=== PATIENT | male | born 1945 | race Caucasian/White ===

== ENCOUNTER 2016-12-15 00:24 | Emergency (ER) | payer MEDICARE ==
[2016-12-15] MEDS ORDERED: SODIUM CHLORIDE 0.9% 1,000 ML IV STA (00:30)
[2016-12-15] MEDS ORDERED: SODIUM CHLORIDE 0.9% 500 ML IV STA (00:30)
[2016-12-15 00:36] VITALS: RESP 18; TEMP 97.6
--- NOTE | 2016-12-15 00:37 | ED ---
General Adult HPI - General Stated complaint: chest pain Time Seen by Provider: 12/15/16 00:26 Source: patient, RN notes reviewed, old records reviewed Mode of arrival: EMS Limitations: no limitations - History of Present Illness Initial comments: This is a 71-year-old male in the ER for evaluation. Patient has significant history of heart disease significant history of chest pain and coming her chest pain shortness of breath and cough and congestion, symptoms earlier today-year- old for him and if it persisted. Patient again still with continued chest pain. No fevers does have increased cough and congestion. Patient does admit to difficulty breathing, does have history of heart failure states that this feels similar. No fever [place] history no sick contacts. Patient takes Coumadin for A. fib does have a pacemaker. - Related Data Home Medications Medication Instructions Recorded Confirmed ALPRAZolam [Xanax] 0.5 mg PO TID PRN 02/26/14 08/24/14 Aspirin 81 mg PO DAILY 02/26/14 08/24/14 Bumetanide [BUMEX] 2 mg PO DAILY PRN 02/26/14 08/24/14 Carvedilol [Coreg] 25 mg PO BID 02/26/14 08/24/14 Citalopram Hydrobromide [CeleXA] 20 mg PO DAILY 02/26/14 08/24/14 Colchicine [Colcrys] 0.6 mg PO DAILY 02/26/14 08/24/14 Febuxostat [Uloric] 80 mg PO HS 02/26/14 08/24/14 Hydrocodone/Acetaminophen [[place] 7.5 mg PO QID PRN 02/26/14 08/24/14 7.5-325] Insulin Aspart [NovoLOG] 9 unit SQ AC-TID 02/26/14 08/24/14 Insulin Detemir [Levemir] 33 unit SQ HS 02/26/14 08/24/14 Zyrtec(Dose Unknown) 1 tab PO DAILY PRN 02/26/14 08/24/14 Lorsartan 50 mg PO BID 08/13/14 08/24/14 Pantoprazole Sodium [Protonix] 40 mg PO DAILY 08/13/14 08/24/14 Warfarin Sodium 6 mg PO DAILY 08/13/14 08/24/14 Allergies Allergy/AdvReac Type Severity Reaction Status Date / Time lorazepam [From Ativan] Allergy combative Verified 12/15/16 00:30 and elevated BP prochlorperazine edisylate Allergy combative Verified 12/15/16 00:30 [From Compazine] prochlorperazine maleate Allergy combative Verified 12/15/16 00:30 [From Compazine] Review of Systems ROS Statement: Those systems with pertinent positive or pertinent negative responses have been documented in the HPI. ROS Other: All systems not noted in ROS Statement are negative. Past Medical History Past Medical History: Atrial Fibrillation, Cancer, Heart Failure, Diabetes Mellitus, GI Bleed, Hypertension, Myocardial Infarction ([place]), Prostate Disorder , Sleep Apnea/CPAP/BIPAP, Vascular Disorder Additional Past Medical History / Comment(s): no cpap used, diverticulitis, tophaceous gout, hx skin and prostate cancer Last Myocardial Infarction Date:: 11/2002 History of Any Multi-Drug Resistant Organisms: None Reported Past Surgical History: AICD, Coronary Bypass/CABG, Heart Catheterization With Stent, Joint Replacement, Tonsillectomy Additional Past Surgical History / Comment(s): knee replacements (left x 2, rt x 1), surgery for sleep apnea, skin cancer removal, left foot hammertoe, vasectomy, angioplasty,cataract both eyes Past Anesthesia/Blood Transfusion Reactions: Previous Problems w/ Anesthesia Additional Past Anesthesia/Blood Transfusion Reaction / Comment(s): "longer to come out" Date of Last Stent Placement:: 11/2002 Type of Cardiac Device: AICD Device Placement Date:: last 01/21/14 Past Psychological History: Anxiety Smoking Status: Former smoker Past Alcohol Use History: Rare Past Drug Use History: None Reported - Past Family History Father Family Medical History: Cancer, Diabetes Mellitus Additional Family Medical History / Comment(s): OF HEART DX Mother Family Medical History: Cancer General Exam Limitations: no limitations General appearance: alert, in no apparent distress Head exam: Present: atraumatic, normocephalic, normal inspection Eye exam: Present: normal appearance, PERRL, EOMI. Absent: scleral icterus, conjunctival injection, periorbital swelling ENT exam: Present: normal exam, mucous membranes moist Neck exam: Present: normal inspection. Absent: tenderness, meningismus, lymphadenopathy Respiratory exam: Present: normal lung sounds bilaterally. Absent: respiratory distress, wheezes, rales, rhonchi, stridor Cardiovascular Exam: Present: regular rate, normal rhythm, normal heart sounds. Absent: systolic murmur, diastolic murmur, rubs, gallop, clicks GI/Abdominal exam: Present: soft, normal bowel sounds. Absent: distended, tenderness, guarding, rebound, rigid Extremities exam: Present: normal inspection, full ROM, normal capillary refill. Absent: tenderness, pedal edema, joint swelling, calf tenderness Back exam: Present: normal inspection Neurological exam: Present: alert, oriented X3, CN II-XII intact Psychiatric exam: Present: normal affect, normal mood Skin exam: Present: warm, dry, intact, normal color. Absent: rash Course Vital Signs 12/15/16 12/15/16 12/15/16 00:30 01:02 01:47 Temperature 97.6 F Pulse Rate 70 68 70 Respiratory 18 18 18 Rate Blood Pressure 155/76 144/66 159/84 O2 Sat by Pulse 94 L 97 98 Oximetry 12/15/16 02:33 Temperature Pulse Rate 70 Respiratory 18 Rate Blood Pressure 157/74 O2 Sat by Pulse 97 Oximetry - Reevaluation(s) Reevaluation #1: Patient has continued chest pain, patient is currently anticoagulated, no heparin Patient does have improvement of chest pain with morphine Reevaluation #2: 12/15/16 03:49 Patient is needed to be smoke with with both admitting nursing staff as well as for managers, patient telling staff that again she is being mistreated mismanaged and had multiple consults regarding only making observation status, patient refuses to stay for observation status secondary to Medicare not pain for observation EKG Findings - EKG Comments: EKG Findings:: EKG shows paced rhythm at 70, QRS to 16, QTC 565 Medical Decision Making - Medical Decision Making 71 male to the ER for reevaluation chest pain. Patient has significant chest pain with cardiac risk factors. Patient will be admitted for cardiac observation, patient has CHF, mild renal failure. Continue with chest pain at this time Patient refuses to Hospital secondary to observation status spoke the patient, it is reasonable, white is reasonable, understanding risks of not staying secondary to observation, given continues to refuse to stay - Lab Data Result diagrams: 12/15/16 00:25 12/15/16 00:25 Lab Results 12/15/16 12/15/16 12/15/16 Range/Units 00:25 00:25 00:25 WBC 6.8 (3.8-10.6) k/uL RBC 4.40 (4.30-5.90) m/uL Hgb 13.2 (13.0-17.5) gm/dL Hct 41.0 (39.0-53.0) % MCV 93.2 (80.0-100.0) fL MCH 30.1 (25.0-35.0) pg MCHC 32.3 (31.0-37.0) g/dL RDW 14.0 (11.5-15.5) % Plt Count 137 L (150-450) k/uL Neutrophils % 78 % Lymphocytes % 13 % Monocytes % 6 % Eosinophils % 1 % Basophils % 1 % Neutrophils # 5.3 (1.3-7.7) k/uL Lymphocytes # 0.9 L (1.0-4.8) k/uL Monocytes # 0.4 (0-1.0) k/uL Eosinophils # 0.1 (0-0.7) k/uL Basophils # 0.1 (0-0.2) k/uL PT (9.0-12.0) sec INR (<1.2) APTT (22.0-30.0) sec Sodium 137 (137-145) mmol/L Potassium 5.1 (3.5-5.1) mmol/L Chloride 103 (98-107) mmol/L Carbon Dioxide 20 L (22-30) mmol/L Anion Gap 14 mmol/L BUN 63 H (9-20) mg/dL Creatinine 1.40 H (0.66-1.25) mg/dL Est GFR (MDRD) Af Amer >60 (>60 ml/min/1.73 sqM) Est GFR (MDRD) Non-Af 50 (>60 ml/min/1.73 sqM) Glucose 295 H (74-99) mg/dL Calcium 9.1 (8.4-10.2) mg/dL Phosphorus 4.2 (2.5-4.5) mg/dL Magnesium 2.1 (1.6-2.3) mg/dL Total Bilirubin 1.1 (0.2-1.3) mg/dL AST 26 (17-59) U/L ALT 31 (21-72) U/L Alkaline Phosphatase 207 H (38-126) U/L Total Creatine Kinase 42 L (55-170) U/L CK-MB (CK-2) 1.3 (0.0-2.4) ng/mL CK-MB (CK-2) Rel Index 3.1 Troponin I <0.012 (0.000-0.034) ng/mL Total Protein 7.3 (6.3-8.2) g/dL Albumin 4.4 (3.5-5.0) g/dL 12/15/16 Range/Units 00:25 WBC (3.8-10.6) k/uL RBC (4.30-5.90) m/uL Hgb (13.0-17.5) gm/dL Hct (39.0-53.0) % MCV (80.0-100.0) fL MCH (25.0-35.0) pg MCHC (31.0-37.0) g/dL RDW (11.5-15.5) % Plt Count (150-450) k/uL Neutrophils % % Lymphocytes % % Monocytes % % Eosinophils % % Basophils % % Neutrophils # (1.3-7.7) k/uL Lymphocytes # (1.0-4.8) k/uL Monocytes # (0-1.0) k/uL Eosinophils # (0-0.7) k/uL Basophils # (0-0.2) k/uL PT 23.6 H (9.0-12.0) sec INR 2.5 H (<1.2) APTT 31.1 H (22.0-30.0) sec Sodium (137-145) mmol/L Potassium (3.5-5.1) mmol/L Chloride (98-107) mmol/L Carbon Dioxide (22-30) mmol/L Anion Gap mmol/L BUN (9-20) mg/dL Creatinine (0.66-1.25) mg/dL Est GFR (MDRD) Af Amer (>60 ml/min/1.73 sqM) Est GFR (MDRD) Non-Af (>60 ml/min/1.73 sqM) Glucose (74-99) mg/dL Calcium (8.4-10.2) mg/dL Phosphorus (2.5-4.5) mg/dL Magnesium (1.6-2.3) mg/dL Total Bilirubin (0.2-1.3) mg/dL AST (17-59) U/L ALT (21-72) U/L Alkaline Phosphatase (38-126) U/L Total Creatine Kinase (55-170) U/L CK-MB (CK-2) (0.0-2.4) ng/mL CK-MB (CK-2) Rel Index Troponin I (0.000-0.034) ng/mL Total Protein (6.3-8.2) g/dL Albumin (3.5-5.0) g/dL Critical Care Time Critical Care Time: Yes Total Critical Care Time: 31 Disposition Clinical Impression: Chest pain Disposition: ADMITTED IP TO THIS HOSP Condition: Undetermined Instructions: Heart Failure (ED), Chest Pain (ED) Referrals: Al Harper MD [Primary Care Provider] - 1-2 days
[2016-12-15] MEDS ORDERED: MORPHINE SULFATE 4 MG/ML SYRINGE IVP STA ×2 (00:42→00:49)
[2016-12-15 00:55] LABS: Basophils # (A) 0.1 k/uL (0-0.2); Basophils % (A) 1 %; CH 29.6; CHCM 31.9; Eosinophils # (A) 0.1 k/uL (0-0.7); Eosinophils % (A) 1 %; HDW 2.39; HGB 13.2 gm/dL (13.0-17.5); Luc # (Auto) 0.14; Luc % (Auto) 2; Lymphocytes # (A) 0.9 k/uL (1.0-4.8); Lymphocytes % (A) 13 %; MCH 30.1 pg (25.0-35.0); MCHC 32.3 g/dL (31.0-37.0); MCV 93.2 fL (80.0-100.0); Monocytes # (A) 0.4 k/uL (0-1.0); Monocytes % (A) 6 %; Neutrophils # (A) 5.3 k/uL (1.3-7.7); Neutrophils % (A) 78 %; WBC 6.8 k/uL (3.8-10.6); WBC (Perox) 6.92
[2016-12-15 00:59] LABS: ALT 31 U/L (21-72); AST 26 U/L (17-59); Alkaline Phosphatase 207 U/L (38-126); Anion Gap 14 mmol/L; Blood Urea Nitrogen 63 mg/dL (9-20); Calcium 9.1 mg/dL (8.4-10.2); Carbon Dioxide 20 mmol/L (22-30); Chloride 103 mmol/L (98-107); Glucose 295 mg/dL (74-99); Magnesium 2.1 mg/dL (1.6-2.3); Non-African American GFR(MDRD) 50 (>60 ml/min/1.73 sqM); Phosphorous 4.2 mg/dL (2.5-4.5); Potassium 5.1 mmol/L (3.5-5.1); Sodium 137 mmol/L (137-145); Total Bilirubin 1.1 mg/dL (0.2-1.3); Total Protein 7.3 g/dL (6.3-8.2)
[2016-12-15 01:09] LABS: Creatine Kinase 42 U/L (55-170)
[2016-12-15 01:12] LABS: INR 2.5 (<1.2); Partial Thromboplastin Time 31.1 sec (22.0-30.0); Prothrombin Time 23.6 sec (9.0-12.0)
[2016-12-15 01:22] LABS: Creatine Kinase MB 1.3 ng/mL (0.0-2.4); Troponin I <0.012 ng/mL (0.000-0.034)
[2016-12-15 01:48] VITALS: PULSE 70
[2016-12-15] MEDS ORDERED: HYDROmorphone 1 MG/ML 1 ML SYRINGE IVP STA (02:01)
--- NOTE | 2016-12-15 02:25 | XR ---
EXAM: XR Chest, 2 Views CLINICAL HISTORY: Reason: Weakness TECHNIQUE: Frontal and lateral views of the chest. COMPARISON: No relevant prior studies available. FINDINGS: Lungs: Bilateral perihilar infiltrates with peribronchial cuffing and hazy prominence of the pulmonary vasculature is seen. Constellation of findings are suggestive of CHF/ pulmonary vascular congestion and edema. Bibasilar atelectasis and infiltrates cannot be definitively excluded. Pleural space: No definitive pleural effusions. No pneumothorax. Heart: The heart is enlarged. Evidence of prior CABG with sternotomy wires noted. Mediastinum: Unremarkable. Bones/joints: Degenerative changes seen throughout the osseous structures. Tubes, lines and devices: Left-sided chest wall pacemaker with lead tips overlying the right atrium, right ventricle, and left ventricle. IMPRESSION: Cardiomegaly with evidence of CHF, as above. Bibasilar atelectasis and/or infiltrates cannot be definitively excluded, although likely represent pulmonary edema.
[2016-12-15] MEDS ORDERED: FUROSEMIDE 10 MG/ML 4 ML VIAL IV SCH (02:30)
[2016-12-15 02:33] VITALS: BP 157/74
== END 2016-12-15 03:41 | disposition other institution (70) ==
LOC: EC 00:24 → UNDOADMOB 02:29 → 3OBS 02:29 → EC 03:41
DX: R07.9 Chest pain, unspecified (principal); R06.02 Shortness of breath; R05 Cough; R09.81 Nasal congestion; I48.91 Unspecified atrial fibrillation; I11.0 Hypertensive heart disease with heart failure; I50.9 Heart failure, unspecified; E11.9 Type 2 diabetes mellitus without complications; I25.2 Old myocardial infarction; F41.9 Anxiety disorder, unspecified; Z85.46 Personal history of malignant neoplasm of prostate; Z85.828 Personal history of other malignant neoplasm of skin; Z87.891 Personal history of nicotine dependence; Z79.01 Long term (current) use of anticoagulants; Z79.82 Long term (current) use of aspirin; Z79.4 Long term (current) use of insulin; Z79.899 Other long term (current) drug therapy; Z88.8 Allergy status to other drugs, medicaments and biological substances; Z95.0 Presence of cardiac pacemaker; Z95.1 Presence of aortocoronary bypass graft; Z95.5 Presence of coronary angioplasty implant and graft
CPT/HCPCS: 99285; 96374; 96375; 36415; 93005; 80053; 82550; 82553; 83735; 84100; 84484; 85025; 85610; 85730; 71020; J2270; J1170

== ENCOUNTER → 2016-12-16 | Outpatient (CLI) | payer MEDICARE ==
--- NOTE | 2016-12-16 08:38 | US ---
EXAMINATION TYPE: US abdomen complete DATE OF EXAM: 12/16/2016 COMPARISON: NONE CLINICAL HISTORY: RUQ Pain R10.11. larger habitus, epigastric pain that radiates posteriorly EXAM MEASUREMENTS: Liver Length: 19.5 cm Gallbladder Wall: 0.3 cm CBD: 0.6 cm Spleen: 12.4 cm Right Kidney: 12.8 x 5.6 x 5.9 cm Left Kidney: 13.5 x 6.0 x 5.9 cm Some exam limitations due to larger habitus and overlying bowel gas. Pancreas: Obscured by bowel gas Liver: enlarged, attenuating, heterogeneous Gallbladder: wnl as seen Evidence for sonographic Whitney's sign: no CBD: wnl Spleen: wnl Right Kidney: cortical thinning and heterogeneous sinus Left Kidney: cortical thinning and heterogeneous sinus Upper IVC: wnl Abd Aorta: wnl as seen, prox gassed out The visualized liver is heterogeneous. Evaluation for focal masses is slightly suboptimal due to het erogeneity. The intrahepatic portion of the IVC and visualized mid to distal abdominal aorta are with in normal limits. There is no evidence of cholelithiasis. Common bile duct is unremarkable. The pa ncreas is suboptimally evaluated on images saved due to overlying bowel gas. The spleen is unremarka ble. Kidneys are symmetric and free of hydronephrosis. Some cortical thinning is felt present bilate rally. No renal lesions are seen on images saved. IMPRESSION: No significant acute finding is seen to account for patient's symptoms.
== END | disposition home or self-care (01) ==
LOC: RADUSWWP 07:45
PROVIDERS: ATTEND Family Medicine
DX: R10.11 Right upper quadrant pain (principal)
CPT/HCPCS: 76700

== ENCOUNTER 2016-12-17 12:10 | Inpatient (IN) | payer MEDICARE ==
[2016-12-17] MEDS ORDERED: ONDANSETRON 4 MG/2 ML VIAL IVP STA (13:25)
[2016-12-17] MEDS ORDERED: KETOROLAC 60 MG/2 ML VIAL IVP STA (13:25)
[2016-12-17] MEDS ORDERED: HYDROmorphone 1 MG/ML 1 ML SYRINGE IVP STA ×2 (13:25→16:45)
[2016-12-17 14:00] LABS: ALT 33 U/L (21-72); AST 29 U/L (17-59); Alkaline Phosphatase 203 U/L (38-126); Amylase <30 U/L (30-110); Anion Gap 18 mmol/L; Blood Urea Nitrogen 59 mg/dL (9-20); Calcium 9.2 mg/dL (8.4-10.2); Carbon Dioxide 21 mmol/L (22-30); Chloride 101 mmol/L (98-107); Glucose 249 mg/dL (74-99); Non-African American GFR(MDRD) >60 (>60 ml/min/1.73 sqM); Potassium 4.7 mmol/L (3.5-5.1); Sodium 140 mmol/L (137-145); Total Protein 7.5 g/dL (6.3-8.2)
[2016-12-17 14:11] LABS: Basophils % (A) 0 %; CH 29.5; CHCM 31.2; Eosinophils % (A) 1 %; HCT 44.1 % (39.0-53.0); HDW 2.32; Hypochromasia Slight; Luc # (Auto) 0.09; Luc % (Auto) 1; Lymphocytes # (A) 0.7 k/uL (1.0-4.8); Lymphocytes % (A) 9 %; MCH 30.3 pg (25.0-35.0); MCHC 31.8 g/dL (31.0-37.0); MCV 95.2 fL (80.0-100.0); Mean Platelet Volume 7.9; Monocytes # (A) 0.5 k/uL (0-1.0); Monocytes % (A) 6 %; Neutrophils % (A) 84 %; RBC 4.63 m/uL (4.30-5.90); RDW 13.9 % (11.5-15.5); WBC 8.4 k/uL (3.8-10.6); WBC (Perox) 8.98
--- NOTE | 2016-12-17 14:26 | ED ---
General Adult HPI - General Chief complaint: Abdominal Pain Stated complaint: Pain Time Seen by Provider: 12/17/16 12:10 Source: patient, RN notes reviewed Mode of arrival: wheelchair Limitations: no limitations - History of Present Illness Initial comments: This is a 71-year-old male presents emergency Department complaining of right sided upper abdominal pain. He states radiates to his back. He's been seen in the emergency department 2 days ago and by his primary medical care doctor yesterday. Patient refused to stay in the hospital 2 days ago because he did not want to be admitted as a 23 hour admission. Patient returned today because the pain continues and he has been nauseated and vomited times one. Patient had an ultrasound yesterday that he states was normal. Patient denies any fever or chills. Patient denies any anterior chest pain. Patient states taking a deep breath seems to make the pain worse and he is mildly short of breath.. Patient denies any diarrhea. Patient denies being lightheaded dizzy or having any near syncopal episode. - Related Data Home Medications Medication Instructions Recorded Confirmed ALPRAZolam [Xanax] 0.5 mg PO TID PRN 02/26/14 12/17/16 Aspirin 81 mg PO DAILY 02/26/14 12/17/16 Bumetanide [BUMEX] 2 mg PO DAILY 02/26/14 12/17/16 Carvedilol [Coreg] 25 mg PO DAILY 02/26/14 12/17/16 Colchicine [Colcrys] 0.6 mg PO DAILY 02/26/14 12/17/16 Febuxostat [Uloric] 80 mg PO HS 02/26/14 12/17/16 Hydrocodone/Acetaminophen [[place] 1 tab PO QID PRN 02/26/14 12/17/16 7.5-325] Insulin Aspart [NovoLOG] 9 unit SQ AC-TID 02/26/14 12/17/16 Insulin Detemir [Levemir] 33 unit SQ HS 02/26/14 12/17/16 Pantoprazole Sodium [Protonix] 40 mg PO DAILY 08/13/14 12/17/16 Losartan Potassium 50 mg PO BID 12/17/16 12/17/16 Sacubitril/Valsartan [Entresto 24 1 tab PO BID 12/17/16 12/17/16 mg-26 mg Tablet] Warfarin Sodium [Warfarin Sodium] 6 mg PO HS 12/17/16 12/17/16 Allergies Allergy/AdvReac Type Severity Reaction Status Date / Time lorazepam [From Ativan] Allergy combative Verified 12/17/16 12:30 and elevated BP prochlorperazine edisylate Allergy combative Verified 12/17/16 12:30 [From Compazine] prochlorperazine maleate Allergy combative Verified 12/17/16 12:30 [From Compazine] Review of Systems ROS Statement: Those systems with pertinent positive or pertinent negative responses have been documented in the HPI. ROS Other: All systems not noted in ROS Statement are negative. Past Medical History Past Medical History: Atrial Fibrillation, Cancer, Heart Failure, Diabetes Mellitus, GI Bleed, Myocardial Infarction ([place]), Vascular Disorder Additional Past Medical History / Comment(s): diverticulitis, tophaceous gout, hx skin cancer Last Myocardial Infarction Date:: 11/2002 History of Any Multi-Drug Resistant Organisms: None Reported Past Surgical History: AICD, Coronary Bypass/CABG, Heart Catheterization With Stent, Joint Replacement, Tonsillectomy Additional Past Surgical History / Comment(s): knee replacements (left x 2, rt x 1), surgery for sleep apnea, skin cancer removal, left foot hammertoe, vasectomy, angioplasty,cataract both eyes Past Anesthesia/Blood Transfusion Reactions: Previous Problems w/ Anesthesia Additional Past Anesthesia/Blood Transfusion Reaction / Comment(s): "longer to come out" Date of Last Stent Placement:: 11/2002 Type of Cardiac Device: AICD Device Placement Date:: last 01/21/14 Past Psychological History: Anxiety Smoking Status: Former smoker Past Alcohol Use History: Rare Past Drug Use History: None Reported - Past Family History Father Family Medical History: Cancer, Diabetes Mellitus Additional Family Medical History / Comment(s): OF HEART DX Mother Family Medical History: Cancer General Exam - General Exam Comments Initial Comments: GENERAL: Patient is well-developed and well-nourished. Patient is nontoxic and well- hydrated and is in mild distress. ENT: Neck is soft and supple. No significant lymphadenopathy is noted. Oropharynx is clear. Moist mucous membranes. Neck has full range of motion without eliciting any pain. EYES: The sclera were anicteric and conjunctiva were pink and moist. Extraocular movements were intact and pupils were equal round and reactive to light. Eyelids were unremarkable. PULMONARY: Unlabored respirations. Good breath sounds bilaterally. No audible rales rhonchi or wheezing was noted. CARDIOVASCULAR: There is a regular rate and rhythm without any murmurs gallops or rubs. ABDOMEN: Soft and nontender with normal bowel sounds. SKIN: Skin is clear with no lesions or rashes and otherwise unremarkable. NEUROLOGIC: Patient is alert and oriented x3. Cranial nerves II through XII are grossly intact. Motor and sensory are also intact. Normal speech, volume and content. Symmetrical smile. MUSCULOSKELETAL: Normal extremities with adequate strength and full range of motion. LYMPHATICS: No significant lymphadenopathy is noted PSYCHIATRIC: Normal psychiatric evaluation. Limitations: no limitations Course Vital Signs 12/17/16 12/17/16 12/17/16 12:19 13:43 15:15 Temperature 97.1 F L Pulse Rate 70 70 66 Respiratory 18 18 18 Rate Blood Pressure 175/75 168/77 142/65 O2 Sat by Pulse 100 97 95 Oximetry Medical Decision Making - Medical Decision Making CT of the abdomen and pelvis shows possible early cholecystitis. Chest x-ray shows mild pulmonary edema. I spoke with Dr. Harper he wanted the patient admitted once patient got a HIDA scan he wanted the patient to be consult to by Dr. Rodriguez. I admitted the patient remaining orders. - Lab Data Result diagrams: 12/17/16 12:49 12/17/16 12:49 Lab Results 12/17/16 12/17/16 12/17/16 Range/Units 12:49 12:49 12:49 WBC 8.4 (3.8-10.6) k/uL RBC 4.63 (4.30-5.90) m/uL Hgb 14.0 (13.0-17.5) gm/dL Hct 44.1 (39.0-53.0) % MCV 95.2 (80.0-100.0) fL MCH 30.3 (25.0-35.0) pg MCHC 31.8 (31.0-37.0) g/dL RDW 13.9 (11.5-15.5) % Plt Count 149 L (150-450) k/uL Neutrophils % 84 % Lymphocytes % 9 % Monocytes % 6 % Eosinophils % 1 % Basophils % 0 % Neutrophils # 7.0 (1.3-7.7) k/uL Lymphocytes # 0.7 L (1.0-4.8) k/uL Monocytes # 0.5 (0-1.0) k/uL Eosinophils # 0.0 (0-0.7) k/uL Basophils # 0.0 (0-0.2) k/uL Hypochromasia Slight D-Dimer 0.50 (<0.60) mg/L FEU Sodium 140 (137-145) mmol/L Potassium 4.7 (3.5-5.1) mmol/L Chloride 101 (98-107) mmol/L Carbon Dioxide 21 L (22-30) mmol/L Anion Gap 18 mmol/L BUN 59 H (9-20) mg/dL Creatinine 1.17 (0.66-1.25) mg/dL Est GFR (MDRD) Af Amer >60 (>60 ml/min/1.73 sqM) Est GFR (MDRD) Non-Af >60 (>60 ml/min/1.73 sqM) Glucose 249 H (74-99) mg/dL Calcium 9.2 (8.4-10.2) mg/dL Total Bilirubin 2.0 H (0.2-1.3) mg/dL AST 29 (17-59) U/L ALT 33 (21-72) U/L Alkaline Phosphatase 203 H (38-126) U/L NT-Pro-B Natriuret Pep pg/mL Total Protein 7.5 (6.3-8.2) g/dL Albumin 4.4 (3.5-5.0) g/dL Amylase <30 L (30-110) U/L Lipase 72 (23-300) U/L 12/17/16 Range/Units 12:49 WBC (3.8-10.6) k/uL RBC (4.30-5.90) m/uL Hgb (13.0-17.5) gm/dL Hct (39.0-53.0) % MCV (80.0-100.0) fL MCH (25.0-35.0) pg MCHC (31.0-37.0) g/dL RDW (11.5-15.5) % Plt Count (150-450) k/uL Neutrophils % % Lymphocytes % % Monocytes % % Eosinophils % % Basophils % % Neutrophils # (1.3-7.7) k/uL Lymphocytes # (1.0-4.8) k/uL Monocytes # (0-1.0) k/uL Eosinophils # (0-0.7) k/uL Basophils # (0-0.2) k/uL Hypochromasia D-Dimer (<0.60) mg/L FEU Sodium (137-145) mmol/L Potassium (3.5-5.1) mmol/L Chloride (98-107) mmol/L Carbon Dioxide (22-30) mmol/L Anion Gap mmol/L BUN (9-20) mg/dL Creatinine (0.66-1.25) mg/dL Est GFR (MDRD) Af Amer (>60 ml/min/1.73 sqM) Est GFR (MDRD) Non-Af (>60 ml/min/1.73 sqM) Glucose (74-99) mg/dL Calcium (8.4-10.2) mg/dL Total Bilirubin (0.2-1.3) mg/dL AST (17-59) U/L ALT (21-72) U/L Alkaline Phosphatase (38-126) U/L NT-Pro-B Natriuret Pep 4010 pg/mL Total Protein (6.3-8.2) g/dL Albumin (3.5-5.0) g/dL Amylase (30-110) U/L Lipase (23-300) U/L Disposition Clinical Impression: Right upper quadrant abdominal pain, Pulmonary edema Disposition: ADMITTED IP TO THIS HOSP Referrals: Al Harper MD [Primary Care Provider] - 1-2 days Time of Disposition: 17:14
[2016-12-17] MEDS ORDERED: RX INFO: IV CONTRAST WAS GIVEN 1 EACH MISC MISCELLANE PRN (15:09)
--- NOTE | 2016-12-17 16:12 | CT ---
EXAMINATION TYPE: CT abdomen pelvis w con DATE OF EXAM: 12/17/2016 COMPARISON: Ultrasound 12/16/2016 HISTORY: 71-year-old male with right lower quadrant and right flank pain x 5 days. With nausea, vomit ing and diarrhea. TECHNIQUE: Contiguous axial scanning of the abdomen and pelvis following administration of 100 ml Omn ipaque 300 IV contrast. Delayed images through the kidneys and coronal/sagittal reconstructions perf ormed. CT DLP: 3255.40 mGycm Automated exposure control for dose reduction was used. FINDINGS: Median sternotomy wires are present. Mild bilateral gynecomastia. There is cardiomegaly and some atel ectasis in the lower lungs. No pleural effusion. The liver appears enlarged and somewhat hypoechoic. It measures 20.6 cm craniocaudal. No focal lesion is identified. Gallbladder is mildly hydropic measuring 4.4 cm wide. No significant surrounding inflammatory change. No biliary ductal dilatation. Adrenal glands, mildly atrophic kidneys, spleen, and atrophic pancreas show no gross abnormality. There is mild fat stranding throughout the subcutaneous and intra-abdominal fat that could represent some edema from fluid overload. No dilated small bowel or free air Normal appendix. There is mild overall stool burden with mild descending colonic diverticulosis. No p ericolonic inflammatory change seen. Minimal tracking fluid in the upper pelvis and trace free fluid dependent in the lower pelvis. No mesenteric or retroperitoneal lymphadenopathy. Mild to moderate atherosclerotic changes in the ab dominal aorta without aneurysm. A mild circumferential bladder wall thickening. Multiple pelvic phleboliths. Prostate gland is mild ly enlarged at 4.7 cm wide. There is a moderate-sized fat-containing right inguinal hernia. There is some fluid density nodularit y here probably representing some trapped fluid measuring up to 2.5 cm. Bones: Degenerative changes at the hips and within the lumbar spine. No osseous destructive process. IMPRESSION: 1. HYDROPIC GALLBLADDER. THIS MAY RELATE TO FASTING STATE. IF CONCERN FOR EARLY ACUTE CHOLECYSTITIS, ULTRASOUND OR HIDA SCAN CAN BE CONSIDERED. 2. HEPATOMEGALY AND LOW DENSITY OF THE LIVER. THIS COULD REFLECT HEPATIC STEATOSIS OR HEPATITIS. LEE ELATE WITH LFTs, LIPID PROFILE, AND PATIENT RISK FACTORS. 3. MODERATE SIZED FAT-CONTAINING RIGHT INGUINAL HERNIA WITH SOME TRAPPED FLUID WITHIN. 4. SOME MILD EDEMA THROUGHOUT THE SUBCUTANEOUS AND INTRA-ABDOMINAL FAT AND MINIMAL PELVIC ASCITES. CO RRELATE FOR SOME DEGREE OF FLUID OVERLOAD STATUS. 5. MILD CIRCUMFERENTIAL BLADDER WALL THICKENING COULD REPRESENT CHRONIC BLADDER WALL HYPERTROPHY OR C YSTITIS.
--- NOTE | 2016-12-17 16:37 | XR ---
EXAMINATION TYPE: XR chest 2V DATE OF EXAM: 12/17/2016 COMPARISON: 12/15/2016 HISTORY: 71-year-old male right upper quadrant pain, shortness of breath, difficulty breathing TECHNIQUE: AP and lateral views FINDINGS: Left anterior chest wall AICD generator with right atrial, coronary sinus, and right ventricular lead s. Heart is mildly enlarged. Diffuse interstitial and vascular prominence. No marla consolidation or significant pleural effusion seen. IMPRESSION: Mild cardiomegaly and interstitial/vascular prominence. Correlate for possible mild CHF.
[2016-12-17] MEDS ORDERED: FUROSEMIDE 10 MG/ML 4 ML VIAL IV ONE (17:15)
[2016-12-17 19:03] LABS: Creatine Kinase MB 1.1 ng/mL (0.0-2.4); Troponin I 0.02 ng/mL (0.000-0.034)
[2016-12-17] MEDS: NITROGLYCERIN OINT 1 INCH/GM PACKET TOPICAL SCH ×2 (19:40→21:41)
[2016-12-17 20:59] LABS: Glucose,Whole Blood 265 mg/dL (75-99)
[2016-12-17] MEDS ORDERED: FUROSEMIDE 10 MG/ML 4 ML VIAL IV SCH (21:00)
[2016-12-17] MEDS ORDERED: WARFARIN 3 MG TAB PO SCH (21:00)
[2016-12-17] MEDS: HYDROmorphone 1 MG/ML 1 ML SYRINGE IVP PRN (21:03)
[2016-12-17] MEDS: ALLOPURINOL 100 MG TAB PO SCH (21:39)
[2016-12-17] MEDS: INSULIN DETEMIR 100 UNIT/ML 10 ML VIAL SQ SCH (21:40)
[2016-12-18 00:21] LABS: Creatine Kinase MB 0.8 ng/mL (0.0-2.4); Troponin I <0.012 ng/mL (0.000-0.034)
[2016-12-18 07:01] LABS: Glucose,Whole Blood 223 mg/dL (75-99)
[2016-12-18 07:20] LABS: Creatine Kinase MB 0.9 ng/mL (0.0-2.4); Troponin I 0.021 ng/mL (0.000-0.034)
--- NOTE | 2016-12-18 08:28 | P.HPIM ---
History of Present Illness H&P Date: 12/18/16 Chief Complaint: Right upper quadrant pain. This is a history and physical on a 71-year-old white male essentially admitted for continued right upper quadrant pain. The patient also has been having some mild shortness of breath. No significant nausea or vomiting but appetite is decreased. The patient came to the emergency room and was shown to have some pulmonary edema and possible early cholecystitis. Ultrasound did not show significant gallbladder issue. However, given his symptomatology, HIDA scan is been ordered and surgical consult is also pending Review of Systems Constitutional: Denies chills, Denies fever Eyes: denies blurred vision, denies pain Ears, nose, mouth and throat: Denies headache, Denies sore throat Cardiovascular: Denies chest pain, Denies shortness of breath Respiratory: Denies cough Gastrointestinal: Reports abdominal pain, Reports nausea, Reports vomiting, Denies diarrhea Past Medical History Past Medical History: Atrial Fibrillation, Cancer, Heart Failure, Diabetes Mellitus, GI Bleed, Hypertension, Myocardial Infarction ([place]), Sleep Apnea/CPAP/ BIPAP, Vascular Disorder Additional Past Medical History / Comment(s): diverticulitis, gout, hx skin cancer, " 1 TEST POSITIVE FOR PROSTATE CANCER BUT 2ND TEST NEG" Last Myocardial Infarction Date:: 11/2002 History of Any Multi-Drug Resistant Organisms: None Reported Past Surgical History: AICD, Coronary Bypass/CABG, Heart Catheterization With Stent, Joint Replacement, Tonsillectomy Additional Past Surgical History / Comment(s): knee replacements (left x 2, rt x 1), surgery for sleep apnea, skin cancer removal, left foot hammertoe, vasectomy, angioplasty,cataract both eyes Past Anesthesia/Blood Transfusion Reactions: Previous Problems w/ Anesthesia Additional Past Anesthesia/Blood Transfusion Reaction / Comment(s): "longer to come out" Date of Last Stent Placement:: 11/2002 Type of Cardiac Device: AICD Device Placement Date:: last 01/21/14 Smoking Status: Former smoker - Past Family History Father Family Medical History: Cancer, Diabetes Mellitus Additional Family Medical History / Comment(s): OF HEART DX Mother Family Medical History: Cancer Medications and Allergies Home Medications Medication Instructions Recorded Confirmed Type ALPRAZolam [Xanax] 0.5 mg PO TID PRN 02/26/14 12/17/16 History Aspirin 81 mg PO DAILY 02/26/14 12/17/16 History Bumetanide [BUMEX] 2 mg PO DAILY 02/26/14 12/17/16 History Carvedilol [Coreg] 25 mg PO DAILY 02/26/14 12/17/16 History Colchicine [Colcrys] 0.6 mg PO DAILY 02/26/14 12/17/16 History Febuxostat [Uloric] 80 mg PO HS 02/26/14 12/17/16 History Hydrocodone/Acetaminophen [[place] 1 tab PO QID PRN 02/26/14 12/17/16 History 7.5-325] Insulin Aspart [NovoLOG] 9 unit SQ AC-TID 02/26/14 12/17/16 History Insulin Detemir [Levemir] 33 unit SQ HS 02/26/14 12/17/16 History Pantoprazole Sodium [Protonix] 40 mg PO DAILY 08/13/14 12/17/16 History Losartan Potassium 50 mg PO BID 12/17/16 12/17/16 History Sacubitril/Valsartan [Entresto 24 1 tab PO BID 12/17/16 12/17/16 History mg-26 mg Tablet] Warfarin Sodium [Warfarin Sodium] 6 mg PO HS 12/17/16 12/17/16 History Allergies Allergy/AdvReac Type Severity Reaction Status Date / Time lorazepam [From Ativan] Allergy combative Verified 12/17/16 12:30 and elevated BP prochlorperazine edisylate Allergy combative Verified 12/17/16 12:30 [From Compazine] prochlorperazine maleate Allergy combative Verified 12/17/16 12:30 [From Compazine] Physical Exam Vitals: Vital Signs Temp Pulse Pulse Resp BP BP Pulse Ox 12/18/16 07:00 97.9 F 77 20 148/74 97 12/17/16 23:00 97.7 F 71 16 120/67 95 12/17/16 17:40 80 18 128/66 98 12/17/16 17:11 98.1 F 70 18 129/59 97 12/17/16 15:15 66 18 142/65 95 12/17/16 13:43 70 18 168/77 97 12/17/16 12:19 97.1 F L 70 18 175/75 100 Intake and Output 09/12/18/16 12/18/16 22:59 06:59 14:59 Intake Total 600 100 Balance 600 100 Intake: Oral 600 100 Other: Voiding Method Toilet # Voids 1 Weight 153 kg 156 kg - Constitutional General appearance: no acute distress - EENT Eyes: EOMI - Neck Neck: no lymphadenopathy - Respiratory Respiratory: bilateral: CTA - Cardiovascular Rhythm: irregularly irregular Heart sounds: normal: S1, S2 - Gastrointestinal General gastrointestinal: soft, tenderness Localized gastrointestinal: tender: RUQ - Neurologic Neurologic: CNII-XII intact - Psychiatric Psychiatric: A&O x's 3, appropriate affect Results CBC & Chem 7: 12/17/16 12:49 12/17/16 12:49 Labs: Abnormal Lab Results - Last 24 Hours (Table) 12/17/16 12/17/16 12/17/16 Range/Units 12:49 12:49 20:58 Plt Count 149 L (150-450) k/uL Lymphocytes # 0.7 L (1.0-4.8) k/uL Carbon Dioxide 21 L (22-30) mmol/L BUN 59 H (9-20) mg/dL Glucose 249 H (74-99) mg/dL POC Glucose (mg/dL) 265 H (75-99) mg/dL Total Bilirubin 2.0 H (0.2-1.3) mg/dL Alkaline Phosphatase 203 H (38-126) U/L Amylase <30 L (30-110) U/L 12/18/16 Range/Units 06:56 Plt Count (150-450) k/uL Lymphocytes # (1.0-4.8) k/uL Carbon Dioxide (22-30) mmol/L BUN (9-20) mg/dL Glucose (74-99) mg/dL POC Glucose (mg/dL) 223 H (75-99) mg/dL Total Bilirubin (0.2-1.3) mg/dL Alkaline Phosphatase (38-126) U/L Amylase (30-110) U/L Thrombosis Risk Factor Assmnt - Choose All That Apply Any of the Below Risk Factors Present?: Yes Each Factor Represents 1 point: Heart failure (<1month), Obesity (BMI >25), Swollen legs (current) Other Risk Factors: Yes Each Risk Factor Represents 2 Points: Age 61-74 years, Malignancy Other congenital or acquired thrombophilia - If yes, enter type in comment: No Thrombosis Risk Factor Assessment Total Risk Factor Score: 7 Thrombosis Risk Factor Assessment Level: High Risk Assessment and Plan (1) Pulmonary edema Status: Acute (2) Right upper quadrant abdominal pain Status: Acute (3) 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 Diuresis is to be noted. Consult surgery and cardiology given his overall cardiopulmonary status and right upper quadrant pain. We'll continue to follow. Dr. Vernon's group will be covering for the weekend. Time with Patient: Greater than 30
[2016-12-18] MEDS ORDERED: MORPHINE SULFATE 10 MG/ML SYRINGE IV ONE (08:42)
[2016-12-18] MEDS: HYDROmorphone 1 MG/ML 1 ML SYRINGE IVP PRN ×2 (10:07→20:01)
--- NOTE | 2016-12-18 10:26 | NM ---
Nuclear medicine hepatobiliary scan. HISTORY: Pain. DOSAGE: The patient received 5.5 mCi of Technetium 99m Choletec. Patient received 2.5 mcg of morph ine. FINDINGS: There is normal hepatic extraction. The gallbladder is not seen at 30 minutes post morphin e administration. There is homogeneous hepatic extraction. Biliary to bowel transit noted within 10 m inutes. IMPRESSION: 1. Gallbladder is not seen 30 minutes post morphine administration correlate for cholecystitis.
[2016-12-18] MEDS: HYDROcodone/APAP 7.5-325MG 1 EACH TAB PO PRN ×2 (10:35→19:01)
[2016-12-18] MEDS: FUROSEMIDE 10 MG/ML 2 ML VIAL IV SCH ×2 (10:35→21:12)
[2016-12-18] MEDS: NITROGLYCERIN OINT 1 INCH/GM PACKET TOPICAL SCH ×4 (10:35→21:12)
[2016-12-18] MEDS: BUMETANIDE 1 MG TAB PO SCH (10:36)
[2016-12-18] MEDS: CARVEDILOL 12.5 MG TAB PO SCH (10:36)
[2016-12-18] MEDS: SACUBITRIL/VALSARTAN 24 MG-26 MG TABLET PO SCH ×2 (10:36→21:12)
[2016-12-18] MEDS: COLCHICINE 0.6 MG TAB PO SCH (10:36)
[2016-12-18] MEDS: PANTOPRAZOLE 40 MG TABLET PO SCH (10:37)
[2016-12-18] MEDS: INSULIN LISPRO (humaLOG) 300 UNIT/3 ML VIAL SQ SCH ×3 (10:42→17:51)
[2016-12-18 11:27] LABS: Glucose,Whole Blood 240 mg/dL (75-99)
[2016-12-18] MEDS ORDERED: HYDROmorphone 1 MG/ML 1 ML SYRINGE IVP STA (12:37)
[2016-12-18 13:01] LABS: INR 2.7 (<1.2); Prothrombin Time 26.1 sec (9.0-12.0)
--- NOTE | 2016-12-18 14:27 | P.CRDCN ---
History of Present Illness Consult date: 12/18/16 History of present illness: This is a 71-year-old pleasant male. He was seen and examined by myself along with Dr. Rainey. He presented to the hospital with complaints of abdominal pain. He was also found to be in heart failure by chest xray. He has past medical history significant for systolic heart failure EF approximately 25 % per , CAD with triple vessel CABG, AICD, A-fib, DM and hypertension. He follows with Dr. Doty at [facility]. He is prescribed bumex and spironalactone PRN when he has weight gain. Apparently he started taking these daily over the past month. His baseline weight is 248-250 (112.7-113.6kg) at home. He weighs himself daily. Upon exam he is seen sitting in bed resting comfortably with family at the bedside. He denies chest pain, shortness of breath, dizziness, palpitations or diaphoresis. He is not requiring oxygen at this time and doesn't use at home. Troponins negative x3, d-dimer negative, BUN 59, Cr 1.17, potassium 4.7, INR 2.7 on coumadin, pro-BNP 4010. Review of Systems Extensive review of systems performed, negative except mentioned in HPI. Past Medical History Past Medical History: Atrial Fibrillation, Cancer, Heart Failure, Diabetes Mellitus, GI Bleed, Hypertension, Myocardial Infarction ([place]), Sleep Apnea/CPAP/ BIPAP, Vascular Disorder Additional Past Medical History / Comment(s): diverticulitis, gout, hx skin cancer, " 1 TEST POSITIVE FOR PROSTATE CANCER BUT 2ND TEST NEG" Last Myocardial Infarction Date:: 11/2002 History of Any Multi-Drug Resistant Organisms: None Reported Past Surgical History: AICD, Coronary Bypass/CABG, Heart Catheterization With Stent, Joint Replacement, Tonsillectomy Additional Past Surgical History / Comment(s): knee replacements (left x 2, rt x 1), surgery for sleep apnea, skin cancer removal, left foot hammertoe, vasectomy, angioplasty,cataract both eyes Past Anesthesia/Blood Transfusion Reactions: Previous Problems w/ Anesthesia Additional Past Anesthesia/Blood Transfusion Reaction / Comment(s): "longer to come out" Date of Last Stent Placement:: 11/2002 Type of Cardiac Device: AICD Device Placement Date:: last 01/21/14 Smoking Status: Former smoker - Past Family History Father Family Medical History: Cancer, Diabetes Mellitus Additional Family Medical History / Comment(s): OF HEART DX Mother Family Medical History: Cancer Medications and Allergies Home Medications Medication Instructions Recorded Confirmed Type ALPRAZolam [Xanax] 0.5 mg PO TID PRN 02/26/14 12/17/16 History Aspirin 81 mg PO DAILY 02/26/14 12/17/16 History Bumetanide [BUMEX] 2 mg PO DAILY 02/26/14 12/17/16 History Carvedilol [Coreg] 25 mg PO DAILY 02/26/14 12/17/16 History Colchicine [Colcrys] 0.6 mg PO DAILY 02/26/14 12/17/16 History Febuxostat [Uloric] 80 mg PO HS 02/26/14 12/17/16 History Hydrocodone/Acetaminophen [[place] 1 tab PO QID PRN 02/26/14 12/17/16 History 7.5-325] Insulin Aspart [NovoLOG] 9 unit SQ AC-TID 02/26/14 12/17/16 History Insulin Detemir [Levemir] 33 unit SQ HS 02/26/14 12/17/16 History Pantoprazole Sodium [Protonix] 40 mg PO DAILY 08/13/14 12/17/16 History Losartan Potassium 50 mg PO BID 12/17/16 12/17/16 History Sacubitril/Valsartan [Entresto 24 1 tab PO BID 12/17/16 12/17/16 History mg-26 mg Tablet] Warfarin Sodium [Warfarin Sodium] 6 mg PO HS 12/17/16 12/17/16 History Allergies Allergy/AdvReac Type Severity Reaction Status Date / Time lorazepam [From Ativan] Allergy combative Verified 12/17/16 12:30 and elevated BP prochlorperazine edisylate Allergy combative Verified 12/17/16 12:30 [From Compazine] prochlorperazine maleate Allergy combative Verified 12/17/16 12:30 [From Compazine] Physical Exam Vitals: Vital Signs Temp Pulse Pulse Resp BP BP Pulse Ox 12/18/16 10:30 99.1 F 12/18/16 10:20 100.2 F H 66 18 144/71 94 L 12/18/16 09:12 72 22 173/81 99 12/18/16 07:00 97.9 F 77 20 148/74 97 12/17/16 23:00 97.7 F 71 16 120/67 95 12/17/16 17:40 80 18 128/66 98 12/17/16 17:11 98.1 F 70 18 129/59 97 12/17/16 15:15 66 18 142/65 95 Intake and Output 12/17/16 12/18/16 12/18/16 22:59 06:59 14:59 Intake Total 600 100 Balance 600 100 Intake: Oral 600 100 Other: Voiding Method Toilet Toilet # Voids 1 Weight 153 kg 156 kg 156 kg Patient Weight 12/19/16 06:59 Weight 156 kg GENERAL: This is a 71-year-old occasion male in no apparent distress at the time of my examination. Morbid obesity. HEENT: Head is atraumatic, normocephalic. Pupils are equal, round. Sclerae anicteric. Conjunctivae are clear. Mucous membranes of the mouth are moist. Neck is supple. There is moderate jugular venous distention. No carotid bruit is heard. LUNGS: Clear to auscultation no wheezes, rales or rhonchi. No chest wall tenderness is noted on palpation or with deep breathing. HEART: Irregular rate and rhythm without murmurs, rubs or gallops. S1 and S2 heard. ABDOMEN: Soft, tender across upper quadrants R>L. Bowel sounds are heard. No organomegaly noted. Obese abdomen. EXTREMITIES: B/L lower extremity generalized edema with purple discoloration evident, no calf tenderness noted. NEUROLOGIC: Patient is awake, alert and oriented x3. Results 12/17/16 12:49 12/17/16 12:49 Cardiac Enzymes 12/17/16 12/17/16 12/17/16 Range/Units 12:49 18:18 23:36 AST 29 (17-59) U/L CK-MB (CK-2) 1.1 0.8 (0.0-2.4) ng/mL Troponin I 0.020 <0.012 (0.000-0.034) ng/mL 12/18/16 Range/Units 06:26 AST (17-59) U/L CK-MB (CK-2) 0.9 (0.0-2.4) ng/mL Troponin I 0.021 (0.000-0.034) ng/mL Coagulation 12/18/16 Range/Units 06:25 PT 26.1 H (9.0-12.0) sec CBC 12/17/16 Range/Units 12:49 WBC 8.4 (3.8-10.6) k/uL RBC 4.63 (4.30-5.90) m/uL Hgb 14.0 (13.0-17.5) gm/dL Hct 44.1 (39.0-53.0) % Plt Count 149 L (150-450) k/uL Comprehensive Metabolic Panel 12/17/16 Range/Units 12:49 Sodium 140 (137-145) mmol/L Potassium 4.7 (3.5-5.1) mmol/L Chloride 101 (98-107) mmol/L Carbon Dioxide 21 L (22-30) mmol/L BUN 59 H (9-20) mg/dL Creatinine 1.17 (0.66-1.25) mg/dL Glucose 249 H (74-99) mg/dL Calcium 9.2 (8.4-10.2) mg/dL AST 29 (17-59) U/L ALT 33 (21-72) U/L Alkaline Phosphatase 203 H (38-126) U/L Total Protein 7.5 (6.3-8.2) g/dL Albumin 4.4 (3.5-5.0) g/dL Current Medications Generic Name Dose Route Start Last Admin Trade Name Freq PRN Reason Stop Dose Admin Hydrocodone Bitart/Acetaminophen 1 each 12/17/16 20:59 12/18/16 10:35 [place] 7.5-325 PO 1 each QID PRN Administration MODERATE Pain Allopurinol 400 mg 12/17/16 21:00 12/17/16 21:39 Zyloprim PO 400 mg HS SHO Administration Alprazolam 0.5 mg 12/17/16 20:59 Xanax PO TID PRN Anxiety Bumetanide 2 mg 12/18/16 09:00 12/18/16 10:36 Bumex PO 2 mg DAILY SHO Administration Carvedilol 25 mg 12/18/16 09:00 12/18/16 10:36 Coreg PO 25 mg DAILY SHO Administration Colchicine 0.6 mg 12/18/16 09:00 12/18/16 10:36 Colcrys PO 0.6 mg DAILY SHO Administration Furosemide 20 mg 12/18/16 09:00 12/18/16 10:35 Lasix IV 20 mg Q12HR SHO Administration Hydromorphone HCl 0.5 mg 12/17/16 17:18 12/18/16 10:07 Dilaudid IVP 0.5 mg Q4HR PRN Administration SEVERE Pain Hydromorphone HCl 1 mg 12/18/16 14:40 Dilaudid IVP 12/18/16 14:41 ONCE ONE Insulin Detemir 33 unit 12/17/16 21:00 12/17/16 21:40 Levemir SQ 33 unit HS SOH Administration Insulin Human Lispro 9 unit 12/18/16 07:30 12/18/16 12:58 Humalog SQ 9 unit AC-TID SHO Administration Miscellaneous Information 1 each 12/17/16 15:09 12/17/16 17:08 Rx Info: Iv Contrast Was Given MISCELLANE 12/19/16 15:09 1 each DAILY PRN Administration Per Protocol Nitroglycerin 1 inch 12/17/16 18:00 12/18/16 12:59 Nitro-Bid Oint TOPICAL 1 inch QID SHO Administration Pantoprazole Sodium 40 mg 12/18/16 09:00 12/18/16 10:37 Protonix PO 40 mg DAILY SHO Administration Sacubitril/Valsartan 1 each 12/18/16 09:00 12/18/16 10:36 Entresto 24 Mg-26 Mg Tablet PO 1 each BID SHO Administration Warfarin Sodium 6 mg 12/17/16 21:00 12/17/16 21:39 Coumadin PO 6 mg HS SHO Administration Intake and Output 12/17/16 12/18/16 12/18/16 22:59 06:59 14:59 Intake Total 600 100 Balance 600 100 Intake: Oral 600 100 Other: Voiding Method Toilet Toilet # Voids 1 Weight 153 kg 156 kg 156 kg Patient Weight 12/19/16 06:59 Weight 156 kg 12/17/16 12:49 12/17/16 12:49 EKG Interpretations (text) EKG indicates ventricular paced rhythm. Assessment and Plan Plan: ASSESSMENT 1. Acute on chronic systolic heart failure with AICD in place 2. Chronic stable CAD with history of CABG 3. Chronic atrial fibrillation on dedicated intermodal truck driver anticoagulation with therapeutic INR 4. Essential hypertension 5. Abdominal pain, possible acute cholecystitis. PLAN Continue with lasix 20 mg IV BID at this time. Obtain of 2D echo and doppler study to assess LV structure and function. Further recommendations will be based upon clinical course. Thank you kindly for this consultation. Nurse Practitioner note has been reviewed, I agree with a documented findings and plan of care. Patient was seen and examined.
[2016-12-18] MEDS ORDERED: HYDROmorphone 1 MG/ML 1 ML SYRINGE IVP ONE (14:40)
[2016-12-18 15:35] LABS: Basophils % (A) 0 %; CH 29.8; CHCM 31.1; Eosinophils % (A) 1 %; HCT 37.9 % (39.0-53.0); HDW 2.28; HGB 11.9 gm/dL (13.0-17.5); Hypochromasia Slight; Luc # (Auto) 0.11; Luc % (Auto) 2; Lymphocytes # (A) 0.6 k/uL (1.0-4.8); Lymphocytes % (A) 9 %; MCH 30.2 pg (25.0-35.0); MCHC 31.3 g/dL (31.0-37.0); MCV 96.4 fL (80.0-100.0); Mean Platelet Volume 8.8; Monocytes # (A) 0.7 k/uL (0-1.0); Monocytes % (A) 10 %; Neutrophils # (A) 5.4 k/uL (1.3-7.7); Neutrophils % (A) 79 %; RBC 3.93 m/uL (4.30-5.90); WBC 6.8 k/uL (3.8-10.6); WBC (Perox) 6.94
[2016-12-18 15:51] LABS: ALT 80 U/L (21-72); AST 113 U/L (17-59); Alkaline Phosphatase 244 U/L (38-126); Anion Gap 12 mmol/L; Blood Urea Nitrogen 58 mg/dL (9-20); Calcium 8.8 mg/dL (8.4-10.2); Carbon Dioxide 24 mmol/L (22-30); Chloride 103 mmol/L (98-107); Glucose 220 mg/dL (74-99); Non-African American GFR(MDRD) 50 (>60 ml/min/1.73 sqM); Potassium 4.3 mmol/L (3.5-5.1); Sodium 139 mmol/L (137-145); Total Protein 6.1 g/dL (6.3-8.2)
--- NOTE | 2016-12-18 15:56 | P.GSCN ---
<Elizabeth Espinal - Last Filed: 12/18/16 16:05> History of Present Illness Consult date: 12/18/16 Reason for Consult: Abdominal pain right upper quadrant History of present illness: A 71-year-old gentleman being seen at the request of the attending for surgical eval and gentleman who presented with a chief complaint of right upper quadrant pain. Patient stated with the symptoms he been feeling as slightly short of breath. He denied nausea vomiting. He did report having a decrease appetite. Patient did come into the emergency room to be evaluated for the above symptoms. Patient had an ultrasound done as well as a HIDA scan which is suggestive of cholecystitis currently patient continues to report having right upper quadrant pain the pain medication effective for pain control Dr. Champion surgeon at the bedside discussed with the patient and the patient' s the treatment plan GI consultation will be requested eventually the patient will need to undergo a lap cholecystectomy but needs to be likely stable from a cardiac perspective patient did have an echocardiogram the results are pending The family and patient were requesting Dr. Burirs for surgical service Patient does have a significant past cardiac history. Patient states his primary front desk representative is Dr. silverio on [facility]. X-ray this admission suggestive of heart failure. Cardiology consultation has been obtained. Recommendations reviewed. Cardiac enzymes 3 sets were negative patient does have known history of systolic heart failure EF 25%. Patient had prior coronary artery bypass grafting, atrial fibrillation, and an AICD. Patient is on anticoagulation per his report for a to fibrillation. INR this admission 2.7. Review of Systems Essentially unremarkable except as mentioned in the present illness Past Medical History Past Medical History: Atrial Fibrillation, Cancer, Heart Failure, Diabetes Mellitus, GI Bleed, Hypertension, Myocardial Infarction (MD), Sleep Apnea/CPAP/ BIPAP, Vascular Disorder Additional Past Medical History / Comment(s): diverticulitis, gout, hx skin cancer, " 1 TEST POSITIVE FOR PROSTATE CANCER BUT 2ND TEST NEG" Last Myocardial Infarction Date:: 11/2002 History of Any Multi-Drug Resistant Organisms: None Reported Past Surgical History: AICD, Coronary Bypass/CABG, Heart Catheterization With Stent, Joint Replacement, Tonsillectomy Additional Past Surgical History / Comment(s): knee replacements (left x 2, rt x 1), surgery for sleep apnea, skin cancer removal, left foot hammertoe, vasectomy, angioplasty,cataract both eyes Past Anesthesia/Blood Transfusion Reactions: Previous Problems w/ Anesthesia Additional Past Anesthesia/Blood Transfusion Reaction / Comm: "longer to come out" Date of Last Stent Placement:: 11/2002 Type of Cardiac Device: AICD Device Placement Date:: last 01/21/14 Smoking Status: Former smoker - Past Family History Father Family Medical History: Cancer, Diabetes Mellitus Additional Family Medical History / Comment(s): OF HEART DX Mother Family Medical History: Cancer Medications and Allergies Home Medications Medication Instructions Recorded Confirmed Type ALPRAZolam [Xanax] 0.5 mg PO TID PRN 02/26/14 12/17/16 History Aspirin 81 mg PO DAILY 02/26/14 12/17/16 History Bumetanide [BUMEX] 2 mg PO DAILY 02/26/14 12/17/16 History Carvedilol [Coreg] 25 mg PO DAILY 02/26/14 12/17/16 History Colchicine [Colcrys] 0.6 mg PO DAILY 02/26/14 12/17/16 History Febuxostat [Uloric] 80 mg PO HS 02/26/14 12/17/16 History Hydrocodone/Acetaminophen [[place] 1 tab PO QID PRN 02/26/14 12/17/16 History 7.5-325] Insulin Aspart [NovoLOG] 9 unit SQ AC-TID 02/26/14 12/17/16 History Insulin Detemir [Levemir] 33 unit SQ HS 02/26/14 12/17/16 History Pantoprazole Sodium [Protonix] 40 mg PO DAILY 08/13/14 12/17/16 History Losartan Potassium 50 mg PO BID 12/17/16 12/17/16 History Sacubitril/Valsartan [Entresto 24 1 tab PO BID 12/17/16 12/17/16 History mg-26 mg Tablet] Warfarin Sodium [Warfarin Sodium] 6 mg PO HS 12/17/16 12/17/16 History Allergies Allergy/AdvReac Type Severity Reaction Status Date / Time lorazepam [From Ativan] Allergy combative Verified 12/17/16 12:30 and elevated BP prochlorperazine edisylate Allergy combative Verified 12/17/16 12:30 [From Compazine] prochlorperazine maleate Allergy combative Verified 12/17/16 12:30 [From Compazine] Surgical - Exam Vital Signs Temp Pulse Resp BP Pulse Ox 97.1 F L 70 18 175/75 100 12/17/16 12:19 12/17/16 12:19 12/17/16 12:19 12/17/16 12:19 12/17/16 12:19 GENERAL APPEARANCE: 71-year-old male jaundice patient is alert, oriented, in no acute distress. Sitting up in bed states he just receive something for pain which is controlling the right upper quadrant discomfort VITAL SIGNs reviewed HEENT: Head is normocephalic and atraumatic. Pupils are equal and reactive. The nares are patent. Oropharynx is clear without lesions. NECK: Supple without lymphadenopathy. Traches midline. HEART: S1, S2. Irregular rate and rhythm. LUNGS: No crackles or wheezes are heard. Posterior diminished at the bases otherwise adequate air movement ABDOMEN: Soft, slight tenderness right upper quadrant nondistended with good bowel sounds. No peritoneal signs. No palpable organomegaly or masses. EXTREMITIES: Upper extremities unremarkable bilateral lower extremity nonpitting generalized edema with purple discoloration chronic venous stasis dry scaly skin. Radial pedal pulses are 2/4 bilaterally. NEUROLOGICAL: No focal deficits. Strength and sensation are grossly intact. Results - Labs 12/18/16 15:12/18/16 15: Abnormal Lab Results - Last 24 Hours (Table) 12/17/16 12/18/16 12/18/16 Range/Units 20:58 06:25 06:56 RBC (4.30-5.90) m/uL Hgb (13.0-17.5) gm/dL Hct (39.0-53.0) % Plt Count (150-450) k/uL Lymphocytes # (1.0-4.8) k/uL PT 26.1 H (9.0-12.0) sec INR 2.7 H (<1.2) POC Glucose (mg/dL) 265 H 223 H (75-99) mg/dL 12/18/16 12/18/16 Range/Units 11: 15:17 RBC 3.93 L (4.30-5.90) m/uL Hgb 11.9 L (13.0-17.5) gm/dL Hct 37.9 L (39.0-53.0) % Plt Count 143 L (150-450) k/uL Lymphocytes # 0.6 L (1.0-4.8) k/uL PT (9.0-12.0) sec INR (<1.2) POC Glucose (mg/dL) 240 H (75-99) mg/dL Assessment and Plan Plan: Impression Present on admission right upper quadrant pain suspect due to acute cholecystitis Known coronary artery disease with prior coronary artery bypass grafting stable cardiology following Acute on chronic systolic heart failure Chronic atrial fibrillation on anticoagulation Coumadin rate controlled Essential hypertension Type 2 diabetes present on admission diabetic ulcer right lower leg On admission jaundice with an elevated bilirubin Therapeutic INR on admission 2.7 Plan GI consult eval possible gallstones Continue recommendations by cardiology will need cardiac clearance before proceeding with surgery IV fluid as ordered Pain control Repeat labs in the morning DVT and GI prophylaxis Follow-up on pending echocardiogram Coumadin on hold Repeat an INR in the morning Will follow surgical coarse with further surgical recommendations pending The above impression and plan of care have been discussed and directed by signing physician. Elizabeth Espinal nurse practitioner acting as scribe for signing physician. <Danyelle Champion - Last Filed: 12/18/16 21:34> Review of Systems REVIEW OF ORGAN SYSTEMS: CONSTITUTIONAL: Denies any fever or chills. HEENT: Denies any trouble with vision, hearing or nosebleeds. LYMPHATIC: The patient denies any lumps and bumps around the neck. ENDOCRINE: Denies any thyroid disorders. Has blood sugar glucose intolerance. RESPIRATORY: Past pneumonia. Has troubles with breathing or dyspnea on exertion. CARDIOVASCULAR: Past chest pain, palpitations. No recent heart attacks. Personal history of peripheral vascular occlusive disease including venous deficiency. GASTROINTESTINAL: Has heart burn, constipation. No bright red blood per rectum. GENITOURINARY: Denies any blood in urine or increased urinary frequency. MUSCULOSKELETAL: Has back pain, stiffness, joint arthritis. NEUROLOGIC: Denies any numbness or tingling along the distal extremities. No seizure disorders or headaches. PSYCHIATRIC: Denies depression or suidical ideation. HEMATOLOGIC: Has abnormal bleeding or bruising. He is on chronic Coumadin therapy. SKIN: Severe skin changes noted of the bilateral lower extremities from chronic dryness. Surgical - Exam Vital Signs Temp Pulse Resp BP Pulse Ox 97.1 F L 70 18 175/75 100 12/17/16 12:19 12/17/16 12:19 12/17/16 12:19 12/17/16 12:19 12/17/16 12:19 Results - Labs 12/18/16 15:17 12/18/16 15:17 Abnormal Lab Results - Last 24 Hours (Table) 12/18/16 12/18/16 12/18/16 Range/Units 06:25 06:56 11:22 RBC (4.30-5.90) m/uL Hgb (13.0-17.5) gm/dL Hct (39.0-53.0) % Plt Count (150-450) k/uL Lymphocytes # (1.0-4.8) k/uL PT 26.1 H (9.0-12.0) sec INR 2.7 H (<1.2) BUN (9-20) mg/dL Creatinine (0.66-1.25) mg/dL Glucose (74-99) mg/dL POC Glucose (mg/dL) 223 H 240 H (75-99) mg/dL Total Bilirubin (0.2-1.3) mg/dL AST (17-59) U/L ALT (21-72) U/L Alkaline Phosphatase (38-126) U/L Total Protein (6.3-8.2) g/dL Albumin (3.5-5.0) g/dL 12/18/16 12/18/16 12/18/16 Range/Units 15:17 15:17 17:45 RBC 3.93 L (4.30-5.90) m/uL Hgb 11.9 L (13.0-17.5) gm/dL Hct 37.9 L (39.0-53.0) % Plt Count 143 L (150-450) k/uL Lymphocytes # 0.6 L (1.0-4.8) k/uL PT (9.0-12.0) sec INR (<1.2) BUN 58 H (9-20) mg/dL Creatinine 1.40 H (0.66-1.25) mg/dL Glucose 220 H (74-99) mg/dL POC Glucose (mg/dL) 166 H (75-99) mg/dL Total Bilirubin 4.0 H (0.2-1.3) mg/dL AST 113 H (17-59) U/L ALT 80 H (21-72) U/L Alkaline Phosphatase 244 H (38-126) U/L Total Protein 6.1 L (6.3-8.2) g/dL Albumin 3.4 L (3.5-5.0) g/dL 12/18/16 Range/Units 20:14 RBC (4.30-5.90) m/uL Hgb (13.0-17.5) gm/dL Hct (39.0-53.0) % Plt Count (150-450) k/uL Lymphocytes # (1.0-4.8) k/uL PT (9.0-12.0) sec INR (<1.2) BUN (9-20) mg/dL Creatinine (0.66-1.25) mg/dL Glucose (74-99) mg/dL POC Glucose (mg/dL) 138 H (75-99) mg/dL Total Bilirubin (0.2-1.3) mg/dL AST (17-59) U/L ALT (21-72) U/L Alkaline Phosphatase (38-126) U/L Total Protein (6.3-8.2) g/dL Albumin (3.5-5.0) g/dL Diabetes panel 12/18/16 Range/Units 15:17 Sodium 139 (137-145) mmol/L Potassium 4.3 (3.5-5.1) mmol/L Chloride 103 (98-107) mmol/L Carbon Dioxide 24 (22-30) mmol/L BUN 58 H (9-20) mg/dL Creatinine 1.40 H (0.66-1.25) mg/dL Glucose 220 H (74-99) mg/dL Calcium 8.8 (8.4-10.2) mg/dL AST 113 H (17-59) U/L ALT 80 H (21-72) U/L Alkaline Phosphatase 244 H (38-126) U/L Total Protein 6.1 L (6.3-8.2) g/dL Albumin 3.4 L (3.5-5.0) g/dL Calcium panel 12/18/16 Range/Units 15:17 Calcium 8.8 (8.4-10.2) mg/dL Albumin 3.4 L (3.5-5.0) g/dL Pituitary panel 12/18/16 Range/Units 15:17 Sodium 139 (137-145) mmol/L Potassium 4.3 (3.5-5.1) mmol/L Chloride 103 (98-107) mmol/L Carbon Dioxide 24 (22-30) mmol/L BUN 58 H (9-20) mg/dL Creatinine 1.40 H (0.66-1.25) mg/dL Glucose 220 H (74-99) mg/dL Calcium 8.8 (8.4-10.2) mg/dL Adrenal panel 12/18/16 Range/Units 15:17 Sodium 139 (137-145) mmol/L Potassium 4.3 (3.5-5.1) mmol/L Chloride 103 (98-107) mmol/L Carbon Dioxide 24 (22-30) mmol/L BUN 58 H (9-20) mg/dL Creatinine 1.40 H (0.66-1.25) mg/dL Glucose 220 H (74-99) mg/dL Calcium 8.8 (8.4-10.2) mg/dL Total Bilirubin 4.0 H (0.2-1.3) mg/dL AST 113 H (17-59) U/L ALT 80 H (21-72) U/L Alkaline Phosphatase 244 H (38-126) U/L Total Protein 6.1 L (6.3-8.2) g/dL Albumin 3.4 L (3.5-5.0) g/dL - Imaging CT scan - abdomen: report reviewed, image reviewed CT scan - pelvis: report reviewed, image reviewed (Findings consistent with symptomatic right inguinal hernia and large. Gallbladder consistent with hydrops.) Additional studies: HIDA scan reviewed consistent with acute cholecystitis Assessment and Plan (1) Acute cholecystitis Status: Acute (2) Jaundice Status: Acute (3) Incarcerated right inguinal hernia Status: Acute (4) Right lower quadrant pain Status: Acute (5) Congestive cardiomyopathy Status: Acute (6) Right upper quadrant abdominal pain Status: Acute Plan: 1. On clinical exam, he has findings consistent with acute cholecystitis. 2. He has pinpoint tenderness also along the right groin consistent with an incarcerated right inguinal hernia, symptomatic. 3. Recommend reversal of his Coumadin with vitamin K once cardiac clearance obtained. 4. I have answered all questions with the family who also sought immediate surgical prevention. 5. On exam, he is jaundiced and recommend GI evaluation for ERCP with repeat chemistries in the morning.
[2016-12-18 17:48] LABS: Glucose,Whole Blood 166 mg/dL (75-99)
--- NOTE | 2016-12-18 18:31 | CONS ---
CONSULTATION REQUESTING PHYSICIAN: Dr. Harper. REASON FOR CONSULTATION: Abdominal pain and elevated LFTs. HISTORY OF PRESENT ILLNESS: The patient is a 71-year-old, white male, who was admitted to hospital with acute onset of right upper quadrant abdominal pain for the last 4 days duration. The pain radiated to the back associated with nausea, vomiting, but no coffee-ground emesis. He came to the emergency room and was admitted to hospital for further evaluation. He was noted to have elevated serum transaminases. Initial bilirubin was 3.4 that increased to 4 g/dL today. He had CT of the abdomen and pelvis done that showed evidence of hydrops of the gallbladder. There is no inflammatory change and no biliary duct dilation. However the liver appears slightly enlarged and hypoechoic consistent with fatty liver. Subsequently he did have a HIDA scan done that showed nonvisualization of the gallbladder at 30 minutes and there was biliary to bowel transit was normal with no evidence of biliary obstruction. The patient still has right upper quadrant abdominal pain. No fever, chills or night sweats. Never had similar symptoms in the past. PAST MEDICAL HISTORY: Significant for hypertension, hyperlipidemia, gout, anxiety, depression, gastroesophageal reflux disease, atrial fibrillation on Coumadin. PAST SURGICAL HISTORY: AICD placement, cardiac cath and coronary artery bypass surgery, placement, tonsillectomy, vasectomy, bilateral cataract surgery. MEDICATIONS: Medications at home include: 1. Xanax. 2. Bumex. 3. Coreg. 4. Colchicine. 5. . 6. NovoLog. 7. Protonix. 8. Coumadin. 9. [place]. ALLERGIES: COMPAZINE. SOCIAL HISTORY: No smoking. No alcohol use. FAMILY HISTORY: Unremarkable. FAMILY HISTORY: Father had diabetes mellitus. Mother had coronary artery disease. REVIEW OF SYSTEMS: CARDIOPULMONARY: No chest pain, shortness of breath. GENITOURINARY: No dysuria, hematuria. MUSCULOSKELETAL: Unremarkable. SKIN: Unremarkable. ENDOCRINE: Unremarkable. PSYCHIATRIC: Unremarkable. NEUROLOGICAL: Unremarkable. ENT/VISION: Unremarkable. CONSTITUTIONAL: No recent weight loss. No fevers, chills, night sweats. PHYSICAL EXAMINATION: Blood pressure is 103/57, pulse is 70, temperature 98.7. HEENT: Examination unremarkable. Conjunctivae pink. Sclerae anicteric. Oral cavity no lesions. NECK: No JVD or lymph node enlargement. CHEST: Clear to auscultation. HEART: Regular rate and rhythm. ABDOMEN: Soft, tenderness in the right lower quadrant area. No rebound or rigidity. Bowel sounds are positive. No organomegaly. EXTREMITIES: No pedal edema. SKIN: No rashes. NEUROLOGIC: Alert and oriented x3. No focal deficits. LAB: From the time of admission to the hospital: WBC 6.8, hemoglobin 11.9, platelets 143, INR is 2.7. AST and ALT yesterday was 229 and 33. Today it is 139 and 80. T bilirubin was 2 yesterday and today is 4. Alkaline phosphatase 244. Amylase and lipase are normal. IMPRESSION: This is a patient who presents to the hospital with severe right upper quadrant abdominal pain for the last 4 days duration associated with nausea, vomiting, noted to have elevated serum transaminases and bilirubin up to 4. CAT scan showed hydrops of the gallbladder but no biliary ductal dilation. HIDA scan showed nonvisualization of the gallbladder but normal biliary to bowel transit time. At this time, I am not sure if we are dealing with any biliary obstruction. His ultrasound did not show any evidence of gallstones. He did have an ultrasound of the right upper quadrant done yesterday in the emergency room that showed CBD 6 mm, gallbladder wall is normal and no gallstones. At this time MRCP would be indicated; however because of AICD placement this cannot be performed. RECOMMENDATIONS: 1. Repeat CBC and CMP in the morning. 2. Hold Coumadin for now. 3. Based on his symptoms as well as biochemical parameters, I will decide on proceeding with ERCP in the next 24-48 hours. The plan was discussed with the patient as well as his family and they are agreeable to it. Thank you for this consultation. MMODL / IJN: [id number] /
[2016-12-18 20:33] LABS: Glucose,Whole Blood 138 mg/dL (75-99)
[2016-12-18] MEDS: ALLOPURINOL 100 MG TAB PO SCH (21:11)
[2016-12-18] MEDS: INSULIN DETEMIR 100 UNIT/ML 10 ML VIAL SQ SCH (21:12)
--- NOTE | 2016-12-18 21:29 | ECHOF ---
Referral Reason:shortness of breath MEASUREMENTS -------- HEIGHT: 182.9 cm WEIGHT: 155.6 kg BP: 173/81 RVIDd: 3.8 cm (< 3.3) IVSd: 1.4 cm (0.6 - 1.1) LVIDd: 6.2 cm (3.9 - 5.3) LVPWd: 1.5 cm (0.6 - 1.1) IVSs: 1.9 cm LVIDs: 5.5 cm LVPWs: 2.2 cm LA Diam: 4.4 cm (2.7 - 3.8) LAESV Index (A-L): 35.37 ml/m Ao Diam: 3.7 cm (2.0 - 3.7) AV Cusp: 1.5 cm (1.5 - 2.6) MV EXCURSION: 12.842 mm (> 18.000) MV EF SLOPE: 49 mm/s (70 - 150) EPSS: 2.0 cm RAP: 5.00 mmHg RVSP: 47.14 mmHg FINDINGS -------- This was a technically difficult study with suboptimal apical views. The left ventricle is mildly dilated. There is moderate concentric left ventricular hypertrophy. Overall left ventricular systolic function is severely impaired with, an EF between 20 - 25 %. The right ventricle is mild to moderately enlarged. LA is moderately dilated 34-39 ml/m2 The right atrium was not well visualized. 1.5mg of Definity was utilized for enhancement of images There is mild aortic valve sclerosis. The mitral valve leaflets are mildly thickened. Mild mitral annular calcification present. Mild tricuspid regurgitation present. There is moderate pulmonary hypertension. The right ventricular systolic pressure, as measured by Doppler, is 47.14mmHg. Trace/mild (physiologic) pulmonic regurgitation. Can not r/o thromus on pacerwire The aortic root is dilated measuring 3.7cm. There is no pericardial effusion. CONCLUSIONS -------- 1. This was a technically difficult study with suboptimal apical views. 2. The mitral valve leaflets are mildly thickened. 3. Mild mitral annular calcification present. 4. Mild tricuspid regurgitation present. 5. There is moderate pulmonary hypertension. 6. The right ventricular systolic pressure, as measured by Doppler, is 47.14mmHg. 7. Trace/mild (physiologic) pulmonic regurgitation. 8. Can not r/o thromus on pacerwire 9. The aortic root is dilated measuring 3.7cm. 10. There is no pericardial effusion. 11. The left ventricle is mildly dilated. 12. There is moderate concentric left ventricular hypertrophy. 13. Overall left ventricular systolic function is severely impaired with, an EF between 20 - 25 %. 14. The right ventricle is mild to moderately enlarged. 15. LA is moderately dilated 34-39 ml/m2 16. The right atrium was not well visualized. 17. 1.5mg of Definity was utilized for enhancement of images 18. There is mild aortic valve sclerosis. VARITYPE OPERATOR: Aspen Morin RDCS
[2016-12-18] MEDS ORDERED: PHYTONADIONE ORAL 5 MG/5 ML ORAL.SYRG PO STA (21:34)
[2016-12-19] MEDS: HYDROmorphone 1 MG/ML 1 ML SYRINGE IVP PRN ×5 (00:10→17:55)
[2016-12-19] MEDS: HYDROcodone/APAP 7.5-325MG 1 EACH TAB PO PRN ×4 (01:20→21:42)
[2016-12-19 07:35] LABS: Glucose,Whole Blood 137 mg/dL (75-99)
[2016-12-19] MEDS: SACUBITRIL/VALSARTAN 24 MG-26 MG TABLET PO SCH ×2 (07:47→21:43)
[2016-12-19] MEDS: PANTOPRAZOLE 40 MG TABLET PO SCH (07:48)
[2016-12-19] MEDS: COLCHICINE 0.6 MG TAB PO SCH (07:48)
[2016-12-19] MEDS: NITROGLYCERIN OINT 1 INCH/GM PACKET TOPICAL SCH ×4 (07:48→22:07)
[2016-12-19] MEDS: CARVEDILOL 12.5 MG TAB PO SCH (07:48)
[2016-12-19] MEDS: FUROSEMIDE 10 MG/ML 2 ML VIAL IV SCH (07:48)
[2016-12-19] MEDS: BUMETANIDE 1 MG TAB PO SCH (07:49)
[2016-12-19] MEDS: INSULIN LISPRO (humaLOG) 300 UNIT/3 ML VIAL SQ SCH ×3 (08:00→17:56)
[2016-12-19 08:27] LABS: CH 30.4; CHCM 31.9; HCT 39.8 % (39.0-53.0); HDW 2.33; HGB 12.4 gm/dL (13.0-17.5); MCH 29.9 pg (25.0-35.0); MCHC 31.2 g/dL (31.0-37.0); MCV 96.1 fL (80.0-100.0); Mean Platelet Volume 8.9; RBC 4.15 m/uL (4.30-5.90); RDW 14.8 % (11.5-15.5); WBC 7.3 k/uL (3.8-10.6)
[2016-12-19 08:37] LABS: INR 2.8 (<1.2); Prothrombin Time 26.8 sec (9.0-12.0)
[2016-12-19 09:00] LABS: Calcium 8.8 mg/dL (8.4-10.2); Potassium 4.2 mmol/L (3.5-5.1); Total Bilirubin 6.8 mg/dL (0.2-1.3); Total Protein 6.4 g/dL (6.3-8.2)
[2016-12-19] MEDS ORDERED: PHYTONADIONE ORAL 5 MG/5 ML ORAL.SYRG PO STA ×2 (11:47→18:08)
[2016-12-19 12:30] LABS: Glucose,Whole Blood 125 mg/dL (75-99)
[2016-12-19] MEDS ORDERED: SODIUM CHLORIDE 0.9% 500 ML IV ONE (12:45)
--- NOTE | 2016-12-19 15:20 | PN ---
PROGRESS NOTE DATE OF DICTATION: 12/19/2016 The patient is a 71-year-old pleasant white male admitted to the hospital with abdominal pain, nausea, vomiting for 4 days' duration. Pain was progressively getting worse. He came into the emergency room and was found to have elevated serum transaminases and bilirubin up to 4. He had an ultrasound of the abdomen as well as a CT scan that showed hydrops of the gallbladder. HIDA scan showed nonvisualization of the common bile duct, suspicious for acute cholecystitis. However, in the meantime, his serum transaminases continue to be elevated and jaundice is progressively getting worse; hence we are consulted for possible ERCP. The patient this morning is feeling better. He still has abdominal pain but no nausea or vomiting. No fever, chills or night sweats. PHYSICAL EXAMINATION: He appears comfortable. No apparent distress. Vital signs are stable. Blood pressure 139/82, pulse rate 86 per minute. Afebrile. HEENT EXAMINATION: Conjunctivae are pink. Sclerae are icteric. Oral cavity with no lesions. NECK: No JVD or lymph node enlargement. CHEST: Clear to auscultation. HEART: Regular rate and rhythm. ABDOMEN: Soft. Bowel sounds are positive. Mild tenderness in the epigastric area. EXTREMITIES: No pedal edema. SKIN: No rashes. NEUROLOGIC: Alert and oriented x3. No focal deficits. LABS DONE TODAY: Total bilirubin is up to 6.5, AST is 144, ALT is 103. PT/INR is 2.8. CBC is within normal limits. Platelets are 125. IMPRESSION: 1. This is a patient who presented to the hospital with acute onset of epigastric pain associated with nausea, vomiting and right upper quadrant pain of 4 days' duration. At present he is noted to have elevated serum transaminases and bilirubin up to 6.1 g/dL. He is also noted to have mild thrombocytopenia and coagulopathy secondary to Coumadin. At this time I am not sure if we are dealing with biliary obstruction versus intrahepatic cholestasis related to underlying liver disease. The patient, however, does not have any history of chronic liver disease that has been diagnosed in the past. 2. Atrial fibrillation, on Coumadin, at present on hold. RECOMMENDATIONS: 1. Will give him vitamin K 5 mg orally today. 2. Repeat PFT and INR in the morning. 3. Repeat serum transaminases in the morning; based on the results, I will decide if he needs to have an ERCP. Ideally it would have been better to perform an MRCP, but because of the AICD placement this could not be done. At this time we will follow him closely during his hospital stay. Thank you for this consultation. ITA / SANDRINE: [id number] /
[2016-12-19] MEDS: AMPICILLIN-SULBACTAM 3 GM in SODIUM CHLORIDE 0.9% 100 ML IVPB SCH ×2 (16:26→23:51)
[2016-12-19 17:44] LABS: Glucose,Whole Blood 188 mg/dL (75-99)
[2016-12-19] MEDS ORDERED: PHYTONADIONE 10 MG in SODIUM CHLORIDE 0.9% 50 ML IVPB STA (18:07)
--- NOTE | 2016-12-19 18:42 | P.PN ---
Subjective Principal diagnosis: Acute cholecystitis The patient 71-year-old gentleman with ischemic cardiomyopathy including chronic anticoagulation for atrial fibrillation and acute cholecystitis. CT of the abdomen and pelvis including HIDA scan consistent with acute cholecystitis. He also has an acute incarcerated right inguinal hernia. He still reports right lower quadrant abdominal pain. Separately also reports right upper quadrant abdominal pain exacerbated after eating beef stroganoff for lunch. At bedside, he had lasagna with cheese. He had not touched his meal as of yet. He reported his abdominal pain have been worse after eating his lunch. Objective - Vital Signs Vital signs: Vital Signs Temp 98.7 F 12/19/16 15:00 Pulse 70 12/19/16 15:00 Resp 16 12/19/16 15:00 BP 106/56 12/19/16 15:00 Pulse Ox 92 L 12/19/16 15:00 Intake & Output 12/18/16 12/19/16 12/19/16 18:59 06:59 18:59 Intake Total 200 Balance 200 Weight 118.3 kg 118.63 kg Intake: Oral 200 Other: Voiding Method Toilet Toilet Toilet # Voids 1 1 2 - Exam GENERAL: Well developed and in no acute distress. Pleasant. HEENT: Increase jaundice. Extraocular movements grossly intact. Moist buccal mucosa. Head is atraumatic, normocephalic. Hears conversational speech. No nasal drainage. NECK: Supple without lymphadenopathy. No JV distention. CHEST: Non-labored respirations and equal bilateral excursions. CARDIOVASCULAR: Irregular rate and rhythm. Palpable 2+ radial pulses. ABDOMEN: Soft, nondistended. Tenderness along the right lower quadrant and right upper quadrant. MUSCULOSKELETAL: No clubbing, cyanosis. NEUROLOGIC: No focal or lateralizing signs. Cranial nerves II-12 intact. PSYCH: Appropriate affect. Alert and oriented to person, place and time. SKIN: Good skin turgor. Well perfused. Increase jaundice. - Labs CBC & Chem 7: 12/19/16 07:36 12/19/16 07:36 Labs: Abnormal Lab Results - Last 24 Hours (Table) 12/18/16 12/19/16 12/19/16 Range/Units 20:14 07:33 07:36 RBC 4.15 L (4.30-5.90) m/uL Hgb 12.4 L (13.0-17.5) gm/dL Plt Count 140 L (150-450) k/uL PT (9.0-12.0) sec INR (<1.2) BUN (9-20) mg/dL Creatinine (0.66-1.25) mg/dL Glucose (74-99) mg/dL POC Glucose (mg/dL) 138 H 137 H (75-99) mg/dL Total Bilirubin (0.2-1.3) mg/dL AST (17-59) U/L ALT (21-72) U/L Alkaline Phosphatase (38-126) U/L 12/19/16 12/19/16 12/19/16 Range/Units 07:36 07:36 12:22 RBC (4.30-5.90) m/uL Hgb (13.0-17.5) gm/dL Plt Count (150-450) k/uL PT 26.8 H (9.0-12.0) sec INR 2.8 H (<1.2) BUN 59 H (9-20) mg/dL Creatinine 1.69 H (0.66-1.25) mg/dL Glucose 127 H (74-99) mg/dL POC Glucose (mg/dL) 125 H (75-99) mg/dL Total Bilirubin 6.8 H (0.2-1.3) mg/dL AST 115 H (17-59) U/L ALT 105 H (21-72) U/L Alkaline Phosphatase 295 H (38-126) U/L 12/19/16 Range/Units 17:37 RBC (4.30-5.90) m/uL Hgb (13.0-17.5) gm/dL Plt Count (150-450) k/uL PT (9.0-12.0) sec INR (<1.2) BUN (9-20) mg/dL Creatinine (0.66-1.25) mg/dL Glucose (74-99) mg/dL POC Glucose (mg/dL) 188 H (75-99) mg/dL Total Bilirubin (0.2-1.3) mg/dL AST (17-59) U/L ALT (21-72) U/L Alkaline Phosphatase (38-126) U/L Assessment and Plan (1) Acute cholecystitis Status: Acute (2) Jaundice Status: Acute (3) Incarcerated right inguinal hernia Status: Acute (4) Right lower quadrant pain Status: Acute (5) Congestive cardiomyopathy Status: Acute (6) Right upper quadrant abdominal pain Status: Acute Plan: 1. Recommend clear liquid diet as solid foods is causing increased abdominal pain. A strict low-fat diet is advised. 2. Recommend obtaining pancreatic liver enzymes. He has risk for developing pancreatitis. 3. His INR is still over 2 and additional dose of vitamin K has been ordered. 4. His total bilirubin is markedly elevated and is trending upward. Recommend ERCP per GI consultation. 5. Would recommend cholecystectomy including right inguinal hernia repair as he has acute incarcerated symptomatic right groin pain. 6. Recommend antibiotics.
[2016-12-19 20:28] LABS: Glucose,Whole Blood 115 mg/dL (75-99)
[2016-12-19] MEDS: ALLOPURINOL 100 MG TAB PO SCH (21:42)
[2016-12-19] MEDS: INSULIN DETEMIR 100 UNIT/ML 10 ML VIAL SQ SCH (22:07)
--- NOTE | 2016-12-19 22:47 | PN ---
PROGRESS NOTE DATE OF SERVICE: 12/19/2016 I am covering for Dr. Harper. This 71-year-old gentleman who was admitted with pulmonary edema also had features of right upper quadrant abdominal pain. The patient also had elevated LFTs. Dr. Martinez and Surgery are following the patient closely. Dr. Martinez from gastroenterology saw the patient and recommended vitamin K 5 mg, repeat PT/INR as well as re-evaluation for the need of ERCP. MRCP could not be done because of the AICD placed. Surgery is following the patient, recommended ERCP and also cholecystectomy, possibly including right inguinal hernia repair. PAST MEDICAL HISTORY: Reviewed. REVIEW OF SYSTEMS: CARDIOVASCULAR: No angina or palpitations. RESPIRATORY: No cough. GI: As mentioned earlier. : As mentioned earlier. NERVOUS: No numbness or weakness. CURRENT MEDICATIONS: Reviewed and include: 1. [place] 7.5 q.i.d. p.r.n. 2. Zyloprim 400 mg q.h.s. 3. Otherwise Bumex 2 mg p.o. daily. 4. Coreg 25 mg daily. 6. Lasix 20 mg IV b.i.d. 7. Dilaudid 0.5 q.4h p.r.n. 8. Levemir 33 units subcu q.h.s. 9. Humalog 9 units a.c. t.i.d. 11.Protonix. PHYSICAL EXAM: Patient is alert, oriented x3. Pulse 66, blood pressure 117/69, respirations 16 , temperature 98.4, pulse ox 91% on room air. HEENT: Conjunctivae normal. NECK: No jugular venous distention. CARDIOVASCULAR: S1, S2 muffled. RESPIRATORY: Breath sounds diminished in the bases. A few scattered rhonchi and crackles. ABDOMEN: Soft. Diffuse tenderness in the right upper quadrant present. No guarding. No rigidity. No mass palpable. No ascites. LEGS: No edema. No swelling. NERVOUS SYSTEM: No focal deficits. LABS: WBC 7.2, hemoglobin 12.4. Creatinine is 1.69. AST is 115, ALT is 105. ASSESSMENT: 1. Abdominal pain with possible acute cholecystitis. 2. Elevated liver function tests, rule out common bile duct stones. 3. Coumadin monitoring. 4. Incarcerated inguinal hernia. 5. Right lower quadrant abdominal pain. 6. History of congestive cardiomyopathy. 7. Elevated AST, ALT. 8. Increased creatinine. RECOMMENDATIONS AND DISCUSSION: In this 71-year-old gentleman who presented with multiple complex medical issues , will monitor the patient closely, continue the current medications and symptomatic treatment. Will repeat CBC and CMP and follow the bilirubin sequentially. Otherwise, the patient is currently on a clear liquid diet. Continue the rest of the medications and INR is 2.8. Vitamin K has been given. Prognosis guarded because of multiple complex medical issues. Further recommendations to follow. MMODL / IJN: [id number] / SAMARA
[2016-12-20] MEDS: HYDROmorphone 1 MG/ML 1 ML SYRINGE IVP PRN ×4 (01:04→22:02)
[2016-12-20 07:21] LABS: Glucose,Whole Blood 151 mg/dL (75-99)
[2016-12-20] MEDS: BUMETANIDE 1 MG TAB PO SCH (07:50)
[2016-12-20] MEDS: AMPICILLIN-SULBACTAM 3 GM in SODIUM CHLORIDE 0.9% 100 ML IVPB SCH ×3 (07:50→23:53)
[2016-12-20] MEDS: SACUBITRIL/VALSARTAN 24 MG-26 MG TABLET PO SCH (07:50)
[2016-12-20] MEDS: CARVEDILOL 12.5 MG TAB PO SCH (07:50)
[2016-12-20] MEDS: INSULIN LISPRO (humaLOG) 300 UNIT/3 ML VIAL SQ SCH ×3 (07:50→17:46)
[2016-12-20] MEDS: COLCHICINE 0.6 MG TAB PO SCH (07:50)
[2016-12-20] MEDS: PANTOPRAZOLE 40 MG TABLET PO SCH (07:51)
[2016-12-20] MEDS: NITROGLYCERIN OINT 1 INCH/GM PACKET TOPICAL SCH ×5 (07:51→22:04)
[2016-12-20 08:15] LABS: INR 1.7 (<1.2); Prothrombin Time 16.1 sec (9.0-12.0)
[2016-12-20 08:18] LABS: Bilirubin, Delta 2.3 mg/dL (0.0-0.2); Calcium 8.5 mg/dL (8.4-10.2); Potassium 4.5 mmol/L (3.5-5.1); Total Bilirubin 10.9 mg/dL (0.2-1.3); Total Protein 6.2 g/dL (6.3-8.2)
[2016-12-20] MEDS ORDERED: SODIUM CHLORIDE 0.9% 1,000 ML IV ONE (08:44)
[2016-12-20] MEDS ORDERED: SODIUM CHLORIDE 0.9% 1,000 ML IV SCH (08:45)
--- NOTE | 2016-12-20 09:29 | XR ---
EXAMINATION TYPE: XR chest 2V DATE OF EXAM: 12/20/2016 HISTORY: desaturation. REFERENCE: Previous study dated 12/17/2016. FINDINGS: There is a multilead pacing device on the left. The heart is enlarged. There are bilateral effusions. There is mild vascular congestion and subtle in terstitial change. IMPRESSION: FINDINGS MOST CONSISTENT WITH CONGESTIVE HEART FAILURE.
[2016-12-20 09:38] LABS: Basophils % (A) 0 %; CH 29.7; CHCM 30.6; Eosinophils # (A) 0.1 k/uL (0-0.7); Eosinophils % (A) 1 %; HCT 37.4 % (39.0-53.0); HDW 2.21; HGB 11.9 gm/dL (13.0-17.5); Hypochromasia Slight; Luc # (Auto) 0.17; Luc % (Auto) 2; Lymphocytes # (A) 0.5 k/uL (1.0-4.8); Lymphocytes % (A) 5 %; MCH 30.9 pg (25.0-35.0); MCHC 31.7 g/dL (31.0-37.0); MCV 97.5 fL (80.0-100.0); Mean Platelet Volume 8.1; Monocytes # (A) 0.9 k/uL (0-1.0); Monocytes % (A) 10 %; Neutrophils # (A) 7.4 k/uL (1.3-7.7); Neutrophils % (A) 82 %; RBC 3.84 m/uL (4.30-5.90); WBC (Perox) 9.62
[2016-12-20] MEDS ORDERED: PHYTONADIONE ORAL 5 MG/5 ML ORAL.SYRG PO STA (10:04)
[2016-12-20] MEDS: HYDROcodone/APAP 7.5-325MG 1 EACH TAB PO PRN ×2 (10:05→20:19)
--- NOTE | 2016-12-20 10:54 | PN ---
PROGRESS NOTE Patient is a 71-year-old white male admitted to the hospital with right upper quadrant abdominal pain, nausea, vomiting of 4 days duration. He was noted to have an ultrasound and CT scan showed hydrops of the gallbladder but no gallstones or biliary ductal dilation seen. However, he had a HIDA scan that showed nonvisualization of the gallbladder consistent with acute cholecystitis. In the meantime, the patient's LFTs continue to progressively get worse. Today T-bili is up to 10.9, ALT and AST in the range of 55 and 78, and alkaline phosphatase is 301. Hence, we are consulted in regards for an ERCP. The patient still has right upper quadrant abdominal pain. No fever, chills, night sweats. Nausea, vomiting has improved. He was on Coumadin which is on hold. INR today is 1.7. PHYSICAL EXAMINATION: He appears comfortable. No apparent distress. Vital signs are stable. Blood pressure 106/56, pulse is 70, temperature 98.7. HEENT examination unremarkable. Conjunctivae pink. Sclerae anicteric. Oral cavity no lesions. NECK: No jugular venous distention or lymph node enlargement. Chest was clear to auscultation. HEART: Regular rate and rhythm. Abdomen is soft. Bowel sounds are positive. Mild tenderness in the right upper quadrant area. EXTREMITIES: No pedal edema. SKIN: No rashes. NEURO: He is alert and oriented x3. No focal deficits. LABS: Labs from today: T bilirubin is up to 10.9, AST 55, ALT 78, alkaline phosphatase 301. INR is 1.7, platelets 140. WBC 7.3, hemoglobin 12.4. IMPRESSION: 1. The patient presents to hospital with epigastric and right upper quadrant abdominal pain of 4 to 5 days duration associated with nausea, vomiting, and noted to have mild elevations in transaminases with progressive jaundice in the last [address] scan did not show any evidence of biliary ductal dilation except for hydrops of the gallbladder and no obvious stone seen. At this time it is unclear whether we are dealing with a biliary obstruction or the patient has developed intrahepatic cholestasis from underlying chronic liver disease with some decompensation. However, no known history of chronic liver disease. 2. Atrial fibrillation on Coumadin, on hold. INR today is 1.7. RECOMMENDATIONS: 1. We will proceed with ERCP tomorrow. Discussed with the patient the risks, benefits, and complications of the procedure and he is agreeable to it. 2. I will have repeat labs including PT, INR for tomorrow. Thank you for this consultation. ITA / SANDRINE: [id number] /
[2016-12-20 11:39] LABS: Glucose,Whole Blood 172 mg/dL (75-99)
[2016-12-20] MEDS: SODIUM CHLORIDE 0.9% 1,000 ML IV SCH (13:17)
[2016-12-20] MEDS ORDERED: LORATADINE 10 MG TAB PO PRN (13:21)
--- NOTE | 2016-12-20 16:12 | P.PN ---
Subjective Principal diagnosis: Acute cholecystitis The patient 71-year-old gentleman with ischemic cardiomyopathy including chronic anticoagulation for atrial fibrillation and acute cholecystitis. CT of the abdomen and pelvis including HIDA scan consistent with acute cholecystitis. He also has an acute incarcerated right inguinal hernia. His is at bedside. He reports persistent right upper quadrant including right lower quadrant abdominal pain. He is tolerating clears. He is more jaundiced today than yesterday. Objective - Vital Signs Vital signs: Vital Signs Temp 98.3 F 12/20/16 07:00 Pulse 70 12/20/16 07:00 Resp 20 12/20/16 07:00 BP 118/68 12/20/16 07:00 Pulse Ox 94 L 12/20/16 07:00 Intake & Output 12/19/16 12/20/16 12/20/16 18:59 06:59 18:59 Intake Total 800 Balance 800 Weight 120 kg Intake: Intake, IV Titration 100 Amount Ampicillin-Sulbactam 3 gm 100 In Sodium Chloride 0.9% 100 ml @ 100 mls/hr IVPB Q8HR [facility] Rx#:[id number] Oral 700 Other: Voiding Method Toilet Toilet # Voids 2 1 - Exam GENERAL: Well developed and in no acute distress. Pleasant. HEENT: Increase jaundice. Extraocular movements grossly intact. Moist buccal mucosa. Head is atraumatic, normocephalic. Hears conversational speech. No nasal drainage. NECK: Supple without lymphadenopathy. CHEST: Non-labored respirations and equal bilateral excursions. CARDIOVASCULAR: Irregular rate and rhythm. Palpable 2+ radial pulses. ABDOMEN: Soft, nondistended. Tenderness along the right lower quadrant and right upper quadrant. No diffuse peritonitis. MUSCULOSKELETAL: No clubbing, cyanosis. NEUROLOGIC: No focal or lateralizing signs. Cranial nerves II-12 intact. PSYCH: Appropriate affect. Alert and oriented to person, place and time. - Labs CBC & Chem 7: 12/20/16 07:15 12/20/16 07:15 Labs: Abnormal Lab Results - Last 24 Hours (Table) 12/19/16 12/19/16 12/19/16 Range/Units 07:36 12:22 17:37 PT (9.0-12.0) sec INR (<1.2) Sodium (137-145) mmol/L BUN 59 H (9-20) mg/dL Creatinine 1.69 H (0.66-1.25) mg/dL Glucose 127 H (74-99) mg/dL POC Glucose (mg/dL) 125 H 188 H (75-99) mg/dL Total Bilirubin 6.8 H (0.2-1.3) mg/dL Conjugated Bilirubin (0.0-0.3) mg/dL Unconjugated Bilirubin (0.0-1.1) mg/dL Delta Bilirubin (0.0-0.2) mg/dL AST 115 H (17-59) U/L ALT 105 H (21-72) U/L Alkaline Phosphatase 295 H (38-126) U/L Total Protein (6.3-8.2) g/dL Albumin (3.5-5.0) g/dL 12/19/16 12/20/16 12/20/16 Range/Units 20:27 07:13 07:15 PT 16.1 H (9.0-12.0) sec INR 1.7 H (<1.2) Sodium (137-145) mmol/L BUN (9-20) mg/dL Creatinine (0.66-1.25) mg/dL Glucose (74-99) mg/dL POC Glucose (mg/dL) 115 H 151 H (75-99) mg/dL Total Bilirubin (0.2-1.3) mg/dL Conjugated Bilirubin (0.0-0.3) mg/dL Unconjugated Bilirubin (0.0-1.1) mg/dL Delta Bilirubin (0.0-0.2) mg/dL AST (17-59) U/L ALT (21-72) U/L Alkaline Phosphatase (38-126) U/L Total Protein (6.3-8.2) g/dL Albumin (3.5-5.0) g/dL 12/20/16 Range/Units 07:15 PT (9.0-12.0) sec INR (<1.2) Sodium 136 L (137-145) mmol/L BUN 67 H (9-20) mg/dL Creatinine 2.44 H (0.66-1.25) mg/dL Glucose 150 H (74-99) mg/dL POC Glucose (mg/dL) (75-99) mg/dL Total Bilirubin 10.9 H (0.2-1.3) mg/dL Conjugated Bilirubin 7.1 H (0.0-0.3) mg/dL Unconjugated Bilirubin 1.5 H (0.0-1.1) mg/dL Delta Bilirubin 2.3 H (0.0-0.2) mg/dL AST (17-59) U/L ALT 78 H (21-72) U/L Alkaline Phosphatase 301 H (38-126) U/L Total Protein 6.2 L (6.3-8.2) g/dL Albumin 3.4 L (3.5-5.0) g/dL - Imaging and Cardiology Chest x-ray: report reviewed, image reviewed (Consistent with personal history of congestive heart failure. No bilateral pleural effusions identified.) Assessment and Plan (1) Acute cholecystitis Status: Acute (2) Jaundice Status: Acute (3) Incarcerated right inguinal hernia Status: Acute (4) Right lower quadrant pain Status: Acute (5) Congestive cardiomyopathy Status: Acute (6) Right upper quadrant abdominal pain Status: Acute (7) Dehydration, moderate Status: Acute (8) Acute renal failure due to tubular necrosis Status: Acute Plan: 1. His jaundice is worse daily and will need surgical intervention including ERCP. 2. His INR is still above 1.5 with additional vitamin K written. 3. He has new acute on chronic renal failure due to moderate diuretic use despite poor oral intake. IV fluid bolus including cutting back on his diuretics as been performed. 4. Will anticipate surgical intervention tomorrow with combined ERCP followed by cholecystectomy and repair of right inguinal hernia without mesh. 5. Continue a liquid diet in the interim with nothing by mouth after midnight. 6. I have answered the patient and his 's question at bedside. Given his cardiac history expedited surgical intervention is sought.
[2016-12-20 16:45] LABS: Glucose,Whole Blood 180 mg/dL (75-99)
[2016-12-20] MEDS: DOCUSATE 100 MG CAP PO SCH (20:19)
[2016-12-20] MEDS: ALLOPURINOL 100 MG TAB PO SCH (20:19)
[2016-12-20 20:44] LABS: Glucose,Whole Blood 160 mg/dL (75-99)
--- NOTE | 2016-12-20 21:12 | PN ---
PROGRESS NOTE DATE OF SERVICE: 12/20/2016 I am covering for Dr. Harper. This 71-year-old gentleman admitted with pulmonary edema also had right upper quadrant abdominal pain. Patient had possibility of choledocholithiasis and cholelithiasis was suspected. At this time the patient was seen by Dr. Champion and Dr. Martinez. Dr. Martinez is planning ERCP tomorrow once the PT and INR are stabilized. The patient received vitamin K. Dr. Champion, surgeon, is also following the patient and recommended ERCP prior to any possible surgery. PAST MEDICAL HISTORY: Reviewed. REVIEW OF SYSTEMS: CARDIOVASCULAR: No angina. RESPIRATORY: As mentioned. GI: As mentioned. : No dysuria. NEURO: No focal weakness. CURRENT MEDICATIONS: 1. [place] 7.5 p.r.n. 2. Zyloprim. 3. Xanax. 4. Unasyn 3 g q.8h. 5. Coreg. 6. Colace. 7. Dilaudid 0.5 q.4 hours. 8. Levemir 33 units subcu q.h.s. and Humalog 19 units a.c. t.i.d. 9. Claritin. 10.Macrobid ointment. PHYSICAL EXAM: Patient is alert and oriented x3. Pulse 69, blood pressure 102/50, respirations 16, temperature 98.8, pulse ox 94% on room air. HEENT: Conjunctivae normal. CARDIOVASCULAR: S1/S2 muffled. RESPIRATORY: Diminished breath sounds, especially at the bases. A few scattered rhonchi. No crackles. ABDOMEN: Soft. Mild diffuse tenderness in the right upper quadrant, slightly better than compared to yesterday. No guarding, no rigidity. No mass palpable. LEGS; No edema. NERVOUS SYSTEM: No focal deficits. LABS: WBC 9, hemoglobin 11.9, platelets 132. INR is 1.7. Otherwise bilirubin is elevated up to 7.1, AST and ALT noted. ASSESSMENT: 1. Abdominal pain with possible acute cholecystitis and cholelithiasis. 2. Elevated LFTs, rule out CBD stone. 3. Coumadin monitoring. 4. Incarcerated right inguinal hernia. 5. Right lower quadrant abdominal pain. 6. History of congestive cardiomyopathy. 7. Elevated AST and ALT. 8. Increased creatinine. RECOMMENDATIONS: In this 71-year-old gentleman who presented with multiple complex medical issues , we will monitor the patient closely, continue the current management, continue symptomatic treatment. The PT/INR is significantly improving at 1.7 at this time. Possibly ERCP by Dr. Martinez and as well as followed by cholecystectomy and as well as inguinal hernia repair per Dr. Champion. The prognosis is guarded because of multiple complex medical issues. Further recommendations to follow. MMODL / IJN: [id number] / MTDD
[2016-12-20] MEDS: INSULIN DETEMIR 100 UNIT/ML 10 ML VIAL SQ SCH (22:04)
[2016-12-21] MEDS: SODIUM CHLORIDE 0.9% 1,000 ML IV SCH ×2 (03:12→16:17)
[2016-12-21 07:16] LABS: Glucose,Whole Blood 133 mg/dL (75-99)
[2016-12-21] MEDS: INSULIN LISPRO (humaLOG) 300 UNIT/3 ML VIAL SQ SCH ×3 (07:26→18:18)
[2016-12-21] MEDS: HYDROmorphone 1 MG/ML 1 ML SYRINGE IVP PRN ×2 (08:04→23:49)
[2016-12-21] MEDS: AMPICILLIN-SULBACTAM 3 GM in SODIUM CHLORIDE 0.9% 100 ML IVPB SCH ×3 (08:09→23:49)
[2016-12-21] MEDS: PANTOPRAZOLE 40 MG TABLET PO SCH (08:16)
[2016-12-21] MEDS: DOCUSATE 100 MG CAP PO SCH ×2 (08:17→21:49)
[2016-12-21] MEDS: NITROGLYCERIN OINT 1 INCH/GM PACKET TOPICAL SCH ×5 (08:18→23:18)
[2016-12-21] MEDS: CARVEDILOL 12.5 MG TAB PO SCH (08:20)
[2016-12-21 09:02] LABS: Basophils % (A) 0 %; CH 29.8; CHCM 30.5; Eosinophils # (A) 0.1 k/uL (0-0.7); Eosinophils % (A) 1 %; HCT 36.3 % (39.0-53.0); HDW 2.26; HGB 11.2 gm/dL (13.0-17.5); Hypochromasia Slight; Luc # (Auto) 0.12; Luc % (Auto) 2; Lymphocytes # (A) 0.3 k/uL (1.0-4.8); Lymphocytes % (A) 5 %; MCH 30.3 pg (25.0-35.0); MCHC 30.8 g/dL (31.0-37.0); MCV 98.3 fL (80.0-100.0); Mean Platelet Volume 8.3; Monocytes # (A) 0.5 k/uL (0-1.0); Monocytes % (A) 10 %; Neutrophils # (A) 4.2 k/uL (1.3-7.7); Neutrophils % (A) 81 %; RDW 14.2 % (11.5-15.5); WBC 5.1 k/uL (3.8-10.6); WBC (Perox) 5.45
[2016-12-21 09:09] LABS: INR 1.3 (<1.2); Prothrombin Time 12.9 sec (9.0-12.0)
[2016-12-21 09:23] LABS: Calcium 8.2 mg/dL (8.4-10.2); Total Bilirubin 11.1 mg/dL (0.2-1.3); Total Protein 5.8 g/dL (6.3-8.2)
[2016-12-21] MEDS: HYDROcodone/APAP 7.5-325MG 1 EACH TAB PO PRN (09:53)
--- NOTE | 2016-12-21 10:29 | P.PN ---
Subjective This is a follow-up note 21 December. I walked in to evaluate . Jaswinder Castellanos, who is admitted with a right upper quadrant pain with abnormal LFTs, elevated bilirubin/shortness and is awaiting ERCP possibly today A nurse was taking a history and the patient's aggressively insisted that the nurse stop doing what she was doing. She was arguing with the nurse to the point that even her , the patient, asked the to stop doing that. I spoke to the patient personally He does not appear to be in any respiratory distress. He does have abdominal discomfort predominantly in the right upper quadrant. He denies any chest discomfort no orthopnea PND and did not have any respiratory issues over the weekend. He stated he was able to lie comfortably in bed through the weekend without having to sit up for breathing difficulty He was originally admitted with a right upper quadrant pain. 2 days prior to this admission he came to the ER but refused to be admitted. He then came back 2 days later once again. As is documented in Dr. Booker's note of the 12/17/2016 Chest x-ray shows cardiomegaly and interstitial prominence. On examination his temperature is 100.1, 98.6, 98.8F, pulse rate between 69-90 beats a minute, normal respirations 16/m, blood pressure 113/58 mmHg. 93% pulse ox on room air Looks comfortable now breathing problems lying in about 20-30 angle in bed, head up Heart sounds S1 and S2 are normal a very soft systolic murmur is audible Breath sounds are reduced bilaterally but no rhonchi no crackles Abdomen is tender all over but particularly on the right upper quadrant, no hepatojugular reflux Extremities is warm, trophic changes noted Icterus is obvious on inspection 2-D echo was reviewed and shows severe LV dysfunction ejection fraction 20-25%, right ventricular enlargement. White count normal, hemoglobin 11.2, sodium and potassium normal, BUN 72, creatinine 2.62, bilirubin 11.1, alkaline phosphatase 323 BNP 4000 on December 17 Chest x-ray shows a biventricular ICD in situ Impression Severe cardio myopathy with chronic systolic dysfunction, no acute exacerbation at this point of his heart failure BNP likely chronically elevated with elevated intracardiac pressures on account of the cardiomyopathy Chest x-ray consistent with this Patient has an AICD, Bi V Chronic kidney disease GFR 24, stage IV CAD, coronary artery bypass grafting Follows with cardio ramila in [facility] This gentleman is awaiting ERCP and possible abdominal surgery Cardiac medications including including carvedilol must continue perioperatively. His fluid status must be watched carefully since he has a severe cardiomyopathy. If electrocautery is used to then a magnet must be placed over the ICD. Hold off on statins in view of his liver abnormalities until further clarification regarding the cause He does need statins, it is clinically indicated. Home medications state that he is on losartan and ENTRESTO. wants all cardiac records from [facility] did this was requested last week. I stated that with this point those records will not add anything to his care, but the was insistent that we get. We will try again At this point from a heart failure standpoint the patient has chronic heart failure and while he is stable to proceed with the procedure under anesthesia, at this point, but he is clearly at very high risk for perioperative cardiovascular events. I did give the the option of transferring him to [facility] since his coal handler was there a new him well but she refused. In my medical opinion this patient is stable for transfer to [facility] from a cardiovascular standpoint at this point. If he is to be transferred we should do it at that time when he is stable from a cardiac vascular standpoint and not wait till he deteriorates. At this point he is stable from a cardiac vascular standpoint. I also spoke to the nurse branch office manager Arianna regarding these interactions and it appears that there are other masses who had difficulties taking care of this patient on account of his 's behavior and attitude. Objective - Vital Signs Vital signs: Vital Signs Temp 98.6 F 12/21/16 07:00 Pulse 66 12/21/16 07:00 Resp 16 12/21/16 07:00 BP 113/58 12/21/16 07:00 Pulse Ox 93 L 12/21/16 07:00 Intake & Output 12/20/16 12/21/16 12/21/16 18:59 06:59 18:59 Intake Total 2405 1080 Balance 2405 1080 Weight 120 kg Intake: Intake, IV Titration 1325 600 Amount Ampicillin-Sulbactam 3 gm 100 In Sodium Chloride 0.9% 100 ml @ 100 mls/hr IVPB Q8HR [facility] Rx#:[id number] Sodium Chloride 0.9% 1, 1000 000 ml @ 500 mls/hr IV . Q2H [facility] Rx#:[id number] Sodium Chloride 0.9% 1, 225 600 000 ml @ 75 mls/hr IV . [id number] [facility] Rx#:[id number] Oral 1080 480 Other: Voiding Method Toilet Toilet # Voids 3 1 - Labs CBC & Chem 7: 12/21/16 07:59 12/21/16 07:59 Labs: Abnormal Lab Results - Last 24 Hours (Table) 12/20/16 12/20/16 12/20/16 Range/Units 11:27 16:44 20:42 RBC (4.30-5.90) m/uL Hgb (13.0-17.5) gm/dL Hct (39.0-53.0) % MCHC (31.0-37.0) g/dL Plt Count (150-450) k/uL Lymphocytes # (1.0-4.8) k/uL PT (9.0-12.0) sec INR (<1.2) Carbon Dioxide (22-30) mmol/L BUN (9-20) mg/dL Creatinine (0.66-1.25) mg/dL Glucose (74-99) mg/dL POC Glucose (mg/dL) 172 H 180 H 160 H (75-99) mg/dL Calcium (8.4-10.2) mg/dL Total Bilirubin (0.2-1.3) mg/dL Alkaline Phosphatase (38-126) U/L Total Protein (6.3-8.2) g/dL Albumin (3.5-5.0) g/dL 12/21/16 12/21/16 12/21/16 Range/Units 07:07 07:59 07:59 RBC 3.70 L (4.30-5.90) m/uL Hgb 11.2 L (13.0-17.5) gm/dL Hct 36.3 L (39.0-53.0) % MCHC 30.8 L (31.0-37.0) g/dL Plt Count 134 L (150-450) k/uL Lymphocytes # 0.3 L (1.0-4.8) k/uL PT 12.9 H (9.0-12.0) sec INR 1.3 H (<1.2) Carbon Dioxide (22-30) mmol/L BUN (9-20) mg/dL Creatinine (0.66-1.25) mg/dL Glucose (74-99) mg/dL POC Glucose (mg/dL) 133 H (75-99) mg/dL Calcium (8.4-10.2) mg/dL Total Bilirubin (0.2-1.3) mg/dL Alkaline Phosphatase (38-126) U/L Total Protein (6.3-8.2) g/dL Albumin (3.5-5.0) g/dL 12/21/16 Range/Units 07:59 RBC (4.30-5.90) m/uL Hgb (13.0-17.5) gm/dL Hct (39.0-53.0) % MCHC (31.0-37.0) g/dL Plt Count (150-450) k/uL Lymphocytes # (1.0-4.8) k/uL PT (9.0-12.0) sec INR (<1.2) Carbon Dioxide 20 L (22-30) mmol/L BUN 72 H (9-20) mg/dL Creatinine 2.62 H (0.66-1.25) mg/dL Glucose 123 H (74-99) mg/dL POC Glucose (mg/dL) (75-99) mg/dL Calcium 8.2 L (8.4-10.2) mg/dL Total Bilirubin 11.1 H (0.2-1.3) mg/dL Alkaline Phosphatase 323 H (38-126) U/L Total Protein 5.8 L (6.3-8.2) g/dL Albumin 3.0 L (3.5-5.0) g/dL
[2016-12-21] MEDS ORDERED: IV FLUID CONTINUATION 1,000 ML IV ONE (12:07)
[2016-12-21] MEDS ORDERED: fentaNYL (PF) 50 MCG/ML 2 ML AMP ONE (12:10)
[2016-12-21] MEDS ORDERED: ONDANSETRON 4 MG/2 ML VIAL ONE (12:10)
[2016-12-21] MEDS ORDERED: LIDOCAINE 1% INJ 10MG/ML (20 ML MDV) ONE (12:10)
[2016-12-21] MEDS ORDERED: MIDAZOLAM 2 MG/2 ML VIAL ONE (12:10)
[2016-12-21] MEDS ORDERED: PROPOFOL 10 MG/ML 20 ML VIAL IV ONE (12:10)
[2016-12-21] MEDS ORDERED: INDOMETHACIN 50MG SUPPOSITORY RECTAL STA (12:18)
[2016-12-21] MEDS ORDERED: IOHEXOL 350 MG/ML 50ML BOTTLE PO ONE (12:37)
--- NOTE | 2016-12-21 13:28 | P.PCN ---
Date of Procedure: 12/21/16 Procedure(s) Performed: Brief history: Patient is a 71 year-old pleasant white male, scheduled for an ERCP as part of evaluation of abdominal pain and elevated serum transaminases as well as jaundice for the last 5 days' duration. He had CT of the abdomen as well as ultrasound of abdomen done that showed a hydrops of the gallbladder but no obvious stone noted. No biliary ductal dilation noted. However during the hospital course he continued to have worsening serum transaminases as well as a total bilirubin peaking at 10 g/dL and because of a clinical suspicion for CBD stone he scheduled for an ERCP today. He did a HIDA scan showed that showed acute cholecystitis. Procedure performed: ERCP Preoperative diagnoses: Elevated LFTs and jaundice rule out CBD stone IV sedation per anesthesia: Procedure: After informed consent was obtained from the patient and after the risks benefits and complications including bleeding perforation and pancreatitis explained in detail the patient was brought into the endoscopy unit. The patient was placed in prone position and IV conscious sedation was administered by anesthesia under continuous monitoring. The Olympus side-viewing duodenoscope was then inserted into the mouth and esophagus intubated without any difficulty. The scope was gradually advanced into the stomach and duodenum. The major papilla was identified without any difficulty. Initial cannulation resulted in opacification of the pancreatic duct that appeared normal. Immediately subsequent cannulation and opacification of the common bile duct that appeared to have thin caliber measuring about 3 mm in diameter with no strictures or stones identified. There was some pruning of the intrahepatics noted. No bleeding identified. Since no therapeutic intervention was needed the procedure was terminated and the patient tolerated the procedure well. Impression: Normal-appearing pancreatic duct Then caliber common bile duct measuring 3 mm in diameter with some pruning of the intrahepatics but no evidence of biliary ductal dilation, filling defects or stricture. Recommendations: The findings of this examination were discussed with the patient as well as a family. At this time will be started on a clear liquid diet. Labs will be repeated tomorrow. Because of the clinical suspicion for possible chronic liver disease will request of Dr. Champion to proceed with a liver biopsy tomorrow at the time of coronary surgery
--- NOTE | 2016-12-21 14:12 | FL ---
EXAMINATION TYPE: FL ERCP HISTORY: Fluoroscopy time Impression: 1. Fluoroscopy support provided to the referring physician. 1 minute and 29 seconds of fluoroscopy pr ovided.
[2016-12-21 15:53] LABS: Glucose,Whole Blood 164 mg/dL (75-99)
[2016-12-21 17:23] LABS: Glucose,Whole Blood 173 mg/dL (75-99)
--- NOTE | 2016-12-21 17:52 | P.PN ---
Subjective Principal diagnosis: Acute cholecystitis The patient is 71-year-old gentleman with ischemic cardiomyopathy including chronic anticoagulation for atrial fibrillation and acute cholecystitis. He had completed a ERCP which was unremarkable filling defect. He still continues to have elevated total bilirubin and alkaline phosphatase levels. Additionally , his creatinine is increasing. Nephrology consultation is pending. I have been present at bedside where the patient's has expressed her concerns of his overall care. The patient and are eager to still pursue surgery albeit he's extremely high risk for cardiac event, pulmonary including kidney failure. Objective - Vital Signs Vital signs: Vital Signs Temp 97.1 F L 12/21/16 15:00 Pulse 74 12/21/16 16:00 Resp 16 12/21/16 16:00 BP 93/47 12/21/16 15:00 Pulse Ox 96 12/21/16 16:15 Intake & Output 12/20/16 12/21/16 12/21/16 18:59 06:59 18:59 Intake Total 2405 1080 675 Balance 2405 1080 675 Weight 120 kg Intake: IV 150 Intake, IV Titration 1325 600 525 Amount Ampicillin-Sulbactam 3 gm 100 In Sodium Chloride 0.9% 100 ml @ 100 mls/hr IVPB Q8HR [facility] Rx#:[id number] Sodium Chloride 0.9% 1, 1000 000 ml @ 500 mls/hr IV . Q2H [facility] Rx#:[id number] Sodium Chloride 0.9% 1, 225 600 525 000 ml @ 75 mls/hr IV . [id number] [facility] Rx#:[id number] Oral 1080 480 Other: Voiding Method Toilet Toilet Toilet # Voids 3 1 - Exam GENERAL: Well developed and in no acute distress. Pleasant. HEENT: Persistent jaundice. Extraocular movements grossly intact. Moist buccal mucosa. Head is atraumatic, normocephalic. Hears conversational speech. No nasal drainage. NECK: Supple without lymphadenopathy. CHEST: Non-labored respirations and equal bilateral excursions. CARDIOVASCULAR: Irregular rate and rhythm. Palpable 2+ radial pulses. ABDOMEN: Soft, nondistended. Tender along right upper quadrant and right lower quadrant. MUSCULOSKELETAL: No clubbing, cyanosis. NEUROLOGIC: No focal or lateralizing signs. Cranial nerves II-12 intact. PSYCH: Appropriate affect. Alert and oriented to person, place and time. SKIN: Profused and jaundice. - Labs CBC & Chem 7: 12/21/16 07:59 12/21/16 07:59 Labs: Abnormal Lab Results - Last 24 Hours (Table) 12/20/16 12/21/16 12/21/16 Range/Units 20:42 07:07 07:59 RBC (4.30-5.90) m/uL Hgb (13.0-17.5) gm/dL Hct (39.0-53.0) % MCHC (31.0-37.0) g/dL Plt Count (150-450) k/uL Lymphocytes # (1.0-4.8) k/uL PT 12.9 H (9.0-12.0) sec INR 1.3 H (<1.2) Carbon Dioxide (22-30) mmol/L BUN (9-20) mg/dL Creatinine (0.66-1.25) mg/dL Glucose (74-99) mg/dL POC Glucose (mg/dL) 160 H 133 H (75-99) mg/dL Calcium (8.4-10.2) mg/dL Total Bilirubin (0.2-1.3) mg/dL Alkaline Phosphatase (38-126) U/L Total Protein (6.3-8.2) g/dL Albumin (3.5-5.0) g/dL 12/21/16 12/21/16 12/21/16 Range/Units 07:59 07:59 15:10 RBC 3.70 L (4.30-5.90) m/uL Hgb 11.2 L (13.0-17.5) gm/dL Hct 36.3 L (39.0-53.0) % MCHC 30.8 L (31.0-37.0) g/dL Plt Count 134 L (150-450) k/uL Lymphocytes # 0.3 L (1.0-4.8) k/uL PT (9.0-12.0) sec INR (<1.2) Carbon Dioxide 20 L (22-30) mmol/L BUN 72 H (9-20) mg/dL Creatinine 2.62 H (0.66-1.25) mg/dL Glucose 123 H (74-99) mg/dL POC Glucose (mg/dL) 164 H (75-99) mg/dL Calcium 8.2 L (8.4-10.2) mg/dL Total Bilirubin 11.1 H (0.2-1.3) mg/dL Alkaline Phosphatase 323 H (38-126) U/L Total Protein 5.8 L (6.3-8.2) g/dL Albumin 3.0 L (3.5-5.0) g/dL 12/21/16 Range/Units 17:18 RBC (4.30-5.90) m/uL Hgb (13.0-17.5) gm/dL Hct (39.0-53.0) % MCHC (31.0-37.0) g/dL Plt Count (150-450) k/uL Lymphocytes # (1.0-4.8) k/uL PT (9.0-12.0) sec INR (<1.2) Carbon Dioxide (22-30) mmol/L BUN (9-20) mg/dL Creatinine (0.66-1.25) mg/dL Glucose (74-99) mg/dL POC Glucose (mg/dL) 173 H (75-99) mg/dL Calcium (8.4-10.2) mg/dL Total Bilirubin (0.2-1.3) mg/dL Alkaline Phosphatase (38-126) U/L Total Protein (6.3-8.2) g/dL Albumin (3.5-5.0) g/dL Assessment and Plan (1) Acute cholecystitis Status: Acute (2) Jaundice Status: Acute (3) Incarcerated right inguinal hernia Status: Acute (4) Right lower quadrant pain Status: Acute (5) Congestive cardiomyopathy Status: Acute (6) Right upper quadrant abdominal pain Status: Acute (7) Dehydration, moderate Status: Acute (8) Acute renal failure due to tubular necrosis Status: Acute Plan: 1. His INR is less than 1.5 for surgical intervention with a laparoscopic cholecystectomy and right inguinal hernia repair 2. Separately, his kidney function is worsening consistent with acute on chronic renal failure. Nephrology consultation is pending. 3. Cardiology risk assessment is appreciated also confirming high surgical risk with his baseline cardiac status. 4. I had a long and thorough discussion the patient's family regarding increased surgical risk of kidney, pulmonary, cardiac compromise following surgery. Patient and still wished to proceed. Potential option of transfer were reviewed however patient and were eager to stay. 5. Will repeat chemistries. 6. Per request of GI, liver biopsy for potential cryptogenic cause of elevated liver enzymes is being sought.
[2016-12-21 20:30] LABS: Glucose,Whole Blood 223 mg/dL (75-99)
[2016-12-21] MEDS: INSULIN DETEMIR 100 UNIT/ML 10 ML VIAL SQ SCH (21:50)
[2016-12-21] MEDS: ALLOPURINOL 100 MG TAB PO SCH (21:50)
--- NOTE | 2016-12-21 23:22 | P.PN ---
Subjective Principal diagnosis: Cholecystitis. This is a continue proximal on a 71-year-old white male [facility] for cholecystitis but has history of heart disease. Cardiology and pulmonology have otherwise been consulted. He is scheduled for ERCP with Cholecystectomy scheduled by Dr. Champion Objective - Vital Signs Vital signs: Vital Signs Temp 97.6 F 12/21/16 21:21 Pulse 65 12/21/16 21:21 Resp 18 12/21/16 21:21 BP 110/55 12/21/16 21:21 Pulse Ox 94 L 12/21/16 21:21 Intake & Output 12/21/16 12/21/16 12/22/16 06:59 18:59 06:59 Intake Total 1080 675 Balance 1080 675 Weight 120 kg Intake: IV 150 Intake, IV Titration 600 525 Amount Sodium Chloride 0.9% 1, 600 525 000 ml @ 75 mls/hr IV . [id number] [facility] Rx#:[id number] Oral 480 Other: Voiding Method Toilet Toilet # Voids 1 - Constitutional General appearance: Present: average body habitus - EENT Eyes: Absent: abnormal pupil - Respiratory Respiratory: bilateral: CTA - Cardiovascular Rhythm: regular Heart sounds: normal: S1, S2 - Gastrointestinal General gastrointestinal: Present: soft, tenderness - Neurologic Neurologic: Present: CNII-XII intact - Labs CBC & Chem 7: 12/21/16 07:59 12/21/16 07:59 Labs: Abnormal Lab Results - Last 24 Hours (Table) 12/21/16 12/21/16 12/21/16 Range/Units 07:07 07:59 07:59 RBC 3.70 L (4.30-5.90) m/uL Hgb 11.2 L (13.0-17.5) gm/dL Hct 36.3 L (39.0-53.0) % MCHC 30.8 L (31.0-37.0) g/dL Plt Count 134 L (150-450) k/uL Lymphocytes # 0.3 L (1.0-4.8) k/uL PT 12.9 H (9.0-12.0) sec INR 1.3 H (<1.2) Carbon Dioxide (22-30) mmol/L BUN (9-20) mg/dL Creatinine (0.66-1.25) mg/dL Glucose (74-99) mg/dL POC Glucose (mg/dL) 133 H (75-99) mg/dL Calcium (8.4-10.2) mg/dL Total Bilirubin (0.2-1.3) mg/dL Alkaline Phosphatase (38-126) U/L Total Protein (6.3-8.2) g/dL Albumin (3.5-5.0) g/dL 12/21/16 12/21/16 12/21/16 Range/Units 07:59 15:10 17:18 RBC (4.30-5.90) m/uL Hgb (13.0-17.5) gm/dL Hct (39.0-53.0) % MCHC (31.0-37.0) g/dL Plt Count (150-450) k/uL Lymphocytes # (1.0-4.8) k/uL PT (9.0-12.0) sec INR (<1.2) Carbon Dioxide 20 L (22-30) mmol/L BUN 72 H (9-20) mg/dL Creatinine 2.62 H (0.66-1.25) mg/dL Glucose 123 H (74-99) mg/dL POC Glucose (mg/dL) 164 H 173 H (75-99) mg/dL Calcium 8.2 L (8.4-10.2) mg/dL Total Bilirubin 11.1 H (0.2-1.3) mg/dL Alkaline Phosphatase 323 H (38-126) U/L Total Protein 5.8 L (6.3-8.2) g/dL Albumin 3.0 L (3.5-5.0) g/dL 12/21/16 Range/Units 20:13 RBC (4.30-5.90) m/uL Hgb (13.0-17.5) gm/dL Hct (39.0-53.0) % MCHC (31.0-37.0) g/dL Plt Count (150-450) k/uL Lymphocytes # (1.0-4.8) k/uL PT (9.0-12.0) sec INR (<1.2) Carbon Dioxide (22-30) mmol/L BUN (9-20) mg/dL Creatinine (0.66-1.25) mg/dL Glucose (74-99) mg/dL POC Glucose (mg/dL) 223 H (75-99) mg/dL Calcium (8.4-10.2) mg/dL Total Bilirubin (0.2-1.3) mg/dL Alkaline Phosphatase (38-126) U/L Total Protein (6.3-8.2) g/dL Albumin (3.5-5.0) g/dL Assessment and Plan (1) Pulmonary edema Status: Acute (2) Right upper quadrant abdominal pain Status: Acute (3) 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 Check CBC and see me in a.m. Appreciated specialist input.
[2016-12-22] MEDS: PANTOPRAZOLE 40 MG TABLET PO SCH (07:11)
[2016-12-22] MEDS: DOCUSATE 100 MG CAP PO SCH ×2 (07:12→21:30)
[2016-12-22] MEDS: AMPICILLIN-SULBACTAM 3 GM in SODIUM CHLORIDE 0.9% 100 ML IVPB SCH ×3 (07:14→23:42)
[2016-12-22] MEDS: SODIUM CHLORIDE 0.9% 1,000 ML IV SCH ×3 (07:14→15:59)
[2016-12-22] MEDS: INSULIN LISPRO (humaLOG) 300 UNIT/3 ML VIAL SQ SCH ×3 (07:20→16:14)
[2016-12-22 07:21] LABS: Glucose,Whole Blood 144 mg/dL (75-99)
--- NOTE | 2016-12-22 08:28 | P.PN ---
Subjective Principal diagnosis: Cholecystitis This is a continue progress on a 71-year-old white male with known history of acute renal failure on chronic renal failure. The patient has elements of cholecystitis. Surgical evaluation has since to the fact that he might be better serviced by going to tertiary care center given his multiple comorbidities. I'm agreeable to transfer if necessary. Objective - Vital Signs Vital signs: Vital Signs Temp 97.6 F 12/22/16 07:00 Pulse 70 12/22/16 07:00 Resp 16 12/22/16 07:31 BP 105/60 12/22/16 07:00 Pulse Ox 96 12/22/16 07:00 Intake & Output 12/21/16 12/22/16 12/22/16 18:59 06:59 18:59 Intake Total 675 1600 Balance 675 1600 Weight 119.8 kg Intake: IV 150 Intake, IV Titration 525 1400 Amount Ampicillin-Sulbactam 3 gm 200 In Sodium Chloride 0.9% 100 ml @ 100 mls/hr IVPB Q8HR [facility] Rx#:[id number] Sodium Chloride 0.9% 1, 525 1200 000 ml @ 75 mls/hr IV . [id number] [facility] Rx#:[id number] Oral 200 Other: Voiding Method Toilet Toilet Toilet # Voids 1 - Constitutional General appearance: Present: obese - EENT Eyes: Absent: abnormal pupil - Respiratory Respiratory: bilateral: CTA - Cardiovascular Heart sounds: normal: S1, S2 - Gastrointestinal General gastrointestinal: Present: soft. Absent: tenderness - Labs CBC & Chem 7: 12/21/16 07:59 12/21/16 07:59 Labs: Abnormal Lab Results - Last 24 Hours (Table) 12/21/16 12/21/16 12/21/16 Range/Units 07:59 07:59 07:59 RBC 3.70 L (4.30-5.90) m/uL Hgb 11.2 L (13.0-17.5) gm/dL Hct 36.3 L (39.0-53.0) % MCHC 30.8 L (31.0-37.0) g/dL Plt Count 134 L (150-450) k/uL Lymphocytes # 0.3 L (1.0-4.8) k/uL PT 12.9 H (9.0-12.0) sec INR 1.3 H (<1.2) Carbon Dioxide 20 L (22-30) mmol/L BUN 72 H (9-20) mg/dL Creatinine 2.62 H (0.66-1.25) mg/dL Glucose 123 H (74-99) mg/dL POC Glucose (mg/dL) (75-99) mg/dL Calcium 8.2 L (8.4-10.2) mg/dL Total Bilirubin 11.1 H (0.2-1.3) mg/dL Alkaline Phosphatase 323 H (38-126) U/L Total Protein 5.8 L (6.3-8.2) g/dL Albumin 3.0 L (3.5-5.0) g/dL 12/21/16 12/21/16 12/21/16 Range/Units 15:10 17:18 20:13 RBC (4.30-5.90) m/uL Hgb (13.0-17.5) gm/dL Hct (39.0-53.0) % MCHC (31.0-37.0) g/dL Plt Count (150-450) k/uL Lymphocytes # (1.0-4.8) k/uL PT (9.0-12.0) sec INR (<1.2) Carbon Dioxide (22-30) mmol/L BUN (9-20) mg/dL Creatinine (0.66-1.25) mg/dL Glucose (74-99) mg/dL POC Glucose (mg/dL) 164 H 173 H 223 H (75-99) mg/dL Calcium (8.4-10.2) mg/dL Total Bilirubin (0.2-1.3) mg/dL Alkaline Phosphatase (38-126) U/L Total Protein (6.3-8.2) g/dL Albumin (3.5-5.0) g/dL 12/22/16 Range/Units 07:19 RBC (4.30-5.90) m/uL Hgb (13.0-17.5) gm/dL Hct (39.0-53.0) % MCHC (31.0-37.0) g/dL Plt Count (150-450) k/uL Lymphocytes # (1.0-4.8) k/uL PT (9.0-12.0) sec INR (<1.2) Carbon Dioxide (22-30) mmol/L BUN (9-20) mg/dL Creatinine (0.66-1.25) mg/dL Glucose (74-99) mg/dL POC Glucose (mg/dL) 144 H (75-99) mg/dL Calcium (8.4-10.2) mg/dL Total Bilirubin (0.2-1.3) mg/dL Alkaline Phosphatase (38-126) U/L Total Protein (6.3-8.2) g/dL Albumin (3.5-5.0) g/dL Assessment and Plan (1) Pulmonary edema Status: Acute (2) Right upper quadrant abdominal pain Status: Acute (3) 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 We will go ahead and consider transfer with surgical team. Pain control is nominal. Blood sugar is stable. See orders otherwise.
[2016-12-22 08:59] LABS: INR 1.4 (<1.2); Prothrombin Time 13.4 sec (9.0-12.0)
[2016-12-22 09:04] LABS: Calcium 8.1 mg/dL (8.4-10.2); Potassium 3.8 mmol/L (3.5-5.1); Total Bilirubin 10.2 mg/dL (0.2-1.3); Total Protein 5.7 g/dL (6.3-8.2)
[2016-12-22 09:21] LABS: Basophils % (A) 1 %; CH 29.5; CHCM 30.5; Eosinophils # (A) 0.2 k/uL (0-0.7); Eosinophils % (A) 6 %; HCT 35.6 % (39.0-53.0); HDW 2.33; HGB 11.2 gm/dL (13.0-17.5); Hypochromasia Slight; Luc # (Auto) 0.12; Luc % (Auto) 4; Lymphocytes # (A) 0.2 k/uL (1.0-4.8); Lymphocytes % (A) 8 %; MCH 30.6 pg (25.0-35.0); MCHC 31.4 g/dL (31.0-37.0); MCV 97.5 fL (80.0-100.0); Mean Platelet Volume 8.4; Monocytes # (A) 0.4 k/uL (0-1.0); Monocytes % (A) 14 %; Neutrophils # (A) 2.1 k/uL (1.3-7.7); Neutrophils % (A) 67 %; RBC 3.65 m/uL (4.30-5.90); RDW 14.3 % (11.5-15.5); WBC 3.1 k/uL (3.8-10.6)
--- NOTE | 2016-12-22 09:41 | P.PN ---
Subjective Principal diagnosis: Hepatitis Reevaluated today in regards to jaundice elevated liver enzymes. Possible cholecystectomy hernia repair today per general surgery. Status post ERCP evaluation no evidence of retained CBD stone. Possible underlying chronic liver disease. Reports mild right upper quadrant discomfort this morning. Total bilirubin minimally improved 10.2. AST/ALT normal. Alk phos 337. INR 1.4. Hepatitis panel nonreactive. Afebrile. Objective - Vital Signs Vital signs: Vital Signs Temp 97.6 F 12/22/16 07:00 Pulse 70 12/22/16 07:00 Resp 16 12/22/16 07:31 BP 105/60 12/22/16 07:00 Pulse Ox 96 12/22/16 07:00 Intake & Output 12/21/16 12/22/16 12/22/16 18:59 06:59 18:59 Intake Total 675 1600 Balance 675 1600 Weight 119.8 kg Intake: IV 150 Intake, IV Titration 525 1400 Amount Ampicillin-Sulbactam 3 gm 200 In Sodium Chloride 0.9% 100 ml @ 100 mls/hr IVPB Q8HR [facility] Rx#:[id number] Sodium Chloride 0.9% 1, 525 1200 000 ml @ 75 mls/hr IV . [id number] [facility] Rx#:[id number] Oral 200 Other: Voiding Method Toilet Toilet Toilet # Voids 1 - Exam General appearance: The patient is alert, oriented, in no acute distress. Jaundice. HET: Head is normocephalic and atraumatic. Pupils are equal and reactive. Scleral icterus. Oropharynx is clear without lesions. Neck: Supple without lymphadenopathy. Trachea midline. Heart: S1 S2. Lungs: Diminished in bases bilaterally. Abdomen: Soft, mild tenderness right upper quadrant, nondistended with bowel sounds. No peritoneal signs. No palpable organomegaly or masses. Extremities: Bilateral lower extremity discoloration consistent with chronic venous stasis. Neurological: No focal deficits. Strength and sensation are grossly intact. - Labs CBC & Chem 7: 12/22/16 08:17 12/22/16 08:17 Labs: Abnormal Lab Results - Last 24 Hours (Table) 12/21/16 12/21/16 12/21/16 Range/Units 07:59 15:10 17:18 WBC (3.8-10.6) k/uL RBC (4.30-5.90) m/uL Hgb (13.0-17.5) gm/dL Hct (39.0-53.0) % Plt Count (150-450) k/uL Lymphocytes # (1.0-4.8) k/uL PT (9.0-12.0) sec INR (<1.2) Carbon Dioxide 20 L (22-30) mmol/L BUN 72 H (9-20) mg/dL Creatinine 2.62 H (0.66-1.25) mg/dL Glucose 123 H (74-99) mg/dL POC Glucose (mg/dL) 164 H 173 H (75-99) mg/dL Calcium 8.2 L (8.4-10.2) mg/dL Total Bilirubin 11.1 H (0.2-1.3) mg/dL Alkaline Phosphatase 323 H (38-126) U/L Total Protein 5.8 L (6.3-8.2) g/dL Albumin 3.0 L (3.5-5.0) g/dL 12/21/16 12/22/16 12/22/16 Range/Units 20:13 07:19 08:17 WBC (3.8-10.6) k/uL RBC (4.30-5.90) m/uL Hgb (13.0-17.5) gm/dL Hct (39.0-53.0) % Plt Count (150-450) k/uL Lymphocytes # (1.0-4.8) k/uL PT 13.4 H (9.0-12.0) sec INR 1.4 H (<1.2) Carbon Dioxide (22-30) mmol/L BUN (9-20) mg/dL Creatinine (0.66-1.25) mg/dL Glucose (74-99) mg/dL POC Glucose (mg/dL) 223 H 144 H (75-99) mg/dL Calcium (8.4-10.2) mg/dL Total Bilirubin (0.2-1.3) mg/dL Alkaline Phosphatase (38-126) U/L Total Protein (6.3-8.2) g/dL Albumin (3.5-5.0) g/dL 12/22/16 12/22/16 Range/Units 08:17 08:17 WBC 3.1 L (3.8-10.6) k/uL RBC 3.65 L (4.30-5.90) m/uL Hgb 11.2 L (13.0-17.5) gm/dL Hct 35.6 L (39.0-53.0) % Plt Count 125 L (150-450) k/uL Lymphocytes # 0.2 L (1.0-4.8) k/uL PT (9.0-12.0) sec INR (<1.2) Carbon Dioxide 19 L (22-30) mmol/L BUN 78 H (9-20) mg/dL Creatinine 2.85 H (0.66-1.25) mg/dL Glucose 118 H (74-99) mg/dL POC Glucose (mg/dL) (75-99) mg/dL Calcium 8.1 L (8.4-10.2) mg/dL Total Bilirubin 10.2 H (0.2-1.3) mg/dL Alkaline Phosphatase 337 H (38-126) U/L Total Protein 5.7 L (6.3-8.2) g/dL Albumin 2.8 L (3.5-5.0) g/dL Assessment and Plan Plan: Impression : 1. Hepatitis hyperbilirubinemia of unclear etiology. Tranaminases improved. Retained CBD stone excluded per ERCP exam. Etiology of jaundice unclear at this time possible underlying chronic liver disease intrahepatic cholestasis with decompensation. Plan: 1. Possible OR today for cholecystectomy and hernia repair.Possible transfer to tertiary care center. Gen. surgeon was requested to obtain liver biopsy for further workup of hepatitis if proceeded today. Will obtain AFP marker. Full serologic workup for chronic liver disease requested. We'll follow with you. Assessment and plan of care discussed with Dr. Martinez
[2016-12-22] MEDS: NITROGLYCERIN OINT 1 INCH/GM PACKET TOPICAL SCH ×4 (09:57→22:16)
[2016-12-22] MEDS: CARVEDILOL 12.5 MG TAB PO SCH (10:06)
[2016-12-22] MEDS: HYDROmorphone 1 MG/ML 1 ML SYRINGE IVP PRN ×2 (10:12→18:37)
[2016-12-22] MEDS ORDERED: FUROSEMIDE 10 MG/ML 4 ML VIAL IV STA (10:42)
--- NOTE | 2016-12-22 10:43 | P.NPCON ---
History of Present Illness - Reason for Consult acute renal failure - History of Present Illness Reason for consultation: Acute kidney injury History of present illness: Patient is a 71-year-old male seen in renal consultation for acute kidney injury. Unclear as to what his baseline function is. Creatinine was 1.17 on admission and is up at 2.85 today. Patient presented with abdominal pain mostly in his right upper quadrant. He also had an episode of emesis prior to admission. He underwent a CT of the abdomen and pelvis with IV contrast on December 17 which revealed no hydronephrosis. He also underwent a HIDA scan which was suggestive of acute cholecystitis. There was concern for common bile duct stone due to worsening LFTs and jaundice but the ERCP was negative performed December 21. He is now scheduled to undergo a cholecystectomy and a potential liver biopsy however he appears to be high risk for surgery. He continues to have abdominal discomfort. No nausea or vomiting. He has been voiding. No hematuria or dysuria. I do see that he received a dose of indomethacin this admission. He is currently maintained on normal saline at 75 mL an hour. Chest x-ray was suggestive of CHF. He does of systolic CHF with ejection fraction of 20-25% with moderate pulmonary hypertension. Denies any prior history of kidney disease. Vital signs are stable. General: The patient appeared well nourished and normally developed. HEENT: Head exam is unremarkable. Neck is without jugular venous distension. LUNGS: Lungs are clear to auscultation and percussion. Breath sounds decreased. HEART: Rate and Rhythm are regular. First and second heart sounds normal. No murmurs, rubs or gallops. ABDOMEN: Abdominal exam reveals normal bowel sounds. Tender to palpation mostly on the right upper quadrant. EXTREMITITES: No clubbing, cyanosis, or edema. Jaundice noted. Past Medical History Past Medical History: Atrial Fibrillation, Cancer, Heart Failure, Diabetes Mellitus, GI Bleed, Hypertension, Myocardial Infarction ([place]), Sleep Apnea/CPAP/ BIPAP, Vascular Disorder Additional Past Medical History / Comment(s): diverticulitis, gout, hx skin cancer, " 1 TEST POSITIVE FOR PROSTATE CANCER BUT 2ND TEST NEG" Last Myocardial Infarction Date:: 11/2002 History of Any Multi-Drug Resistant Organisms: None Reported Past Surgical History: AICD, Coronary Bypass/CABG, Heart Catheterization With Stent, Joint Replacement, Tonsillectomy Additional Past Surgical History / Comment(s): knee replacements (left x 2, rt x 1), surgery for sleep apnea, skin cancer removal, left foot hammertoe, vasectomy, angioplasty,cataract both eyes Past Anesthesia/Blood Transfusion Reactions: Previous Problems w/ Anesthesia Additional Past Anesthesia/Blood Transfusion Reaction / Comment(s): "longer to come out" Date of Last Stent Placement:: 11/2002 Type of Cardiac Device: AICD Device Placement Date:: last 01/21/14 Smoking Status: Former smoker - Past Family History Father Family Medical History: Cancer, Diabetes Mellitus Additional Family Medical History / Comment(s): OF HEART DX Mother Family Medical History: Cancer Medications and Allergies Home Medications Medication Instructions Recorded Confirmed Type ALPRAZolam [Xanax] 0.5 mg PO TID PRN 02/26/14 12/17/16 History Aspirin 81 mg PO DAILY 02/26/14 12/17/16 History Bumetanide [BUMEX] 2 mg PO DAILY 02/26/14 12/17/16 History Carvedilol [Coreg] 25 mg PO DAILY 02/26/14 12/17/16 History Colchicine [Colcrys] 0.6 mg PO DAILY 02/26/14 12/17/16 History Febuxostat [Uloric] 80 mg PO HS 02/26/14 12/17/16 History Hydrocodone/Acetaminophen [[place] 1 tab PO QID PRN 02/26/14 12/17/16 History 7.5-325] Insulin Aspart [NovoLOG] 9 unit SQ AC-TID 02/26/14 12/17/16 History Insulin Detemir [Levemir] 33 unit SQ HS 02/26/14 12/17/16 History Pantoprazole Sodium [Protonix] 40 mg PO DAILY 08/13/14 12/17/16 History Losartan Potassium 50 mg PO BID 12/17/16 12/17/16 History Sacubitril/Valsartan [Entresto 24 1 tab PO BID 12/17/16 12/17/16 History mg-26 mg Tablet] Warfarin Sodium [Warfarin Sodium] 6 mg PO HS 12/17/16 12/17/16 History Allergies Allergy/AdvReac Type Severity Reaction Status Date / Time lorazepam [From Ativan] Allergy combative Verified 12/17/16 12:30 and elevated BP prochlorperazine edisylate Allergy combative Verified 12/17/16 12:30 [From Compazine] prochlorperazine maleate Allergy combative Verified 12/17/16 12:30 [From Compazine] Physical Exam Vitals: Vital Signs Temp Pulse Resp BP Pulse Ox 12/22/16 10:03 70 101/59 12/22/16 07:31 16 12/22/16 07:00 97.6 F 70 18 105/60 96 12/21/16 21:21 97.6 F 65 18 110/55 94 L 12/21/16 16:15 96 12/21/16 16:00 74 16 12/21/16 15:00 97.1 F L 74 16 93/47 96 12/21/16 13:47 70 14 92/49 98 12/21/16 13:00 70 16 97/52 97 12/21/16 12:43 98.0 F 70 16 93/54 96 Intake and Output 12/21/16 12/22/16 12/22/16 22:59 06:59 14:59 Intake Total 900 700 Balance 900 700 Intake: Intake, IV Titration 700 700 Amount Ampicillin-Sulbactam 3 gm 100 100 In Sodium Chloride 0.9% 100 ml @ 100 mls/hr IVPB Q8HR [facility] Rx#:[id number] Sodium Chloride 0.9% 1, 600 600 000 ml @ 75 mls/hr IV . [id number] [facility] Rx#:[id number] Oral 200 Other: Voiding Method Toilet Toilet Toilet # Voids 1 Weight 119.8 kg Results - Lab Results Most recent lab results Calcium 8.1 mg/dL (8.4-10.2) L 12/22/16 08:17 12/22/16 08:17 12/22/16 08:17 Assessment and Plan Plan: Assessment: #1. Nonoliguric acute kidney injury secondary to ATN secondary to contrast- induced nephropathy and hemodynamic instability. He also received NSAIDs this admission. Unclear as to what his baseline renal function is. Creatinine was as low as 1.17 this admission and is up to 2.85 today. His last dose of Bumex was on December 20. No evidence of hydronephrosis. Rule out urinary retention. #2. Acute cholecystitis. #3. Systolic CHF with ejection fraction of 20-25% with moderate pulmonary hypertension. #4. Transaminitis and hyperbilirubinemia. Unclear etiology. Gastroenterology following. #5. Metabolic acidosis secondary to acute kidney injury. Plan: Check urinalysis. Check postvoid residual to rule out urinary retention. Decreased rate of IV fluids to 50 mL an hour. Lasix 40 mg IV once today. Potential cholecystectomy with liver biopsy today. Patient may also be transferred to a tertiary care center. Repeat electrolytes in the morning. Avoid nephrotoxic agents and hypotensive episodes. Thank you for the consultation. I will continue to follow the patient with you during his hospital stay.
[2016-12-22] MEDS: ALPRAZolam 0.5 MG TAB PO PRN ×2 (11:00→22:18)
[2016-12-22 11:10] LABS: Glucose,Whole Blood 101 mg/dL (75-99)
[2016-12-22 13:14] LABS: Appearance,Urine Cloudy (Clear); Bilirubin,Urine 2+ (Negative); Glucose,Urine (UA) Negative (Negative); Ketones,Urine Trace (Negative); Leukocyte Esterase,Urine Negative (Negative); Mucus,Urine Rare /hpf; Nitrite,Urine Negative (Negative); Particle Count 6671; Protein,Urine Trace (Negative); RBC,Urine <1 /hpf (0-5); Specific Gravity,Urine 1.016 (1.001-1.035); Squamous Epithelial Cell,Urine <1 /hpf (0-4); UA Billing (MACRO vs. MICRO) MICRO; WBC,Urine 3 /hpf (0-5)
[2016-12-22 17:31] LABS: Glucose,Whole Blood 73 mg/dL (75-99)
[2016-12-22 17:59] LABS: Glucose,Whole Blood 70 mg/dL (75-99)
[2016-12-22 18:17] LABS: Glucose,Whole Blood 85 mg/dL (75-99)
[2016-12-22 20:23] LABS: Glucose,Whole Blood 141 mg/dL (75-99)
[2016-12-22] MEDS: ALLOPURINOL 100 MG TAB PO SCH (21:29)
[2016-12-22] MEDS: INSULIN DETEMIR 100 UNIT/ML 10 ML VIAL SQ SCH (21:30)
[2016-12-22] MEDS: HYDROcodone/APAP 7.5-325MG 1 EACH TAB PO PRN (22:18)
--- NOTE | 2016-12-23 00:03 | P.PN ---
Progress Note - Text Patient seen and evaluated. The family including patient's and daughters are at bedside. I had addressed the patient's questions including family's concern regarding his overall care. Given the patient's medical conditions including rising acute on chronic renal failure, complex cardiac status, and comorbidities, including need for higher level of care, he is of high surgical risk and transfer to a tertiary care center is advised to maximize best intraoperative, perioperative and postsurgical outcomes. The family and patient were agreeable with plan.
[2016-12-23 02:38] LABS: Glucose,Whole Blood 115 mg/dL (75-99)
[2016-12-23 02:53] LABS: Iron Saturation 6.64 (15.00-50.00)
[2016-12-23 04:25] LABS: ANA w/Reflex to Titer NEGATIVE (NEGATIVE)
[2016-12-23] MEDS: SODIUM CHLORIDE 0.9% 1,000 ML IV SCH (05:57)
[2016-12-23] MEDS: HYDROmorphone 1 MG/ML 1 ML SYRINGE IVP PRN ×2 (06:23→17:31)
[2016-12-23 07:41] LABS: Glucose,Whole Blood 78 mg/dL (75-99)
--- NOTE | 2016-12-23 08:08 | P.DS ---
Providers Date of admission: 12/17/16 17:15 Attending physician: Al Harper Consults: 12/18/16 14:38 Consult Physician Urgent Consulting Provider: Danyelle Champion Consult Reason/Comments: Abdominal pain Do you want consulting provider notified?: Yes 12/18/16 15:56 Consult Physician Urgent Consulting Provider: Jacquelin Martinez Consult Reason/Comments: Possible gallstone Do you want consulting provider notified?: Yes 12/21/16 09:53 Consult Physician Urgent Consulting Provider: Sonya Nguyen Consult Reason/Comments: Worsening renal status Do you want consulting provider notified?: Yes Primary care physician: Al Harper - Discharge Diagnosis(es) (1) Pulmonary edema Current Visit: Yes Status: Acute (2) Right upper quadrant abdominal pain Current Visit: Yes Status: Acute (3) 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 He was found have acute cholecystitis after having HIDA scan and ERCP which showed filling defect. Surgery was consulted, but given his overall comorbidities, it was felt that he should be transferred to tertiary care center to have appropriate treatment given his cardiomyopathy and elevated renal dysfunction. We'll transferred to tertiary care center once bed is available. Patient Condition at Discharge: Fair Plan - Discharge Summary New Discharge Prescriptions: Continue Insulin Detemir [Levemir] 33 unit SQ HS Hydrocodone/Acetaminophen [[place] 7.5-325] 1 tab PO QID PRN PRN Reason: Pain Colchicine [Colcrys] 0.6 mg PO DAILY Aspirin 81 mg PO DAILY ALPRAZolam [Xanax] 0.5 mg PO TID PRN PRN Reason: Anxiety Carvedilol [Coreg] 25 mg PO DAILY Bumetanide [BUMEX] 2 mg PO DAILY Insulin Aspart [NovoLOG] 9 unit SQ AC-TID Febuxostat [Uloric] 80 mg PO HS Pantoprazole Sodium [Protonix] 40 mg PO DAILY Warfarin Sodium 6 mg PO HS Sacubitril/Valsartan [Entresto 24 mg-26 mg Tablet] 1 tab PO BID Losartan Potassium 50 mg PO BID Discharge Medication List ALPRAZolam [Xanax] 0.5 mg PO TID PRN 02/26/14 [History] Aspirin 81 mg PO DAILY 02/26/14 [History] Bumetanide [BUMEX] 2 mg PO DAILY 02/26/14 [History] Carvedilol [Coreg] 25 mg PO DAILY 02/26/14 [History] Colchicine [Colcrys] 0.6 mg PO DAILY 02/26/14 [History] Febuxostat [Uloric] 80 mg PO HS 02/26/14 [History] Hydrocodone/Acetaminophen [[place] 7.5-325] 1 tab PO QID PRN 02/26/14 [History] Insulin Aspart [NovoLOG] 9 unit SQ AC-TID 02/26/14 [History] Insulin Detemir [Levemir] 33 unit SQ HS 02/26/14 [History] Pantoprazole Sodium [Protonix] 40 mg PO DAILY 08/13/14 [History] Losartan Potassium 50 mg PO BID 12/17/16 [History] Sacubitril/Valsartan [Entresto 24 mg-26 mg Tablet] 1 tab PO BID 12/17/16 [ History] Warfarin Sodium 6 mg PO HS 12/17/16 [History] Follow up Appointment(s)/Referral(s): Al Harper MD [Primary Care Provider] - 1 Week Discharge Disposition: OTHER INSTITUTION NOT DEFINED
[2016-12-23 08:13] LABS: Calcium 8.3 mg/dL (8.4-10.2); Potassium 3.6 mmol/L (3.5-5.1)
[2016-12-23 08:14] LABS: INR 1.4 (<1.2); Prothrombin Time 13.6 sec (9.0-12.0)
[2016-12-23 08:16] VITALS: BP 126/57; PULSE 66; RESP 18; TEMP 98
[2016-12-23] MEDS: INSULIN LISPRO (humaLOG) 300 UNIT/3 ML VIAL SQ SCH ×3 (08:23→17:15)
[2016-12-23] MEDS: NITROGLYCERIN OINT 1 INCH/GM PACKET TOPICAL SCH ×3 (09:28→16:22)
[2016-12-23] MEDS: DOCUSATE 100 MG CAP PO SCH (09:29)
[2016-12-23] MEDS: PANTOPRAZOLE 40 MG TABLET PO SCH (09:29)
[2016-12-23] MEDS: CARVEDILOL 12.5 MG TAB PO SCH (09:29)
[2016-12-23] MEDS: AMPICILLIN-SULBACTAM 3 GM in SODIUM CHLORIDE 0.9% 100 ML IVPB SCH ×2 (09:30→16:31)
--- NOTE | 2016-12-23 10:12 | P.PN ---
Subjective Principal diagnosis: Hepatitis Reevaluated today in regards to jaundice elevated liver enzymes. Possible underlying chronic liver disease currently being investigated. Reports mild right upper quadrant discomfort this morning. Hepatic function panel requested results pending. Afebrile. MAXWELL screen negative. Iron 18. TIBC 271. Iron saturation 6%. Objective - Vital Signs Vital signs: Vital Signs Temp 98 F 12/23/16 07:00 Pulse 66 12/23/16 07:00 Resp 18 12/23/16 07:00 BP 126/57 12/23/16 07:00 Pulse Ox 94 L 12/23/16 07:00 Intake & Output 12/22/16 12/23/16 12/23/16 18:59 06:59 18:59 Intake Total 100 550 Balance 100 550 Weight 124.5 kg Intake: Intake, IV Titration 100 550 Amount Ampicillin-Sulbactam 3 gm 100 In Sodium Chloride 0.9% 100 ml @ 100 mls/hr IVPB Q8HR [facility] Rx#:[id number] Sodium Chloride 0.9% 1, 550 000 ml @ 50 mls/hr IV . Q20H [facility] Rx#:[id number] Other: Voiding Method Toilet Toilet # Voids 1 - Exam General appearance: The patient is alert, oriented, in no acute distress. Jaundice. HET: Head is normocephalic and atraumatic. Pupils are equal and reactive. Scleral icterus. Oropharynx is clear without lesions. Neck: Supple without lymphadenopathy. Trachea midline. Heart: S1 S2. Lungs: Diminished in bases bilaterally. Abdomen: Soft, mild tenderness right upper quadrant, nondistended with bowel sounds. No peritoneal signs. No palpable organomegaly or masses. Extremities: Bilateral lower extremity discoloration consistent with chronic venous stasis. Neurological: No focal deficits. Strength and sensation are grossly intact. - Labs CBC & Chem 7: 12/22/16 08:17 12/23/16 07:21 Labs: Abnormal Lab Results - Last 24 Hours (Table) 12/22/16 12/22/16 12/22/16 Range/Units 08:17 10:49 11:08 PT (9.0-12.0) sec INR (<1.2) Carbon Dioxide (22-30) mmol/L BUN (9-20) mg/dL Creatinine (0.66-1.25) mg/dL Glucose (74-99) mg/dL POC Glucose (mg/dL) 101 H (75-99) mg/dL Calcium (8.4-10.2) mg/dL Iron (65-175) ug/dL Iron Saturation (15.00-50.00) Total Protein (PEP) 5.5 L (6.2-8.2) g/dL Urine Protein Trace H (Negative) Urine Ketones Trace H (Negative) Urine Bilirubin 2+ H (Negative) Hyaline Casts 17 H (0-2) /lpf Urine Mucus Rare H (None) /hpf 12/22/16 12/22/16 12/22/16 Range/Units 17:29 17:57 19:44 PT (9.0-12.0) sec INR (<1.2) Carbon Dioxide (22-30) mmol/L BUN (9-20) mg/dL Creatinine (0.66-1.25) mg/dL Glucose (74-99) mg/dL POC Glucose (mg/dL) 73 L 70 L (75-99) mg/dL Calcium (8.4-10.2) mg/dL Iron 18 L (65-175) ug/dL Iron Saturation 6.64 L (15.00-50.00) Total Protein (PEP) (6.2-8.2) g/dL Urine Protein (Negative) Urine Ketones (Negative) Urine Bilirubin (Negative) Hyaline Casts (0-2) /lpf Urine Mucus (None) /hpf 12/22/16 12/23/16 12/23/16 Range/Units 20:20 02:35 07:21 PT 13.6 H (9.0-12.0) sec INR 1.4 H (<1.2) Carbon Dioxide (22-30) mmol/L BUN (9-20) mg/dL Creatinine (0.66-1.25) mg/dL Glucose (74-99) mg/dL POC Glucose (mg/dL) 141 H 115 H (75-99) mg/dL Calcium (8.4-10.2) mg/dL Iron (65-175) ug/dL Iron Saturation (15.00-50.00) Total Protein (PEP) (6.2-8.2) g/dL Urine Protein (Negative) Urine Ketones (Negative) Urine Bilirubin (Negative) Hyaline Casts (0-2) /lpf Urine Mucus (None) /hpf 12/23/16 Range/Units 07:21 PT (9.0-12.0) sec INR (<1.2) Carbon Dioxide 21 L (22-30) mmol/L BUN 71 H (9-20) mg/dL Creatinine 2.25 H (0.66-1.25) mg/dL Glucose 71 L (74-99) mg/dL POC Glucose (mg/dL) (75-99) mg/dL Calcium 8.3 L (8.4-10.2) mg/dL Iron (65-175) ug/dL Iron Saturation (15.00-50.00) Total Protein (PEP) (6.2-8.2) g/dL Urine Protein (Negative) Urine Ketones (Negative) Urine Bilirubin (Negative) Hyaline Casts (0-2) /lpf Urine Mucus (None) /hpf Assessment and Plan Plan: Impression : 1. Hepatitis hyperbilirubinemia of unclear etiology. Transaminases improved. Retained CBD stone excluded per ERCP exam. Etiology of jaundice unclear at this time possible underlying chronic liver disease intrahepatic cholestasis with decompensation. Plan: 1. Transfer to tertiary care center in progress await bed availability. Full serologic workup for chronic liver disease in progress. We'll follow with you. Assessment and plan of care discussed with Dr. Martinez
[2016-12-23] MEDS ORDERED: FUROSEMIDE 10 MG/ML 4 ML VIAL IV STA (10:18)
--- NOTE | 2016-12-23 10:19 | P.PN ---
Subjective Patient is seen in follow-up for acute kidney injury. Unclear as to what his baseline renal function is. Creatinine was 1.17 on admission and peaked at 2.85 yesterday. It is down to 2.25 today. Patient's currently resting in bed. He denies any chest pain or shortness of breath. His oral intake is good. Admits to good urine output. No vomiting or diarrhea. Vital signs are stable. General: The patient appeared well nourished and normally developed. HEENT: Head exam is unremarkable. Neck is without jugular venous distension. LUNGS: Lungs are clear to auscultation and percussion. Breath sounds decreased. HEART: Rate and Rhythm are regular. First and second heart sounds normal. No murmurs, rubs or gallops. ABDOMEN: Bowel sounds present. Mild right-sided tenderness. EXTREMITITES: No clubbing, cyanosis, or edema. Chronic discoloration of lower extremities noted. Jaundice noted. Objective - Vital Signs Vital signs: Vital Signs Temp 98 F 12/23/16 07:00 Pulse 66 12/23/16 07:00 Resp 18 12/23/16 07:00 BP 126/57 12/23/16 07:00 Pulse Ox 94 L 12/23/16 07:00 Intake & Output 12/22/16 12/23/16 12/23/16 18:59 06:59 18:59 Intake Total 100 550 Balance 100 550 Weight 124.5 kg Intake: Intake, IV Titration 100 550 Amount Ampicillin-Sulbactam 3 gm 100 In Sodium Chloride 0.9% 100 ml @ 100 mls/hr IVPB Q8HR [facility] Rx#:[id number] Sodium Chloride 0.9% 1, 550 000 ml @ 50 mls/hr IV . Q20H [facility] Rx#:[id number] Other: Voiding Method Toilet Toilet # Voids 1 - Labs CBC & Chem 7: 12/22/16 08:17 12/23/16 07:21 Labs: Abnormal Lab Results - Last 24 Hours (Table) 12/22/16 12/22/16 12/22/16 Range/Units 08:17 10:49 11:08 PT (9.0-12.0) sec INR (<1.2) Carbon Dioxide (22-30) mmol/L BUN (9-20) mg/dL Creatinine (0.66-1.25) mg/dL Glucose (74-99) mg/dL POC Glucose (mg/dL) 101 H (75-99) mg/dL Calcium (8.4-10.2) mg/dL Iron (65-175) ug/dL Iron Saturation (15.00-50.00) Total Protein (PEP) 5.5 L (6.2-8.2) g/dL Urine Protein Trace H (Negative) Urine Ketones Trace H (Negative) Urine Bilirubin 2+ H (Negative) Hyaline Casts 17 H (0-2) /lpf Urine Mucus Rare H (None) /hpf 12/22/16 12/22/16 12/22/16 Range/Units 17:29 17:57 19:44 PT (9.0-12.0) sec INR (<1.2) Carbon Dioxide (22-30) mmol/L BUN (9-20) mg/dL Creatinine (0.66-1.25) mg/dL Glucose (74-99) mg/dL POC Glucose (mg/dL) 73 L 70 L (75-99) mg/dL Calcium (8.4-10.2) mg/dL Iron 18 L (65-175) ug/dL Iron Saturation 6.64 L (15.00-50.00) Total Protein (PEP) (6.2-8.2) g/dL Urine Protein (Negative) Urine Ketones (Negative) Urine Bilirubin (Negative) Hyaline Casts (0-2) /lpf Urine Mucus (None) /hpf 12/22/16 12/23/16 12/23/16 Range/Units 20:20 02:35 07:21 PT 13.6 H (9.0-12.0) sec INR 1.4 H (<1.2) Carbon Dioxide (22-30) mmol/L BUN (9-20) mg/dL Creatinine (0.66-1.25) mg/dL Glucose (74-99) mg/dL POC Glucose (mg/dL) 141 H 115 H (75-99) mg/dL Calcium (8.4-10.2) mg/dL Iron (65-175) ug/dL Iron Saturation (15.00-50.00) Total Protein (PEP) (6.2-8.2) g/dL Urine Protein (Negative) Urine Ketones (Negative) Urine Bilirubin (Negative) Hyaline Casts (0-2) /lpf Urine Mucus (None) /hpf 12/23/16 Range/Units 07:21 PT (9.0-12.0) sec INR (<1.2) Carbon Dioxide 21 L (22-30) mmol/L BUN 71 H (9-20) mg/dL Creatinine 2.25 H (0.66-1.25) mg/dL Glucose 71 L (74-99) mg/dL POC Glucose (mg/dL) (75-99) mg/dL Calcium 8.3 L (8.4-10.2) mg/dL Iron (65-175) ug/dL Iron Saturation (15.00-50.00) Total Protein (PEP) (6.2-8.2) g/dL Urine Protein (Negative) Urine Ketones (Negative) Urine Bilirubin (Negative) Hyaline Casts (0-2) /lpf Urine Mucus (None) /hpf Assessment and Plan Plan: Assessment: #1. Nonoliguric acute kidney injury secondary to ATN secondary to contrast- induced nephropathy and hemodynamic instability. He also received NSAIDs this admission. Unclear as to what his baseline renal function is. Creatinine was as low as 1.17 this admission and peaked at 2.85 this admission. Down to 2.25 today. No evidence of hydronephrosis. Urinalysis quite benign. No evidence of urinary retention. #2. Acute cholecystitis. #3. Systolic CHF with ejection fraction of 20-25% with moderate pulmonary hypertension. #4. Transaminitis and hyperbilirubinemia. Unclear etiology. Gastroenterology following. #5. Metabolic acidosis secondary to acute kidney injury. Improved. Plan: Hep-Lock IV fluids. Oral intake is good. Lasix 40 mg IV once today. Potential cholecystectomy with liver [facility]. Repeat electrolytes in the morning. Avoid nephrotoxic agents and hypotensive episodes.
[2016-12-23 11:04] LABS: Glucose,Whole Blood 115 mg/dL (75-99)
[2016-12-23 11:33] LABS: Bilirubin, Delta 2.8 mg/dL (0.0-0.2); Total Bilirubin 6.8 mg/dL (0.2-1.3); Total Protein 5.5 g/dL (6.3-8.2)
[2016-12-23] MEDS: HYDROcodone/APAP 7.5-325MG 1 EACH TAB PO PRN (12:58)
--- NOTE | 2016-12-23 14:16 | P.PN ---
<Maritza Espinalne M - Last Filed: 12/23/16 14:01> Subjective Pleasant 71-year-old gentleman being seen on rounds. Daughter and at bedside. Patient is pleasant cooperative states less pain in the right upper quadrant this morning improving did note the hepatic function liver panel and kidney function studies are also improving this morning trending down patient is also noted to be less jaundiced this morning did note the INR is 1.4 this morning creatinine has improved 2.2 patient additionally is being followed by GI service as well Discuss with patient with and daughter at bedside plan of care updated with all questions answered with family and patient verbalizing understanding reviewed with the patient and family labs and clinical findings in which they verbalized an understanding of the clinical course and treatment plan with a noted improvement in the hepatic function studies as well as the kidney function studies marketing and promotions manager continues to pursue transfer for patient patient's family preference to a tertiary center noted Objective - Vital Signs Vital signs: Vital Signs Temp 98 F 12/23/16 07:00 Pulse 66 12/23/16 07:00 Resp 18 12/23/16 07:00 BP 126/57 12/23/16 07:00 Pulse Ox 94 L 12/23/16 07:00 Intake & Output 12/22/16 12/23/16 12/23/16 18:59 06:59 18:59 Intake Total 100 550 Balance 100 550 Weight 124.5 kg Intake: Intake, IV Titration 100 550 Amount Ampicillin-Sulbactam 3 gm 100 In Sodium Chloride 0.9% 100 ml @ 100 mls/hr IVPB Q8HR [facility] Rx#:[id number] Sodium Chloride 0.9% 1, 550 000 ml @ 50 mls/hr IV . Q20H [facility] Rx#:[id number] Other: Voiding Method Toilet Toilet Toilet # Voids 1 - Exam GENERAL APPEARANCE: Pleasant 71-year-old male jaundice cooperative is alert, oriented, to person place event, in no acute distress. States having less upper quadrant discomfort VITAL SIGNS: Reviewed HEENT: Head is normocephalic and atraumatic. Pupils are equal and reactive. The nares are patent. Oropharynx is clear without lesions. NECK: Supple without lymphadenopathy. Traches midline. HEART: S1, S2. Regular rate and rhythm. No murmur noted denying chest pain LUNGS: No crackles or wheezes are heard. No shortness of breath noted on room air sats are 94% ABDOMEN: Soft, , slight mild tenderness in the right upper quadrant with palpitation with good bowel sounds. No peritoneal signs. No palpable organomegaly or masses. Reports the nausea vomiting states urinating no difficulty no frequent document stools EXTREMITIES: Chronic venous stasis to the bilateral lower extremities. With chronic discoloration with a trace pedal edema Radial pedal pulses are 2/4 bilaterally. NEUROLOGICAL: No focal deficits. Strength and sensation are grossly intact. - Labs CBC & Chem 7: 12/22/16 08:17 12/23/16 07:21 Labs: Abnormal Lab Results - Last 24 Hours (Table) 12/22/16 12/22/16 12/22/16 Range/Units 08: 17:29 17:57 PT (9.0-12.0) sec INR (<1.2) Carbon Dioxide (22-30) mmol/L BUN (9-20) mg/dL Creatinine (0.66-1.25) mg/dL Glucose (74-99) mg/dL POC Glucose (mg/dL) 73 L 70 L (75-99) mg/dL Calcium (8.4-10.2) mg/dL Iron (65-175) ug/dL Iron Saturation (15.00-50.00) Total Bilirubin (0.2-1.3) mg/dL Conjugated Bilirubin (0.0-0.3) mg/dL Delta Bilirubin (0.0-0.2) mg/dL Alkaline Phosphatase (38-126) U/L Total Protein (6.3-8.2) g/dL Total Protein (PEP) 5.5 L (6.2-8.2) g/dL Albumin (3.5-5.0) g/dL 12/22/16 12/22/16 12/23/16 Range/Units 19:44 20:20 02:35 PT (9.0-12.0) sec INR (<1.2) Carbon Dioxide (22-30) mmol/L BUN (9-20) mg/dL Creatinine (0.66-1.25) mg/dL Glucose (74-99) mg/dL POC Glucose (mg/dL) 141 H 115 H (75-99) mg/dL Calcium (8.4-10.2) mg/dL Iron 18 L (65-175) ug/dL Iron Saturation 6.64 L (15.00-50.00) Total Bilirubin (0.2-1.3) mg/dL Conjugated Bilirubin (0.0-0.3) mg/dL Delta Bilirubin (0.0-0.2) mg/dL Alkaline Phosphatase (38-126) U/L Total Protein (6.3-8.2) g/dL Total Protein (PEP) (6.2-8.2) g/dL Albumin (3.5-5.0) g/dL 12/23/16 12/23/16 12/23/16 Range/Units 07:21 07:21 07:21 PT 13.6 H (9.0-12.0) sec INR 1.4 H (<1.2) Carbon Dioxide 21 L (22-30) mmol/L BUN 71 H (9-20) mg/dL Creatinine 2.25 H (0.66-1.25) mg/dL Glucose 71 L (74-99) mg/dL POC Glucose (mg/dL) (75-99) mg/dL Calcium 8.3 L (8.4-10.2) mg/dL Iron (65-175) ug/dL Iron Saturation (15.00-50.00) Total Bilirubin 6.8 H (0.2-1.3) mg/dL Conjugated Bilirubin 2.9 H (0.0-0.3) mg/dL Delta Bilirubin 2.8 H (0.0-0.2) mg/dL Alkaline Phosphatase 323 H (38-126) U/L Total Protein 5.5 L (6.3-8.2) g/dL Total Protein (PEP) (6.2-8.2) g/dL Albumin 2.7 L (3.5-5.0) g/dL 12/23/16 Range/Units 10:53 PT (9.0-12.0) sec INR (<1.2) Carbon Dioxide (22-30) mmol/L BUN (9-20) mg/dL Creatinine (0.66-1.25) mg/dL Glucose (74-99) mg/dL POC Glucose (mg/dL) 115 H (75-99) mg/dL Calcium (8.4-10.2) mg/dL Iron (65-175) ug/dL Iron Saturation (15.00-50.00) Total Bilirubin (0.2-1.3) mg/dL Conjugated Bilirubin (0.0-0.3) mg/dL Delta Bilirubin (0.0-0.2) mg/dL Alkaline Phosphatase (38-126) U/L Total Protein (6.3-8.2) g/dL Total Protein (PEP) (6.2-8.2) g/dL Albumin (3.5-5.0) g/dL Assessment and Plan Plan: Impression Present on admission right upper quadrant pain suspect due to acute cholecystitis Known coronary artery disease with prior coronary artery bypass grafting stable cardiology following Acute on chronic systolic heart failure with echocardiogram this admission left ventricular systolic function severely impaired EF between 20 and 25% Chronic atrial fibrillation on anticoagulation Coumadin rate controlled Essential hypertension Type 2 diabetes present on admission diabetic ulcer right lower leg On admission jaundice with an elevated bilirubin Therapeutic INR on admission 2.7 Hepatitis hyperbilirubinemia of unclear etiology. Transaminases improved. Present on admission jaundice unclear etiology possible underlying chronic liver disease intrahepatic cholestasis with decompensation Plan Dr. Champion will discuss with the patient and the patient's family possible option while awaiting transfer to a tertiary center to have interventional radiology do a percutaneous cholecysystotomy tube to bridge for eventual surgery Daughter and patient and updated on the plan with questions answered Discharge plan is in progress possible transfer to a tertiary center when bed available IV fluid as ordered Pain control Repeat labs in the morning DVT and GI prophylaxis Monitor blood sugars Coumadin on hold Will follow surgical course with further surgical recommendations pending The above impression and plan of care have been discussed and directed by signing physician. Elizabeth Espinal nurse practitioner acting as scribe for signing physician. <Danyelle Champion N - Last Filed: 12/23/16 22:28> Objective - Vital Signs Vital signs: Vital Signs Temp 98 F 12/23/16 07:00 Pulse 66 12/23/16 07:00 Resp 18 12/23/16 07:00 BP 126/57 12/23/16 07:00 Pulse Ox 94 L 12/23/16 07:00 Intake & Output 12/23/16 12/23/16 12/24/16 06:59 18:59 06:59 Intake Total 550 100 Balance 550 100 Weight 124.5 kg 124.5 kg Intake: Intake, IV Titration 550 100 Amount Ampicillin-Sulbactam 3 gm 100 In Sodium Chloride 0.9% 100 ml @ 100 mls/hr IVPB Q8HR [facility] Rx#:[id number] Sodium Chloride 0.9% 1, 550 000 ml @ 50 mls/hr IV . Q20H [facility] Rx#:[id number] Other: Voiding Method Toilet Toilet # Voids 1 - Labs CBC & Chem 7: 12/22/16 08:17 12/23/16 07:21 Labs: Abnormal Lab Results - Last 24 Hours (Table) 12/22/16 12/22/16 12/23/16 Range/Units 08:17 19:44 02:35 PT (9.0-12.0) sec INR (<1.2) Carbon Dioxide (22-30) mmol/L BUN (9-20) mg/dL Creatinine (0.66-1.25) mg/dL Glucose (74-99) mg/dL POC Glucose (mg/dL) 115 H (75-99) mg/dL Calcium (8.4-10.2) mg/dL Iron 18 L (65-175) ug/dL Iron Saturation 6.64 L (15.00-50.00) Total Bilirubin (0.2-1.3) mg/dL Conjugated Bilirubin (0.0-0.3) mg/dL Delta Bilirubin (0.0-0.2) mg/dL Alkaline Phosphatase (38-126) U/L Total Protein (6.3-8.2) g/dL Total Protein (PEP) 5.5 L (6.2-8.2) g/dL Albumin (3.5-5.0) g/dL 12/23/16 12/23/16 12/23/16 Range/Units 07:21 07:21 07:21 PT 13.6 H (9.0-12.0) sec INR 1.4 H (<1.2) Carbon Dioxide 21 L (22-30) mmol/L BUN 71 H (9-20) mg/dL Creatinine 2.25 H (0.66-1.25) mg/dL Glucose 71 L (74-99) mg/dL POC Glucose (mg/dL) (75-99) mg/dL Calcium 8.3 L (8.4-10.2) mg/dL Iron (65-175) ug/dL Iron Saturation (15.00-50.00) Total Bilirubin 6.8 H (0.2-1.3) mg/dL Conjugated Bilirubin 2.9 H (0.0-0.3) mg/dL Delta Bilirubin 2.8 H (0.0-0.2) mg/dL Alkaline Phosphatase 323 H (38-126) U/L Total Protein 5.5 L (6.3-8.2) g/dL Total Protein (PEP) (6.2-8.2) g/dL Albumin 2.7 L (3.5-5.0) g/dL 12/23/16 Range/Units 10:53 PT (9.0-12.0) sec INR (<1.2) Carbon Dioxide (22-30) mmol/L BUN (9-20) mg/dL Creatinine (0.66-1.25) mg/dL Glucose (74-99) mg/dL POC Glucose (mg/dL) 115 H (75-99) mg/dL Calcium (8.4-10.2) mg/dL Iron (65-175) ug/dL Iron Saturation (15.00-50.00) Total Bilirubin (0.2-1.3) mg/dL Conjugated Bilirubin (0.0-0.3) mg/dL Delta Bilirubin (0.0-0.2) mg/dL Alkaline Phosphatase (38-126) U/L Total Protein (6.3-8.2) g/dL Total Protein (PEP) (6.2-8.2) g/dL Albumin (3.5-5.0) g/dL Assessment and Plan (1) Acute cholecystitis Status: Acute (2) Jaundice Status: Acute (3) Incarcerated right inguinal hernia Status: Acute (4) Right lower quadrant pain Status: Acute (5) Congestive cardiomyopathy Status: Acute (6) Right upper quadrant abdominal pain Status: Acute (7) Dehydration, moderate Status: Acute (8) Acute renal failure due to tubular necrosis Status: Acute
[2016-12-23 14:58] VITALS: BMI 37.2
--- NOTE | 2016-12-23 22:28 | P.PN ---
Progress Note - Text Patient seen and evaluated this evening. His is at bedside. His pending transfer to a tertiary care center. In the interim, I discussed with the patient's daughter earlier of performing an attempted cholecystostomy tube. I personally spoken to intervention radiologist on-call Dr. Choi who had reviewed the patient's films and stated difficulty in performing a cholecystostomy tube placement. Information was been relayed to the patient's family. In light of limited resources, tertiary care transfer was pending. All questions and answers were addressed with the patient and family. His jaundice was improving. His creatinine function was improving prior to transfer.
== END 2016-12-23 19:05 | disposition short-term general hospital (02) | DRG 444 ==
LOC: EC 12:10 → 5MS5E 17:15
PROVIDERS: ADMIT Family Medicine; ATTEND Family Medicine
PROC: 0FJB8ZZ Inspection of Hepatobiliary Duct, Via Natural or Artificial Opening Endoscopic (ICD-10-PCS; principal; 2016-12-17)
DX: K80.42 Calculus of bile duct with acute cholecystitis without obstruction (principal); N17.0 Acute kidney failure with tubular necrosis; I50.23 Acute on chronic systolic (congestive) heart failure; E87.2 Acidosis; I42.0 Dilated cardiomyopathy; N18.4 Chronic kidney disease, stage 4 (severe); K82.1 Hydrops of gallbladder; I13.0 Hypertensive heart and chronic kidney disease with heart failure and stage 1 through stage 4 chronic kidney disease, or unspecified chronic kidney disease; K40.30 Unilateral inguinal hernia, with obstruction, without gangrene, not specified as recurrent; N17.9 Acute kidney failure, unspecified; L97.919 Non-pressure chronic ulcer of unspecified part of right lower leg with unspecified severity; D69.6 Thrombocytopenia, unspecified; E11.22 Type 2 diabetes mellitus with diabetic chronic kidney disease; E78.5 Hyperlipidemia, unspecified; E86.0 Dehydration; E11.622 Type 2 diabetes mellitus with other skin ulcer; I48.2 Chronic atrial fibrillation; G47.30 Sleep apnea, unspecified; I25.10 Atherosclerotic heart disease of native coronary artery without angina pectoris; I25.2 Old myocardial infarction; I27.2 Other secondary pulmonary hypertension; K21.9 Gastro-esophageal reflux disease without esophagitis; K76.0 Fatty (change of) liver, not elsewhere classified; M1A.9XX1 Chronic gout, unspecified, with tophus (tophi); R79.1 Abnormal coagulation profile; T45.515A Adverse effect of anticoagulants, initial encounter; N14.1 Nephropathy induced by other drugs, medicaments and biological substances; T50.8X5A Adverse effect of diagnostic agents, initial encounter; F32.9 Major depressive disorder, single episode, unspecified; F41.9 Anxiety disorder, unspecified; K57.90 Diverticulosis of intestine, part unspecified, without perforation or abscess without bleeding; E66.01 Morbid (severe) obesity due to excess calories; Z68.25 Body mass index [BMI] 25.0-25.9, adult; Z79.01 Long term (current) use of anticoagulants; Z79.4 Long term (current) use of insulin; Z79.82 Long term (current) use of aspirin; Z79.899 Other long term (current) drug therapy; Z85.828 Personal history of other malignant neoplasm of skin; Z87.891 Personal history of nicotine dependence; Z95.1 Presence of aortocoronary bypass graft; Z95.810 Presence of automatic (implantable) cardiac defibrillator; Z95.5 Presence of coronary angioplasty implant and graft; Z96.653 Presence of artificial knee joint, bilateral; Z82.49 Family history of ischemic heart disease and other diseases of the circulatory system; Y92.239 Unspecified place in hospital as the place of occurrence of the external cause
CPT/HCPCS: 36415; 43260; 71020; 74177; 74330; 76700; 78226; 80048; 80053; 80074; 80076; 81001; 82103; 82105; 82150; 82248; 82390; 82553; 82728; 83516; 83540; 83550; 83690; 83880; 84165; 84484; 85025; 85027; 85379; 85610; 86038; 93005; 93306; 96374; 96375; 96376; 99285

== ENCOUNTER → 2017-06-14 | Outpatient (CLI) | payer MEDICARE | END | disposition home or self-care (01) | LOC: LABWHC1 13:47 | PROVIDERS: ATTEND Internal Medicine Rheumatology | DX: M10.9 Gout, unspecified (principal) | CPT/HCPCS: 36415; 84550 ==

== ENCOUNTER → 2017-07-05 | Outpatient (CLI) | payer MEDICARE ==
[2017-07-05 16:10] LABS: Magnesium 2.2 mg/dL (1.6-2.3)
== END | disposition home or self-care (01) ==
LOC: LABWHC1 15:17
PROVIDERS: ATTEND Internal Medicine Cardiovascular Disease
DX: I47.2 Ventricular tachycardia (principal)
CPT/HCPCS: 36415; 80051; 83735

== ENCOUNTER → 2017-08-03 | Outpatient (CLI) | payer MEDICARE | END | disposition home or self-care (01) | LOC: LABWHC1 16:21 | PROVIDERS: ATTEND Internal Medicine Endocrinology, Diabetes & Metabolism | DX: E55.9 Vitamin D deficiency, unspecified (principal) | CPT/HCPCS: 36415; 82306 ==

== ENCOUNTER → 2017-09-28 | Outpatient (CLI) | payer MEDICARE | END | disposition home or self-care (01) | LOC: LABWHC1 17:52 | PROVIDERS: ATTEND Registered Nurse Critical Care Medicine | DX: T82.7XXA Infection and inflammatory reaction due to other cardiac and vascular devices, implants and grafts, initial encounter (principal) | CPT/HCPCS: 36415; 87040 ==

== ENCOUNTER → 2017-10-15 | Outpatient (CLI) | payer MEDICARE ==
[2017-10-15 15:17] LABS: Basophils % (A) 1 %; Eosinophils # (A) 0.2 k/uL (0-0.7); Eosinophils % (A) 4 %; HCT 37.9 % (39.0-53.0); Lymphocytes # (A) 0.8 k/uL (1.0-4.8); Lymphocytes % (A) 18 %; MCH 29.7 pg (25.0-35.0); MCHC 31.7 g/dL (31.0-37.0); MCV 93.6 fL (80.0-100.0); Mean Platelet Volume 7.8; Monocytes # (A) 0.5 k/uL (0-1.0); Monocytes % (A) 12 %; Neutrophils # (A) 2.8 k/uL (1.3-7.7); Neutrophils % (A) 63 %; Platelet Count 161 k/uL (150-450); RBC 4.06 m/uL (4.30-5.90); RDW 14.9 % (11.5-15.5); WBC 4.4 k/uL (3.8-10.6)
[2017-10-15 15:33] LABS: Calcium 8.9 mg/dL (8.4-10.2); Potassium 5.1 mmol/L (3.5-5.1); Total Bilirubin 0.9 mg/dL (0.2-1.3); Total Protein 6.4 g/dL (6.3-8.2); Uric Acid 8.3 mg/dL (3.5-8.5)
[2017-10-15 21:40] LABS: Hemoglobin A1C 6.9 % (4.0-6.0)
== END | disposition home or self-care (01) ==
LOC: LABWHC1 14:26
PROVIDERS: ATTEND Internal Medicine Rheumatology
DX: L98.499 Non-pressure chronic ulcer of skin of other sites with unspecified severity (principal); M10.9 Gout, unspecified
CPT/HCPCS: 36415; 80053; 83036; 84134; 84550; 85025

== ENCOUNTER 2018-01-24 22:16 | Inpatient (IN) | payer MEDICARE ==
--- NOTE | 2018-01-24 22:53 | ED ---
Fall HPI - General Chief Complaint: Fall Stated Complaint: Fall Time Seen by Provider: 01/24/18 22:28 Source: patient, EMS Mode of arrival: EMS - History of Present Illness Initial Comments: Chance is a 72-year-old male who presents to the ED today via EMS for evaluation of injury after a fall at home. Patient reports that his been in his usual state of health, he states that he stood from his recliner lost his balance and forward landing on his knees and his forehead. He did have an abrasion to his forehead. Patient denies any loss of consciousness. He reports that he did not attempt to stand or walk after the fall, his called EMS. They assisted him to his feet and into the ambulance. Patient denies any pain after the accident but complains that the cervical collar he is wearing is uncomfortable. Patient reports that over the past 3-4 days he has noticed his legs become progressively more swollen. He reports he's been compliant with his medications including his Lasix. Patient reports that he was sitting in his chair prior to this fall. He reports that upon standing he began to feel somewhat lightheaded, fell he had tunnel vision and felt like his 's voice was very far away. He doesn't know if he lost consciousness, he did not put his arms out in front of him to brace him. He landed on his knees and then his forehead. Patient denies any chest pains or palpitations prior to this event, however his states that the last time that he had an arrhythmia requiring his AICD shocked him was an event that was identical to this in which he stood up and lost consciousness. The patient had no recollection of the AICD discharged after the previous episode. - Related Data Home Medications Medication Instructions Recorded Confirmed ALPRAZolam [Xanax] 0.5 mg PO TID PRN 02/26/14 01/24/18 Aspirin 81 mg PO DAILY 02/26/14 01/24/18 Bumetanide [BUMEX] 2 mg PO DIRECTED 02/26/14 01/24/18 Carvedilol [Coreg] 25 mg PO BID 02/26/14 01/24/18 Colchicine [Colcrys] 0.6 mg PO DAILY 02/26/14 01/24/18 Hydrocodone/Acetaminophen [Agate 1 tab PO QID PRN 02/26/14 01/24/18 7.5-325] Insulin Aspart [NovoLOG 9 unit SQ AC-TID 02/26/14 01/24/18 (formulary)] Insulin Detemir [Levemir] 33 unit SQ HS 02/26/14 01/24/18 Pantoprazole Sodium [Protonix] 40 mg PO DAILY 08/13/14 01/24/18 Sacubitril/Valsartan [Entresto 24 1 tab PO BID 12/17/16 01/24/18 mg-26 mg Tablet] Benadryl(Unknown) 1 dose IV DIRECTED 01/24/18 01/24/18 Bumetanide [BUMEX] 1 mg PO DAILY 01/24/18 01/24/18 Clopidogrel Bisulfate [Plavix] 75 mg PO DAILY 01/24/18 01/24/18 Escitalopram [Lexapro] 20 mg PO DAILY 01/24/18 01/24/18 Eye Injection (Unknown) 1 injection BOTH EYES DIRECTED 01/24/18 01/24/18 Krystxxa (Unknown) 1 injection IV Q14D 01/24/18 01/24/18 Levofloxacin [Levaquin] 500 mg PO DAILY 01/24/18 01/24/18 Polymyxin B-Trimeth Sulf Ophth 1 drop BOTH EYES BID 01/24/18 01/24/18 [Polytrim Opthalmic] Prednisone(Unknown) 1 dose IV DIRECTED 01/24/18 01/24/18 Spironolactone [Aldactone] 25 mg PO DIRECTED 01/24/18 01/24/18 guaiFENesin [Mucinex] 1,200 mg PO BID 01/24/18 01/24/18 methylPREDNISolone Dose Pack See Taper PO DIRECTED 01/24/18 01/24/18 [Medrol Dose Pack] Allergies Allergy/AdvReac Type Severity Reaction Status Date / Time lorazepam [From Ativan] Allergy combative Verified 01/24/18 23:27 and elevated BP prochlorperazine edisylate Allergy combative Verified 01/24/18 23:27 [From Compazine] prochlorperazine maleate Allergy combative Verified 01/24/18 23:27 [From Compazine] Review of Systems ROS Statement: Those systems with pertinent positive or pertinent negative responses have been documented in the HPI. ROS Other: All systems not noted in ROS Statement are negative. Past Medical History Past Medical History: Atrial Fibrillation, Cancer, Heart Failure, Diabetes Mellitus, GI Bleed, Hypertension, Myocardial Infarction ([place]), Sleep Apnea/CPAP/ BIPAP, Vascular Disorder Additional Past Medical History / Comment(s): diverticulitis, gout, hx skin cancer, " 1 TEST POSITIVE FOR PROSTATE CANCER BUT 2ND TEST NEG" Last Myocardial Infarction Date:: 11/2002 History of Any Multi-Drug Resistant Organisms: None Reported Past Surgical History: AICD, Coronary Bypass/CABG, Heart Catheterization With Stent, Joint Replacement, Tonsillectomy Additional Past Surgical History / Comment(s): knee replacements (left x 2, rt x 1), surgery for sleep apnea, skin cancer removal, left foot hammertoe, vasectomy, angioplasty,cataract both eyes Past Anesthesia/Blood Transfusion Reactions: Previous Problems w/ Anesthesia Additional Past Anesthesia/Blood Transfusion Reaction / Comment(s): "longer to come out" Date of Last Stent Placement:: 11/2002 Type of Cardiac Device: AICD Device Placement Date:: last 01/21/14 Past Psychological History: Anxiety Smoking Status: Former smoker Past Alcohol Use History: None Reported Past Drug Use History: None Reported - Past Family History Father Family Medical History: Cancer, Diabetes Mellitus Additional Family Medical History / Comment(s): OF HEART DX Mother Family Medical History: Cancer General Exam - General Exam Comments Initial Comments: Physical Exam GENERAL: Patient is well-developed and well-nourished. Patient is nontoxic and well- hydrated and is in no distress. HENT: Normocephalic, Abrasion to forehead TMs normal bilaterally, no hemotympanum EYES: PERRL, EOMI PULMONARY: Unlabored respirations. No audible rales rhonchi or wheezing was noted. CARDIOVASCULAR: There is a regular rate and rhythm without any murmurs gallops or rubs. ABDOMEN: Soft and nontender with normal bowel sounds. SKIN: Abrasion to forehead Skin color changes bilateral lower extremities consistent with chronic venous stasis : Deferred NEUROLOGIC: Patient is alert and oriented x3. Moving all extremities spontaneously MUSCULOSKELETAL: Normal extremities with adequate strength and full range of motion. PSYCHIATRIC: Normal psychiatric evaluation. Limitations: no limitations Limitations: no limitations Course Vital Signs 01/24/18 22:21 Temperature 97.9 F Pulse Rate 70 Respiratory 18 Rate Blood Pressure 110/53 O2 Sat by Pulse 98 Oximetry - Reevaluation(s) Reevaluation #1: Patient resting comfortably, patient has been able to stand to urinate. No pain in the bilateral knees. 01/25/18 02:14 Medical Decision Making - Medical Decision Making The patient was seen and evaluated immediately upon arrival to the ER Patient currently taking Plavix had a fall forward resulting in an abrasion to his forehead Uncertain if the fall was mechanical in nature or due to a syncopal or near syncopal event. Given the patient's very advanced cardiac history we'll obtain cardiac labs and interrogate his AICD. Patient's AICD information was not immediately available, his had returned home to obtain that which resulted in somewhat of a delay in his evaluation. Labs resulted with a mildly elevated troponin level arise no significant abnormalities Computed tomography scan revealed no acute pathology AICD interrogation indicates that there is been no acute event since October 14 of this year. There are no arrhythmias detected no discharge of his AICD. Information was shared with the patient and his . His is expressing concern that the patient fell on his knees and needs x-rays due to him having an artificial knee. states that his left knee appeared deformed upon falling. Patient denies any pain in his knees. Given the patient's advanced age, significant cardiac history and mildly elevated troponin I do feel he warrants further evaluation. I discussed options with the patient including admission here versus transfer to an outside facility where he follows with his tomato grader. At this time the patient would be agreeable to admission here for IV Lasix and further monitoring. - Lab Data Result diagrams: 01/24/18 22:45 01/24/18 22:45 Lab Results 01/24/18 01/24/18 01/24/18 Range/Units 22:45 22:45 22:45 WBC 5.0 (3.8-10.6) k/uL RBC 3.61 L (4.30-5.90) m/uL Hgb 10.9 L (13.0-17.5) gm/dL Hct 34.0 L (39.0-53.0) % MCV 94.1 (80.0-100.0) fL MCH 30.1 (25.0-35.0) pg MCHC 32.0 (31.0-37.0) g/dL RDW 14.1 (11.5-15.5) % Plt Count 155 (150-450) k/uL Neutrophils % 70 % Lymphocytes % 13 % Monocytes % 11 % Eosinophils % 3 % Basophils % 1 % Neutrophils # 3.5 (1.3-7.7) k/uL Lymphocytes # 0.6 L (1.0-4.8) k/uL Monocytes # 0.5 (0-1.0) k/uL Eosinophils # 0.2 (0-0.7) k/uL Basophils # 0.0 (0-0.2) k/uL PT (9.0-12.0) sec INR (<1.2) APTT (22.0-30.0) sec Sodium 140 (137-145) mmol/L Potassium 4.1 (3.5-5.1) mmol/L Chloride 105 (98-107) mmol/L Carbon Dioxide 26 (22-30) mmol/L Anion Gap 9 mmol/L BUN 75 H (9-20) mg/dL Creatinine 2.17 H (0.66-1.25) mg/dL Est GFR (CKD-EPI)AfAm 34 (>60 ml/min/1.73 sqM) Est GFR (CKD-EPI)NonAf 30 (>60 ml/min/1.73 sqM) Glucose 183 H (74-99) mg/dL Calcium 9.0 (8.4-10.2) mg/dL Total Bilirubin 1.1 (0.2-1.3) mg/dL AST 18 (17-59) U/L ALT 39 (21-72) U/L Alkaline Phosphatase 171 H (38-126) U/L Total Creatine Kinase 24 L (55-170) U/L CK-MB (CK-2) 0.7 (0.0-2.4) ng/mL CK-MB (CK-2) Rel Index 2.9 Troponin I 0.037 H* (0.000-0.034) ng/mL Total Protein 5.7 L (6.3-8.2) g/dL Albumin 3.2 L (3.5-5.0) g/dL Urine Color Urine Appearance (Clear) Urine pH (5.0-8.0) Ur Specific [place] (1.001-1.035) Urine Protein (Negative) Urine Glucose (UA) (Negative) Urine Ketones (Negative) Urine Blood (Negative) Urine Nitrite (Negative) Urine Bilirubin (Negative) Urine Urobilinogen (<2.0) mg/dL Ur Leukocyte Esterase (Negative) Urine RBC (0-5) /hpf Urine WBC (0-5) /hpf Hyaline Casts (0-2) /lpf Urine Mucus (None) /hpf Blood Type Blood Type Recheck Antibody Screen Spec Expiration Date 01/24/18 01/24/18 01/25/18 Range/Units 22:45 22:45 00:42 WBC (3.8-10.6) k/uL RBC (4.30-5.90) m/uL Hgb (13.0-17.5) gm/dL Hct (39.0-53.0) % MCV (80.0-100.0) fL MCH (25.0-35.0) pg MCHC (31.0-37.0) g/dL RDW (11.5-15.5) % Plt Count (150-450) k/uL Neutrophils % % Lymphocytes % % Monocytes % % Eosinophils % % Basophils % % Neutrophils # (1.3-7.7) k/uL Lymphocytes # (1.0-4.8) k/uL Monocytes # (0-1.0) k/uL Eosinophils # (0-0.7) k/uL Basophils # (0-0.2) k/uL PT 10.7 (9.0-12.0) sec INR 1.1 (<1.2) APTT 24.2 (22.0-30.0) sec Sodium (137-145) mmol/L Potassium (3.5-5.1) mmol/L Chloride (98-107) mmol/L Carbon Dioxide (22-30) mmol/L Anion Gap mmol/L BUN (9-20) mg/dL Creatinine (0.66-1.25) mg/dL Est GFR (CKD-EPI)AfAm (>60 ml/min/1.73 sqM) Est GFR (CKD-EPI)NonAf (>60 ml/min/1.73 sqM) Glucose (74-99) mg/dL Calcium (8.4-10.2) mg/dL Total Bilirubin (0.2-1.3) mg/dL AST (17-59) U/L ALT (21-72) U/L Alkaline Phosphatase (38-126) U/L Total Creatine Kinase (55-170) U/L CK-MB (CK-2) (0.0-2.4) ng/mL CK-MB (CK-2) Rel Index Troponin I (0.000-0.034) ng/mL Total Protein (6.3-8.2) g/dL Albumin (3.5-5.0) g/dL Urine Color Yellow Urine Appearance Clear (Clear) Urine pH 5.5 (5.0-8.0) Ur Specific [place] 1.009 (1.001-1.035) Urine Protein Negative (Negative) Urine Glucose (UA) Negative (Negative) Urine Ketones Negative (Negative) Urine Blood Negative (Negative) Urine Nitrite Negative (Negative) Urine Bilirubin Negative (Negative) Urine Urobilinogen <2.0 (<2.0) mg/dL Ur Leukocyte Esterase Trace H (Negative) Urine RBC 1 (0-5) /hpf Urine WBC 1 (0-5) /hpf Hyaline Casts 42 H (0-2) /lpf Urine Mucus Rare H (None) /hpf Blood Type B Positive Blood Type Recheck No Antibody Screen NEGATIVE Spec Expiration Date 01/27/2018 - 6959 - EKG Data EKG Comments: EKG obtained at 2247, rate is 70, rhythm is ventricularly paced, when compared to previous EKG there is no significant change in morphology. Disposition Clinical Impression: Syncope, Fall, Elevated troponin, Bilateral lower extremity edema Disposition: ADMITTED IP TO THIS HOSP Referrals: Al Harper MD [Primary Care Provider] - 1-2 days
[2018-01-24 23:24] LABS: Albumin 3.2 g/dL (3.5-5.0); INR 1.1 (<1.2); Partial Thromboplastin Time 24.2 sec (22.0-30.0); Potassium 4.1 mmol/L (3.5-5.1); Prothrombin Time 10.7 sec (9.0-12.0); Total Bilirubin 1.1 mg/dL (0.2-1.3); Total Protein 5.7 g/dL (6.3-8.2)
--- NOTE | 2018-01-24 23:30 | CT ---
EXAMINATION TYPE: CT brain marissa wo con DATE OF EXAM: 01/24/2018 COMPARISON: June 28, 2012 HISTORY: syncopal fall headache. Neck pain CT DLP: 1122.9 mGycm Automated exposure control for dose reduction was used. TECHNIQUE: CT scan of the head and cervical spine are performed without contrast. FINDINGS: There is cerebral cortical atrophy. There is no mass effect nor midline shift. There is n o sign of intracranial hemorrhage. There is mucosal thickening and calcification involving the right maxillary sinus and right ethmoid sinus. The calvarium is intact. Cervical vertebra have fairly normal spacing and alignment. There is mild spurring of the endplates. Facet joints are intact. The skull base is intact. There is no evidence of a fracture. IMPRESSION: There is some chronic right maxillary sinusitis with wall thickening that is new compared to old CT s can. No acute intracranial abnormality. Minor degenerative disc changes in the cervical spine. No fracture. No change.
--- NOTE | 2018-01-24 23:32 | XR ---
EXAMINATION TYPE: XR thoracic spine 2V DATE OF EXAM: 01/24/2018 COMPARISON: Chest x-ray 12/20/2016 HISTORY: Back pain TECHNIQUE: 4 views FINDINGS: Thoracic vertebra have normal alignment. There is mild spurring of the endplates. Posterior elements are intact. There is no paraspinal mass. I see no compression fracture. IMPRESSION: Mild spondylotic changes. No fracture. No change compared to old chest x-ray.
[2018-01-24 23:34] LABS: Basophils % (A) 1 %; Eosinophils # (A) 0.2 k/uL (0-0.7); Eosinophils % (A) 3 %; HGB 10.9 gm/dL (13.0-17.5); Lymphocytes # (A) 0.6 k/uL (1.0-4.8); Lymphocytes % (A) 13 %; MCH 30.1 pg (25.0-35.0); MCV 94.1 fL (80.0-100.0); Mean Platelet Volume 7.7; Monocytes # (A) 0.5 k/uL (0-1.0); Monocytes % (A) 11 %; Neutrophils # (A) 3.5 k/uL (1.3-7.7); Neutrophils % (A) 70 %; Platelet Count 155 k/uL (150-450); RBC 3.61 m/uL (4.30-5.90); RDW 14.1 % (11.5-15.5)
[2018-01-24 23:44] LABS: Creatine Kinase MB 0.7 ng/mL (0.0-2.4)
[2018-01-24 23:48] LABS: Troponin I 0.037 ng/mL (0.000-0.034)
[2018-01-25 00:58] LABS: Appearance,Urine Clear (Clear); Bilirubin,Urine Negative (Negative); Blood,Urine Negative (Negative); Color,Urine Yellow; Glucose,Urine (UA) Negative (Negative); Hyaline Casts,Urine 42 /lpf (0-2); Ketones,Urine Negative (Negative); Leukocyte Esterase,Urine Trace (Negative); Mucus,Urine Rare /hpf; Nitrite,Urine Negative (Negative); PH, Urine 5.5 (5.0-8.0); Protein,Urine Negative (Negative); RBC,Urine 1 /hpf (0-5); Specific Gravity,Urine 1.009 (1.001-1.035); Urobilinogen,Urine <2.0 mg/dL (<2.0); WBC,Urine 1 /hpf (0-5)
--- NOTE | 2018-01-25 02:59 | XR ---
EXAM: XR Chest, 1 View CLINICAL HISTORY: ITS.REASON XR Reason: CHF TECHNIQUE: Frontal view of the chest. COMPARISON: No relevant prior studies available. FINDINGS: Lungs: Mild interstitial pulmonary edema. Prominent sylvain may represent pulmonary hypertension. Pleural space: Portable lung. Lungs are somewhat low. Subsegmental atelectatic bases. Cannot exclude the presence of a left pleural effusion. No pneumothorax. Heart: Cardiomegaly and/or pericardial effusion. Status post CABG. Intact wires associated multilead pacer. Mediastinum: Unremarkable. Bones/joints: Unremarkable. Vasculature: Vascular congestion. IMPRESSION: Findings can be seen congestive heart exacerbation.
[2018-01-25] MEDS ORDERED: FUROSEMIDE 10 MG/ML 4 ML VIAL IV SCH (03:00)
--- NOTE | 2018-01-25 03:01 | XR ---
EXAM: XR Left Knee, 3 views CLINICAL HISTORY: ITS.REASON XR Reason: Fall TECHNIQUE: Three views of the left knee. COMPARISON: No relevant prior studies available. FINDINGS: Bones/joints: Left total knee arthroplasty with satisfactory alignment and no hardware complications. No acute or healing fracture or malalignment. No other unusual lytic or sclerotic lesions of bone. No significant suprapatellar joint effusion. Soft tissues: Unremarkable. Vasculature: Dense atherosclerotic calcifications posteriorly involving the visualized extremity. IMPRESSION: Remote knee arthroplasty with satisfactory alignment and no hardware complications or failure. No acute osseous abnormality or malalignment.
[2018-01-25] MEDS: HYDROcodone/APAP 7.5-325MG 1 EACH TAB PO PRN ×3 (04:49→18:32)
[2018-01-25 05:18] VITALS: BMI 33.9
[2018-01-25] MEDS ORDERED: ALPRAZolam 0.5 MG TAB PO PRN (07:11)
--- NOTE | 2018-01-25 07:11 | P.HPIM ---
History of Present Illness H&P Date: 01/25/18 Chief Complaint: Status post fall. Lower extremity edema This is a history of physical 72-year-old white male with known history of AICD and cardia myopathy. The patient states that for the last 3 days she's been having worsening bilateral lower extremity edema. He states he's been fairly compliant with his diet and medication. The patient states that he's been home fairly stable, without transportation as his has been out of town for the last several days. He states he got up out of the bed and had significant fall. No loss of consciousness. No previous history of syncope stated. No chest pain. Question some mild dyspnea on exertion however. Due to his evaluation, the in the ER, it was evaluated that he had acute congestive heart failure and given his overall cardiac history and recent fall, he is appropriately admitted for exacerbation of CHF. He does not remember when his last echocardiogram was ascertained. He is now resting comfortably and appropriately lucid Review of Systems Constitutional: Reports fatigue Eyes: denies blurred vision, denies pain Ears, nose, mouth and throat: Denies headache, Denies sore throat Cardiovascular: Reports leg edema Respiratory: Denies cough Gastrointestinal: Denies abdominal pain, Denies diarrhea, Denies nausea, Denies vomiting Musculoskeletal: Denies myalgias Integumentary: Denies pruritus, Denies rash Neurological: Denies numbness, Denies weakness Past Medical History Past Medical History: Atrial Fibrillation, Cancer, Heart Failure, Diabetes Mellitus, GI Bleed, Hypertension, Myocardial Infarction ([place]), Vascular Disorder Additional Past Medical History / Comment(s): diverticulitis, gout, hx skin cancer, " 1 TEST POSITIVE FOR PROSTATE CANCER BUT 2ND TEST NEG" diabetic retinopathy, diabetic neuropathy Last Myocardial Infarction Date:: 11/2002 History of Any Multi-Drug Resistant Organisms: None Reported Past Surgical History: AICD, Coronary Bypass/CABG, Heart Catheterization With Stent, Joint Replacement, Tonsillectomy Additional Past Surgical History / Comment(s): knee replacements (left x 2, rt x 1), surgery for sleep apnea, skin cancer removal, left foot hammertoe, vasectomy, angioplasty,cataract both eyes Past Anesthesia/Blood Transfusion Reactions: Previous Problems w/ Anesthesia Additional Past Anesthesia/Blood Transfusion Reaction / Comment(s): "longer to come out" Date of Last Stent Placement:: 11/2002 Type of Cardiac Device: AICD Device Placement Date:: last 01/21/14 Past Psychological History: Anxiety Additional Psychological History / Comment(s): PT LIVES WITH IN SINGLE LEVEL HOME THAT HAS 3 PORCH STEPS. PT USES A CANE ,ALSO HAS A GLUCOMETER. ONLY OUT SIDE SERVICE IS A CLEANING SERVICE EVERY 2 WEEKS. 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 Smoking Status: Former smoker Past Alcohol Use History: None Reported Additional Past Alcohol Use History / Comment(s): STARTED SMOKING AT AGE 20 SMOKED 3PPD AND QUIT IN HIS EARLY 20'S Past Drug Use History: None Reported - Past Family History Father Family Medical History: Cancer, Diabetes Mellitus Additional Family Medical History / Comment(s): OF HEART DX Mother Family Medical History: Cancer Medications and Allergies Home Medications Medication Instructions Recorded Confirmed Type ALPRAZolam [Xanax] 0.5 mg PO TID PRN 02/26/14 01/24/18 History Aspirin 81 mg PO DAILY 02/26/14 01/24/18 History Bumetanide [BUMEX] 2 mg PO DIRECTED 02/26/14 01/24/18 History Carvedilol [Coreg] 25 mg PO BID 02/26/14 01/24/18 History Colchicine [Colcrys] 0.6 mg PO DAILY 02/26/14 01/24/18 History Hydrocodone/Acetaminophen [[place] 1 tab PO QID PRN 02/26/14 01/24/18 History 7.5-325] Insulin Aspart [NovoLOG 9 unit SQ AC-TID 02/26/14 01/24/18 History (formulary)] Insulin Detemir [Levemir] 33 unit SQ HS 02/26/14 01/24/18 History Pantoprazole Sodium [Protonix] 40 mg PO DAILY 08/13/14 01/24/18 History Sacubitril/Valsartan [Entresto 24 1 tab PO BID 12/17/16 01/24/18 History mg-26 mg Tablet] Benadryl(Unknown) 1 dose IV DIRECTED 01/24/18 01/24/18 History Bumetanide [BUMEX] 1 mg PO DAILY 01/24/18 01/24/18 History Clopidogrel Bisulfate [Plavix] 75 mg PO DAILY 01/24/18 01/24/18 History Escitalopram [Lexapro] 20 mg PO DAILY 01/24/18 01/24/18 History Eye Injection (Unknown) 1 injection BOTH EYES DIRECTED 01/24/18 01/24/18 History Krystxxa (Unknown) 1 injection IV Q14D 01/24/18 01/24/18 History Levofloxacin [Levaquin] 500 mg PO DAILY 01/24/18 01/24/18 History Polymyxin B-Trimeth Sulf Ophth 1 drop BOTH EYES BID 01/24/18 01/24/18 History [Polytrim Opthalmic] Prednisone(Unknown) 1 dose IV DIRECTED 01/24/18 01/24/18 History Spironolactone [Aldactone] 25 mg PO DIRECTED 01/24/18 01/24/18 History guaiFENesin [Mucinex] 1,200 mg PO BID 01/24/18 01/24/18 History methylPREDNISolone Dose Pack See Taper PO DIRECTED 01/24/18 01/24/18 History [Medrol Dose Pack] Allergies Allergy/AdvReac Type Severity Reaction Status Date / Time lorazepam [From Ativan] Allergy combative Verified 01/24/18 23:27 and elevated BP prochlorperazine edisylate Allergy combative Verified 01/24/18 23:27 [From Compazine] prochlorperazine maleate Allergy combative Verified 01/24/18 23:27 [From Compazine] Physical Exam Vitals: Vital Signs Temp Pulse Pulse Pulse Resp BP BP 01/25/18 05:29 98.1 F 70 97 18 122/53 01/25/18 04:00 70 20 114/52 01/25/18 03:00 70 15 113/55 01/24/18 22:21 97.9 F 70 18 110/53 Pulse Ox 01/25/18 05:29 01/25/18 04:00 95 01/25/18 03:00 94 L 01/24/18 22:21 98 Intake and Output 01/24/18 01/25/18 01/25/18 22:59 06:59 14:59 Intake Total 300 Balance 300 Intake: Amount of Fluid Infused ( 250 ml) Oral 50 Other: Weight 113.398 kg 113.398 kg - Constitutional General appearance: no acute distress - EENT Eyes: no abnormal pupil, no photophobia, no scleral icterus - Neck Neck: no lymphadenopathy - Respiratory Respiratory: bilateral: diminished - Cardiovascular Rhythm: regular Heart sounds: normal: S1, S2 Abnormal Heart Sounds: no S3 Gallop leg Peripheral Edema: bilateral: 2+ - Gastrointestinal General gastrointestinal: no organomegaly, soft, no tenderness - Neurologic Neurologic: CNII-XII intact - Musculoskeletal Musculoskeletal: strength equal bilaterally - Psychiatric Psychiatric: A&O x's 3, appropriate affect, intact judgment & insight Results CBC & Chem 7: 01/24/18 22:45 01/24/18 22:45 Labs: Abnormal Lab Results - Last 24 Hours (Table) 01/24/18 01/24/18 01/24/18 Range/Units 22:45 22:45 22:45 RBC 3.61 L (4.30-5.90) m/uL Hgb 10.9 L (13.0-17.5) gm/dL Hct 34.0 L (39.0-53.0) % Lymphocytes # 0.6 L (1.0-4.8) k/uL BUN 75 H (9-20) mg/dL Creatinine 2.17 H (0.66-1.25) mg/dL Glucose 183 H (74-99) mg/dL Alkaline Phosphatase 171 H (38-126) U/L Total Creatine Kinase 24 L (55-170) U/L Troponin I 0.037 H* (0.000-0.034) ng/mL Total Protein 5.7 L (6.3-8.2) g/dL Albumin 3.2 L (3.5-5.0) g/dL Ur Leukocyte Esterase (Negative) Hyaline Casts (0-2) /lpf Urine Mucus (None) /hpf 01/25/18 01/25/18 Range/Units 00:42 04:10 RBC (4.30-5.90) m/uL Hgb (13.0-17.5) gm/dL Hct (39.0-53.0) % Lymphocytes # (1.0-4.8) k/uL BUN (9-20) mg/dL Creatinine (0.66-1.25) mg/dL Glucose (74-99) mg/dL Alkaline Phosphatase (38-126) U/L Total Creatine Kinase (55-170) U/L Troponin I 0.045 H* (0.000-0.034) ng/mL Total Protein (6.3-8.2) g/dL Albumin (3.5-5.0) g/dL Ur Leukocyte Esterase Trace H (Negative) Hyaline Casts 42 H (0-2) /lpf Urine Mucus Rare H (None) /hpf Thrombosis Risk Factor Assmnt - Choose All That Apply Any of the Below Risk Factors Present?: No Other Risk Factors: Yes Each Risk Factor Represents 2 Points: Age 61-74 years Other congenital or acquired thrombophilia - If yes, enter type in comment: No Thrombosis Risk Factor Assessment Total Risk Factor Score: 2 Thrombosis Risk Factor Assessment Level: Low Risk Assessment and Plan (1) Bilateral lower extremity edema Current Visit: Yes Status: Acute Code(s): R60.0 - LOCALIZED EDEMA SNOMED Code(s): 232633135 (2) Congestive cardiomyopathy Current Visit: No Status: Acute Code(s): I42.0 - DILATED CARDIOMYOPATHY SNOMED Code(s): 018024234 Plan: We'll go ahead and reconcile medications. Consult cardiology. Echocardiogram to be ascertained if not done within the last 6 months. Check CBC and CMP in a.m. Prognosis is guarded secondary to his multiple cardiac state. Review of x-rays show congestive heart failure with no fracture of the knees. Otherwise, he is a full code at this time. Time with Patient: Greater than 30
[2018-01-25 08:33] LABS: Glucose,Whole Blood 238 mg/dL (75-99)
[2018-01-25] MEDS: ESCITALOPRAM 20 MG TAB PO SCH (08:34)
[2018-01-25] MEDS: PANTOPRAZOLE 40 MG TABLET PO SCH (08:34)
[2018-01-25] MEDS: COLCHICINE 0.6 MG EACH PO SCH (08:34)
[2018-01-25] MEDS: CARVEDILOL 12.5 MG TAB PO SCH ×2 (08:34→18:31)
[2018-01-25] MEDS: INSULIN ASPART 100 UNIT/ML 1 ML 10 ML VIAL SQ SCH ×3 (08:34→18:34)
[2018-01-25] MEDS: CLOPIDOGREL 75 MG TAB PO SCH (08:35)
[2018-01-25] MEDS: SPIRONOLACTONE 25 MG TAB PO SCH (08:35)
[2018-01-25] MEDS: LEVOFLOXACIN 500 MG TAB PO SCH (08:35)
[2018-01-25] MEDS: POLYMYXIN B-TRIMETHOPRIM SULF (10,000-1) OPHTH DROPS 10 ML BTL BOTH EYES SCH ×2 (09:35→22:10)
[2018-01-25] MEDS: SACUBITRIL/VALSARTAN 24 MG-26 MG TABLET PO SCH ×2 (09:35→22:10)
--- NOTE | 2018-01-25 10:12 | ECHOF ---
Referral Reason:Congestive heart failure/presyncope MEASUREMENTS -------- HEIGHT: 177.8 cm WEIGHT: 113.4 kg BP: RVIDd: 3.5 cm (< 3.3) IVSd: 1.5 cm (0.6 - 1.1) LVIDd: 6.4 cm (3.9 - 5.3) LVPWd: 1.2 cm (0.6 - 1.1) IVSs: 2.1 cm LVIDs: 5.1 cm LVPWs: 2.0 cm IVSd: 1.2 cm (0.6 - 1.1) LVIDd: 6.8 cm (3.9 - 5.3) LVPWd: 1.4 cm (0.6 - 1.1) IVSs: 1.9 cm LVIDs: 5.3 cm LVPWs: 1.6 cm EDV(Teich): 237 ml ESV(Teich): 136 ml EF(Teich): 43 % %FS: 22 % SV(Teich): 101 ml Ao Diam: 3.5 cm (2.0 - 3.7) AV Cusp: 1.8 cm (1.5 - 2.6) LA Diam: 4.4 cm (2.7 - 3.8) MV EXCURSION: 8.677 mm (> 18.000) MV EF SLOPE: 89 mm/s (70 - 150) EPSS: 1.8 cm MV E Toni: 0.90 m/s MV DecT: 210 ms MV A Toni: 0.31 m/s MV E/A Ratio: 2.90 RAP: 5.00 mmHg RVSP: 20.86 mmHg FINDINGS -------- Sinus rhythm. AICD This was a technically difficult study with suboptimal views. The left ventricle is moderately dilated. There is mild concentric left ventricular hypertrophy. Overall left ventricular systolic function is moderate-severely impaired with, an EF between 30 - 35 %. Inferior Hypokinesis The right ventricle is mildly enlarged. The left atrium is mildly dilated. The right atrium was not well visualized. 5.0mg of Lumason was utilized for enhancement of images Aortic valve is trileaflet and is mildly thickened. The mitral valve leaflets are mildly thickened. Mild mitral annular calcification present. There is trace mitral regurgitation. Trace tricuspid regurgitation present. The right ventricular systolic pressure, as measured by Dopp ler, is 20.86mmHg. The pulmonic valve was not well visualized. The aortic root size is normal. The pericardium is normal. CONCLUSIONS -------- 1. Sinus rhythm. 2. AICD 3. This was a technically difficult study with suboptimal views. 4. The left ventricle is moderately dilated. 5. There is mild concentric left ventricular hypertrophy. 6. Overall left ventricular systolic function is moderate-severely impaired with, an EF between 30 - 35 %. 7. Inferior Hypokinesis 8. The right ventricle is mildly enlarged. 9. The left atrium is mildly dilated. 10. The right atrium was not well visualized. 11. 5.0mg of Lumason was utilized for enhancement of images 12. Aortic valve is trileaflet and is mildly thickened. 13. The mitral valve leaflets are mildly thickened. 14. Mild mitral annular calcification present. 15. There is trace mitral regurgitation. 16. Trace tricuspid regurgitation present. 17. The right ventricular systolic pressure, as measured by Doppler, is 20.86mmHg. 18. The pulmonic valve was not well visualized. 19. The aortic root size is normal. 20. The pericardium is normal. [employer]: Brenda Nguyen RDCS
[2018-01-25 11:25] LABS: Glucose,Whole Blood 203 mg/dL (75-99)
--- NOTE | 2018-01-25 14:15 | P.CRDCN ---
History of Present Illness History of present illness: Mr. Castellanos is a pleasant 72-year-old male past medical history significant for coronary artery disease status post bypass grafting, chronic systolic heart failure ejection fraction 20-25%, ischemic cardiomyopathy, hypertension and diabetes mellitus. He follows with Dr. Doty at [facility]. We have been asked to see him in consultation for heart failure. He states yesterday he was sitting down in his recliner chair when he stood up he lost his footing and fell forward striking his forehead and left knee. He denies feeling dizzy, lightheaded, chest pain, shortness of breath, palpitations , nausea or diaphoresis prior to falling. He is very insistent that this was simply a mechanical fall. There was no loss of consciousness. He does state that over the last couple of days he feels as if his legs have been getting increasingly swollen and his breathing has been mildly more labored with exertion. He was started on Lasix 40 mg 3 times a day her primary this morning. Echocardiogram is been obtained and reveals moderate to severely impaired left ventricular systolic function with ejection fraction 30-35%, inferior hypokinesia and moderately dilated left ventricle. EKG reveals a paced rhythm. Chest x-ray findings consistent with congestive heart failure with mild interstitial pulmonary edema. CT of the brain reveals sinusitis. He states he has been following with Dr. Harper as an outpatient is currently on his second round of Levaquin for sinus infection. X-ray of the left knee shows no acute abnormality. Laboratory data reviewed, troponin 0.037, 0.045 0.055. NT proBNP 3450, hemoglobin 10.9, platelets 155, sodium 140, potassium 4.1, creatinine 2.17. Current cardiac medications include Entresto 24/26 mg BID, Aldactone 25 mg daily , Plavix 75 mg daily, chloride 25 mg twice a day, aspirin 81 mg daily and Bumex 1 mg daily with 2 mg to be taken when necessary. At the time of my exam: CONSTITUTIONAL: Denies fever. Denies chills. EYES: Denies blurred vision. Denies vision changes. Denies eye pain. EARS, NOSE, MOUTH & THROAT: Denies headache. Denies sore throat. Denies ear pain. CARDIOVASCULAR: Denies chest pain. Denies shortness of breath. Denies orthopnea. Denies PND. Denies palpitations. RESPIRATORY: Denies cough. GASTROINTESTINAL: Denies abdominal pain. Denies diarrhea. Denies constipation. Denies nausea. Denies vomiting. MUSCULOSKELETAL: Denies myalgias. INTEGUMENTARY: Denies pruitis. Denies rash. NEUROLOGIC: Denies numbness. Denies tingling. Denies weakness. PSYCHIATRIC: Denies anxiety. Denies depression. ENDOCRINE: Denies fatigue. Admits to weight change. Denies polydipsia. Denies polyurina. GENITOURINARY: Denies burning, hematuria or urgency with micturation. HEMATOLOGIC: Denies history of anemia. Denies bleeding. Blood pressure 136/69 heart rate 70 afebrile maintaining oxygen saturation on room air GENERAL: This is a 72-year-old occasion male in no apparent distress at the time of my examination. HEENT: Head is atraumatic, normocephalic. Pupils are equal, round. Sclerae anicteric. Conjunctivae are clear. Mucous membranes of the mouth are moist. Neck is supple. There is no jugular venous distention. No carotid bruit is heard. LUNGS: Clear to auscultation no wheezes, rales or rhonchi. No chest wall tenderness is noted on palpation or with deep breathing. HEART: Regular rate and rhythm with systolic ejection murmur at the base, no rubs or gallops. S1 and S2 heard. ABDOMEN: Soft, nontender. Bowel sounds are heard. No organomegaly noted. EXTREMITIES: 2+ pitting bilateral lower extremity edema with purple discoloration noted and no calf tenderness noted. VASCULAR: Radial and dorsalis pedis pulses palpated, no evidence of clubbing. NEUROLOGIC: Patient is awake, alert and oriented x3. ASSESSMENT Acute on chronic systolic heart failure History of coronary artery disease s/p bypass grafting, exact details unavailable Hypertension Ischecmic cardiomyopathy Diabetes mellitus Mild troponin leak, not indicative of an acute coronary event. Most likely related to chronic kidney disease. Chronic kidney disease, GFR 30. Stage 3b. PLAN Will decrease the lasix to 40 mg BID due to kidney function. Follow electrolytes and kidney function daily. Obtain daily weights as well as documentation of intake and output. Please use a urinal for accurate documentation urine output. We will continue to follow and make recommendations accordingly. Thank you kindly for this consultation. Nurse Practitioner note has been reviewed, I agree with a documented findings and plan of care. Patient was seen and examined. Past Medical History Past Medical History: Atrial Fibrillation, Cancer, Heart Failure, Diabetes Mellitus, GI Bleed, Hypertension, Myocardial Infarction ([place]), Vascular Disorder Additional Past Medical History / Comment(s): diverticulitis, gout, hx skin cancer, " 1 TEST POSITIVE FOR PROSTATE CANCER BUT 2ND TEST NEG" diabetic retinopathy, diabetic neuropathy Last Myocardial Infarction Date:: 11/2002 History of Any Multi-Drug Resistant Organisms: None Reported Past Surgical History: AICD, Coronary Bypass/CABG, Heart Catheterization With Stent, Joint Replacement, Tonsillectomy Additional Past Surgical History / Comment(s): knee replacements (left x 2, rt x 1), surgery for sleep apnea, skin cancer removal, left foot hammertoe, vasectomy, angioplasty,cataract both eyes Past Anesthesia/Blood Transfusion Reactions: Previous Problems w/ Anesthesia Additional Past Anesthesia/Blood Transfusion Reaction / Comment(s): "longer to come out" Date of Last Stent Placement:: 11/2002 Type of Cardiac Device: AICD Device Placement Date:: last 01/21/14 Past Psychological History: Anxiety Additional Psychological History / Comment(s): PT LIVES WITH IN SINGLE LEVEL HOME THAT HAS 3 PORCH STEPS. PT USES A CANE ,ALSO HAS A GLUCOMETER. ONLY OUT SIDE SERVICE IS A CLEANING SERVICE EVERY 2 WEEKS. 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 Smoking Status: Former smoker Past Alcohol Use History: None Reported Additional Past Alcohol Use History / Comment(s): STARTED SMOKING AT AGE 20 SMOKED 3PPD AND QUIT IN HIS EARLY 20'S Past Drug Use History: None Reported - Past Family History Father Family Medical History: Cancer, Diabetes Mellitus Additional Family Medical History / Comment(s): OF HEART DX Mother Family Medical History: Cancer Medications and Allergies Home Medications Medication Instructions Recorded Confirmed Type ALPRAZolam [Xanax] 0.5 mg PO TID PRN 02/26/14 01/25/18 History Aspirin 81 mg PO DAILY 02/26/14 01/25/18 History Bumetanide [BUMEX] 2 mg PO DIRECTED 02/26/14 01/25/18 History Carvedilol [Coreg] 25 mg PO BID 02/26/14 01/25/18 History Colchicine [Colcrys] 0.6 mg PO DAILY 02/26/14 01/25/18 History Hydrocodone/Acetaminophen [[place] 1 tab PO QID PRN 02/26/14 01/25/18 History 7.5-325] Insulin Aspart [NovoLOG 9 unit SQ AC-TID 02/26/14 01/25/18 History (formulary)] Insulin Detemir [Levemir] 33 unit SQ HS 02/26/14 01/25/18 History Pantoprazole Sodium [Protonix] 40 mg PO DAILY 08/13/14 01/25/18 History Sacubitril/Valsartan [Entresto 24 1 tab PO BID 12/17/16 01/25/18 History mg-26 mg Tablet] Benadryl(Unknown) 1 dose IV DIRECTED 01/24/18 01/25/18 History Bumetanide [BUMEX] 1 mg PO DAILY 01/24/18 01/25/18 History Clopidogrel Bisulfate [Plavix] 75 mg PO DAILY 01/24/18 01/25/18 History Escitalopram [Lexapro] 20 mg PO DAILY 01/24/18 01/25/18 History Levofloxacin [Levaquin] 500 mg PO DAILY 01/24/18 01/25/18 History Polymyxin B-Trimeth Sulf Ophth 1 drop BOTH EYES BID 01/24/18 01/25/18 History [Polytrim Opthalmic] Prednisone(Unknown) 1 dose IV DIRECTED 01/24/18 01/25/18 History Spironolactone [Aldactone] 25 mg PO DIRECTED 01/24/18 01/25/18 History guaiFENesin [Mucinex] 1,200 mg PO BID 01/24/18 01/25/18 History methylPREDNISolone Dose Pack See Taper PO DIRECTED 01/24/18 01/25/18 History [Medrol Dose Pack] Allergies Allergy/AdvReac Type Severity Reaction Status Date / Time lorazepam [From Ativan] Allergy combative Verified 01/24/18 23:27 and elevated BP prochlorperazine edisylate Allergy combative Verified 01/24/18 23:27 [From Compazine] prochlorperazine maleate Allergy combative Verified 01/24/18 23:27 [From Compazine] Physical Exam Vitals: Vital Signs Temp Pulse Pulse Pulse Resp BP BP 01/25/18 07:00 98.1 F 70 16 136/69 01/25/18 05:29 98.1 F 70 97 18 122/53 01/25/18 04:00 70 20 114/52 01/25/18 03:00 70 15 113/55 01/24/18 22:21 97.9 F 70 18 110/53 Pulse Ox 01/25/18 07:00 98 01/25/18 05:29 01/25/18 04:00 95 01/25/18 03:00 94 L 01/24/18 22:21 98 Intake and Output 01/24/18 01/25/18 01/25/18 22:59 06:59 14:59 Intake Total 300 50 Balance 300 50 Intake: Amount of Fluid Infused ( 250 ml) Oral 50 50 Other: Weight 113.398 kg 113.398 kg 113.398 kg Results 01/24/18 22:45 01/24/18 22:45 Cardiac Enzymes 01/24/18 01/24/18 01/25/18 Range/Units 22:45 22:45 04:10 AST 18 (17-59) U/L CK-MB (CK-2) 0.7 (0.0-2.4) ng/mL Troponin I 0.037 H* 0.045 H* (0.000-0.034) ng/mL 01/25/18 Range/Units 12:09 AST (17-59) U/L CK-MB (CK-2) (0.0-2.4) ng/mL Troponin I 0.055 H* (0.000-0.034) ng/mL Coagulation 01/24/18 Range/Units 22:45 PT 10.7 (9.0-12.0) sec APTT 24.2 (22.0-30.0) sec CBC 01/24/18 Range/Units 22:45 WBC 5.0 (3.8-10.6) k/uL RBC 3.61 L (4.30-5.90) m/uL Hgb 10.9 L (13.0-17.5) gm/dL Hct 34.0 L (39.0-53.0) % Plt Count 155 (150-450) k/uL Comprehensive Metabolic Panel 01/24/18 Range/Units 22:45 Sodium 140 (137-145) mmol/L Potassium 4.1 (3.5-5.1) mmol/L Chloride 105 (98-107) mmol/L Carbon Dioxide 26 (22-30) mmol/L BUN 75 H (9-20) mg/dL Creatinine 2.17 H (0.66-1.25) mg/dL Glucose 183 H (74-99) mg/dL Calcium 9.0 (8.4-10.2) mg/dL AST 18 (17-59) U/L ALT 39 (21-72) U/L Alkaline Phosphatase 171 H (38-126) U/L Total Protein 5.7 L (6.3-8.2) g/dL Albumin 3.2 L (3.5-5.0) g/dL Current Medications Generic Name Dose Route Start Last Admin Trade Name Freq PRN Reason Stop Dose Admin Hydrocodone Bitart/Acetaminophen 1 each 01/25/18 02:19 01/25/18 12:25 [place] 7.5-325 PO 1 each QID PRN Administration Pain Alprazolam 0.5 mg 01/25/18 07:11 Xanax PO TID PRN Anxiety Aspirin 81 mg 01/26/18 09:00 Aspirin PO DAILY [facility] Carvedilol 25 mg 01/25/18 07:30 01/25/18 08:34 Coreg PO 25 mg BID-W/MEALS SHO Administration Clopidogrel Bisulfate 75 mg 01/25/18 09:00 01/25/18 08:35 Plavix PO 75 mg DAILY [facility] Administration Colchicine 0.6 mg 01/25/18 09:00 01/25/18 08:34 Colcrys PO 0.6 mg DAILY SHO Administration Escitalopram Oxalate 20 mg 01/25/18 09:00 01/25/18 08:34 Lexapro PO 20 mg DAILY [facility] Administration Furosemide 40 mg 01/25/18 21:00 Lasix IV Q12HR [facility] Insulin Aspart 9 unit 01/25/18 07:30 01/25/18 08:34 Novolog SQ 9 unit AC-TID SHO Administration Insulin Detemir 33 unit 01/25/18 21:00 Levemir SQ HS SHO Levofloxacin 500 mg 01/25/18 09:00 01/25/18 08:35 Levaquin PO 01/26/18 09:01 500 mg DAILY SHO Administration Pantoprazole Sodium 40 mg 01/25/18 09:00 01/25/18 08:34 Protonix PO 40 mg [id number] SHO Administration Polymyxin/Trimethoprim Sulfate 1 drops 01/25/18 09:00 01/25/18 09:35 Polytrim BOTH EYES 1 drops BID SHO Administration Sacubitril/Valsartan 1 each 01/25/18 09:00 01/25/18 09:35 Entresto 24 Mg-26 Mg Tablet PO 1 each BID SHO Administration Spironolactone 25 mg 01/25/18 09:00 01/25/18 08:35 Aldactone PO 25 mg DAILY SHO Administration Intake and Output 01/24/18 01/25/18 01/25/18 22:59 06:59 14:59 Intake Total 300 50 Balance 300 50 Intake: Amount of Fluid Infused ( 250 ml) Oral 50 50 Other: Weight 113.398 kg 113.398 kg 113.398 kg Patient Weight 01/26/18 06:59 Weight 113.398 kg 01/24/18 22:45 01/24/18 22:45
[2018-01-25 17:00] LABS: Glucose,Whole Blood 229 mg/dL (75-99)
[2018-01-25 20:27] LABS: Glucose,Whole Blood 167 mg/dL (75-99)
[2018-01-25] MEDS: INSULIN DETEMIR 100 UNIT/ML 10 ML VIAL SQ SCH (22:10)
[2018-01-25] MEDS: FUROSEMIDE 10 MG/ML 4 ML VIAL IV SCH (22:10)
[2018-01-26] MEDS: HYDROcodone/APAP 7.5-325MG 1 EACH TAB PO PRN ×3 (00:28→17:19)
[2018-01-26] MEDS ORDERED: ASPIRIN 325 MG TAB PO SCH (02:19)
[2018-01-26 06:48] LABS: Glucose,Whole Blood 114 mg/dL (75-99)
[2018-01-26] MEDS: LEVOFLOXACIN 500 MG TAB PO SCH (07:16)
[2018-01-26] MEDS: CARVEDILOL 12.5 MG TAB PO SCH ×2 (07:16→17:20)
[2018-01-26] MEDS: PANTOPRAZOLE 40 MG TABLET PO SCH (07:16)
[2018-01-26] MEDS: ESCITALOPRAM 20 MG TAB PO SCH (07:16)
[2018-01-26] MEDS: ASPIRIN 81 MG PO SCH (07:16)
[2018-01-26] MEDS: CLOPIDOGREL 75 MG TAB PO SCH (07:17)
[2018-01-26] MEDS: SACUBITRIL/VALSARTAN 24 MG-26 MG TABLET PO SCH ×2 (07:17→21:07)
[2018-01-26] MEDS: SPIRONOLACTONE 25 MG TAB PO SCH (07:17)
[2018-01-26] MEDS: FUROSEMIDE 10 MG/ML 4 ML VIAL IV SCH ×2 (07:18→21:11)
[2018-01-26] MEDS: COLCHICINE 0.6 MG EACH PO SCH (07:18)
[2018-01-26] MEDS: INSULIN ASPART 100 UNIT/ML 1 ML 10 ML VIAL SQ SCH ×3 (07:42→17:20)
--- NOTE | 2018-01-26 08:37 | P.PN ---
Subjective Progress Note Date: 01/26/18 Principal diagnosis: This is a continue progress on a 72-year-old white male with history of cardiomyopathy and AICD placement who is essentially admitted for exacerbation of congestive heart failure. The patient is now stabilizing after aggressive Lasix/diuretic treatment. He wishes to become more ambulatory today. No cough. No syncopal. No overt chest pressure. Feet are now less painful. Objective - Vital Signs Vital signs: Vital Signs Temp 97.8 F 01/26/18 07:00 Pulse 70 01/26/18 07:00 Resp 17 01/26/18 07:00 BP 109/55 01/26/18 07:00 Pulse Ox 96 01/26/18 07:00 Intake & Output 01/25/18 01/26/18 01/26/18 18:59 06:59 18:59 Intake Total 50 Balance 50 Weight 113.398 kg Intake: Oral 50 - Constitutional General appearance: Present: average body habitus - EENT Eyes: Absent: abnormal pupil - Neck Neck: Present: lymphadenopathy - Respiratory Respiratory: bilateral: CTA - Cardiovascular Rhythm: regular Heart sounds: normal: S1, S2 Abnormal Heart Sounds: Absent: S3 Gallop - Peripheral edema foot Peripheral Edema: bilateral: 1+ - Gastrointestinal General gastrointestinal: Present: soft. Absent: tenderness - Neurologic Neurologic: Present: CNII-XII intact. Absent: focal deficits - Labs CBC & Chem 7: 01/24/18 22:45 01/24/18 22:45 Labs: Abnormal Lab Results - Last 24 Hours (Table) 01/25/18 01/25/18 01/25/18 Range/Units 11:22 12:09 16:58 POC Glucose (mg/dL) 203 H 229 H (75-99) mg/dL Troponin I 0.055 H* (0.000-0.034) ng/mL 01/25/18 01/26/18 Range/Units 20:16 06:46 POC Glucose (mg/dL) 167 H 114 H (75-99) mg/dL Troponin I (0.000-0.034) ng/mL Assessment and Plan (1) Bilateral lower extremity edema Current Visit: Yes Status: Acute Code(s): R60.0 - LOCALIZED EDEMA SNOMED Code(s): 510770383 (2) Congestive cardiomyopathy Current Visit: No Status: Acute Code(s): I42.0 - DILATED CARDIOMYOPATHY SNOMED Code(s): 069124663 Plan: Continue current regimen of treatment. Check CMP in a.m. The patient has improved significantly. Appreciate cardiology input. Anticipate discharge in the a.m.
[2018-01-26 10:17] LABS: Calcium 8.9 mg/dL (8.4-10.2)
[2018-01-26 12:05] LABS: Glucose,Whole Blood 128 mg/dL (75-99)
[2018-01-26] MEDS: POLYMYXIN B-TRIMETHOPRIM SULF (10,000-1) OPHTH DROPS 10 ML BTL BOTH EYES SCH ×2 (12:23→21:10)
--- NOTE | 2018-01-26 15:17 | PN ---
PROGRESS NOTE A 72-year-old gentleman with history of coronary artery disease, cardiomyopathy, congestive heart failure, who was admitted to hospital with acute exacerbation of chronic systolic heart failure and fall at home. Since being admitted, he is doing well. His device apparently has been evaluated on this admission. I do not have those details with me but I was told no significant issues have been identified. There is mild troponin elevation, probably related to the renal insufficiency. Patient is feeling much better. Leg edema had improved. PHYSICAL EXAM: Afebrile, heart rate is 70 beats per minute. Blood pressure is 109/55, respiratory rate is 17. Chest exam reveals diminished air entry at the bases. Heart exam reveals first and second heart sounds. No gallop. Exam of extremities reveals bilateral chronic pigmentation with mild edema. Peripheral pulses are palpable. LABS: Show a potassium of 4, BUN is 66, creatinine is 1.8. Troponins are in the dalton zone at 0.03, 0.04, and 0.05. ASSESSMENT: 1. Acute exacerbation of chronic systolic heart failure. 2. Mild troponin elevation secondary to renal insufficiency. 3. History of fall, seems mechanical. There is no history of loss of consciousness. No documented cardiac arrhythmia on this admission. I will continue the patient on IV Lasix for another day. Hopefully can be discharged home in the morning. MMODL / IJN: [id number] /
[2018-01-26 16:40] LABS: Glucose,Whole Blood 133 mg/dL (75-99)
[2018-01-26 20:16] LABS: Glucose,Whole Blood 180 mg/dL (75-99)
[2018-01-26] MEDS: INSULIN DETEMIR 100 UNIT/ML 10 ML VIAL SQ SCH (21:11)
[2018-01-27] MEDS: HYDROcodone/APAP 7.5-325MG 1 EACH TAB PO PRN ×4 (04:23→23:48)
[2018-01-27] MEDS: CLOPIDOGREL 75 MG TAB PO SCH (07:05)
[2018-01-27] MEDS: SPIRONOLACTONE 25 MG TAB PO SCH (07:05)
[2018-01-27] MEDS: ASPIRIN 81 MG PO SCH (07:05)
[2018-01-27] MEDS: CARVEDILOL 12.5 MG TAB PO SCH ×2 (07:05→17:32)
[2018-01-27] MEDS: PANTOPRAZOLE 40 MG TABLET PO SCH (07:06)
[2018-01-27] MEDS: SACUBITRIL/VALSARTAN 24 MG-26 MG TABLET PO SCH ×2 (07:06→20:56)
[2018-01-27] MEDS: ESCITALOPRAM 20 MG TAB PO SCH (07:06)
[2018-01-27] MEDS: COLCHICINE 0.6 MG EACH PO SCH (07:06)
[2018-01-27] MEDS: FUROSEMIDE 10 MG/ML 4 ML VIAL IV SCH ×2 (07:07→20:57)
[2018-01-27] MEDS: POLYMYXIN B-TRIMETHOPRIM SULF (10,000-1) OPHTH DROPS 10 ML BTL BOTH EYES SCH ×2 (07:30→20:56)
[2018-01-27] MEDS: INSULIN ASPART 100 UNIT/ML 1 ML 10 ML VIAL SQ SCH ×3 (07:30→17:33)
[2018-01-27 07:42] LABS: Glucose,Whole Blood 125 mg/dL (75-99)
[2018-01-27 07:56] LABS: HCT 34.1 % (39.0-53.0); HGB 10.8 gm/dL (13.0-17.5); MCH 30.4 pg (25.0-35.0); MCHC 31.6 g/dL (31.0-37.0); MCV 96.1 fL (80.0-100.0); Mean Platelet Volume 7.3; Platelet Count 151 k/uL (150-450); RBC 3.55 m/uL (4.30-5.90); RDW 14.1 % (11.5-15.5); WBC 6.2 k/uL (3.8-10.6)
[2018-01-27 07:57] LABS: Albumin 3.2 g/dL (3.5-5.0); Potassium 4.6 mmol/L (3.5-5.1); Total Bilirubin 1.1 mg/dL (0.2-1.3); Total Protein 5.9 g/dL (6.3-8.2)
--- NOTE | 2018-01-27 08:24 | P.PN ---
Subjective Progress Note Date: 01/27/18 Principal diagnosis: This is a continue progress on a 72-year-old white male with history of cardiomyopathy and AICD placement who is essentially admitted for exacerbation of congestive heart failure. The patient is now stabilizing after aggressive Lasix/diuretic treatment. He wishes to become more ambulatory today. No cough. No syncopal. No overt chest pressure. Feet are now less painful. This is a continue progress on a 72-year-old white male essentially admitted for exacerbation of CHF. The patient is now stabilized but still has 1+2+ edema of the lower extremities. Objective - Vital Signs Vital signs: Vital Signs Temp 96.6 F L 01/27/18 07:00 Pulse 70 01/27/18 07:00 Resp 17 01/27/18 07:00 BP 113/55 01/27/18 07:00 Pulse Ox 96 01/27/18 07:00 Intake & Output 01/26/18 01/27/18 01/27/18 18:59 06:59 18:59 Weight 115.5 kg - Constitutional General appearance: Present: obese - Respiratory Respiratory: bilateral: diminished - Cardiovascular Rhythm: regular Abnormal Heart Sounds: Absent: S3 Gallop - Gastrointestinal General gastrointestinal: Present: soft. Absent: tenderness - Psychiatric Psychiatric: Present: A&O x's 3. Absent: appropriate affect - Labs CBC & Chem 7: 01/27/18 07:13 01/27/18 07:13 Labs: Abnormal Lab Results - Last 24 Hours (Table) 01/26/18 01/26/18 01/26/18 Range/Units 08:55 11:53 16:28 RBC (4.30-5.90) m/uL Hgb (13.0-17.5) gm/dL Hct (39.0-53.0) % BUN 66 H (9-20) mg/dL Creatinine 1.81 H (0.66-1.25) mg/dL Glucose 179 H (74-99) mg/dL POC Glucose (mg/dL) 128 H 133 H (75-99) mg/dL Alkaline Phosphatase (38-126) U/L Total Protein (6.3-8.2) g/dL Albumin (3.5-5.0) g/dL 01/26/18 01/27/18 01/27/18 Range/Units 20:05 07:13 07:13 RBC 3.55 L (4.30-5.90) m/uL Hgb 10.8 L (13.0-17.5) gm/dL Hct 34.1 L (39.0-53.0) % BUN 68 H (9-20) mg/dL Creatinine 1.85 H (0.66-1.25) mg/dL Glucose 118 H (74-99) mg/dL POC Glucose (mg/dL) 180 H (75-99) mg/dL Alkaline Phosphatase 175 H (38-126) U/L Total Protein 5.9 L (6.3-8.2) g/dL Albumin 3.2 L (3.5-5.0) g/dL 01/27/18 Range/Units 07:30 RBC (4.30-5.90) m/uL Hgb (13.0-17.5) gm/dL Hct (39.0-53.0) % BUN (9-20) mg/dL Creatinine (0.66-1.25) mg/dL Glucose (74-99) mg/dL POC Glucose (mg/dL) 125 H (75-99) mg/dL Alkaline Phosphatase (38-126) U/L Total Protein (6.3-8.2) g/dL Albumin (3.5-5.0) g/dL Assessment and Plan (1) Bilateral lower extremity edema Current Visit: Yes Status: Acute Code(s): R60.0 - LOCALIZED EDEMA SNOMED Code(s): 790848835 (2) Congestive cardiomyopathy Current Visit: No Status: Acute Code(s): I42.0 - DILATED CARDIOMYOPATHY SNOMED Code(s): 120535114 Plan: Continue current regimen of treatment. Check CMP in a.m. See orders otherwise Anticipate DC in AM Time with Patient: Less than 30
[2018-01-27] MEDS ORDERED: FUROSEMIDE 10 MG/ML 4 ML VIAL IV ONE (12:00)
[2018-01-27 12:31] LABS: Glucose,Whole Blood 167 mg/dL (75-99)
--- NOTE | 2018-01-27 16:51 | PN ---
PROGRESS NOTE Jaswinder is a 72-year-old gentleman admitted with known cardiomyopathy with acute exacerbation of chronic systolic heart failure. He is doing better but still has leg edema and is concerned about that. Currently on 40 mg of Lasix IV b.i.d. I will give him an extra dose today. On exam, comfortable at rest. Vital signs are stable. Chest exam reveals good air entry bilaterally. Heart exam reveals first and second heart sounds. No gallop. Examination of extremities reveals bilateral pigmentation, mild edema. Peripheral pulses are palpable. Labs show a hemoglobin of 10.8, potassium 4.6. Creatinine is 1.8. BUN is 68. ASSESSMENT: Acute exacerbation of chronic systolic heart failure. PLAN: Continue IV Lasix today. Hopefully home tomorrow. MMODL / IJN: [id number] /
[2018-01-27 17:09] LABS: Glucose,Whole Blood 131 mg/dL (75-99)
[2018-01-27 20:39] LABS: Glucose,Whole Blood 94 mg/dL (75-99)
[2018-01-27] MEDS: INSULIN DETEMIR 100 UNIT/ML 10 ML VIAL SQ SCH (20:56)
[2018-01-28 07:11] LABS: Glucose,Whole Blood 132 mg/dL (75-99)
[2018-01-28] MEDS: HYDROcodone/APAP 7.5-325MG 1 EACH TAB PO PRN ×2 (07:54→17:02)
[2018-01-28] MEDS: PANTOPRAZOLE 40 MG TABLET PO SCH (07:54)
[2018-01-28] MEDS: INSULIN ASPART 100 UNIT/ML 1 ML 10 ML VIAL SQ SCH ×3 (07:54→17:34)
[2018-01-28] MEDS: CARVEDILOL 12.5 MG TAB PO SCH ×2 (07:54→17:02)
--- NOTE | 2018-01-28 08:20 | P.PN ---
Subjective Principal diagnosis: This is a continue progress on a 72-year-old white male with history of cardiomyopathy and AICD placement who is essentially admitted for exacerbation of congestive heart failure. The patient is now stabilizing after aggressive Lasix/diuretic treatment. He wishes to become more ambulatory today. No cough. No syncopal. No overt chest pressure. Feet are now less painful. This continue progress on a 72-year-old white male essentially admitted for dehydration because as her heart failure. The patient has a history of AICD placement and still has significant edema. Dyspnea on exertion is still somewhat present. No nausea or vomiting. No overt chest pain stated. No diarrhea. Objective - Vital Signs Vital signs: Vital Signs Temp 98.9 F 01/28/18 07:56 Pulse 71 01/28/18 07:56 Resp 18 01/28/18 07:56 BP 101/58 01/28/18 07:56 Pulse Ox 97 01/28/18 07:56 Intake & Output 01/27/18 01/28/18 01/28/18 18:59 06:59 18:59 Intake Total 882 600 Output Total 1300 Balance 882 -700 Weight 119.5 kg Intake: Oral 882 600 Output: Urine 1300 Other: # Voids 1 - Constitutional General appearance: Present: obese - EENT Eyes: Absent: abnormal pupil - Neck Neck: Present: lymphadenopathy - Respiratory Respiratory: bilateral: diminished - Cardiovascular Rhythm: regular Heart sounds: normal: S1, S2 Abnormal Heart Sounds: Absent: S3 Gallop - Gastrointestinal General gastrointestinal: Present: soft. Absent: tenderness - Integumentary Integumentary Comment(s): Still 1+ edema brawny in nature. - Labs CBC & Chem 7: 01/27/18 07:13 01/27/18 07:13 Labs: Abnormal Lab Results - Last 24 Hours (Table) 01/27/18 01/27/18 01/28/18 Range/Units 12:20 16:57 07:00 POC Glucose (mg/dL) 167 H 131 H 132 H (75-99) mg/dL Assessment and Plan (1) Bilateral lower extremity edema Current Visit: Yes Status: Acute Code(s): R60.0 - LOCALIZED EDEMA SNOMED Code(s): 724878382 (2) Congestive cardiomyopathy Current Visit: No Status: Acute Code(s): I42.0 - DILATED CARDIOMYOPATHY SNOMED Code(s): 656020284 Plan: We'll go ahead and slightly increase Lasix to 40 mg 3 times a day for today. Check CMP in a.m. Anticipate discharge in a.m. Dr. Vernon's group will covering for the weekend. Time with Patient: Greater than 30
[2018-01-28] MEDS: SPIRONOLACTONE 25 MG TAB PO SCH (09:23)
[2018-01-28] MEDS: ESCITALOPRAM 20 MG TAB PO SCH (09:23)
[2018-01-28] MEDS: FUROSEMIDE 10 MG/ML 4 ML VIAL IV SCH ×2 (09:23→17:01)
[2018-01-28] MEDS: CLOPIDOGREL 75 MG TAB PO SCH (09:23)
[2018-01-28] MEDS: ASPIRIN 81 MG PO SCH (09:23)
[2018-01-28] MEDS: SACUBITRIL/VALSARTAN 24 MG-26 MG TABLET PO SCH ×2 (09:24→22:09)
[2018-01-28] MEDS: COLCHICINE 0.6 MG EACH PO SCH (09:24)
--- NOTE | 2018-01-28 11:04 | PN ---
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 We increased the dose of his IV Lasix yesterday. This morning he is feeling better. Thinks that he needs to be in the hospital at least for another day. He is on Lasix 40 mg IV q.8 hours. Labs yesterday showed a BUN of 68, creatinine 1.8. PHYSICAL EXAM: Patient is comfortable at rest. Afebrile. VITAL SIGNS: Stable. Chest exam reveals good air entry bilaterally. Heart exam reveals first and second heart sounds. No gallop. Exam of extremities reveals bilateral chronic leg edema and chronic pigmentation. ASSESSMENT: Acute exacerbation of chronic systolic heart failure. Patient is getting better. Hopefully we can switch him to p.o. Lasix tomorrow and consider discharge tomorrow afternoon and follow up with his own front load trash truck driver. Recheck his electrolytes in the morning. MMODL / IJN: [id number] /
[2018-01-28 12:24] LABS: Glucose,Whole Blood 93 mg/dL (75-99)
[2018-01-28] MEDS: POLYMYXIN B-TRIMETHOPRIM SULF (10,000-1) OPHTH DROPS 10 ML BTL BOTH EYES SCH ×2 (12:47→22:09)
[2018-01-28 17:23] LABS: Glucose,Whole Blood 164 mg/dL (75-99)
[2018-01-28 20:07] LABS: Glucose,Whole Blood 222 mg/dL (75-99)
[2018-01-28] MEDS: INSULIN DETEMIR 100 UNIT/ML 10 ML VIAL SQ SCH (22:09)
[2018-01-29] MEDS: FUROSEMIDE 10 MG/ML 4 ML VIAL IV SCH ×3 (00:03→16:24)
[2018-01-29] MEDS: HYDROcodone/APAP 7.5-325MG 1 EACH TAB PO PRN ×3 (00:10→20:35)
[2018-01-29] MEDS: PANTOPRAZOLE 40 MG TABLET PO SCH (07:31)
[2018-01-29] MEDS: CARVEDILOL 12.5 MG TAB PO SCH ×2 (07:32→17:17)
[2018-01-29] MEDS: INSULIN ASPART 100 UNIT/ML 1 ML 10 ML VIAL SQ SCH ×3 (07:37→17:19)
[2018-01-29 07:38] LABS: Glucose,Whole Blood 105 mg/dL (75-99)
[2018-01-29 08:21] LABS: Potassium 4.5 mmol/L (3.5-5.1)
[2018-01-29] MEDS: ASPIRIN 81 MG PO SCH (09:06)
[2018-01-29] MEDS: COLCHICINE 0.6 MG EACH PO SCH (09:06)
[2018-01-29] MEDS: SPIRONOLACTONE 25 MG TAB PO SCH (09:07)
[2018-01-29] MEDS: SACUBITRIL/VALSARTAN 24 MG-26 MG TABLET PO SCH ×2 (09:07→20:36)
[2018-01-29] MEDS: CLOPIDOGREL 75 MG TAB PO SCH (09:07)
[2018-01-29] MEDS: ESCITALOPRAM 20 MG TAB PO SCH (09:07)
[2018-01-29] MEDS: POLYMYXIN B-TRIMETHOPRIM SULF (10,000-1) OPHTH DROPS 10 ML BTL BOTH EYES SCH ×2 (09:29→20:36)
[2018-01-29 10:31] LABS: Calcium 8.9 mg/dL (8.4-10.2)
--- NOTE | 2018-01-29 10:34 | P.PN ---
Subjective Progress Note Date: 01/29/18 Principal diagnosis: CHF This is a pleasant 72-year-old gentleman with known history of coronary artery disease and prior bypass surgery, chronic systolic congestive heart failure with a documented ejection fraction of 20-25%, ischemic cardio myopathy, hypertension, diabetes, hyperlipidemia, follows with Dr. Doty at [facility]. Presented to the hospital primarily with symptoms of shortness of breath and peripheral edema. Patient was seen in consultation by Dr. Martinez and initiated on IV Lasix. Patient has been overall diuresing well, his weight this morning is down 3 kg. Blood pressure 100/60 with a heart rate in the 70s, 97% on room air. Labs from this morning are pending. Overall patient does state that he's feeling better, he states that his edema is significantly improved from admission here. Objective - Vital Signs Vital signs: Vital Signs Temp 97.7 F 01/29/18 07:00 Pulse 71 01/29/18 07:00 Resp 14 01/29/18 07:00 BP 101/62 01/29/18 07:00 Pulse Ox 97 01/29/18 07:00 Intake & Output 01/28/18 01/29/18 01/29/18 18:59 06:59 18:59 Intake Total 444 480 480 Output Total 1025 350 Balance -581 130 480 Weight 116.1 kg 116.1 kg Intake: Oral 444 480 480 Output: Urine 1025 350 - Exam PHYSICAL EXAMINATION: GENERAL: 72-year-old gentleman in no acute distress at the time of my examination HEENT: Head is atraumatic, normocephalic. Pupils equal, round. Sclera anicteric. Conjunctiva are clear. Mucous membranes of the mouth are moist. Neck is supple. There is no elevated jugular venous pressure. No carotid bruit is heard. HEART EXAMINATION: Heart S1-S2 a systolic ejection murmur is heard. CHEST EXAMINATION: Lungs are clear to auscultation and precussion. No chest wall tenderness is noted on palpation or with deep breathing. ABDOMEN: Soft, nontender. Bowel sounds are heard. No organomegaly noted. EXTREMITIES: 2+ peripheral pulses with trace to 1+ evidence of peripheral edema , bluish chronic discoloration of the skin noted . NEUROLOGIC patient is awake, alert and oriented 3 . - Labs CBC & Chem 7: 01/27/18 07:13 01/29/18 07:10 Labs: Abnormal Lab Results - Last 24 Hours (Table) 01/28/18 01/28/18 01/29/18 Range/Units 17:12 19:56 07:27 POC Glucose (mg/dL) 164 H 222 H 105 H (75-99) mg/dL Assessment and Plan Plan: Assessment and plan #1 systolic congestive heart failure acute on chronic #2 known history of coronary artery disease with prior bypass surgery #3 hypertension #4 diabetes #5 hyperlipidemia #6 ischemic cardiomyopathy #7 chronic kidney disease labs from this morning pending Plan We will continue current dose of IV Lasix, review labs from this morning. Chest x-ray. Continue to monitor intake and along with daily weights and daily lytes BUN and creatinine. DNP note has been reviewed, I agree with a documented findings and plan of care. Patient was seen and examined.
--- NOTE | 2018-01-29 11:59 | P.PN ---
Subjective Progress Note Date: 01/29/18 Principal diagnosis: Acute exacerbation of congestive heart failure Mr. Castellanos is a 72-year-old male with a past medical history of atrial fibrillation, heart failure, diabetes mellitus, GI bleed, hypertension, [place] admitted to the hospital with a chief complaint of increased swelling of his bilateral lower extremities. Patient had been alone at home and tried to get out of the bed and had a fall. But there was no loss of consciousness. In the ER patient was evaluated for acute congestive heart failure exacerbation and admitted for that. Today the patient is sitting up in a chair by the bedside appears to be in no acute distress. Patient states that his lower extremity edema has improved. Patient denies having any chest pain or palpitations. No difficulty in breathing or cough. Patient denies having abdominal pain nausea vomiting or diarrhea. No dysuria or hematuria. Active Medications Hydrocodone Bitart/Acetaminophen ([place] 7.5-325) 1 each PO QID PRN PRN Reason: Pain Last Admin: 01/29/18 09:11 Dose: 1 each Alprazolam (Xanax) 0.5 mg PO TID PRN PRN Reason: Anxiety Aspirin (Aspirin) 81 mg PO DAILY [facility] Last Admin: 01/29/18 09:06 Dose: 81 mg Carvedilol (Coreg) 25 mg PO BID-W/MEALS [facility] Last Admin: 01/29/18 07:32 Dose: 25 mg Clopidogrel Bisulfate (Plavix) 75 mg PO DAILY [facility] Last Admin: 01/29/18 09:07 Dose: 75 mg Colchicine (Colcrys) 0.6 mg PO DAILY [facility] Last Admin: 01/29/18 09:06 Dose: 0.6 mg Escitalopram Oxalate (Lexapro) 20 mg PO DAILY [facility] Last Admin: 01/29/18 09:07 Dose: 20 mg Furosemide (Lasix) 40 mg IV Q8HR [facility] Last Admin: 01/29/18 07:32 Dose: 40 mg Insulin Aspart (Novolog) 9 unit SQ AC-TID [facility] Last Admin: 01/29/18 07:37 Dose: 9 unit Insulin Detemir (Levemir) 33 unit SQ HS [facility] Last Admin: 01/28/18 22:09 Dose: 33 unit Pantoprazole Sodium (Protonix) 40 mg PO AC-BRKFST [facility] Last Admin: 01/29/18 07:31 Dose: 40 mg Polymyxin/Trimethoprim Sulfate (Polytrim) 1 drops BOTH EYES BID [facility] Last Admin: 01/29/18 09:29 Dose: Not Given Sacubitril/Valsartan (Entresto 24 Mg-26 Mg Tablet) 1 each PO BID [facility] Last Admin: 01/29/18 09:07 Dose: 1 each Spironolactone (Aldactone) 25 mg PO DAILY [facility] Last Admin: 01/29/18 09:07 Dose: 25 mg Objective - Vital Signs Vital signs: Vital Signs Temp 97.7 F 01/29/18 07:00 Pulse 71 01/29/18 07:00 Resp 14 01/29/18 07:00 BP 101/62 01/29/18 07:00 Pulse Ox 97 01/29/18 07:00 Intake & Output 01/28/18 01/29/18 01/29/18 18:59 06:59 18:59 Intake Total 444 480 480 Output Total 1025 350 Balance -581 130 480 Weight 116.1 kg 116.1 kg Intake: Oral 444 480 480 Output: Urine 1025 350 - Exam - Constitutional General appearance: Present: obese - EENT Eyes: Absent: abnormal pupil - Neck Neck: Present: lymphadenopathy - Respiratory Respiratory: bilateral: diminished - Cardiovascular Rhythm: regular Heart sounds: normal: S1, S2 Abnormal Heart Sounds: Absent: S3 Gallop - Gastrointestinal General gastrointestinal: Present: soft. Absent: tenderness - Integumentary Integumentary Comment(s): Still 1+ edema brawny in nature. - Labs CBC & Chem 7: 01/27/18 07:13 01/29/18 07:10 Labs: Abnormal Lab Results - Last 24 Hours (Table) 01/28/18 01/28/18 01/29/18 Range/Units 17:12 19:56 07:10 BUN 82 H (9-20) mg/dL Creatinine 1.80 H (0.66-1.25) mg/dL Glucose 111 H (74-99) mg/dL POC Glucose (mg/dL) 164 H 222 H (75-99) mg/dL 01/29/18 Range/Units 07:27 BUN (9-20) mg/dL Creatinine (0.66-1.25) mg/dL Glucose (74-99) mg/dL POC Glucose (mg/dL) 105 H (75-99) mg/dL Assessment and Plan Assessment: ASSESSMENT Acute exacerbation of congestive heart failure Systolic congestive heart failure Coronary artery disease status post CABG Hypertension Hyperlipidemia Type 2 diabetes mellitus Ischemic cardiomyopathy CK D stage III Plan: The patient is still being continued on IV Lasix as per cardiology recommendations. Continue with the rest of his medication management. Further recommendations depending on the progress of the patient.
[2018-01-29 12:26] LABS: Glucose,Whole Blood 83 mg/dL (75-99)
--- NOTE | 2018-01-29 13:25 | XR ---
EXAMINATION TYPE: XR chest 2V DATE OF EXAM: 01/29/2018 HISTORY: f/u chf. REFERENCE: Previous study dated 01/25/2018. FINDINGS: There has been a midline sternotomy. There is a multilead pacing device in place on the lef t. The heart is mildly enlarged. The lungs are clear. Pleural spaces are clear. IMPRESSION: MILD CARDIOMEGALY.
[2018-01-29 16:55] LABS: Glucose,Whole Blood 139 mg/dL (75-99)
[2018-01-29] MEDS: INSULIN DETEMIR 100 UNIT/ML 10 ML VIAL SQ SCH (20:36)
[2018-01-29 20:43] LABS: Glucose,Whole Blood 169 mg/dL (75-99)
[2018-01-30] MEDS: FUROSEMIDE 10 MG/ML 4 ML VIAL IV SCH ×3 (00:12→16:06)
[2018-01-30] MEDS: PANTOPRAZOLE 40 MG TABLET PO SCH (07:10)
[2018-01-30] MEDS: CARVEDILOL 12.5 MG TAB PO SCH ×2 (07:10→17:25)
[2018-01-30] MEDS: HYDROcodone/APAP 7.5-325MG 1 EACH TAB PO PRN ×2 (07:11→15:41)
[2018-01-30 07:34] LABS: Glucose,Whole Blood 100 mg/dL (75-99)
[2018-01-30] MEDS: INSULIN ASPART 100 UNIT/ML 1 ML 10 ML VIAL SQ SCH ×3 (07:40→17:25)
[2018-01-30 08:05] LABS: Potassium 4.1 mmol/L (3.5-5.1)
[2018-01-30] MEDS: ESCITALOPRAM 20 MG TAB PO SCH (09:08)
[2018-01-30] MEDS: COLCHICINE 0.6 MG EACH PO SCH (09:08)
[2018-01-30] MEDS: CLOPIDOGREL 75 MG TAB PO SCH (09:08)
[2018-01-30] MEDS: ASPIRIN 81 MG PO SCH (09:08)
[2018-01-30] MEDS: SPIRONOLACTONE 25 MG TAB PO SCH (09:08)
[2018-01-30] MEDS: POLYMYXIN B-TRIMETHOPRIM SULF (10,000-1) OPHTH DROPS 10 ML BTL BOTH EYES SCH ×2 (09:09→20:37)
[2018-01-30] MEDS: SACUBITRIL/VALSARTAN 24 MG-26 MG TABLET PO SCH ×2 (09:09→20:37)
[2018-01-30 12:37] LABS: Glucose,Whole Blood 106 mg/dL (75-99)
--- NOTE | 2018-01-30 13:56 | PN ---
PROGRESS NOTE Mr. Castellanos is a 72-year-old male with a known history of severe cardiomyopathy, history of coronary artery disease status post coronary artery bypass grafting. He presented with symptoms of congestive heart failure. He is feeling better this morning. His breathing is stable. He is denying any chest pain. He has lost weight. He continues to have peripheral edema. At baseline he has no peripheral edema. He denies any dizziness or palpitation. He continues to be on Coreg 25 mg twice a day, aspirin once a day, Plavix 75 mg daily, furosemide 40 mg IV q.8 hours, and valsartan 24-26 mg twice a day and spironolactone 25 mg daily. PHYSICAL EXAMINATION: Blood pressure 115/60 with a heart in the 70s. LUNGS: Clear. Heart S1-S2 with a systolic murmur at the base. No diastolic murmur. No rub. ABDOMEN: Soft, nontender. Extremities with chronic skin changes and 1+ edema. LAB DATA: Lab data revealed a BUN and creatinine of 1.77 and 82, which is stable since yesterday. IMPRESSION: 1. Symptoms of congestive heart failure with severely impaired left ventricular systolic function, systolic dysfunction. 2. Status post coronary artery bypass grafting. 3. Renal failure. 4. Hypertension. 5. Hyperlipidemia. RECOMMENDATIONS: We will continue IV diuretics for another 24 hours. If he is stable we will switch him to oral diuretics tomorrow and I would expect he should be able to be discharged home tomorrow to follow with his primary national opelint analyst. MMJEFFERYL / DAVIDN: [id number] /
--- NOTE | 2018-01-30 15:34 | P.PN ---
Subjective Progress Note Date: 01/30/18 Principal diagnosis: Acute exacerbation of congestive heart failure Mr. Castellanos is a 72-year-old male with a past medical history of atrial fibrillation, heart failure, diabetes mellitus, GI bleed, hypertension, [place] admitted to the hospital with a chief complaint of increased swelling of his bilateral lower extremities. Patient had been alone at home and tried to get out of the bed and had a fall. But there was no loss of consciousness. In the ER patient was evaluated for acute congestive heart failure exacerbation and admitted for that. On 01/30/18 - Today the patient lying in the bed , appears to be in no acute distress. Patient states that his lower extremity edema has improved. Patient denies having any chest pain or palpitations. No difficulty in breathing or cough. Patient denies having abdominal pain nausea vomiting or diarrhea. No dysuria or hematuria. He reports improvement in his bilateral lower extremity edema. As per the nursing staff patient lost almost 4 pounds since admission. Objective - Vital Signs Vital signs: Vital Signs Temp 98.3 F 01/30/18 15:00 Pulse 70 01/30/18 15:00 Resp 12 01/30/18 15:00 BP 108/64 01/30/18 15:00 Pulse Ox 98 01/30/18 15:00 Intake & Output 01/29/18 01/30/18 01/30/18 19:59 06:59 18:59 Intake Total 1280 Output Total Balance 1280 Weight 115.1 kg Intake: Oral 1280 Output: Urine Other: # Voids - Exam - Constitutional General appearance: Present: obese - EENT Eyes: Absent: abnormal pupil - Neck Neck: Present: lymphadenopathy - Respiratory Respiratory: bilateral: diminished - Cardiovascular Rhythm: regular Heart sounds: normal: S1, S2 Abnormal Heart Sounds: Absent: S3 Gallop - Gastrointestinal General gastrointestinal: Present: soft. Absent: tenderness - Integumentary Integumentary Comment(s): Still 1+ edema brawny in nature. Wrinkling of the skin. - Labs CBC & Chem 7: 01/27/18 07:13 01/30/18 07:24 Labs: Abnormal Lab Results - Last 24 Hours (Table) 01/29/18 01/29/18 01/30/18 Range/Units 16:44 20:32 07:11 BUN (9-20) mg/dL Creatinine (0.66-1.25) mg/dL Glucose (74-99) mg/dL POC Glucose (mg/dL) 139 H 169 H 100 H (75-99) mg/dL 01/30/18 01/30/18 Range/Units 07:24 12:15 BUN 82 H (9-20) mg/dL Creatinine 1.77 H (0.66-1.25) mg/dL Glucose 101 H (74-99) mg/dL POC Glucose (mg/dL) 106 H (75-99) mg/dL Assessment and Plan Assessment: ASSESSMENT Acute exacerbation of congestive heart failure Systolic congestive heart failure Coronary artery disease status post CABG Hypertension Hyperlipidemia Type 2 diabetes mellitus Ischemic cardiomyopathy CK D stage III Plan: The patient is still being continued on IV Lasix as per cardiology recommendations. Continue with the rest of his medication management. Further recommendations depending on the progress of the patient. Dr. Harper to follow the patient from tomorrow.
[2018-01-30 17:47] LABS: Glucose,Whole Blood 125 mg/dL (75-99)
[2018-01-30 20:16] LABS: Glucose,Whole Blood 121 mg/dL (75-99)
[2018-01-30] MEDS: INSULIN DETEMIR 100 UNIT/ML 10 ML VIAL SQ SCH (21:36)
[2018-01-31] MEDS: HYDROcodone/APAP 7.5-325MG 1 EACH TAB PO PRN ×2 (02:29→14:21)
[2018-01-31] MEDS: FUROSEMIDE 10 MG/ML 4 ML VIAL IV SCH ×2 (02:29→08:06)
[2018-01-31 07:25] LABS: Glucose,Whole Blood 168 mg/dL (75-99)
[2018-01-31 07:27] VITALS: BP 119/76; PULSE 71; RESP 16; TEMP 98.3
--- NOTE | 2018-01-31 07:40 | P.DS ---
Providers Date of admission: 01/25/18 02:17 Attending physician: Al Harper Consults: 01/25/18 07:13 Consult Physician Routine Consulting Provider: Carlos Manuel Cruz Consult Reason/Comments: CHF Do you want consulting provider notified?: Yes Primary care physician: Al Harper - Discharge Diagnosis(es) (1) Bilateral lower extremity edema Current Visit: Yes Status: Acute (2) Congestive cardiomyopathy Current Visit: No Status: Acute Hospital Course: This is a discharge summary 72-year-old white male essentially been for acute exacerbation of congestive heart failure. The patient is stable and back to baseline as far as his edema. No shortness of breath. Weight is stable. The patient will follow-up with me in about one week. Patient Condition at Discharge: Stable Plan - Discharge Summary Discharge Rx Participant: Yes New Discharge Prescriptions: Continue Insulin Detemir [Levemir] 33 unit SQ HS Hydrocodone/Acetaminophen [[place] 7.5-325] 1 tab PO QID PRN PRN Reason: Pain Colchicine [Colcrys] 0.6 mg PO DAILY Aspirin 81 mg PO DAILY ALPRAZolam [Xanax] 0.5 mg PO TID PRN PRN Reason: Anxiety Carvedilol [Coreg] 25 mg PO BID Bumetanide [BUMEX] 2 mg PO DIRECTED Insulin Aspart [NovoLOG (formulary)] 9 unit SQ AC-TID Pantoprazole Sodium [Protonix] 40 mg PO DAILY Sacubitril/Valsartan [Entresto 24 mg-26 mg Tablet] 1 tab PO BID methylPREDNISolone Dose Pack [Medrol Dose Pack] See Taper PO DIRECTED guaiFENesin [Mucinex] 1,200 mg PO BID Escitalopram [Lexapro] 20 mg PO DAILY Spironolactone [Aldactone] 25 mg PO DIRECTED Bumetanide [BUMEX] 1 mg PO DAILY Polymyxin B-Trimeth Sulf Ophth [Polytrim Opthalmic] 1 drop BOTH EYES BID Clopidogrel Bisulfate [Plavix] 75 mg PO DAILY Prednisone(Unknown) 1 dose IV DIRECTED Benadryl(Unknown) 1 dose IV DIRECTED Discontinued Levofloxacin [Levaquin] 500 mg PO DAILY Discharge Medication List ALPRAZolam [Xanax] 0.5 mg PO TID PRN 02/26/14 [History] Aspirin 81 mg PO DAILY 02/26/14 [History] Bumetanide [BUMEX] 2 mg PO DIRECTED 02/26/14 [History] Carvedilol [Coreg] 25 mg PO BID 02/26/14 [History] Colchicine [Colcrys] 0.6 mg PO DAILY 02/26/14 [History] Hydrocodone/Acetaminophen [[place] 7.5-325] 1 tab PO QID PRN 02/26/14 [History] Insulin Aspart [NovoLOG (formulary)] 9 unit SQ AC-TID 02/26/14 [History] Insulin Detemir [Levemir] 33 unit SQ HS 02/26/14 [History] Pantoprazole Sodium [Protonix] 40 mg PO DAILY 08/13/14 [History] Sacubitril/Valsartan [Entresto 24 mg-26 mg Tablet] 1 tab PO BID 12/17/16 [ History] Benadryl(Unknown) 1 dose IV DIRECTED 01/24/18 [History] Bumetanide [BUMEX] 1 mg PO DAILY 01/24/18 [History] Clopidogrel Bisulfate [Plavix] 75 mg PO DAILY 01/24/18 [History] Escitalopram [Lexapro] 20 mg PO DAILY 01/24/18 [History] Polymyxin B-Trimeth Sulf Ophth [Polytrim Opthalmic] 1 drop BOTH EYES BID [History] Prednisone(Unknown) 1 dose IV DIRECTED 01/24/18 [History] Spironolactone [Aldactone] 25 mg PO DIRECTED 01/24/18 [History] guaiFENesin [Mucinex] 1,200 mg PO BID 01/24/18 [History] methylPREDNISolone Dose Pack [Medrol Dose Pack] See Taper PO DIRECTED [History] Follow up Appointment(s)/Referral(s): Al Harper MD [Primary Care Provider] - 1 Week Discharge Disposition: HOME SELF-CARE
[2018-01-31] MEDS: CARVEDILOL 12.5 MG TAB PO SCH (07:55)
[2018-01-31] MEDS: INSULIN ASPART 100 UNIT/ML 1 ML 10 ML VIAL SQ SCH ×2 (07:55→12:35)
[2018-01-31] MEDS: COLCHICINE 0.6 MG EACH PO SCH (08:06)
[2018-01-31] MEDS: CLOPIDOGREL 75 MG TAB PO SCH (08:06)
[2018-01-31] MEDS: PANTOPRAZOLE 40 MG TABLET PO SCH (08:06)
[2018-01-31] MEDS: SACUBITRIL/VALSARTAN 24 MG-26 MG TABLET PO SCH (08:06)
[2018-01-31] MEDS: ASPIRIN 81 MG PO SCH (08:06)
[2018-01-31] MEDS: POLYMYXIN B-TRIMETHOPRIM SULF (10,000-1) OPHTH DROPS 10 ML BTL BOTH EYES SCH (08:07)
[2018-01-31] MEDS: ESCITALOPRAM 20 MG TAB PO SCH (08:07)
[2018-01-31] MEDS: SPIRONOLACTONE 25 MG TAB PO SCH (08:07)
[2018-01-31 08:35] LABS: Calcium 9.1 mg/dL (8.4-10.2); Potassium 4.3 mmol/L (3.5-5.1)
[2018-01-31 12:04] LABS: Glucose,Whole Blood 131 mg/dL (75-99)
== END 2018-01-31 15:21 | disposition home or self-care (01) | DRG 291 ==
LOC: EC 22:16 → 4SSUR 01-25 02:17
PROVIDERS: ADMIT Family Medicine; ATTEND Family Medicine
DX: I13.0 Hypertensive heart and chronic kidney disease with heart failure and stage 1 through stage 4 chronic kidney disease, or unspecified chronic kidney disease (principal); I50.23 Acute on chronic systolic (congestive) heart failure; E11.22 Type 2 diabetes mellitus with diabetic chronic kidney disease; E11.319 Type 2 diabetes mellitus with unspecified diabetic retinopathy without macular edema; E11.40 Type 2 diabetes mellitus with diabetic neuropathy, unspecified; E78.5 Hyperlipidemia, unspecified; E86.0 Dehydration; F41.9 Anxiety disorder, unspecified; G47.30 Sleep apnea, unspecified; Z99.89 Dependence on other enabling machines and devices; I25.10 Atherosclerotic heart disease of native coronary artery without angina pectoris; I25.2 Old myocardial infarction; I25.5 Ischemic cardiomyopathy; I42.0 Dilated cardiomyopathy; I48.91 Unspecified atrial fibrillation; N18.3 Chronic kidney disease, stage 3 (moderate); S00.81XA Abrasion of other part of head, initial encounter; W07.XXXA Fall from chair, initial encounter; Z79.02 Long term (current) use of antithrombotics/antiplatelets; Z79.4 Long term (current) use of insulin; Z79.82 Long term (current) use of aspirin; Z79.899 Other long term (current) drug therapy; Z83.3 Family history of diabetes mellitus; Z85.828 Personal history of other malignant neoplasm of skin; Z87.891 Personal history of nicotine dependence; Z95.1 Presence of aortocoronary bypass graft; Z95.810 Presence of automatic (implantable) cardiac defibrillator; Z88.8 Allergy status to other drugs, medicaments and biological substances; Z96.653 Presence of artificial knee joint, bilateral; Z98.42 Cataract extraction status, left eye; Z98.41 Cataract extraction status, right eye; Z95.5 Presence of coronary angioplasty implant and graft; Z79.891 Long term (current) use of opiate analgesic; J32.9 Chronic sinusitis, unspecified; E66.9 Obesity, unspecified; Z68.33 Body mass index [BMI] 33.0-33.9, adult
CPT/HCPCS: 36415; 70450; 71045; 71046; 72070; 72125; 80048; 80053; 81001; 82550; 82553; 83735; 83880; 84484; 85025; 85027; 85610; 85730; 86850; 86900; 86901; 93005; 93306; 99285

== ENCOUNTER → 2018-06-23 | Outpatient (CLI) | payer MEDICARE | LOC: LABWHC1 14:14 | PROVIDERS: ATTEND Internal Medicine Rheumatology | DX: M10.9 Gout, unspecified (principal) | CPT/HCPCS: 36415; 84550 ==

== ENCOUNTER → 2018-09-30 | Outpatient (CLI) | payer MEDICARE | END | disposition home or self-care (01) | LOC: LABWHC1 16:28 | PROVIDERS: ATTEND Internal Medicine Rheumatology | DX: M10.9 Gout, unspecified (principal) | CPT/HCPCS: 36415; 84550 ==

== ENCOUNTER 2020-09-06 15:45 | Inpatient (IN) | payer MEDICARE ==
[2020-09-10 19:50] VITALS: RESP 20
[2020-09-11 05:16] VITALS: BP 111/64; PULSE 65; TEMP 97.9
== END 2020-09-11 15:00 | DRG 682 ==
LOC: EC 15:45 → 5NMEDONC 19:47 → OBSVTOIN 09-09 12:38
PROVIDERS: ADMIT Family Medicine; ATTEND Family Medicine
DX: N17.0 Acute kidney failure with tubular necrosis (principal); I50.23 Acute on chronic systolic (congestive) heart failure; I13.0 Hypertensive heart and chronic kidney disease with heart failure and stage 1 through stage 4 chronic kidney disease, or unspecified chronic kidney disease; I42.0 Dilated cardiomyopathy; N18.32 Chronic kidney disease, stage 3b; T50.0X5A Adverse effect of mineralocorticoids and their antagonists, initial encounter; R53.81 Other malaise; I48.0 Paroxysmal atrial fibrillation; D64.9 Anemia, unspecified; E11.22 Type 2 diabetes mellitus with diabetic chronic kidney disease; E11.42 Type 2 diabetes mellitus with diabetic polyneuropathy; E86.0 Dehydration; T50.2X5A Adverse effect of carbonic-anhydrase inhibitors, benzothiadiazides and other diuretics, initial encounter; E11.21 Type 2 diabetes mellitus with diabetic nephropathy; T46.5X5A Adverse effect of other antihypertensive drugs, initial encounter; E87.5 Hyperkalemia; M10.9 Gout, unspecified; F41.9 Anxiety disorder, unspecified; R29.6 Repeated falls; Z20.822 Contact with and (suspected) exposure to COVID-19; I25.2 Old myocardial infarction; W19.XXXA Unspecified fall, initial encounter; Z79.4 Long term (current) use of insulin; Z87.440 Personal history of urinary (tract) infections; Z91.81 History of falling; Z79.02 Long term (current) use of antithrombotics/antiplatelets; Z79.82 Long term (current) use of aspirin; Z79.899 Other long term (current) drug therapy; Z85.46 Personal history of malignant neoplasm of prostate; Z85.828 Personal history of other malignant neoplasm of skin; Z87.891 Personal history of nicotine dependence; Z95.1 Presence of aortocoronary bypass graft; Z95.5 Presence of coronary angioplasty implant and graft; Z95.810 Presence of automatic (implantable) cardiac defibrillator; Z87.19 Personal history of other diseases of the digestive system; X58.XXXA Exposure to other specified factors, initial encounter
CPT/HCPCS: 36415; 71045; 71046; 76770; 80048; 80053; 81003; 83605; 83735; 83880; 85025; 85610; 85730; 87635; 93005; 94760; 99285

== ENCOUNTER → 2021-01-09 | Outpatient (CLI) | payer MEDICARE, OTHER ==
[2021-01-09 17:30] LABS: Appearance,Urine Clear (Clear); Bilirubin,Urine Negative (Negative); Blood,Urine Negative (Negative); Color,Urine Light Yellow; Glucose,Urine (UA) 2+ (Negative); Ketones,Urine Negative (Negative); Leukocyte Esterase,Urine Negative (Negative); Nitrite,Urine Negative (Negative); Protein,Urine Negative (Negative); Specific Gravity,Urine 1.008 (1.001-1.035); Urobilinogen,Urine <2.0 mg/dL (<2.0)
[2021-01-09 23:55] LABS: HCT 40.1 % (39.6-50.0); HGB 12.4 g/dL (13.0-17.0); MCH 29.2 pg (27.0-32.0); MCHC 30.9 g/dL (32.0-37.0); MCV 94.6 fL (80.0-97.0); Mean Platelet Volume 11.3 fL (9.5-12.2); Platelet Count 122 X 10*3/uL (140-440); RBC 4.24 X 10*6/uL (4.40-5.60); RDW 14.2 % (11.5-14.5); WBC 5.27 X 10*3/uL (4.50-10.00)
[2021-01-10 05:43] LABS: % Iron Saturation 11.92 (15.00-50.00); African American GFR (CKD) 53.2 (60.0-200.0); Albumin 4.2 g/dL (3.8-4.9); Albumin/Globulin Ratio 1.67 (1.60-3.17); Anion Gap 14.8 mmol/L (4.00-12.00); BUN/Creat Ratio 41.07 Ratio (12.00-20.00); Blood Urea Nitrogen 61.2 mg/dL (9.0-27.0); Calcium 9.7 mg/dL (8.7-10.3); Carbon Dioxide 25.6 mmol/L (21.6-31.8); Globulin 2.5 g/dL (1.6-3.3); Magnesium 2.3 mg/dL (1.5-2.4); Non-African American GFR(CKD) 45.9 (60.0-200.0); Phosphorus 5.2 mg/dL (2.4-5.1); Potassium 5.2 mmol/L (3.5-5.5); Total Bilirubin 1.1 mg/dL (0.30-1.20); Total Protein 6.7 g/dL (6.2-8.2); Uric Acid 7.2 mg/dL (3.7-8.7)
[2021-01-10 07:44] LABS: Urine Creatinine 29.5 mg/dL (39.0-259.0)
== END | disposition home or self-care (01) ==
LOC: LABWHC1 16:24
PROVIDERS: ATTEND Podiatrist
DX: E11.22 Type 2 diabetes mellitus with diabetic chronic kidney disease (principal); M10.9 Gout, unspecified; E55.9 Vitamin D deficiency, unspecified; N25.81 Secondary hyperparathyroidism of renal origin; N39.0 Urinary tract infection, site not specified; D64.9 Anemia, unspecified; N18.32 Chronic kidney disease, stage 3b; I83.029 Varicose veins of left lower extremity with ulcer of unspecified site
CPT/HCPCS: 36415; 80053; 81003; 82043; 82306; 82570; 83540; 83550; 83735; 83970; 84100; 84550; 85027

== ENCOUNTER 2021-03-10 20:00 | Inpatient (IN) | payer OTHER, MEDICARE ==
[2021-03-10 20:54] LABS: Basophils % (A) 1 %; Eosinophils # (A) 0.2 k/uL (0-0.7); Eosinophils % (A) 3 %; HCT 38.7 % (39.0-53.0); HGB 12.3 gm/dL (13.0-17.5); Hypochromasia Slight; Lymphocytes # (A) 0.7 k/uL (1.0-4.8); Lymphocytes % (A) 17 %; MCH 31.1 pg (25.0-35.0); MCHC 31.8 g/dL (31.0-37.0); Mean Platelet Volume 8.9; Monocytes # (A) 0.4 k/uL (0-1.0); Monocytes % (A) 10 %; Neutrophils % (A) 67 %; RBC 3.95 m/uL (4.30-5.90); RDW 14.5 % (11.5-15.5); WBC 4.4 k/uL (3.8-10.6)
[2021-03-10 21:03] LABS: INR 1.1 (<1.2); Partial Thromboplastin Time 23.7 sec (22.0-30.0); Prothrombin Time 11.6 sec (9.0-12.0)
[2021-03-10] MEDS ORDERED: DEXTROSE 5% IN WATER 100 ML with AMIODARONE 150 MG IV ONE (21:05)
[2021-03-10] MEDS ORDERED: AMIODARONE 360 MG in DEXTROSE 5% IN WATER 200 ML IV ONE ×2 (21:05)
--- NOTE | 2021-03-10 21:06 | XR ---
EXAMINATION TYPE: XR chest 1V DATE OF EXAM: 03/10/2021 COMPARISON: 09/06/2020 HISTORY: Dysrhythmia. Chest pain TECHNIQUE: Single frontal view of the chest is obtained. FINDINGS: There is no focal air space opacity, pleural effusion, or pneumothorax seen. Stable cardio megaly and left AICD. The osseous structures are intact. IMPRESSION: No acute process.
[2021-03-10 21:09] LABS: Albumin 3.3 g/dL (3.5-5.0); Calcium 8.6 mg/dL (8.4-10.2); Magnesium 2.3 mg/dL (1.6-2.3); Potassium 4.4 mmol/L (3.5-5.1); Total Bilirubin 1.4 mg/dL (0.2-1.3); Total Protein 5.9 g/dL (6.3-8.2)
--- NOTE | 2021-03-10 21:15 | XR ---
RESULT: HISTORY: Fall/injury TECHNIQUE: 2 views of the left femur. 2 views of the left knee. COMPARISON: None. FINDINGS: There is comminuted and mildly displaced periprosthetic distal femoral diaphysis fracture. Prior knee arthroplasty with fracture lines extending to the femoral hardware component. No evidence of disloca tion. There is a moderate to large medial butterfly fracture fragment seen. IMPRESSION: Left distal femoral periprosthetic fracture.
[2021-03-10] MEDS ORDERED: ONDANSETRON 4 MG/2 ML VIAL IVP STA (21:26)
[2021-03-10] MEDS ORDERED: HYDROmorphone 0.5 MG/0.5 ML SYRINGE IVP STA (21:26)
--- NOTE | 2021-03-10 21:32 | CT ---
EXAMINATION TYPE: CT facial bones wo con DATE OF EXAM: 03/10/2021 COMPARISON: None available. HISTORY: Facial injury CT DLP: 2105 mGycm Automated exposure control for dose reduction was used. TECHNIQUE: CT scan of the sinuses is performed without contrast, axial images are obtained, coronal r eformatted images are also reviewed. FINDINGS: There is no acute fracture or dislocation. The pterygoid plates, zygomatic arches, maxilla and mandib le are intact. The bilateral orbits are unremarkable. The paranasal sinuses moderate mucosal thickeni ng of the right maxillary sinus. Mastoid air cells are adequately aerated. There is no significant soft tissue abnormality. Impression: Right maxillary sinus disease. Otherwise no significant abnormality.
[2021-03-10] MEDS ORDERED: AMIODARONE IN DEXTROSE,ISO-OSM 150 MG/100 ML PLAST..BAG IV ONE (21:38)
[2021-03-10] MEDS ORDERED: AMIODARONE IN DEXTROSE,ISO-OSM 360 MG/200 ML PLAST..BAG IV ONE (21:38)
[2021-03-10 21:40] LABS: Platelet Count 97 k/uL (150-450)
--- NOTE | 2021-03-10 21:40 | ED ---
General Adult HPI - General Source: patient, EMS Mode of arrival: EMS Limitations: no limitations <Enma Panda - Last Filed: 03/11/21 04:19> <Fran Galvez - Last Filed: 03/11/21 08:54> - General Chief complaint: Arrhythmia/Palpitations Stated complaint: Cardiac symptoms, fall Time Seen by Provider: 03/10/21 20:22 - History of Present Illness Initial comments: 75 year-old male patient presents to the emergency department for evaluation after his defibrillator fired. Patient states that he has been getting multiple fires recently for episodes of vtach. States last weekend it fired on Wednesday, Wednesday, and Wednesday morning. States it fired again this last Wednesday evening. Then tonight again. States he became "fuzzy headed", short of breath and then went down. states she caught him after he struck his face on the counter and lowered him to the floor. States that his legs were twisted beneath him. Patient denies any facial pain or headache. Reports left knee pain. Does have previous left total knee arthroplasty done by Dr. Sabillon many years ago. Patient denies any current chest pain, shortness of breath, or dizziness. States they did speak to his sausage stringer who wanted him to come in for IV load of amiodarone. He does have prescription at home they picked up today but did not start. (Enma Panda) - Related Data Home Medications Medication Instructions Recorded Confirmed Carvedilol [Coreg] 25 mg PO BID 02/26/14 03/10/21 Colchicine [Colcrys] 0.6 mg PO MOWEFR 02/26/14 03/10/21 INSULIN ASPART (NovoLOG) [NovoLOG 5 unit SQ -BRKFST 02/26/14 03/10/21 (formulary)] Insulin Detemir (Levemir) [Levemir] 20 unit SQ HS 02/26/14 03/10/21 Sacubitril/Valsartan [Entresto 24 1 tab PO BID 12/17/16 03/10/21 mg-26 mg Tablet] Bumetanide [BUMEX] 1 - 2 mg PO DAILY 01/24/18 03/10/21 Escitalopram [Lexapro] 20 mg PO HS 01/24/18 03/10/21 ALPRAZolam [Xanax] 0.5 mg PO HS 09/06/20 03/10/21 INSULIN ASPART (NovoLOG) [NovoLOG 3 - 5 unit SQ AC-SUPPER 09/06/20 03/10/21 (formulary)] INSULIN ASPART (NovoLOG) [NovoLOG 3 - 5 units SQ AC-LUNCH 09/06/20 03/10/21 (formulary)] Amiodarone [Cordarone] See Taper PO DIRECTED 03/10/21 03/10/21 Cetirizine HCl 10 mg PO DAILY 03/10/21 03/10/21 Empagliflozin [Jardiance] 10 mg PO DAILY 03/10/21 03/10/21 Febuxostat [Uloric] 80 mg PO HS 03/10/21 03/10/21 Ferrous Sulfate [Iron (65 MG 325 mg PO DAILY 03/10/21 03/10/21 Elemental)] Midodrine HCl [ProAmatine] 10 mg PO BID 03/10/21 03/10/21 Simvastatin 10 mg PO DAILY 03/10/21 03/10/21 guaiFENesin [Mucinex] 600 mg PO BID 03/10/21 03/10/21 Previous Rx's Medication Instructions Recorded ALPRAZolam [Xanax] 0.5 mg PO BID PRN #60 tab 09/10/20 Hydrocodone/Acetaminophen [[place] 1 tab PO Q6H PRN #120 tab 09/10/20 7.5-325] Allergies Allergy/AdvReac Type Severity Reaction Status Date / Time lorazepam [From Ativan] Allergy combative Verified 03/10/21 22:06 and elevated BP prochlorperazine edisylate Allergy combative Verified 03/10/21 22:06 [From Compazine] prochlorperazine maleate Allergy combative Verified 03/10/21 22:06 [From Compazine] Review of Systems ROS Other: All systems not noted in ROS Statement are negative. <Enma Panda - Last Filed: 03/11/21 04:19> ROS Other: All systems not noted in ROS Statement are negative. <Fran Galvez - Last Filed: 03/11/21 08:54> ROS Statement: Those systems with pertinent positive or pertinent negative responses have been documented in the HPI. Past Medical History Past Medical History: Atrial Fibrillation, Cancer, Heart Failure, Diabetes Mellitus, GI Bleed, Hypertension, Myocardial Infarction (DC), Vascular Disorder Additional Past Medical History / Comment(s): diverticulitis, gout, hx skin cancer, " 1 TEST POSITIVE FOR PROSTATE CANCER BUT 2ND TEST NEG" diabetic retinopathy, diabetic neuropathy Last Myocardial Infarction Date:: 11/2002 History of Any Multi-Drug Resistant Organisms: None Reported Past Surgical History: AICD, Coronary Bypass/CABG, Heart Catheterization With Stent, Joint Replacement, Tonsillectomy Additional Past Surgical History / Comment(s): Watchman procedure for afib; knee replacements (left x 2, rt x 1), surgery for sleep apnea, skin cancer removal, left foot hammertoe, vasectomy, angioplasty,cataract both eyes Past Anesthesia/Blood Transfusion Reactions: Previous Problems w/ Anesthesia Additional Past Anesthesia/Blood Transfusion Reaction / Comment(s): "longer to come out" Date of Last Stent Placement:: 11/2002 Type of Cardiac Device: AICD Device Placement Date:: last 01/21/14 Past Psychological History: Anxiety Smoking Status: Never smoker Past Alcohol Use History: None Reported Past Drug Use History: None Reported - Past Family History Father Family Medical History: Cancer, Diabetes Mellitus Additional Family Medical History / Comment(s): OF HEART DX Mother Family Medical History: Cancer <Enma Panda - Last Filed: 03/11/21 04:19> General Exam Limitations: no limitations General appearance: alert, in no apparent distress, other (This is a well developed, well nourished adult male in no acute distress. ) Respiratory exam: Present: normal lung sounds bilaterally. Absent: respiratory distress, wheezes, rales, rhonchi, stridor Cardiovascular Exam: Present: regular rate, normal rhythm, normal heart sounds. Absent: systolic murmur, diastolic murmur, rubs, gallop, clicks GI/Abdominal exam: Present: soft, normal bowel sounds. Absent: distended, tenderness, guarding, rebound, rigid Extremities exam: Present: full ROM, tenderness (left distal femur, left knee), normal capillary refill. Absent: normal inspection, pedal edema, joint swelling, calf tenderness Neurological exam: Present: alert, oriented X3, CN II-XII intact Psychiatric exam: Present: normal affect, normal mood Skin exam: Present: warm, dry, intact, normal color. Absent: rash <Enma Panda M - Last Filed: 03/11/21 04:19> Course <Enma Panda M - Last Filed: 03/11/21 04:19> Vital Signs 03/10/21 03/10/21 03/10/21 20:09 20:11 20:30 Temperature 97.8 F Pulse Rate 69 69 69 Respiratory 18 18 18 Rate Blood Pressure 98/57 98/57 108/51 O2 Sat by Pulse 98 97 96 Oximetry 03/10/21 03/10/21 03/10/21 21:00 21:30 22:00 Temperature Pulse Rate 70 68 70 Respiratory 18 18 18 Rate Blood Pressure 110/52 113/62 106/50 O2 Sat by Pulse 96 95 90 L Oximetry 03/10/21 03/10/21 03/10/21 23:00 23:30 23:38 Temperature Pulse Rate 71 70 70 Respiratory 16 17 12 Rate Blood Pressure 105/52 101/49 99/50 O2 Sat by Pulse 99 98 97 Oximetry 03/11/21 03/11/21 03/11/21 00:00 00:30 01:00 Temperature Pulse Rate 70 69 69 Respiratory 19 18 19 Rate Blood Pressure 96/50 100/48 108/54 O2 Sat by Pulse 97 98 98 Oximetry 03/11/21 03/11/21 03/11/21 01:30 02:00 02:30 Temperature Pulse Rate 70 70 70 Respiratory 18 31 H 19 Rate Blood Pressure 104/45 94/47 93/44 O2 Sat by Pulse 97 96 97 Oximetry 03/11/21 03/11/21 03/11/21 03:00 03:30 04:00 Temperature Pulse Rate 69 70 69 Respiratory 19 15 18 Rate Blood Pressure 92/44 93/47 99/48 O2 Sat by Pulse 97 97 97 Oximetry 03/11/21 03/11/21 03/11/21 04:30 05:00 05:30 Temperature Pulse Rate 69 70 70 Respiratory 19 23 21 Rate Blood Pressure 99/52 101/52 105/52 O2 Sat by Pulse 98 98 97 Oximetry 03/11/21 03/11/21 03/11/21 06:00 06:30 06:45 Temperature Pulse Rate 70 70 70 Respiratory 18 30 H 20 Rate Blood Pressure 106/52 98/50 O2 Sat by Pulse 97 97 95 Oximetry 03/11/21 03/11/21 03/11/21 07:00 07:15 07:30 Temperature Pulse Rate 70 70 70 Respiratory 18 17 20 Rate Blood Pressure 98/41 101/48 99/49 O2 Sat by Pulse 97 98 98 Oximetry 03/11/21 03/11/21 03/11/21 07:45 08:00 08:15 Temperature Pulse Rate 70 70 70 Respiratory 25 H 18 13 Rate Blood Pressure 109/50 100/49 95/49 O2 Sat by Pulse 96 97 98 Oximetry 03/11/21 08:30 Temperature Pulse Rate 66 Respiratory 23 Rate Blood Pressure 111/56 O2 Sat by Pulse 98 Oximetry - Reevaluation(s) Reevaluation #1: 03/10/[address] Gonzalez at 21:24 informed him of ranulfo-prosthetic femur fracture, he did need to call back after review of the images. He called back at 9, he accepted the patient. Patient's daughter called at 5 and stated that they did not want any surgical procedures done at [facility] due to patient's extensive cardiac history and urged transfer to a hospital where his cardiologists were available. Called Dr. Rocael Arias the patient's sausage stringer back to discuss new findings of the femur fracture and necessity for surgery. He would also prefer patient be transferred to [facility] where they will be able to consult on the case. 22:12 we called [facility] to arrange transfer, they initially refused but we called back informing them that the Chemical Analyst preferred their facility due to patient's recent episodes of vtach, they are reviewing the case and will call back. (Enma Panda) Reevaluation #2: 03/11/21 01:21 [facility] called back. They do not have approval for transfer at this time. They are adding him to their list to revisit in the morning. They will attempt ED to ED and ED to inpatient admission. and daughter Randi are up dated. They would like us to attempt transfer to [facility], but only if his Chemical Analyst Dr. Rocael Arias is onstaff at their facility. (Enma Panda) Reevaluation #3: 03/11/21 02:21 Family does not want transfer to [facility] after learning that the patient's sausage stringer does not have privileges at that facility. Spoke again to Dr. Arias who states he has privileges at [facility], but does not recommend transfer there due to the complexity of the case. I again spoke to and patient Jaswinder who want to wait to see if a bed opens at [facility]. Again spoke to them regarding our ability to handle the case Dr. Gonzalez was accepting, they again refused to have the procedure done here. Patient is maintained on Amiodarone drip at this time. Pain is managed. We will contact [facility] in the morning to see if availability has changed. (Enma Panda) EKG Findings - EKG Comments: EKG Findings:: KG obtained at 2008 shows demand pacemaker with ventricular rate of 72, QR alevism 182, QT 550, QTC 602. <Enma Panda - Last Filed: 03/11/21 04:19> Procedures - Orthopedic Splinting/Casting Injury #1 Side: left Lower Extremity Injury Location: long leg Lower Extremity Immobilizer: knee immobilizer <Enma Panda - Last Filed: 03/11/21 04:19> Medical Decision Making - Lab Data Result diagrams: 03/10/21 20:46 03/10/21 20:46 - Radiology Data Radiology results: report reviewed, image reviewed <Enma Panda - Last Filed: 03/11/21 04:19> - Lab Data Result diagrams: 03/10/21 20:46 03/10/21 20:46 <Fran Galvez - Last Filed: 03/11/21 08:54> - Medical Decision Making 75 year-old male patient with past history significant for ischemic cardiomyopathy presents to ED tonight after AICD fired. Patient has been having frequent fires recently due to episodes of vtach. His sausage stringer wanted him to come in for IV load of amiodarone as this is his 5th episode in the last 1.5 weeks. Patient did have a fall tonight and was complaining of left knee pain . Physical examination did reveal tenderness and swelling to the distal left femoral area. Lungs clear, heart sounds normal. EKG showed ventricular paced rhythm with rates in the 70s. Xray of the left femur showed comminuted ranulfo- prosthetic fracture of the distal femur. Chest xray negative. CT facial bones negative. Call was made to Dr. Gonzalez who did accept patient. Once family was informed of the fracture and plan to admit for surgery and consult for cardiology clearance they refused to have surgery here and to see cardiology at this facility. I did speak to his sausage stringer Dr. Rocael Arias out of [facility] ([phone]) who recommended IV load of amiodarone. Also recommended patient be transferred to [facility] due to complexity of the case and family's refusal to be managed at this facility. See notes regarding calls for attempts at transfer. Care is handed over to my attending Dr. Vásquez @ [phone]. (Enma Panda) We spoke with [facility] and they told us that they were unable to accept the patient at this time. We spoke with [facility] and they were unable to accept the patient at this time. I spoke with Dr. Harper he was willing to accept the patient I consult to cardiology as well as orthopedic s. Patient is being admitted to Dr. Harper and not trauma because the patient had a defibrillator problem and the femur injury was secondary to the defibrillator problem. (Fran Galvez) - Lab Data Lab Results 03/10/21 03/10/21 03/10/21 Range/Units 20:46 20:46 20:46 WBC 4.4 (3.8-10.6) k/uL RBC 3.95 L (4.30-5.90) m/uL Hgb 12.3 L (13.0-17.5) gm/dL Hct 38.7 L (39.0-53.0) % MCV 98.0 (80.0-100.0) fL MCH 31.1 (25.0-35.0) pg MCHC 31.8 (31.0-37.0) g/dL RDW 14.5 (11.5-15.5) % Plt Count 97 L (150-450) k/uL MPV 8.9 Neutrophils % 67 % Lymphocytes % 17 % Monocytes % 10 % Eosinophils % 3 % Basophils % 1 % Neutrophils # 3.0 (1.3-7.7) k/uL Lymphocytes # 0.7 L (1.0-4.8) k/uL Monocytes # 0.4 (0-1.0) k/uL Eosinophils # 0.2 (0-0.7) k/uL Basophils # 0.0 (0-0.2) k/uL Hypochromasia Slight PT 11.6 (9.0-12.0) sec INR 1.1 (<1.2) APTT 23.7 (22.0-30.0) sec Sodium 137 (137-145) mmol/L Potassium 4.4 (3.5-5.1) mmol/L Chloride 104 (98-107) mmol/L Carbon Dioxide 25 (22-30) mmol/L Anion Gap 8 mmol/L BUN 70 H (9-20) mg/dL Creatinine 1.19 (0.66-1.25) mg/dL Est GFR (CKD-EPI)AfAm 70 (>60 ml/min/1.73 sqM) Est GFR (CKD-EPI)NonAf 60 (>60 ml/min/1.73 sqM) Glucose 166 H (74-99) mg/dL POC Glucose (mg/dL) (75-99) mg/dL POC Glu Circuit Board Drafter ID Calcium 8.6 (8.4-10.2) mg/dL Magnesium 2.3 (1.6-2.3) mg/dL Total Bilirubin 1.4 H (0.2-1.3) mg/dL AST 22 (17-59) U/L ALT 15 (4-49) U/L Alkaline Phosphatase 204 H (38-126) U/L Troponin I (0.000-0.034) ng/mL Total Protein 5.9 L (6.3-8.2) g/dL Albumin 3.3 L (3.5-5.0) g/dL Coronavirus (PCR) (Not Detectd) 03/10/21 03/11/21 03/11/21 Range/Units 20:46 00:02 01:02 WBC (3.8-10.6) k/uL RBC (4.30-5.90) m/uL Hgb (13.0-17.5) gm/dL Hct (39.0-53.0) % MCV (80.0-100.0) fL MCH (25.0-35.0) pg MCHC (31.0-37.0) g/dL RDW (11.5-15.5) % Plt Count (150-450) k/uL MPV Neutrophils % % Lymphocytes % % Monocytes % % Eosinophils % % Basophils % % Neutrophils # (1.3-7.7) k/uL Lymphocytes # (1.0-4.8) k/uL Monocytes # (0-1.0) k/uL Eosinophils # (0-0.7) k/uL Basophils # (0-0.2) k/uL Hypochromasia PT (9.0-12.0) sec INR (<1.2) APTT (22.0-30.0) sec Sodium (137-145) mmol/L Potassium (3.5-5.1) mmol/L Chloride (98-107) mmol/L Carbon Dioxide (22-30) mmol/L Anion Gap mmol/L BUN (9-20) mg/dL Creatinine (0.66-1.25) mg/dL Est GFR (CKD-EPI)AfAm (>60 ml/min/1.73 sqM) Est GFR (CKD-EPI)NonAf (>60 ml/min/1.73 sqM) Glucose (74-99) mg/dL POC Glucose (mg/dL) 179 H (75-99) mg/dL POC Glu Circuit Board Drafter ID Tamera Becker Calcium (8.4-10.2) mg/dL Magnesium (1.6-2.3) mg/dL Total Bilirubin (0.2-1.3) mg/dL AST (17-59) U/L ALT (4-49) U/L Alkaline Phosphatase (38-126) U/L Troponin I 0.030 (0.000-0.034) ng/mL Total Protein (6.3-8.2) g/dL Albumin (3.5-5.0) g/dL Coronavirus (PCR) Not Detected (Not Detectd) 03/11/21 Range/Units 08:37 WBC (3.8-10.6) k/uL RBC (4.30-5.90) m/uL Hgb (13.0-17.5) gm/dL Hct (39.0-53.0) % MCV (80.0-100.0) fL MCH (25.0-35.0) pg MCHC (31.0-37.0) g/dL RDW (11.5-15.5) % Plt Count (150-450) k/uL MPV Neutrophils % % Lymphocytes % % Monocytes % % Eosinophils % % Basophils % % Neutrophils # (1.3-7.7) k/uL Lymphocytes # (1.0-4.8) k/uL Monocytes # (0-1.0) k/uL Eosinophils # (0-0.7) k/uL Basophils # (0-0.2) k/uL Hypochromasia PT (9.0-12.0) sec INR (<1.2) APTT (22.0-30.0) sec Sodium (137-145) mmol/L Potassium (3.5-5.1) mmol/L Chloride (98-107) mmol/L Carbon Dioxide (22-30) mmol/L Anion Gap mmol/L BUN (9-20) mg/dL Creatinine (0.66-1.25) mg/dL Est GFR (CKD-EPI)AfAm (>60 ml/min/1.73 sqM) Est GFR (CKD-EPI)NonAf (>60 ml/min/1.73 sqM) Glucose (74-99) mg/dL POC Glucose (mg/dL) 196 H (75-99) mg/dL POC Glu Circuit Board Drafter ID Arianna Haile Calcium (8.4-10.2) mg/dL Magnesium (1.6-2.3) mg/dL Total Bilirubin (0.2-1.3) mg/dL AST (17-59) U/L ALT (4-49) U/L Alkaline Phosphatase (38-126) U/L Troponin I (0.000-0.034) ng/mL Total Protein (6.3-8.2) g/dL Albumin (3.5-5.0) g/dL Coronavirus (PCR) (Not Detectd) Disposition <Enma Panda - Last Filed: 03/11/21 04:19> Time of Disposition: 08:54 <Fran Galvez - Last Filed: 03/11/21 08:54> Clinical Impression: Femur fracture, Defibrillator discharge Disposition: ADMITTED IP TO THIS HOSP Referrals: Al Harper MD [Primary Care Provider] - 1-2 days
[2021-03-10] MEDS ORDERED: HYDROmorphone 1 MG/ML 1 ML SYRINGE IVP STA (22:34)
[2021-03-11 00:03] LABS: Glucose,Whole Blood 179 mg/dL (75-99)
[2021-03-11] MEDS ORDERED: ONDANSETRON 4 MG/2 ML VIAL IVP PRN (01:03)
[2021-03-11] MEDS: HYDROmorphone 1 MG/ML 1 ML SYRINGE IVP PRN ×7 (01:12→21:59)
[2021-03-11] MEDS ORDERED: MIDODRINE 5 MG TAB PO STA (02:19)
[2021-03-11] MEDS: AMIODARONE 450 MG in DEXTROSE 5% IN WATER 250 ML IV SCH ×4 (03:33→13:51)
[2021-03-11 08:38] LABS: Glucose,Whole Blood 196 mg/dL (75-99)
[2021-03-11] MEDS ORDERED: NITROGLYCERIN SL TABS 0.4 MG TAB SUBLINGUAL PRN (08:55)
--- NOTE | 2021-03-11 09:25 | P.PN ---
Progress Note - Text Progress Note Date: 03/11/21 I was called regarding this patient last evening regarding a displaced periprosthetic femur fracture. On initial review of the patient's images I recommended admitting to IM and seeing the patient as a consult to discuss operative intervention. Overnight, the patient's family was adamant on transfer to a facility that their furniture sprayer and court specialist had priveleges and did not want any surgical intervention at [facility]. The ER was unable to facilitate transfer due to other facilities being at capacity. On further review of the patient's images this morning and given the patient's multiple medical problems I would recommend transfer to another facility to care for this complicated patient. This was relayed to the ED this morning at 0600 and 0920. I spoke with Dr. Galvez this morning recommending transfer. The patient is to be non-weight bearing on his injured extremity in a knee immobilizer until transfer to another facility.
--- NOTE | 2021-03-11 11:19 | P.CRDCN ---
History of Present Illness History of present illness: HISTORY OF PRESENTING ILLNESS Mr. Castellanos is a pleasant 75-year-old male past medical history significant for coronary artery disease status post 3 vessel bypass grafting at age 50 and PCI to LAD at age 55 , chronic systolic heart failure ejection fraction 20-25%, ischemic cardiomyopathy s/p Bi-V AICD placement, hypertension and type 2 diabetes, gout, chronic persistent atrial fibrillation s/p Watchman device. He follows with Dr. Jeffries at [place] [facility] and Dr. Rocael Arias electrophysiology out of [facility]. We have been asked to see in consultation for defibrillator discharge. Patient is seen in the emergency department, family at bedside. Supposedly patient had his initial defibrillator shock on Wednesday02/28/21. Patient proceeded to have shocks on Wednesday and Wednesday. On Wednesday03/03/2021, patient's called Dr. Arias his EP physician, Patient went to see Dr. Mccray on Sunday 03/04, his device was interrogated and they were told he had episodes of ventricular tachycardia and had a total of [address] Arias suggested to start amiodarone and followup with his district medical examiner, Dr. Jeffries, for a potential intervention. Unfortunately, they had difficulty obtaining the amiodarone prescription until yesterday. Patient on additional shocks on Wednesday night and then Yesterday night 03/10, patient proceeded to have another shock, he states he felt "fuzzy" during and then it just happened and he remembers waking up. Per patient's , she helped lower him to the ground and his legs unfortunately "twisted". EMS was called. Patient denies chest pain, palpitations, dizziness, any episodes of previous syncope. He does endorse some mild dyspnea on exertion. Denies lower extremity edema. Denies symptoms of orthopnea or PND. DIAGNOSTICS EKG reveals underlying atrial fibrillation with V paced, left axis deviation, no significant ST-T wave abnormalities, Prior EKG with similar findings Chest xray no acute cardiopulmonary process Xray- Left distal femoral periprosthetic fracture Laboratory reviewed, troponin negative 2, covid-19 PCR negative, sodium 137, potassium 4.4, BUN 70, serum creatinine 1.1, magnesium 2.3, WBC 4.4, hemoglobin 0.3, platelets 77 Current home medications include amiodarone, chart events, simvastatin, Entresto, Insulin, carvedilol, Bumex, REVIEW OF SYSTEMS At the time of my exam: CONSTITUTIONAL: Denies fever or chills. CARDIOVASCULAR: Denies chest pain, +shortness of breath, Denies orthopnea, PND or palpitations. RESPIRATORY: Denies cough. GASTROINTESTINAL: Denies abdominal pain, diarrhea, constipation, nausea or vomiting. MUSCULOSKELETAL: Denies myalgias. NEUROLOGIC: Denies numbness, tingling, headache or weakness. ENDOCRINE: Denies fatigue, weight change, polydipsia or polyurina. GENITOURINARY: Denies burning, hematuria or urgency with micturation. HEMATOLOGIC: + history of anemia Denies bleeding. PHYSICAL EXAMINATION Blood pressure 100/49, heart rate 70, afebrile, 98% on 2 L nasal cannula CONSTITUTIONAL: No apparent distress. HEENT: Head is normocephalic. Pupils are equal, round. Sclerae anicteric. Mucous membranes of the mouth are moist. No JVD. +right sided carotid bruit CHEST EXAMINATION: Lungs are clear to auscultation. No chest wall tenderness is noted on palpation or with deep breathing. HEART EXAMINATION: Regular rate and rhythm. S1, S2 heard. Systolic ejection murmur, No gallops or rub. ABDOMEN: Soft, nontender. Positive bowel sounds. EXTREMITIES: 2+ peripheral pulses, trace bilateral lower extremity edema and no calf tenderness. SKIN: warm, dry NEUROLOGIC EXAMINATION: Patient is awake, alert and oriented x3. ASSESSMENT Ventricular tachycardia s/p multiple defibrillator discharges Coronary artery disease status post 3 vessel bypass grafting at age 50 and PCI to LAD at age 55 Chronic systolic heart failure ejection fraction 20-25% Ischemic cardiomyopathy s/p Bi-V AICD placement Hypotension Type 2 diabetes History of Gout Chronic persistent atrial fibrillation s/p Watchman device. PLAN -An acute ischemic event is unlikely with no no EKG evidence of ischemia and negative cardiac enzymes. -We will Interrogate device -Obtain records from patient's district medical examiner and auto body technician -Obtain 2D echocardiogram and doppler study to assess cardiac structure and function. -Continue IV amiodarone 0.5mg/min -Continue aspirin, statin, carvedilol and midodrine -Will decrease Entresto to half tablet -Monitor on cardiac telemetry -If no significant arrhythmia noted, patient will most likely benefit from VT ablation -Further recommendations based on clinical course Thank you kindly for this consultation. Nurse Practitioner note has been reviewed, I agree with a documented findings and plan of care. Patient was seen and examined. Past Medical History Past Medical History: Atrial Fibrillation, Cancer, Heart Failure, Diabetes Mellitus, GI Bleed, Hypertension, Myocardial Infarction (DE), Vascular Disorder Additional Past Medical History / Comment(s): diverticulitis, gout, hx skin cancer, " 1 TEST POSITIVE FOR PROSTATE CANCER BUT 2ND TEST NEG" diabetic retinopathy, diabetic neuropathy Last Myocardial Infarction Date:: 11/2002 History of Any Multi-Drug Resistant Organisms: None Reported Past Surgical History: AICD, Coronary Bypass/CABG, Heart Catheterization With Stent, Joint Replacement, Tonsillectomy Additional Past Surgical History / Comment(s): Watchman procedure for afib; knee replacements (left x 2, rt x 1), surgery for sleep apnea, skin cancer removal, left foot hammertoe, vasectomy, angioplasty,cataract both eyes Past Anesthesia/Blood Transfusion Reactions: Previous Problems w/ Anesthesia Additional Past Anesthesia/Blood Transfusion Reaction / Comment(s): "longer to come out" Date of Last Stent Placement:: 11/2002 Type of Cardiac Device: AICD Device Placement Date:: last 01/21/14 Past Psychological History: Anxiety Smoking Status: Never smoker Past Alcohol Use History: None Reported Past Drug Use History: None Reported - Past Family History Father Family Medical History: Cancer, Diabetes Mellitus Additional Family Medical History / Comment(s): OF HEART DX Mother Family Medical History: Cancer Medications and Allergies Home Medications Medication Instructions Recorded Confirmed Type Carvedilol [Coreg] 25 mg PO BID 02/26/14 03/10/21 History Colchicine [Colcrys] 0.6 mg PO MOWEFR 02/26/14 03/10/21 History INSULIN ASPART (NovoLOG) [NovoLOG 5 unit SQ AC-BRKFST 02/26/14 03/10/21 History (formulary)] Insulin Detemir (Levemir) [Levemir] 20 unit SQ HS 02/26/14 03/10/21 History Sacubitril/Valsartan [Entresto 24 1 tab PO BID 12/17/16 03/10/21 History mg-26 mg Tablet] Bumetanide [BUMEX] 1 - 2 mg PO DAILY 01/24/18 03/10/21 History Escitalopram [Lexapro] 20 mg PO HS 01/24/18 03/10/21 History ALPRAZolam [Xanax] 0.5 mg PO HS 09/06/20 03/10/21 History INSULIN ASPART (NovoLOG) [NovoLOG 3 - 5 unit SQ AC-SUPPER 09/06/20 03/10/21 History (formulary)] INSULIN ASPART (NovoLOG) [NovoLOG 3 - 5 units SQ AC-LUNCH 09/06/20 03/10/21 His tory (formulary)] ALPRAZolam [Xanax] 0.5 mg PO BID PRN #60 tab 09/10/20 03/10/21 Rx Hydrocodone/Acetaminophen [[place] 1 tab PO Q6H PRN #120 tab 09/10/20 03/10/21 Rx 7.5-325] Amiodarone [Cordarone] See Taper PO DIRECTED 03/10/21 03/10/21 History Cetirizine HCl 10 mg PO DAILY 03/10/21 03/10/21 History Empagliflozin [Jardiance] 10 mg PO DAILY 03/10/21 03/10/21 History Febuxostat [Uloric] 80 mg PO HS 03/10/21 03/10/21 History Ferrous Sulfate [Iron (65 MG 325 mg PO DAILY 03/10/21 03/10/21 History Elemental)] Midodrine HCl [ProAmatine] 10 mg PO BID 03/10/21 03/10/21 History Simvastatin 10 mg PO DAILY 03/10/21 03/10/21 History guaiFENesin [Mucinex] 600 mg PO BID 03/10/21 03/10/21 History Allergies Allergy/AdvReac Type Severity Reaction Status Date / Time lorazepam [From Ativan] Allergy combative Verified 03/10/21 22:06 and elevated BP prochlorperazine edisylate Allergy combative Verified 03/10/21 22:06 [From Compazine] prochlorperazine maleate Allergy combative Verified 03/10/21 22:06 [From Compazine] Physical Exam Vitals: Vital Signs Temp Pulse Resp BP Pulse Ox 03/11/21 08:30 66 23 111/56 98 03/11/21 08:15 70 13 95/49 98 03/11/21 08:00 70 18 100/49 97 03/11/21 07:45 70 25 H 109/50 96 03/11/21 07:30 70 20 99/49 98 03/11/21 07:15 70 17 101/48 98 03/11/21 07:00 70 18 98/41 97 03/11/21 06:45 70 20 95 03/11/21 06:30 70 30 H 98/50 97 03/11/21 06:00 70 18 106/52 97 03/11/21 05:30 70 21 105/52 97 03/11/21 05:00 70 23 101/52 98 03/11/21 04:30 69 19 99/52 98 03/11/21 04:00 69 18 99/48 97 03/11/21 03:30 70 15 93/47 97 03/11/21 03:00 69 19 92/44 97 03/11/21 02:30 70 19 93/44 97 03/11/21 02:00 70 31 H 94/47 96 03/11/21 01:30 70 18 104/45 97 03/11/21 01:00 69 19 108/54 98 03/11/21 00:30 69 18 100/48 98 03/11/21 00:00 70 19 96/50 97 03/10/21 23:38 70 12 99/50 97 03/10/21 23:30 70 17 101/49 98 03/10/21 23:00 71 16 105/52 99 03/10/21 22:00 70 18 106/50 90 L 03/10/21 21:30 68 18 113/62 95 03/10/21 21:00 70 18 110/52 96 03/10/21 20:30 69 18 108/51 96 03/10/21 20:11 69 18 98/57 97 03/10/21 20:09 97.8 F 69 18 98/57 98 Intake and Output 03/10/21 03/11/21 03/11/21 22:59 06:59 14:59 Other: Weight 100.244 kg Results 03/10/21 20:46 03/10/21 20:46 Cardiac Enzymes 03/10/21 03/10/21 Range/Units 20:46 20:46 AST 22 (17-59) U/L Troponin I 0.030 (0.000-0.034) ng/mL Coagulation 03/10/21 Range/Units 20:46 PT 11.6 (9.0-12.0) sec APTT 23.7 (22.0-30.0) sec CBC 03/10/21 Range/Units 20:46 WBC 4.4 (3.8-10.6) k/uL RBC 3.95 L (4.30-5.90) m/uL Hgb 12.3 L (13.0-17.5) gm/dL Hct 38.7 L (39.0-53.0) % Plt Count 97 L (150-450) k/uL Comprehensive Metabolic Panel 03/10/21 Range/Units 20:46 Sodium 137 (137-145) mmol/L Potassium 4.4 (3.5-5.1) mmol/L Chloride 104 (98-107) mmol/L Carbon Dioxide 25 (22-30) mmol/L BUN 70 H (9-20) mg/dL Creatinine 1.19 (0.66-1.25) mg/dL Glucose 166 H (74-99) mg/dL Calcium 8.6 (8.4-10.2) mg/dL AST 22 (17-59) U/L ALT 15 (4-49) U/L Alkaline Phosphatase 204 H (38-126) U/L Total Protein 5.9 L (6.3-8.2) g/dL Albumin 3.3 L (3.5-5.0) g/dL Current Medications Generic Name Dose Route Start Last Admin Trade Name Freq PRN Reason Stop Dose Admin Aspirin 325 mg 03/12/21 09:00 Aspirin 325 Mg Tab PO DAILY SHO Hydromorphone HCl 1 mg 03/11/21 01:03 03/11/21 08:28 Hydromorphone 1 Mg/Ml 1 Ml Syringe IVP 1 mg Q3H PRN Administration Pain Amiodarone HCl 450 mg/ 250 mls @ 16.667 mls/hr 03/11/21 03:15 03/11/21 03:33 Dextrose/Water IV 03/11/21 21:14 0.5 mg/min .Q15H SHO 16.667 mls/hr Administration Protocol 0.5 MG/MIN Nitroglycerin 0.4 mg 03/11/21 08:55 Nitroglycerin Sl Tabs 0.4 Mg Tab SUBLINGUAL Q5M PRN Chest Pain Ondansetron HCl 4 mg 03/11/21 01:03 Ondansetron 4 Mg/2 Ml Vial IVP Q6H PRN Nausea Intake and Output 03/10/21 03/11/21 03/11/21 22:59 06:59 14:59 Other: Weight 100.244 kg 03/10/21 20:46 03/10/21 20:46
[2021-03-11] MEDS ORDERED: AMIODARONE 450 MG in DEXTROSE 5% IN WATER 250 ML IV SCH ×4 (14:00→21:00)
[2021-03-11] MEDS: SODIUM CHLORIDE 0.9% 1,000 ML IV SCH (16:10)
[2021-03-11] MEDS: MIDODRINE 5 MG TAB PO SCH (18:41)
[2021-03-11] MEDS: carvediloL 12.5 MG TAB PO SCH (18:41)
[2021-03-11] MEDS: ATORVASTATIN 40 MG TAB PO SCH (18:57)
[2021-03-11] MEDS ORDERED: SACUBITRIL/VALSARTAN 24 MG-26 MG TABLET PO SCH (21:00)
--- NOTE | 2021-03-11 21:09 | P.HPIM ---
History of Present Illness H&P Date: 03/11/21 Chief Complaint: Status post fall. This is a history of physical and a 75-year-old white male with history of cardiopathy. Multiple AICD firing related to ventricular arrhythmia was noted. The patient now has had a significant fall regarding and femoral fracture. After much discussion with his floorperson and motor and controls tester, and they are preferring that he be transferred for appropriate traumatic orthopedic treatment given his cardiac myopathy. He is now been given amiodarone to stabilize his dysrhythmia. Pain control is paramount. I had a long discussion with the family about what I see is a priority first being cardiac cleared and stabilized and then having the appropriate surgeon [address] Gonzalez has been consulted given the overall he discussed the city of the family, we hope to transfer the patient Review of Systems Constitutional: Denies chills, Denies fever Eyes: denies blurred vision, denies pain Ears, nose, mouth and throat: Denies headache, Denies sore throat Cardiovascular: Reports as per HPI Respiratory: Denies cough Gastrointestinal: Denies abdominal pain, Denies diarrhea, Denies nausea, Denies vomiting Musculoskeletal: Reports fractures, Reports frequent falls Integumentary: Denies pruritus, Denies rash Neurological: Denies numbness, Denies weakness Past Medical History Past Medical History: Atrial Fibrillation, Coronary Artery Disease (CAD), Cancer, Heart Failure, Diabetes Mellitus, Eye Disorder, GI Bleed, Hyperlipidemia, Hypertension, Myocardial Infarction (DC), Osteoarthritis (OA), Renal Disease, Vascular Disorder Additional Past Medical History / Comment(s): Vtach/AICD, IDDM type II, neuropathy bilateral feet, bilateral eye retinopathy/bleeds-worse in R eye, childhood pt had no antibodies/lengthy hospitalizations/gamma globulin infusions, past htn but now hypotension, superficial venous reflux/pt has sores bilateral feet, tophaceous gout/chronic pain, chronic back pain, elevated PSA- 1st prostate bx showed cancer/2nd prostate bx showed no cancer, skin cancer with removals, CKD, anemia, protein calorie malnutrition, kiverticulitis. Last Myocardial Infarction Date:: 11/2002 History of Any Multi-Drug Resistant Organisms: None Reported Past Surgical History: Adenoidectomy, AICD, Coronary Bypass/CABG, Heart Catheterization, Heart Catheterization With Stent, Hernia Repair, Joint Replacement, Orthopedic Surgery, Tonsillectomy Additional Past Surgical History / Comment(s): AICDs x 4with last change , watchman's device, 2000 CABG 3 vessel, L foot hammer toe surgery, bilateral total knee replacements with L side done twice, UVPPP, skin cancer removals, vasectomy, bilateral cataract removals, multiple bilateral eye laser surgery and eye injections. Past Anesthesia/Blood Transfusion Reactions: Previous Problems w/ Anesthesia Additional Past Anesthesia/Blood Transfusion Reaction / Comment(s): "longer to come out" Date of Last Stent Placement:: 11/2002 Type of Cardiac Device: AICD Device Placement Date:: last 01/21/14 Smoking Status: Former smoker - Past Family History Father Family Medical History: Cancer, Diabetes Mellitus Additional Family Medical History / Comment(s): OF HEART DX Mother Family Medical History: Cancer Additional Family Medical History / Comment(s): Colon cancer, lung cancer, esophageal cancer. Medications and Allergies Home Medications Medication Instructions Recorded Confirmed Type Carvedilol [Coreg] 25 mg PO BID 02/26/14 03/10/21 History Colchicine [Colcrys] 0.6 mg PO MOWEFR 02/26/14 03/10/21 History INSULIN ASPART (NovoLOG) [NovoLOG 5 unit SQ AC-BRKFST 02/26/14 03/10/21 History (formulary)] Insulin Detemir (Levemir) [Levemir] 20 unit SQ HS 02/26/14 03/10/21 History Sacubitril/Valsartan [Entresto 24 1 tab PO BID 12/17/16 03/10/21 History mg-26 mg Tablet] Bumetanide [BUMEX] 1 - 2 mg PO DAILY 01/24/18 03/10/21 History Escitalopram [Lexapro] 20 mg PO HS 01/24/18 03/10/21 History ALPRAZolam [Xanax] 0.5 mg PO HS 09/06/20 03/10/21 History INSULIN ASPART (NovoLOG) [NovoLOG 3 - 5 unit SQ AC-SUPPER 09/06/20 03/10/21 History (formulary)] INSULIN ASPART (NovoLOG) [NovoLOG 3 - 5 units SQ AC-LUNCH 09/06/20 03/10/21 History (formulary)] ALPRAZolam [Xanax] 0.5 mg PO BID PRN #60 tab 09/10/20 03/10/21 Rx Hydrocodone/Acetaminophen [[place] 1 tab PO Q6H PRN #120 tab 09/10/20 03/10/21 Rx 7.5-325] Amiodarone [Cordarone] See Taper PO DIRECTED 03/10/21 03/10/21 History Cetirizine HCl 10 mg PO DAILY 03/10/21 03/10/21 History Empagliflozin [Jardiance] 10 mg PO DAILY 03/10/21 03/10/21 History Febuxostat [Uloric] 80 mg PO HS 03/10/21 03/10/21 History Ferrous Sulfate [Iron (65 MG 325 mg PO DAILY 03/10/21 03/10/21 History Elemental)] Midodrine HCl [ProAmatine] 10 mg PO BID 03/10/21 03/10/21 History Simvastatin 10 mg PO DAILY 03/10/21 03/10/21 History guaiFENesin [Mucinex] 600 mg PO BID 03/10/21 03/10/21 History Allergies Allergy/AdvReac Type Severity Reaction Status Date / Time lorazepam [From Ativan] Allergy combative Verified 03/10/21 22:06 and elevated BP prochlorperazine edisylate Allergy combative Verified 03/10/21 22:06 [From Compazine] prochlorperazine maleate Allergy combative Verified 03/10/21 22:06 [From Compazine] Physical Exam Vitals: Vital Signs Temp Pulse Pulse Resp BP BP Pulse Ox 03/11/21 18:29 70 18 03/11/21 18:15 98.1 F 70 18 120/58 97 03/11/21 17:43 70 18 104/55 99 03/11/21 14:08 70 16 95/51 90 L 03/11/21 12:01 70 18 101/46 98 03/11/21 11:06 70 16 100/49 98 03/11/21 10:45 70 21 95/43 98 03/11/21 10:30 70 14 92/42 98 03/11/21 10:15 17 93/44 86 L 03/11/21 10:00 70 20 101/48 92 L 03/11/21 09:45 70 13 100/49 96 03/11/21 09:30 70 20 100/46 97 03/11/21 09:15 70 16 85/74 97 03/11/21 09:00 69 12 94/44 97 03/11/21 08:45 70 18 111/56 97 03/11/21 08:30 66 23 111/56 98 03/11/21 08:15 70 13 95/49 98 03/11/21 08:00 70 18 100/49 97 03/11/21 07:45 70 25 H 109/50 96 03/11/21 07:30 70 20 99/49 98 03/11/21 07:15 70 17 101/48 98 03/11/21 07:00 70 18 98/41 97 03/11/21 06:45 70 20 95 03/11/21 06:30 70 30 H 98/50 97 03/11/21 06:00 70 18 106/52 97 03/11/21 05:30 70 21 105/52 97 03/11/21 05:00 70 23 101/52 98 03/11/21 04:30 69 19 99/52 98 03/11/21 04:00 69 18 99/48 97 03/11/21 03:30 70 15 93/47 97 03/11/21 03:00 69 19 92/44 97 03/11/21 02:30 70 19 93/44 97 03/11/21 02:00 70 31 H 94/47 96 03/11/21 01:30 70 18 104/45 97 03/11/21 01:00 69 19 108/54 98 03/11/21 00:30 69 18 100/48 98 03/11/21 00:00 70 19 96/50 97 03/10/21 23:38 70 12 99/50 97 03/10/21 23:30 70 17 101/49 98 03/10/21 23:00 71 16 105/52 99 03/10/21 22:00 70 18 106/50 90 L 03/10/21 21:30 68 18 113/62 95 03/10/21 21:00 70 18 110/52 96 Intake and Output 03/11/21 03/11/21 03/11/21 06:59 14:59 22:59 Intake Total 171.67 Balance 171.67 Intake: Intake, IV Titration 171.67 Amount Amiodarone 450 mg In 171.67 Dextrose 5% in Water 250 ml @ 0.5 MG/MIN 16.667 mls/hr IV .Q15H ON LICENSE OF [facility] Rx#: [id number] Other: Weight 100.244 kg - Constitutional General appearance: no acute distress - EENT Eyes: EOMI - Respiratory Respiratory: bilateral: CTA - Cardiovascular Rhythm: regular Heart sounds: normal: S1, S2 Abnormal Heart Sounds: no S3 Gallop - Gastrointestinal General gastrointestinal: soft, no tenderness - Musculoskeletal Musculoskeletal: no gait normal - Psychiatric Psychiatric: A&O x's 3 Results CBC & Chem 7: 03/10/21 20:46 03/10/21 20:46 Labs: Abnormal Lab Results - Last 24 Hours (Table) 03/10/21 03/10/21 03/11/21 Range/Units 20:46 20:46 00:02 RBC 3.95 L (4.30-5.90) m/uL Hgb 12.3 L (13.0-17.5) gm/dL Hct 38.7 L (39.0-53.0) % Plt Count 97 L (150-450) k/uL Lymphocytes # 0.7 L (1.0-4.8) k/uL BUN 70 H (9-20) mg/dL Glucose 166 H (74-99) mg/dL POC Glucose (mg/dL) 179 H (75-99) mg/dL Total Bilirubin 1.4 H (0.2-1.3) mg/dL Alkaline Phosphatase 204 H (38-126) U/L Total Protein 5.9 L (6.3-8.2) g/dL Albumin 3.3 L (3.5-5.0) g/dL 03/11/21 Range/Units 08:37 RBC (4.30-5.90) m/uL Hgb (13.0-17.5) gm/dL Hct (39.0-53.0) % Plt Count (150-450) k/uL Lymphocytes # (1.0-4.8) k/uL BUN (9-20) mg/dL Glucose (74-99) mg/dL POC Glucose (mg/dL) 196 H (75-99) mg/dL Total Bilirubin (0.2-1.3) mg/dL Alkaline Phosphatase (38-126) U/L Total Protein (6.3-8.2) g/dL Albumin (3.5-5.0) g/dL Thrombosis Risk Factor Assmnt - Choose All That Apply Any of the Below Risk Factors Present?: Yes Each Factor Represents 1 point: Obesity (BMI >25) Other Risk Factors: Yes Each Risk Factor Represents 2 Points: Age 61-74 years, Major surgery, Patient co nfined to bed, Malignancy Other congenital or acquired thrombophilia - If yes, enter type in comment: No Each Risk Factor Represents 5 Points: Hip, pelvis, or leg fracture (< 1 month) Thrombosis Risk Factor Assessment Total Risk Factor Score: 14 Thrombosis Risk Factor Assessment Level: High Risk Assessment and Plan (1) Defibrillator discharge Current Visit: Yes Status: Acute Code(s): Z45.02 - ENCNTR FOR ADJUST AND MGMT OF AUTOMATIC IMPLNTBL CARD DEFIB SNOMED Code(s): 934959828 (2) Femur fracture Current Visit: Yes Status: Acute Code(s): S72.90XA - UNSP FRACTURE OF UNSP FEMUR, INIT ENCNTR FOR CLOSED FRACTURE SNOMED Code(s): 37114630 (3) At risk for readmission to hospital Current Visit: No Status: Acute Code(s): Z91.89 - OTH PERSONAL RISK FACTORS, NOT ELSEWHERE CLASSIFIED SNOMED Code(s): 5760410752508 (4) CKD (chronic kidney disease) Current Visit: No Status: Acute Code(s): N18.9 - CHRONIC KIDNEY DISEASE, UNS PECIFIED SNOMED Code(s): 182525286 (5) Congestive cardiomyopathy Current Visit: No Status: Acute Code(s): I42.0 - DILATED CARDIOMYOPATHY SNOMED Code(s): 282048780 (6) Dehydration, moderate Current Visit: No Status: Acute Code(s): E86.0 - DEHYDRATION SNOMED Code(s): 8727187982604 Plan: Stabilized from a cardiac dysrhythmia perspective. DC order and has been started. Once cleared from a cardiology perspective, femoral fracture repair. Sliding scale. Pain control. We will continue to follow. Anticipate transfer Time with Patient: Greater than 30
[2021-03-11] MEDS: SACUBITRIL/VALSARTAN 24 MG-26 MG TABLET PO SCH (21:59)
[2021-03-12] MEDS: HYDROmorphone 1 MG/ML 1 ML SYRINGE IVP PRN ×5 (04:45→22:14)
[2021-03-12 06:38] LABS: HCT 36.2 % (39.0-53.0); HGB 11.3 gm/dL (13.0-17.5); Hypochromasia Marked; MCH 31.6 pg (25.0-35.0); MCHC 31.1 g/dL (31.0-37.0); MCV 101.6 fL (80.0-100.0); Macrocytosis Slight; Mean Platelet Volume 8.1; Platelet Count 107 k/uL (150-450); RBC 3.56 m/uL (4.30-5.90); RDW 14.3 % (11.5-15.5); WBC 7.4 k/uL (3.8-10.6)
[2021-03-12 06:51] LABS: ALT 13 U/L (4-49); AST 17 U/L (17-59); African American GFR (CKD) 42 (>60 ml/min/1.73 sqM); Albumin 3.2 g/dL (3.5-5.0); Alkaline Phosphatase 163 U/L (38-126); Anion Gap 10 mmol/L; Blood Urea Nitrogen 74 mg/dL (9-20); Calcium 8.5 mg/dL (8.4-10.2); Carbon Dioxide 27 mmol/L (22-30); Chloride 100 mmol/L (98-107); Glucose 194 mg/dL (74-99); Non-African American GFR(CKD) 36 (>60 ml/min/1.73 sqM); Potassium 5.4 mmol/L (3.5-5.1); Sodium 137 mmol/L (137-145); Total Bilirubin 0.8 mg/dL (0.2-1.3); Total Protein 5.6 g/dL (6.3-8.2)
[2021-03-12 08:03] LABS: Glucose,Whole Blood 181 mg/dL (75-99)
[2021-03-12] MEDS: ASPIRIN 81 MG PO SCH (08:06)
[2021-03-12] MEDS: SACUBITRIL/VALSARTAN 24 MG-26 MG TABLET PO SCH ×2 (08:07→21:02)
[2021-03-12] MEDS: MIDODRINE 5 MG TAB PO SCH ×2 (08:07→17:06)
[2021-03-12] MEDS: ATORVASTATIN 40 MG TAB PO SCH (08:07)
[2021-03-12] MEDS: AMIODARONE 200 MG TAB PO SCH ×2 (08:08→21:02)
[2021-03-12] MEDS: SODIUM CHLORIDE 0.9% 1,000 ML IV SCH ×2 (08:09→17:07)
[2021-03-12] MEDS: carvediloL 12.5 MG TAB PO SCH ×2 (08:15→17:06)
[2021-03-12] MEDS: guaiFENesin 600 MG TABLET.ER PO SCH ×2 (08:36→21:02)
[2021-03-12] MEDS: HEPARIN SODIUM,PORCINE/PF 5,000 UNIT/0.5 ML SYRINGE SQ SCH ×4 (08:36→21:10)
[2021-03-12] MEDS: LORATADINE 10 MG TAB PO SCH (08:36)
[2021-03-12] MEDS: FERROUS SULFATE 325 MG TAB PO SCH (08:36)
[2021-03-12] MEDS ORDERED: ASPIRIN 325 MG TAB PO SCH (09:00)
[2021-03-12] MEDS ORDERED: SIMVASTATIN 10 MG PO SCH (09:00)
--- NOTE | 2021-03-12 10:14 | PN ---
PROGRESS NOTE Mr. Castellanos is a 75-year-old male with a known history of coronary artery disease, status post coronary artery bypass grafting, history of percutaneous revascularization in the past as well as history of ICD implantation, chronic atrial fibrillation, history of diabetes. He presented with recurrent discharge from his device. He is followed by his EP doctor at [facility], Dr. Arias, as well as his tobacco stemmer, but the day before yesterday he had a shock, and on getting down he fractured his left leg. He is maintained on IV amiodarone at this time. He had no further episode of tachyarrhythmia. He is feeling well this morning. His breathing is stable. He denies any dizziness or palpitations. He denies any nausea. His medication includes amiodarone IV, aspirin 81 mg daily, Lipitor 40 mg daily, Coreg 25 mg twice a day, midodrine 10 mg twice a day, and Entresto 24-26 half a tablet twice a day. PHYSICAL EXAMINATION: Blood pressure is running in the 100s with a heart rate in the 70s. Lungs clear. HEART: Regular rate and rhythm. S1, S2. No S3, with systolic ejection murmur 2/6 heard at the base. No diastolic murmur. No rub. Abdomen soft, non-tender. EXTREMITIES: Left lower extremity in a cast. LAB DATA: Lab data revealed BUN and creatinine of and 1.81, which is worse than his baseline. Hemoglobin of 11.3. His troponin is 0.034 and 0.034. IMPRESSION: 1. Recurrent ventricular tachycardia with discharge from his device. Patient maintained sinus mechanism after initiation of the amiodarone. 2. History of coronary artery disease, status post coronary artery bypass grafting and percutaneous revascularization. No evidence to suggest recurrent angina pectoris or acute coronary syndrome suggestive that the recurrent ventricular tachycardia is related to his prior scar and not an acute ischemic event. 3. Worsening renal function; could be related to the shock and the low blood pressure. 4. Fracture of the left leg femur. 5. History of diabetes. 6. Hyperlipidemia. RECOMMENDATIONS: We will obtain echocardiogram with Doppler. I will switch his IV amiodarone to oral. Patient is awaiting availability of a bed in [facility], to be transferred under the care of his primary tobacco stemmer and to undergo evaluation and surgery regarding his leg fracture. In the meantime, we will continue present therapy and follow his renal function closely. The prognosis remains guarded. MMODL / IJN: [id number] / MTDD
[2021-03-12] MEDS: COLCHICINE 0.6 MG EACH PO SCH (10:48)
[2021-03-12 11:17] VITALS: BMI 33.3
[2021-03-12 11:43] LABS: Glucose,Whole Blood 167 mg/dL (75-99)
--- NOTE | 2021-03-12 14:17 | P.PN ---
Subjective Progress Note Date: 03/12/21 Principal diagnosis: This is a continue progress note on a 75-year-old white male who had AICD discharge multiple times over the last several days. Is admitted after having an AICD discharge and having a fall resulting in right femoral fracture. Unfortunately, the fourth mate at [facility] prefers him to have his repaired done at that hospital. Orthopedics has essentially stated that they would only do this in an emergent situation, also at the patient's family's request. Cardiology has cleared the patient for transfer reluctantly because of his cardiac treatment. No voiding symptoms. Pain is very well controlled. No significant voiding difficulty stated. Objective - Vital Signs Vital signs: Vital Signs Temp 97.9 F 03/12/21 11:54 Pulse 70 03/12/21 11:54 Resp 18 03/12/21 11:54 BP 109/56 03/12/21 11:54 Pulse Ox 98 03/12/21 11:54 Intake & Output 03/11/21 03/12/21 03/12/21 18:59 06:59 18:59 Intake Total 171.67 Output Total 0 Balance 171.67 0 Weight 100.244 kg 111.5 kg 111.5 kg Intake: Intake, IV Titration 171.67 Amount Amiodarone 450 mg In 171.67 Dextrose 5% in Water 250 ml @ 0.5 MG/MIN 16.667 mls/hr IV .Q15H [facility] Rx#: [id number] Output: Urine 0 Stool 0 Other: Voiding Method Urinal # Voids 0 # Bowel Movements 0 - Constitutional General appearance: Present: average body habitus - EENT Eyes: Present: abnormal pupil ENT: Absent: hard of hearing - Neck Neck: Absent: lymphadenopathy - Respiratory Respiratory: bilateral: CTA - Cardiovascular Rhythm: regular Heart sounds: normal: S1, S2 Abnormal Heart Sounds: Absent: S3 Gallop - Gastrointestinal General gastrointestinal: Present: soft. Absent: tenderness - Integumentary Integumentary: Absent: cellulitis - Psychiatric Psychiatric: Present: A&O x's 3 - Labs CBC & Chem 7: 03/12/21 05:13 03/12/21 05:13 Labs: Abnormal Lab Results - Last 24 Hours (Table) 03/12/21 03/12/21 03/12/21 Range/Units 05:13 05:13 08:01 RBC 3.56 L (4.30-5.90) m/uL Hgb 11.3 L (13.0-17.5) gm/dL Hct 36.2 L (39.0-53.0) % MCV 101.6 H (80.0-100.0) fL Plt Count 107 L (150-450) k/uL Potassium 5.4 H (3.5-5.1) mmol/L BUN 74 H (9-20) mg/dL Creatinine 1.81 H (0.66-1.25) mg/dL Glucose 194 H (74-99) mg/dL POC Glucose (mg/dL) 181 H (75-99) mg/dL Alkaline Phosphatase 163 H (38-126) U/L Total Protein 5.6 L (6.3-8.2) g/dL Albumin 3.2 L (3.5-5.0) g/dL 03/12/21 Range/Units 11:41 RBC (4.30-5.90) m/uL Hgb (13.0-17.5) gm/dL Hct (39.0-53.0) % MCV (80.0-100.0) fL Plt Count (150-450) k/uL Potassium (3.5-5.1) mmol/L BUN (9-20) mg/dL Creatinine (0.66-1.25) mg/dL Glucose (74-99) mg/dL POC Glucose (mg/dL) 167 H (75-99) mg/dL Alkaline Phosphatase (38-126) U/L Total Protein (6.3-8.2) g/dL Albumin (3.5-5.0) g/dL Assessment and Plan (1) Defibrillator discharge Current Visit: Yes Status: Acute Code(s): Z45.02 - ENCNTR FOR ADJUST AND MGMT OF AUTOMATIC IMPLNTBL CARD DEFIB SNOMED Code(s): 584641278 (2) Femur fracture Current Visit: Yes Status: Acute Code(s): S72.90XA - UNSP FRACTURE OF UNSP FEMUR, INIT ENCNTR FOR CLOSED FRACTURE SNOMED Code(s): 46678025 (3) At risk for readmission to hospital Current Visit: No Status: Acute Code(s): Z91.89 - OTH PERSONAL RISK FACTORS, NOT ELSEWHERE CLASSIFIED SNOMED Code(s): 3087863883055 (4) CKD (chronic kidney disease) Current Visit: No Status: Acute Code(s): N18.9 - CHRONIC KIDNEY DISEASE, UNSPECIFIED SNOMED Code(s): 070944247 (5) Congestive cardiomyopathy Current Visit: No Status: Acute Code(s): I42.0 - DILATED CARDIOMYOPATHY SNOMED Code(s): 744948005 (6) Dehydration, moderate Current Visit: No Status: Acute Code(s): E86.0 - DEHYDRATION SNOMED Code(s): 0737795644627 Plan: Stabilized from a cardiac dysrhythmia perspective. ID order and has been started. Once cleared from a cardiology perspective, femoral fracture repair. Sliding scale. Pain control. We will continue to follow. Anticipate transfer Once authorized by insurance
[2021-03-12 15:45] LABS: Chol/HDL Ratio 2.84 Ratio; LDL Cholesterol,Calculated 51.4 mg/dL (0.0-131.0)
[2021-03-12 16:37] LABS: Glucose,Whole Blood 214 mg/dL (75-99)
--- NOTE | 2021-03-12 19:20 | P.PN ---
Progress Note - Text Progress Note Date: 03/12/21 Mr. Castellanos is currently admitted to and awaiting transfer to either [facility] or another higher level facility. The family has refused to have surgery here and it's documented MULTIPLE places in the chart that they do not want me to perform surgery and that they do not want any procedure done at our facility. It is also documented that the strategic debriefing specialist from [place], Dr. Arias, has stated that the patient should not have his surgery at our facility. The patient's and the patient are still adamant that they do not want their procedure here and are willing to wait until a transfer can be arranged. They have told nursing that they have had several "botched" procedures here and do not want any surgery at our facility. The patient's daughter, Randi Castellanos, is a health care senior linux systems administrator in [place]. She spoke to the patient's nurse this evening and stated that she had told her parents not to have surgery here. She told the patient's nurse that she reviewed my credentials and doesn't want me to perform his surgery as she feels I'm not qualified and that they need an orthopaedic trauma surgeon to perform his surgery. As documented in my note from Wednesday, I think it is in the patient's best interest to transfer. In addition to this, the family has made it abundantly clear as documented in the chart MULTIPLE places, that they don't want the surgery performed here or by me. Given all this, particularly that the daughter has questioned my qualifications I feel that I cannot provide care for this patient. I would recommend transfer to a facility with an orthopaedic trauma surgeon per the families wishes. According to the patient's nurse, the family is aware of the potential risks in waiting.
[2021-03-12 20:56] LABS: Glucose,Whole Blood 279 mg/dL (75-99)
[2021-03-12] MEDS: INSULIN ASPART (NovoLOG) 100 UNIT/ML VIAL SQ SCH (21:01)
[2021-03-12] MEDS: allopurinoL 100 MG TAB PO SCH (21:02)
[2021-03-12] MEDS: ESCITALOPRAM 20 MG TAB PO SCH (21:02)
[2021-03-12] MEDS: INSULIN DETEMIR (LEVEMIR) 100 UNIT/ML SYR SQ SCH (21:04)
[2021-03-13 06:20] LABS: Glucose,Whole Blood 176 mg/dL (75-99)
[2021-03-13] MEDS: MIDODRINE 5 MG TAB PO SCH ×2 (06:43→17:10)
[2021-03-13] MEDS: carvediloL 12.5 MG TAB PO SCH ×2 (06:43→17:10)
[2021-03-13] MEDS: HYDROmorphone 1 MG/ML 1 ML SYRINGE IVP PRN ×2 (06:44→18:43)
[2021-03-13] MEDS: INSULIN ASPART (NovoLOG) 100 UNIT/ML VIAL SQ SCH ×4 (06:45→21:46)
[2021-03-13 08:27] LABS: HCT 36.8 % (39.0-53.0); HGB 11.3 gm/dL (13.0-17.5); Hypochromasia Marked; MCH 31.2 pg (25.0-35.0); MCHC 30.8 g/dL (31.0-37.0); MCV 101.3 fL (80.0-100.0); Macrocytosis Slight; Mean Platelet Volume 9.6; Platelet Count 111 k/uL (150-450); RBC 3.64 m/uL (4.30-5.90); RDW 14.3 % (11.5-15.5); WBC 10.7 k/uL (3.8-10.6)
[2021-03-13 08:43] LABS: Calcium 8.3 mg/dL (8.4-10.2); Potassium 5.3 mmol/L (3.5-5.1); Total Bilirubin 1.1 mg/dL (0.2-1.3); Total Protein 5.7 g/dL (6.3-8.2)
[2021-03-13 08:50] VITALS: RESP 20
[2021-03-13] MEDS: ASPIRIN 81 MG PO SCH (08:57)
[2021-03-13] MEDS: FERROUS SULFATE 325 MG TAB PO SCH (08:57)
[2021-03-13] MEDS: ATORVASTATIN 40 MG TAB PO SCH (08:57)
[2021-03-13] MEDS: LORATADINE 10 MG TAB PO SCH (08:57)
[2021-03-13] MEDS: guaiFENesin 600 MG TABLET.ER PO SCH ×2 (08:57→21:47)
[2021-03-13] MEDS: AMIODARONE 200 MG TAB PO SCH ×2 (08:57→21:47)
[2021-03-13] MEDS: HEPARIN SODIUM,PORCINE/PF 5,000 UNIT/0.5 ML SYRINGE SQ SCH ×2 (08:58→21:48)
[2021-03-13] MEDS: SACUBITRIL/VALSARTAN 24 MG-26 MG TABLET PO SCH (08:58)
[2021-03-13 11:00] LABS: Glucose,Whole Blood 187 mg/dL (75-99)
--- NOTE | 2021-03-13 11:54 | PN ---
PROGRESS NOTE Mr. Castellanos is a 75-year-old male with a history of coronary artery disease, ischemic cardiomyopathy, status post ICD implantation, history of chronic persistent atrial fibrillation, who presented with recurrent discharge from his device. At the same time he had a fractured left femur. He was started on IV amiodarone and switched yesterday to oral amiodarone. He had no further episodes of tachycardia or discharge from the device. He has been evaluated to be transferred to another hospital to be with his primary formstone fitter and hotel reservation agent. He is feeling well this morning. He is denying any chest pain. He denies any dizziness or palpitations. He had worsening renal function yesterday. He continues to be on amiodarone 400 mg twice a day, Coreg 12.5 mg twice a day, Jardiance, insulin, midodrine 10 mg twice a day and Entresto half tablet twice a day. PHYSICAL EXAMINATION: Blood pressure running in the 100s with a heart rate in the 70s. Lungs clear. Heart: Irregularly irregular. S1, S2. No S3. Systolic murmur, ejection fraction type, 2/6. No diastolic murmur. No rub. Abdomen soft, non-tender. Extremities with immobilizer on the left lower extremity. LAB DATA: BUN and creatinine of 82 and 1.96, which is slightly elevated compared to yesterday. Potassium 5.3, hemoglobin of 11.3. IMPRESSION: 1. Recurrent discharge from the ICD with recurrent ventricular tachycardia. 2. History of ischemic cardiomyopathy. 3. Chronic persistent atrial fibrillation. 4. Fracture of the left femur. 5. Worsening renal function with acute kidney injury, probably related to the hypotension that occurred at the time of the discharges of the device and the cardiomyopathy. 6. History of hyperlipidemia. RECOMMENDATIONS: I will hold the Entresto at this time. Will await the transfer. I will review the results of his echocardiogram. MMODL / IJN: [id number] / MTDD
[2021-03-13] MEDS: SODIUM CHLORIDE 0.9% 1,000 ML IV SCH (12:44)
--- NOTE | 2021-03-13 13:34 | P.CNOR ---
History of Present Illness - [facility] Consult date: 03/13/21 History of present illness: The patient is a very pleasant 75 year old male who has multiple medical problems. He has been having issues with his defibrillator spontaneously discharging. He is under the care of Dr. Arias at [facility]. This past Wednesday his defibrillator discharged causing him to call. He came into our ED and was found to have a periprosthetic femur fracture. We initially planned to admit the patient, but then the family requested transfer. It was documented in the chart that they did not want surgery. Their cyber systems engineer also recommended not having surgery here. Due to the covid-19 pandemic, we were unable to transfer the patient due to lack of beds at other facilities. The patient was admitted to the floor for medical management while arrangements were made to transfer. The patient was seen today to inform him that we are in the process of transferring to [facility]. He has no complaints at the time of my evaluation. 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 Last Myocardial Infarction Date:: 11/2002 History of Any Multi-Drug Resistant Organisms: None Reported Past Surgical History: Adenoidectomy, AICD, Coronary Bypass/CABG, Heart Catheterization, Heart Catheterization With Stent, Hernia Repair, Joint Replacement, Orthopedic Surgery, Tonsillectomy Additional Past Surgical History / Comment(s): AICDs x 4with last change 06/10/20, watchman's device, 2000 CABG 3 vessel, L foot hammer toe surgery, bilateral total knee replacements with L side done twice, UVPPP, skin cancer removals, vasectomy, bilateral cataract removals, multiple bilateral eye laser surgery and eye injections. Past Anesthesia/Blood Transfusion Reactions: Previous Problems w/ Anesthesia Additional Past Anesthesia/Blood Transfusion Reaction / Comm: "longer to come out" Date of Last Stent Placement:: 11/2002 Type of Cardiac Device: AICD Device Placement Date:: last 01/21/14 Smoking Status: Former smoker - Past Family History Father Family Medical History: Cancer, Diabetes Mellitus Additional Family Medical History / Comment(s): OF HEART DX Mother Family Medical History: Cancer Additional Family Medical History / Comment(s): Colon cancer, lung cancer, esophageal cancer. Medications and Allergies Home Medications Medication Instructions Recorded Confirmed Type Carvedilol [Coreg] 25 mg PO BID 02/26/14 03/10/21 History Colchicine [Colcrys] 0.6 mg PO MOWEFR 02/26/14 03/10/21 History INSULIN ASPART (NovoLOG) [NovoLOG 5 unit SQ AC-BRKFST 02/26/14 03/10/21 History (formulary)] Insulin Detemir (Levemir) [Levemir] 20 unit SQ HS 02/26/14 03/10/21 History Sacubitril/Valsartan [Entresto 24 1 tab PO BID 12/17/16 03/10/21 History mg-26 mg Tablet] Bumetanide [BUMEX] 1 - 2 mg PO DAILY 01/24/18 03/10/21 History Escitalopram [Lexapro] 20 mg PO HS 01/24/18 03/10/21 History ALPRAZolam [Xanax] 0.5 mg PO HS 09/06/20 03/10/21 History INSULIN ASPART (NovoLOG) [NovoLOG 3 - 5 unit SQ AC-SUPPER 09/06/20 03/10/21 History (formulary)] INSULIN ASPART (NovoLOG) [NovoLOG 3 - 5 units SQ AC-LUNCH 09/06/20 03/10/21 History (formulary)] ALPRAZolam [Xanax] 0.5 mg PO BID PRN #60 tab 09/10/20 03/10/21 Rx Hydrocodone/Acetaminophen [Satin 1 tab PO Q6H PRN #120 tab 09/10/20 03/10/21 Rx 7.5-325] Amiodarone [Cordarone] See Taper PO DIRECTED 03/10/21 03/10/21 History Cetirizine HCl 10 mg PO DAILY 03/10/21 03/10/21 History Empagliflozin [Jardiance] 10 mg PO DAILY 03/10/21 03/10/21 History Febuxostat [Uloric] 80 mg PO HS 03/10/21 03/10/21 History Ferrous Sulfate [Iron (65 MG 325 mg PO DAILY 03/10/21 03/10/21 History Elemental)] Midodrine HCl [ProAmatine] 10 mg PO BID 03/10/21 03/10/21 History Simvastatin 10 mg PO DAILY 03/10/21 03/10/21 History guaiFENesin [Mucinex] 600 mg PO BID 03/10/21 03/10/21 History Allergies Allergy/AdvReac Type Severity Reaction Status Date / Time lorazepam [From Ativan] Allergy combative Verified 03/10/21 22:06 and elevated BP prochlorperazine edisylate Allergy combative Verified 03/10/21 22:06 [From Compazine] prochlorperazine maleate Allergy combative Verified 03/10/21 22:06 [From Compazine] Physical Examination The patient is resting comfortably in bed. He is in no apparent distress. He is alert and able to answer questions. There is a knee immobilizer on his right knee. This was taken down. There are no open wounds or areas of impending skin break down. His thigh is soft. There is a soft dressing over his ankle and toes. There is no pain with PROM of the toes. Results X-rays of the right knee show a displaced periprosthetic femur fracture. - Labs Labs: Abnormal Lab Results - Last 24 Hours (Table) 03/12/21 03/12/21 03/12/21 Range/Units 05:13 16:36 20:50 WBC (3.8-10.6) k/uL RBC (4.30-5.90) m/uL Hgb (13.0-17.5) gm/dL Hct (39.0-53.0) % MCV (80.0-100.0) fL MCHC (31.0-37.0) g/dL Plt Count (150-450) k/uL Sodium (137-145) mmol/L Potassium (3.5-5.1) mmol/L BUN (9-20) mg/dL Creatinine (0.66-1.25) mg/dL Glucose (74-99) mg/dL POC Glucose (mg/dL) 214 H 279 H (75-99) mg/dL Calcium (8.4-10.2) mg/dL Alkaline Phosphatase (38-126) U/L Total Protein (6.3-8.2) g/dL Albumin (3.5-5.0) g/dL HDL Cholesterol 37.30 L (40.00-60.00) mg/dL 03/13/21 03/13/21 03/13/21 Range/Units 06:18 08:07 08:07 WBC 10.7 H (3.8-10.6) k/uL RBC 3.64 L (4.30-5.90) m/uL Hgb 11.3 L (13.0-17.5) gm/dL Hct 36.8 L (39.0-53.0) % MCV 101.3 H (80.0-100.0) fL MCHC 30.8 L (31.0-37.0) g/dL Plt Count 111 L (150-450) k/uL Sodium 136 L (137-145) mmol/L Potassium 5.3 H (3.5-5.1) mmol/L BUN 82 H (9-20) mg/dL Creatinine 1.96 H (0.66-1.25) mg/dL Glucose 191 H (74-99) mg/dL POC Glucose (mg/dL) 176 H (75-99) mg/dL Calcium 8.3 L (8.4-10.2) mg/dL Alkaline Phosphatase 150 H (38-126) U/L Total Protein 5.7 L (6.3-8.2) g/dL Albumin 3.0 L (3.5-5.0) g/dL HDL Cholesterol (40.00-60.00) mg/dL 03/13/21 Range/Units 10:59 WBC (3.8-10.6) k/uL RBC (4.30-5.90) m/uL Hgb (13.0-17.5) gm/dL Hct (39.0-53.0) % MCV (80.0-100.0) fL MCHC (31.0-37.0) g/dL Plt Count (150-450) k/uL Sodium (137-145) mmol/L Potassium (3.5-5.1) mmol/L BUN (9-20) mg/dL Creatinine (0.66-1.25) mg/dL Glucose (74-99) mg/dL POC Glucose (mg/dL) 187 H (75-99) mg/dL Calcium (8.4-10.2) mg/dL Alkaline Phosphatase (38-126) U/L Total Protein (6.3-8.2) g/dL Albumin (3.5-5.0) g/dL HDL Cholesterol (40.00-60.00) mg/dL H & H 03/10/21 03/12/21 03/13/21 Range/Units 20:46 05:13 08:07 Hgb 12.3 L 11.3 L 11.3 L (13.0-17.5) gm/dL Hct 38.7 L 36.2 L 36.8 L (39.0-53.0) % Coagulation 03/10/21 Range/Units 20:46 INR 1.1 (<1.2) Result Diagrams: 03/13/21 08:07 03/13/21 08:07 Assessment and Plan Assessment: 75 year old male with multiple medical problems including heard disease and a defibrillator that has been spontaneously firing causing a fall resulting in a displaced right periprosthetic distal femur fracture. Plan: I was asked to formally see the patient by Dr. Beck to help facilitate discharge. It has been documented in the chart up to this point that the family has refused surgery from me. They have requested transfer since he came into the hospital on Wednesday. Their daughter, Randi Castellanos, a health care it application administrator in [place] has refused surgery here requesting surgery from an orthopaedic trauma surgeon. Their cyber systems engineer, Dr. Arias, from [facility] also recommended to the family not to have surgery at our facility. We have been working since early Wednesday to facilitate transfer, but due to the Covid-19 pandemic, we have had difficulty finding an appropriate level hospital with an open bed. I would continue to recommend transfer to a facility with an orthopaedic trauma surgeon. We are in the process of transferring to [facility] to have care by Dr. Gonzalez, which the family is agreeable. In the interim, he should remain strictly non-weight bearing in a knee immobilizer. He has chronic lower extremity ulcers which are under the management of Dr. Hernandez. I'd recommended continued care from Dr. Hernandez and offloading his heels while in bed with protective boots. The family has refused anti-coagulation. We will hopefully transfer the patient today. I called an spoke with the , Theodora, who is agreeable with this plan. Orthopaedics will sign off. Time with Patient: Greater than 30
[2021-03-13 16:42] LABS: Glucose,Whole Blood 190 mg/dL (75-99)
[2021-03-13 20:18] LABS: Glucose,Whole Blood 174 mg/dL (75-99)
[2021-03-13] MEDS: INSULIN DETEMIR (LEVEMIR) 100 UNIT/ML SYR SQ SCH (21:46)
[2021-03-13] MEDS: ESCITALOPRAM 20 MG TAB PO SCH (21:47)
[2021-03-13] MEDS: allopurinoL 100 MG TAB PO SCH (21:47)
--- NOTE | 2021-03-13 23:08 | P.PN ---
Subjective Principal diagnosis: AICD Discharge with fall resulting in fracture This is a continue progress note on a 75-year-old white male with underlying history of cardiopathy. Multiple AICD discharge with history of coronary bypass graft and PCI remotely. Poor ejection fraction is noted. Due to his complexity, we are awaiting transfer To tertiary care center Objective - Vital Signs Vital signs: Vital Signs Temp 98.4 F 03/13/21 16:29 Pulse 74 03/13/21 16:29 Resp 20 03/13/21 16:29 BP 108/49 03/13/21 16:29 Pulse Ox 97 03/13/21 16:29 Intake & Output 03/13/21 03/13/21 03/14/21 06:59 18:59 06:59 Intake Total 670 Output Total 175 350 Balance -175 320 Weight 114 kg Intake: Intake, IV Titration 600 Amount Sodium Chloride 0.9% 1, 600 000 ml @ 75 mls/hr IV . [id number] [facility] Rx#:[id number] Oral 70 Output: Urine 175 350 Stool 0 Other: Voiding Method Indwelling Catheter Indwelling Catheter - Constitutional General appearance: Present: no acute distress - EENT Eyes: Absent: abnormal pupil - Neck Neck: Absent: lymphadenopathy - Respiratory Respiratory: bilateral: diminished - Cardiovascular Rhythm: regular Heart sounds: normal: S1, S2 - Gastrointestinal General gastrointestinal: Present: soft. Absent: tenderness - Integumentary Integumentary: Absent: cellulitis - Labs CBC & Chem 7: 03/13/21 08:07 03/13/21 08:07 Labs: Abnormal Lab Results - Last 24 Hours (Table) 03/13/21 03/13/21 03/13/21 Range/Units 06:18 08:07 08:07 WBC (3.8-10.6) k/uL RBC (4.30-5.90) m/uL Hgb (13.0-17.5) gm/dL Hct (39.0-53.0) % MCV (80.0-100.0) fL MCHC (31.0-37.0) g/dL Plt Count (150-450) k/uL Sodium 136 L (137-145) mmol/L Potassium 5.3 H (3.5-5.1) mmol/L BUN 82 H (9-20) mg/dL Creatinine 1.96 H (0.66-1.25) mg/dL Glucose 191 H (74-99) mg/dL POC Glucose (mg/dL) 176 H (75-99) mg/dL Hemoglobin A1c 6.8 H (4.0-6.0) % Calcium 8.3 L (8.4-10.2) mg/dL Alkaline Phosphatase 150 H (38-126) U/L Total Protein 5.7 L (6.3-8.2) g/dL Albumin 3.0 L (3.5-5.0) g/dL 03/13/21 03/13/21 03/13/21 Range/Units 08:07 10:59 16:40 WBC 10.7 H (3.8-10.6) k/uL RBC 3.64 L (4.30-5.90) m/uL Hgb 11.3 L (13.0-17.5) gm/dL Hct 36.8 L (39.0-53.0) % MCV 101.3 H (80.0-100.0) fL MCHC 30.8 L (31.0-37.0) g/dL Plt Count 111 L (150-450) k/uL Sodium (137-145) mmol/L Potassium (3.5-5.1) mmol/L BUN (9-20) mg/dL Creatinine (0.66-1.25) mg/dL Glucose (74-99) mg/dL POC Glucose (mg/dL) 187 H 190 H (75-99) mg/dL Hemoglobin A1c (4.0-6.0) % Calcium (8.4-10.2) mg/dL Alkaline Phosphatase (38-126) U/L Total Protein (6.3-8.2) g/dL Albumin (3.5-5.0) g/dL 03/13/21 Range/Units 20:16 WBC (3.8-10.6) k/uL RBC (4.30-5.90) m/uL Hgb (13.0-17.5) gm/dL Hct (39.0-53.0) % MCV (80.0-100.0) fL MCHC (31.0-37.0) g/dL Plt Count (150-450) k/uL Sodium (137-145) mmol/L Potassium (3.5-5.1) mmol/L BUN (9-20) mg/dL Creatinine (0.66-1.25) mg/dL Glucose (74-99) mg/dL POC Glucose (mg/dL) 174 H (75-99) mg/dL Hemoglobin A1c (4.0-6.0) % Calcium (8.4-10.2) mg/dL Alkaline Phosphatase (38-126) U/L Total Protein (6.3-8.2) g/dL Albumin (3.5-5.0) g/dL Assessment and Plan (1) Defibrillator discharge Current Visit: Yes Status: Acute Code(s): Z45.02 - ENCNTR FOR ADJUST AND MGMT OF AUTOMATIC IMPLNTBL CARD DEFIB SNOMED Code(s): 987597378 (2) Femur fracture Current Visit: Yes Status: Acute Code(s): S72.90XA - UNSP FRACTURE OF UNSP FEMUR, INIT ENCNTR FOR CLOSED FRACTURE SNOMED Code(s): 55211899 (3) At risk for readmission to hospital Current Visit: No Status: Acute Code(s): Z91.89 - OTH PERSONAL RISK FACTORS, NOT ELSEWHERE CLASSIFIED SNOMED Code(s): 9828523538311 (4) CKD (chronic kidney disease) Current Visit: No Status: Acute Code(s): N18.9 - CHRONIC KIDNEY DISEASE, UNSPECIFIED SNOMED Code(s): 510325133 (5) Congestive cardiomyopathy Current Visit: No Status: Acute Code(s): I42.0 - DILATED CARDIOMYOPATHY SNOMED Code(s): 455040569 (6) Dehydration, moderate Current Visit: No Status: Acute Code(s): E86.0 - DEHYDRATION SNOMED Code(s): 1067250065323 Plan: Stabilized from a cardiac dysrhythmia perspective. OR order and has been started. Again, due to his complexity, we are waiting transfer for potential repair. Sliding scale. Pain control. We will continue to follow.
[2021-03-14] MEDS: SODIUM CHLORIDE 0.9% 1,000 ML IV SCH ×2 (00:53→08:15)
[2021-03-14 05:51] LABS: Glucose,Whole Blood 143 mg/dL (75-99)
[2021-03-14] MEDS: HYDROmorphone 1 MG/ML 1 ML SYRINGE IVP PRN (06:08)
[2021-03-14] MEDS: carvediloL 12.5 MG TAB PO SCH (06:19)
[2021-03-14] MEDS: INSULIN ASPART (NovoLOG) 100 UNIT/ML VIAL SQ SCH ×2 (06:19→12:49)
[2021-03-14] MEDS: MIDODRINE 5 MG TAB PO SCH (06:19)
[2021-03-14 08:01] LABS: HCT 35.6 % (39.0-53.0); HGB 11.2 gm/dL (13.0-17.5); Hypochromasia Slight; MCHC 31.4 g/dL (31.0-37.0); MCV 98.9 fL (80.0-100.0); Platelet Count 124 k/uL (150-450); RDW 14.2 % (11.5-15.5); WBC 18.3 k/uL (3.8-10.6)
[2021-03-14 08:11] LABS: Albumin 2.8 g/dL (3.5-5.0); Calcium 8.3 mg/dL (8.4-10.2); Potassium 4.7 mmol/L (3.5-5.1); Total Bilirubin 1.7 mg/dL (0.2-1.3); Total Protein 5.4 g/dL (6.3-8.2)
[2021-03-14] MEDS: COLCHICINE 0.6 MG EACH PO SCH (08:16)
[2021-03-14] MEDS: ASPIRIN 81 MG PO SCH (08:16)
[2021-03-14] MEDS: ATORVASTATIN 40 MG TAB PO SCH (08:16)
[2021-03-14] MEDS: guaiFENesin 600 MG TABLET.ER PO SCH (08:16)
[2021-03-14] MEDS: AMIODARONE 200 MG TAB PO SCH (08:16)
[2021-03-14] MEDS: FERROUS SULFATE 325 MG TAB PO SCH (08:16)
[2021-03-14] MEDS: LORATADINE 10 MG TAB PO SCH (08:16)
[2021-03-14] MEDS: HEPARIN SODIUM,PORCINE/PF 5,000 UNIT/0.5 ML SYRINGE SQ SCH (08:17)
--- NOTE | 2021-03-14 08:29 | P.PN ---
Subjective Principal diagnosis: AICD discharge with femoral fracture This is a continue progress note on a 75-year-old white male with underlying history of cardiopathy. Multiple AICD discharge with history of coronary bypass graft and PCI remotely. Poor ejection fraction is noted. Due to his complexity, we are awaiting transfer To tertiary care center He supposedly has been accepted to [facility]. Pain control is nominal Objective - Vital Signs Vital signs: Vital Signs Temp 98.9 F 03/14/21 04:00 Pulse 70 03/14/21 04:00 Resp 20 03/14/21 04:00 BP 100/51 03/14/21 06:20 Pulse Ox 94 L 03/14/21 07:21 Intake & Output 03/13/21 03/14/21 03/14/21 18:59 06:59 18:59 Intake Total 670 Output Total 350 725 Balance 320 -725 Weight 118 kg Intake: Intake, IV Titration 600 Amount Sodium Chloride 0.9% 1, 600 000 ml @ 75 mls/hr IV . [id number] [facility] Rx#:[id number] Oral 70 Output: Urine 350 725 Stool 0 Other: Voiding Method Indwelling Catheter Indwelling Catheter - Constitutional General appearance: Present: no acute distress - EENT Eyes: Absent: abnormal pupil - Neck Neck: Absent: lymphadenopathy - Respiratory Respiratory: bilateral: CTA - Cardiovascular Rhythm: regular Heart sounds: normal: S1, S2 Abnormal Heart Sounds: Absent: S3 Gallop - Gastrointestinal General gastrointestinal: Present: soft. Absent: tenderness - Integumentary Integumentary: Absent: cellulitis - Labs CBC & Chem 7: 03/14/21 07:31 03/14/21 07:31 Labs: Abnormal Lab Results - Last 24 Hours (Table) 03/13/21 03/13/21 03/13/21 Range/Units 08:07 08:07 08:07 WBC 10.7 H (3.8-10.6) k/uL RBC 3.64 L (4.30-5.90) m/uL Hgb 11.3 L (13.0-17.5) gm/dL Hct 36.8 L (39.0-53.0) % MCV 101.3 H (80.0-100.0) fL MCHC 30.8 L (31.0-37.0) g/dL Plt Count 111 L (150-450) k/uL Sodium 136 L (137-145) mmol/L Potassium 5.3 H (3.5-5.1) mmol/L Carbon Dioxide (22-30) mmol/L BUN 82 H (9-20) mg/dL Creatinine 1.96 H (0.66-1.25) mg/dL Glucose 191 H (74-99) mg/dL POC Glucose (mg/dL) (75-99) mg/dL Hemoglobin A1c 6.8 H (4.0-6.0) % Calcium 8.3 L (8.4-10.2) mg/dL Total Bilirubin (0.2-1.3) mg/dL Alkaline Phosphatase 150 H (38-126) U/L Total Protein 5.7 L (6.3-8.2) g/dL Albumin 3.0 L (3.5-5.0) g/dL 03/13/21 03/13/21 03/13/21 Range/Units 10:59 16:40 20:16 WBC (3.8-10.6) k/uL RBC (4.30-5.90) m/uL Hgb (13.0-17.5) gm/dL Hct (39.0-53.0) % MCV (80.0-100.0) fL MCHC (31.0-37.0) g/dL Plt Count (150-450) k/uL Sodium (137-145) mmol/L Potassium (3.5-5.1) mmol/L Carbon Dioxide (22-30) mmol/L BUN (9-20) mg/dL Creatinine (0.66-1.25) mg/dL Glucose (74-99) mg/dL POC Glucose (mg/dL) 187 H 190 H 174 H (75-99) mg/dL Hemoglobin A1c (4.0-6.0) % Calcium (8.4-10.2) mg/dL Total Bilirubin (0.2-1.3) mg/dL Alkaline Phosphatase (38-126) U/L Total Protein (6.3-8.2) g/dL Albumin (3.5-5.0) g/dL 03/14/21 03/14/21 03/14/21 Range/Units 05:50 07:31 07:31 WBC 18.3 H (3.8-10.6) k/uL RBC 3.60 L (4.30-5.90) m/uL Hgb 11.2 L (13.0-17.5) gm/dL Hct 35.6 L (39.0-53.0) % MCV (80.0-100.0) fL MCHC (31.0-37.0) g/dL Plt Count 124 L (150-450) k/uL Sodium 136 L (137-145) mmol/L Potassium (3.5-5.1) mmol/L Carbon Dioxide 21 L (22-30) mmol/L BUN 84 H (9-20) mg/dL Creatinine 1.68 H (0.66-1.25) mg/dL Glucose 158 H (74-99) mg/dL POC Glucose (mg/dL) 143 H (75-99) mg/dL Hemoglobin A1c (4.0-6.0) % Calcium 8.3 L (8.4-10.2) mg/dL Total Bilirubin 1.7 H (0.2-1.3) mg/dL Alkaline Phosphatase 176 H (38-126) U/L Total Protein 5.4 L (6.3-8.2) g/dL Albumin 2.8 L (3.5-5.0) g/dL Assessment and Plan (1) Defibrillator discharge Current Visit: Yes Status: Acute Code(s): Z45.02 - ENCNTR FOR ADJUST AND MGMT OF AUTOMATIC IMPLNTBL CARD DEFIB SNOMED Code(s): 979484155 (2) Femur fracture Current Visit: Yes Status: Acute Code(s): S72.90XA - UNSP FRACTURE OF UNSP FEMUR, INIT ENCNTR FOR CLOSED FRACTURE SNOMED Code(s): 15523175 (3) At risk for readmission to hospital Current Visit: No Status: Acute Code(s): Z91.89 - OTH PERSONAL RISK FACTORS, NOT ELSEWHERE CLASSIFIED SNOMED Code(s): 6279740618779 (4) CKD (chronic kidney disease) Current Visit: No Status: Acute Code(s): N18.9 - CHRONIC KIDNEY DISEASE, UNSPECIFIED SNOMED Code(s): 276902576 (5) Congestive cardiomyopathy Current Visit: No Status: Acute Code(s): I42.0 - DILATED CARDIOMYOPATHY SNOMED Code(s): 787298547 (6) Dehydration, moderate Current Visit: No Status: Acute Code(s): E86.0 - DEHYDRATION SNOMED Code(s): 1421779645182 Plan: Stabilized from a cardiac dysrhythmia perspective. Again, due to his complexity, we are waiting transfer for potential repair. Sliding scale. Pain control. We will continue to follow. Anticipate discharge once bed available [facility].
--- NOTE | 2021-03-14 08:59 | ECHOF ---
Referral Reason:LV function MEASUREMENTS -------- HEIGHT: 182.9 cm WEIGHT: 100.2 kg BP: 95/43 RVIDd: 3.6 cm (< 3.3) IVSd: 1.4 cm (0.6 - 1.1) LVIDd: 5.4 cm (3.9 - 5.3) LVPWd: 1.4 cm (0.6 - 1.1) IVSs: 1.7 cm LVIDs: 4.5 cm LVPWs: 1.6 cm LA Diam: 5.0 cm (2.7 - 3.8) Ao Diam: 3.6 cm (2.0 - 3.7) AV Cusp: 1.8 cm (1.5 - 2.6) MV EXCURSION: 17.354 mm (> 18.000) MV EF SLOPE: 89 mm/s (70 - 150) EPSS: 1.4 cm RAP: 15.00 mmHg RVSP: 54.19 mmHg FINDINGS -------- Paced rhythm. This was a technically difficult study with suboptimal apical views. 3 ml of lumason used The left ventricular size is normal. There is moderate concentric left ventricular hypertrophy. O verall left ventricular systolic function is moderate-severely impaired with, an EF between 30 - 35 % . The right ventricle is mildly enlarged. The left atrium is moderately dilated. The right atrium is normal in size. Interatrial and interventricular septum intact. There is mild aortic valve sclerosis. The mitral valve leaflets are mildly thickened. Mild mitral annular calcification present. There is trace to mild mitral regurgitation. Moderate tricuspid regurgitation present. There is moderate to severe pulmonary hypertension. The right ventricular systolic pressure, as measured by Doppler, is 54.19mmHg. Moderate pulmonic regurgitation. The aortic root size is normal. The inferior vena cava is dilated with no significant inspiratory collapse which is consistent estima erick right atrial pressure of >15 mmHg. There is no pericardial effusion. CONCLUSIONS -------- 1. 3 ml of lumason used 2. The left ventricular size is normal. 3. There is moderate concentric left ventricular hypertrophy. 4. Overall left ventricular systolic function is moderate-severely impaired with, an EF between 30 - 35 %. 5. The right ventricle is mildly enlarged. 6. The left atrium is moderately dilated. 7. There is mild aortic valve sclerosis. 8. The mitral valve leaflets are mildly thickened. 9. Mild mitral annular calcification present. 10. There is trace to mild mitral regurgitation. 11. Moderate tricuspid regurgitation present. 12. There is moderate to severe pulmonary hypertension. 13. The right ventricular systolic pressure, as measured by Doppler, is 54.19mmHg. 14. Moderate pulmonic regurgitation. 15. The aortic root size is normal. 16. The inferior vena cava is dilated with no significant inspiratory collapse which is consistent es timated right atrial pressure of >15 mmHg. 17. There is no pericardial effusion. BRIDGE OPENER: Aspen Morin RDCS
--- NOTE | 2021-03-14 09:13 | PN ---
PROGRESS NOTE Mr. Castellanos is a 75-year-old male with known history of coronary artery disease, ischemic cardiomyopathy, status post coronary artery bypass grafting percutaneous revascularization, history of atrial fibrillation and an AICD implantation, who presented with recurrent ventricular tachycardia and discharge from the device. He had after the last shock a fall and fracture of the left femur. The patient appears to have a VT storm. He was seen by the orthopedic service and by Dr. Gonzalez and because of his family's request, the plan is transfer to another facility to undergo surgery. He has not had any further episode of ventricular tachycardia. He is on oral amiodarone. He denies any chest pain. No dizziness. No palpitations. His breathing is stable. He denies any nausea or vomiting. He continues to be on amiodarone 40 mg twice a day, aspirin once a day, Lipitor 40 mg daily, Coreg 12.5 mg twice a day, Jardiance 10 mg daily, insulin, midodrine 10 mg twice a day. His Entresto was on hold because of worsening renal function. PHYSICAL EXAMINATION: Today blood pressure 100/50 with a heart rate in the 60s. Lungs: Clear. Heart: Regular rate and rhythm S1, S2. No S3. No rub appreciated, with a systolic ejection murmur 2/6 early to mid peaking. No diastolic murmur. Abdomen: Soft, nontender. Extremities: Cast on the left lower extremity. LAB DATA: BUN and creatinine of 84 and 0.68, which has improved compared to yesterday. His potassium 4.7, hemoglobin of 11.2. IMPRESSION: 1. Recurrent ventricular tachycardia with evidence suggestive of VT storm, stable at this time on amiodarone. No evidence to suggest acute ischemic event. 2. Fall and fracture of the left femur, being evaluated for surgical intervention. 3. Status post coronary artery bypass grafting and PCI in the past. 4. Atrial fibrillation with 100% pacing. 5. Status post ICD implantation. 6. Ischemic cardiomyopathy. 7. Renal failure improving related to the shock and the hypertension. RECOMMENDATIONS: From the cardiac standpoint, I will continue to hold Entresto until his renal function stabilizes. Hopefully, we can re-initiate that soon. The patient is being scheduled to undergo transfer to [facility] today and he will be followed by his primary dinkey engine operator there. MMODL / IJN: [id number] /
[2021-03-14 10:45] VITALS: BP 104/56; PULSE 71; TEMP 98.8
[2021-03-14 11:49] LABS: Glucose,Whole Blood 148 mg/dL (75-99)
--- NOTE | 2021-03-14 12:43 | CDI ---
Documentation Clarification Form Date: 03/14/2021 12:28:06 PM From: Rekha Campoverde CCS, CCDS Admit Date: 03/11/2021 09:02:00 AM Patient Name: Jaswinder Castellanos Visit Number: [id number] Discharge Date: ATTENTION: The Clinical Documentation Specialists (CDI) and [facility] Coding Staff appreciate your assistance in clarifying documentation. Please respond to the clarification below the line at the bottom and electronically sign. The CDI & [facility] Coding staff will review the response and follow-up if needed. Please note: Queries are made part of the Legal Health Record. If you have any questions, please contact the author of this message via ITS. Dr. Al Harper: Unspecified CKD is documented is documented in the 03/11 History and Physical and in subsequent Attending Physician Progress Notes. Additional clarification regarding the stage of CKD is requested. History/Risk Factors per the 03/11 H/P: Cardiomyopathy with AICD. 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 Clinical Indicators: Presented to the ED on 03/10 via EMS with multiple episodes of ventricular tachycardia and discharges from his AICD, SOB, dizziness, fall. Admitted with Left Femoral Fracture and Defibrillator Discharge BUN: 03/10: 70. 03/12: 74. 03/13: 82. 03/14: 84 Creatinine: 03/10: 1.19. 03/12: 1.81. 03/13: 1.96. 03/14: 1.68 GFR: 03/10: 60. 03/12: 36. 03/13: 33. 03/14: 40. Historical GFR: 03/08/2017: 46, 56. Treatment 03/10 & 03/11: Glucose monitoring, Telemetry, Device Interrogation, O2 2Lnc, IV Amiodarone drip, I Dextrose/Water w/Amiodarone x1, IV Dilaudid 0.5 mg x1, IV Dilaudid 1 mg x2, IV Zofran 4 mg x2, po ProAmatine, Nitro sl q5M/prn, IV Amiodarone 250 mls @ 16.667 mls/hr q15H, IV NaCl 1,000 mls @ 75 mls/hr q13H. Consults: Cardiology, Orthopedics Please clarify the stage of the CKD, if known: [ ] CKD Stage 2 (GFR 60-89) [ x ] CKD Stage 3 (GFR 30-59) [ ] Other, please specify [ ] Unable to determine (Template Last revised: April 2020) MTDD
== END 2021-03-14 13:09 | disposition short-term general hospital (02) | DRG 309 ==
LOC: EC 20:00 → 3SCARD 03-11 09:02
PROVIDERS: ADMIT Family Medicine; ATTEND Family Medicine
DX: I47.2 Ventricular tachycardia (principal); S72.401A Unspecified fracture of lower end of right femur, initial encounter for closed fracture; I13.0 Hypertensive heart and chronic kidney disease with heart failure and stage 1 through stage 4 chronic kidney disease, or unspecified chronic kidney disease; I42.0 Dilated cardiomyopathy; I50.22 Chronic systolic (congestive) heart failure; N17.9 Acute kidney failure, unspecified; M97.12XA Periprosthetic fracture around internal prosthetic left knee joint, initial encounter; I25.10 Atherosclerotic heart disease of native coronary artery without angina pectoris; E11.22 Type 2 diabetes mellitus with diabetic chronic kidney disease; E11.319 Type 2 diabetes mellitus with unspecified diabetic retinopathy without macular edema; E11.40 Type 2 diabetes mellitus with diabetic neuropathy, unspecified; E78.5 Hyperlipidemia, unspecified; N18.30 Chronic kidney disease, stage 3 unspecified; E86.0 Dehydration; I48.19 Other persistent atrial fibrillation; I25.2 Old myocardial infarction; I25.5 Ischemic cardiomyopathy; F41.9 Anxiety disorder, unspecified; I95.9 Hypotension, unspecified; M1A.9XX1 Chronic gout, unspecified, with tophus (tophi); R01.1 Cardiac murmur, unspecified; Z79.4 Long term (current) use of insulin; Z45.02 Encounter for adjustment and management of automatic implantable cardiac defibrillator; Z20.822 Contact with and (suspected) exposure to COVID-19; W18.30XA Fall on same level, unspecified, initial encounter; Y92.010 Kitchen of single-family (private) house as the place of occurrence of the external cause; Z96.652 Presence of left artificial knee joint; Z95.810 Presence of automatic (implantable) cardiac defibrillator; Z95.1 Presence of aortocoronary bypass graft; Z95.5 Presence of coronary angioplasty implant and graft; Z98.42 Cataract extraction status, left eye; Z98.41 Cataract extraction status, right eye; Z96.1 Presence of intraocular lens; Z88.8 Allergy status to other drugs, medicaments and biological substances; Z79.899 Other long term (current) drug therapy; Z79.84 Long term (current) use of oral hypoglycemic drugs; Z85.828 Personal history of other malignant neoplasm of skin; Z87.19 Personal history of other diseases of the digestive system; Z85.46 Personal history of malignant neoplasm of prostate; Z87.891 Personal history of nicotine dependence; Z79.82 Long term (current) use of aspirin
CPT/HCPCS: 36415; 70486; 71045; 80053; 80061; 83036; 83735; 84484; 85025; 85027; 85610; 85730; 87635; 93005; 93306; 94760; 96365; 96366; 96375; 96376; 99285

== ENCOUNTER 2021-04-19 05:44 | Emergency (ER) | payer OTHER, MEDICARE ==
[2021-04-19 05:54] VITALS: PULSE 70; RESP 18; TEMP 97.4
[2021-04-19] MEDS ORDERED: SODIUM CHLORIDE 0.9% 500 ML 500 ML IV ONE (06:20)
--- NOTE | 2021-04-19 06:37 | ED ---
General Adult HPI <Camila Soria Eugenia - Last Filed: 04/19/21 12:22> - General Source: patient, EMS Mode of arrival: EMS Limitations: no limitations <Bal Lipscomb - Last Filed: 04/19/21 16:26> - General Chief complaint: Altered Mental Status Stated complaint: Lethargic Time Seen by Provider: 04/19/21 06:00 - History of Present Illness Initial comments: 75-year-old male with a complicated past medical history presents to the emergency room for a chief complaint of confusion. Patient is usually alert and oriented. According to shelter staff patient woke up around 3 AM and seemed more confused than normal. At this time patient denies any complaints and states he doesn't know how he ended up here because he feels well. No fevers at home. Patient does have an indwelling Morrissey catheter. Patient has no other complaints at this time including shortness of breath, chest pain, abdominal pain, nausea or vomiting, headache, or visual changes. (Bal Lipscomb) - Related Data Home Medications Medication Instructions Recorded Confirmed Carvedilol [Coreg] 25 mg PO BID@0800,1600 02/26/14 04/19/21 Sacubitril/Valsartan [Entresto 24 1 tab PO BID@0800,1600 12/17/16 04/19/21 mg-26 mg Tablet] Amiodarone [Cordarone] 200 mg PO DAILY@0800 03/10/21 04/19/21 Febuxostat [Uloric] 40 mg PO DAILY 03/10/21 04/19/21 Midodrine HCl [ProAmatine] 10 mg PO BID 03/10/21 04/19/21 Simvastatin 10 mg PO HS 03/10/21 04/19/21 ALPRAZolam [Xanax] 0.25 mg PO BID PRN 04/19/21 04/19/21 Aspirin 325 mg PO DAILY@0800 04/19/21 04/19/21 Bumetanide [BUMEX] 2 mg PO DAILY 04/19/21 04/19/21 Cholecalciferol [Vitamin D3 (25 25 mcg PO DAILY 04/19/21 04/19/21 Mcg = 1000 Iu)] Colchicine 0.6 mg PO MOWEFR@0800 04/19/21 04/19/21 HYDROcodone/APAP 10-325MG [[place] 1 tab PO Q6H 04/19/21 04/19/21 10-325] Heparin Sodium,Porcine [Heparin 5,000 unit SQ Q12H 04/19/21 04/19/21 Sodium] Insulin Detemir [Levemir Flextouch 20 units SQ HS 04/19/21 04/19/21 Pen] Ondansetron HCl [Zofran] 4 mg PO Q8H PRN 04/19/21 04/19/21 Proheal 30 ml PO BID 04/19/21 04/19/21 Sennosides [Senna] 17.2 mg PO BID@0800,1600 04/19/21 04/19/21 Sodium Zirconium Cyclosilicate 5 gm PO TID 04/19/21 04/19/21 [Lokelma] Triad Paste 1 applic TOPICAL DAILY 04/19/21 04/19/21 polyethylene glycoL 3350 [Miralax] 17 gm PO DAILY@0800 04/19/21 04/19/21 Allergies Allergy/AdvReac Type Severity Reaction Status Date / Time lorazepam [From Ativan] Allergy combative Verified 04/19/21 11:03 and elevated BP prochlorperazine edisylate Allergy combative Verified 04/19/21 11:03 [From Compazine] prochlorperazine maleate Allergy combative Verified 04/19/21 11:03 [From Compazine] Review of Systems ROS Other: All systems not noted in ROS Statement are negative. <Camila Soria A - Last Filed: 04/19/21 12:22> ROS Other: All systems not noted in ROS Statement are negative. <Bal Lipscomb - Last Filed: 04/19/21 16:26> ROS Statement: Those systems with pertinent positive or pertinent negative responses have been documented in the HPI. 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 Last Myocardial Infarction Date:: 11/2002 History of Any Multi-Drug Resistant Organisms: None Reported Past Surgical History: Adenoidectomy, AICD, Coronary Bypass/CABG, Heart Catheterization, Heart Catheterization With Stent, Hernia Repair, Joint Replacement, Orthopedic Surgery, Tonsillectomy Additional Past Surgical History / Comment(s): AICDs x 4with last change 06/10, watchman's device, 2000 CABG 3 vessel, L foot hammer toe surgery, bilateral total knee replacements with L side done twice, UVPPP, skin cancer removals, vasectomy, bilateral cataract removals, multiple bilateral eye laser surgery and eye injections. Past Anesthesia/Blood Transfusion Reactions: Previous Problems w/ Anesthesia Additional Past Anesthesia/Blood Transfusion Reaction / Comment(s): "longer to come out" Date of Last Stent Placement:: 11/2002 Type of Cardiac Device: AICD Device Placement Date:: last 01/21/14 Past Psychological History: Anxiety Smoking Status: Former smoker Past Alcohol Use History: None Reported Past Drug Use History: None Reported - Past Family History Father Family Medical History: Cancer, Diabetes Mellitus Additional Family Medical History / Comment(s): OF HEART DX Mother Family Medical History: Cancer Additional Family Medical History / Comment(s): Colon cancer, lung cancer, esophageal cancer. <Bal Lipscomb P - Last Filed: 04/19/21 16:26> General Exam Limitations: no limitations General appearance: alert, in no apparent distress Head exam: Present: atraumatic Eye exam: Present: normal appearance, PERRL, EOMI. Absent: scleral icterus, conjunctival injection ENT exam: Present: normal exam, mucous membranes moist Neck exam: Present: normal inspection, full ROM. Absent: tenderness Respiratory exam: Present: normal lung sounds bilaterally. Absent: respiratory distress, wheezes Cardiovascular Exam: Present: regular rate, normal rhythm, normal heart sounds GI/Abdominal exam: Present: soft, normal bowel sounds. Absent: distended, tenderness Neurological exam: Present: alert <Ruel,Bal P - Last Filed: 04/19/21 16:26> Course <Camila Soria - Last Filed: 04/19/21 12:22> Vital Signs 04/19/21 04/19/21 04/19/21 05:45 05:54 07:07 Temperature 97.4 F L Pulse Rate 70 70 70 Respiratory 18 18 18 Rate Blood Pressure 112/65 102/54 117/65 O2 Sat by Pulse 97 98 99 Oximetry 04/19/21 04/19/21 04/19/21 08:09 08:30 09:00 Temperature Pulse Rate 70 70 70 Respiratory Rate Blood Pressure 88/57 80/56 O2 Sat by Pulse Oximetry 04/19/21 04/19/21 04/19/21 09:30 10:00 11:00 Temperature Pulse Rate 70 70 70 Respiratory Rate Blood Pressure 78/37 75/44 123/99 O2 Sat by Pulse Oximetry 04/19/21 04/19/21 11:30 12:00 Temperature Pulse Rate 70 70 Respiratory Rate Blood Pressure 123/99 116/64 O2 Sat by Pulse Oximetry - Reevaluation(s) Reevaluation #1: All labs and CT back - family updated - wanting transfer to outside facility - would prefer [facility] as that is where pt can slider is. 04/19/21 11:23 (Camila Soria) Reevaluation #2: Transfer line speaking with hospital [facility] 04/19/21 11:35 (Camila Soria) Reevaluation #3: [facility] accepted - dr. geiger Still attempting device interrogation 04/19/21 12:13 (Camila Soria) Reevaluation #4: 04/19/21 12:[address] mcgowan - ordnance truck installation supervisor EP physician - aware patient will be transferred to [place]. (Camila Soria) EKG Findings - EKG Comments: EKG Findings:: Ventricular paced rhythm, ventricular rate 70, QRS duration 210, QTC 583 <Bal Lipscomb P - Last Filed: 04/19/21 16:26> Procedures - Central Line Placement Right IJ Consent Obtained: emergent situation Patient Placed on Monitor/Pulse Ox: Yes MD Prep: mask, gown, gloves Central Line Prep: Povidone-Iodine 1% Ultrasound Used for Placement: Yes Central Line Lumen Inserted: triple Bloods Obtained for Lab: Yes Central Line Position: good blood return, all ports aspirated, flushed, capped, sutured in place with nylon Dressing Applied: Tegaderm Post Procedure X-Ray: tip of catheter in good position Patient Tolerated Procedure: well, no complications - Intubation Sedative: Etomidate Mg Given: 10 Paralytic: Succinylcholine Mg Given: 50 Laryngoscope: fiber optic video scope Size: 3 ET Tube Size: 8 ET Tube Uncuffed: No Tube Secured Depth (cm): 23 Tube Secured Location: lips Tube Placement Confirmation: visualized tube passing through cords, equal breath sounds bilaterally, confirmation by capnometry Patient Tolerated Procedure: well, no complications <Camila Soria - Last Filed: 04/19/21 12:22> Medical Decision Making - Lab Data Result diagrams: 04/19/21 06:45 04/19/21 06:45 <Camila Soria - Last Filed: 04/19/21 12:22> - Lab Data Result diagrams: 04/19/21 06:45 04/19/21 06:45 <Bal Lipscomb - Last Filed: 04/19/21 16:26> - Medical Decision Making I was called to the patient's room at 7:55 am by the nurse stating that patient had lost pulses. Patient's Morrissey catheter was being changed when he felt as if he couldn't breathe and then suddenly coded. No known defibrillations. I arrived to the room with CPR in progress. Original pulse check demonstrated no palpable pulse. Patient was not on internet sales consultant at that time. CPR continued. He receives 2 doses of epinephrine and 100 mg of lidocaine because of his hi story of recurrent V. fib. We do obtain pulses back after 2 rounds of CPR. At this time the patient is on the internet sales consultant and it does demonstrate a paced rhythm. Patient is intubated with an 8-Telugu ET tube, 23 cm at the lip. I did give the patient 10 mg of etomidate and 50 mg of succinylcholine prior to intubation as he does demonstrate a gag. Blood pressure obtained and 21 lead EKG performed. Patient is moved to trauma bay 1 where central line is placed in the right IJ. Portable chest x-rays are performed which demonstrated appropriate line placement. BNP and lactic acid are ordered. ABG obtained which demonstrates low O2. Patient's title volume increased to 450 from 400 and PEEP increased from 5-8. CT of the chest is ordered. Patient is on levophed drip for low blood pressure and propofol for sedation. Amiodarone drip is ordered for concern for cardiac etiology of the arrest. CT of the chest demonstrates pleural effusions and pulmonary edema. Bilateral rib fractures. No signs of PE. Patient's family is requesting transfer to wear the patients EP physician is. I did contact [facility] who does accept transfer the patient. Spoke with Dr. Geiger. I also spoke with Dr. Mcgowan - ordnance truck installation supervisor for Dr. Arias who is aware the patient is coming to [facility]. (Camila Soria) - Lab Data Lab Results 04/19/21 04/19/21 04/19/21 Range/Units 06:45 06:45 06:45 WBC 6.6 (3.8-10.6) k/uL RBC 3.65 L (4.30-5.90) m/uL Hgb 11.2 L (13.0-17.5) gm/dL Hct 35.7 L (39.0-53.0) % MCV 97.9 (80.0-100.0) fL MCH 30.8 (25.0-35.0) pg MCHC 31.5 (31.0-37.0) g/dL RDW 15.3 (11.5-15.5) % Plt Count 204 (150-450) k/uL MPV 7.6 Neutrophils % 82 % Lymphocytes % 8 % Monocytes % 8 % Eosinophils % 1 % Basophils % 1 % Neutrophils # 5.4 (1.3-7.7) k/uL Lymphocytes # 0.5 L (1.0-4.8) k/uL Monocytes # 0.5 (0-1.0) k/uL Eosinophils # 0.1 (0-0.7) k/uL Basophils # 0.0 (0-0.2) k/uL Hypochromasia Moderate PT 11.7 (9.0-12.0) sec INR 1.1 (<1.2) APTT 24.7 (22.0-30.0) sec Sample Site ABG pH (7.35-7.45) ABG pCO2 (35-45) mmHg ABG pO2 (83-108) mmHg ABG HCO3 (21-25) mmol/L ABG Total CO2 (19-24) mmol/L ABG O2 Saturation (94-97) % ABG Base Excess mmol/L Wesley Test FiO2 % Sodium 138 (137-145) mmol/L Potassium 4.1 (3.5-5.1) mmol/L Chloride 103 (98-107) mmol/L Carbon Dioxide 31 H (22-30) mmol/L Anion Gap 4 mmol/L BUN 62 H (9-20) mg/dL Creatinine 1.52 H (0.66-1.25) mg/dL Est GFR (CKD-EPI)AfAm 52 (>60 ml/min/1.73 sqM) Est GFR (CKD-EPI)NonAf 45 (>60 ml/min/1.73 sqM) Glucose 80 (74-99) mg/dL POC Glucose (mg/dL) (75-99) mg/dL POC Glu Perinatal Instructor ID Plasma Lactic Acid Gilles (0.7-2.0) mmol/L Calcium 8.2 L (8.4-10.2) mg/dL Magnesium (1.6-2.3) mg/dL Total Bilirubin 1.1 (0.2-1.3) mg/dL AST 31 (17-59) U/L ALT 20 (4-49) U/L Alkaline Phosphatase 379 H (38-126) U/L Troponin I (0.000-0.034) ng/mL NT-Pro-B Natriuret Pep pg/mL Total Protein 5.2 L (6.3-8.2) g/dL Albumin 2.6 L (3.5-5.0) g/dL Coronavirus (PCR) (Not Detectd) 04/19/21 04/19/21 04/19/21 Range/Units 06:45 06:45 06:45 WBC (3.8-10.6) k/uL RBC (4.30-5.90) m/uL Hgb (13.0-17.5) gm/dL Hct (39.0-53.0) % MCV (80.0-100.0) fL MCH (25.0-35.0) pg MCHC (31.0-37.0) g/dL RDW (11.5-15.5) % Plt Count (150-450) k/uL MPV Neutrophils % % Lymphocytes % % Monocytes % % Eosinophils % % Basophils % % Neutrophils # (1.3-7.7) k/uL Lymphocytes # (1.0-4.8) k/uL Monocytes # (0-1.0) k/uL Eosinophils # (0-0.7) k/uL Basophils # (0-0.2) k/uL Hypochromasia PT (9.0-12.0) sec INR (<1.2) APTT (22.0-30.0) sec Sample Site ABG pH (7.35-7.45) ABG pCO2 (35-45) mmHg ABG pO2 (83-108) mmHg ABG HCO3 (21-25) mmol/L ABG Total CO2 (19-24) mmol/L ABG O2 Saturation (94-97) % ABG Base Excess mmol/L Wesley Test FiO2 % Sodium (137-145) mmol/L Potassium (3.5-5.1) mmol/L Chloride (98-107) mmol/L Carbon Dioxide (22-30) mmol/L Anion Gap mmol/L BUN (9-20) mg/dL Creatinine (0.66-1.25) mg/dL Est GFR (CKD-EPI)AfAm (>60 ml/min/1.73 sqM) Est GFR (CKD-EPI)NonAf (>60 ml/min/1.73 sqM) Glucose (74-99) mg/dL POC Glucose (mg/dL) (75-99) mg/dL POC Glu Perinatal Instructor ID Plasma Lactic Acid Gilles (0.7-2.0) mmol/L Calcium (8.4-10.2) mg/dL Magnesium 2.1 (1.6-2.3) mg/dL Total Bilirubin (0.2-1.3) mg/dL AST (17-59) U/L ALT (4-49) U/L Alkaline Phosphatase (38-126) U/L Troponin I 0.032 (0.000-0.034) ng/mL NT-Pro-B Natriuret Pep pg/mL Total Protein (6.3-8.2) g/dL Albumin (3.5-5.0) g/dL Coronavirus (PCR) Detected A (Not Detectd) 04/19/21 04/19/21 04/19/21 Range/Units 09:03 09:12 09:36 WBC (3.8-10.6) k/uL RBC (4.30-5.90) m/uL Hgb (13.0-17.5) gm/dL Hct (39.0-53.0) % MCV (80.0-100.0) fL MCH (25.0-35.0) pg MCHC (31.0-37.0) g/dL RDW (11.5-15.5) % Plt Count (150-450) k/uL MPV Neutrophils % % Lymphocytes % % Monocytes % % Eosinophils % % Basophils % % Neutrophils # (1.3-7.7) k/uL Lymphocytes # (1.0-4.8) k/uL Monocytes # (0-1.0) k/uL Eosinophils # (0-0.7) k/uL Basophils # (0-0.2) k/uL Hypochromasia PT (9.0-12.0) sec INR (<1.2) APTT (22.0-30.0) sec Sample Site Right Brachial ABG pH 7.31 L (7.35-7.45) ABG pCO2 61 H (35-45) mmHg ABG pO2 30 L* (83-108) mmHg ABG HCO3 30 H (21-25) mmol/L ABG Total CO2 32 H (19-24) mmol/L ABG O2 Saturation 49.5 L (94-97) % ABG Base Excess 3.9 mmol/L Wesley Test Yes FiO2 100 % Sodium (137-145) mmol/L Potassium (3.5-5.1) mmol/L Chloride (98-107) mmol/L Carbon Dioxide (22-30) mmol/L Anion Gap mmol/L BUN (9-20) mg/dL Creatinine (0.66-1.25) mg/dL Est GFR (CKD-EPI)AfAm (>60 ml/min/1.73 sqM) Est GFR (CKD-EPI)NonAf (>60 ml/min/1.73 sqM) Glucose (74-99) mg/dL POC Glucose (mg/dL) 75 (75-99) mg/dL POC Glu Perinatal Instructor ID Chelsea Corcoran Plasma Lactic Acid Gilles 1.1 (0.7-2.0) mmol/L Calcium (8.4-10.2) mg/dL Magnesium (1.6-2.3) mg/dL Total Bilirubin (0.2-1.3) mg/dL AST (17-59) U/L ALT (4-49) U/L Alkaline Phosphatase (38-126) U/L Troponin I (0.000-0.034) ng/mL NT-Pro-B Natriuret Pep pg/mL Total Protein (6.3-8.2) g/dL Albumin (3.5-5.0) g/dL Coronavirus (PCR) (Not Detectd) 04/19/21 04/19/21 Range/Units 09:36 13:10 WBC (3.8-10.6) k/uL RBC (4.30-5.90) m/uL Hgb (13.0-17.5) gm/dL Hct (39.0-53.0) % MCV (80.0-100.0) fL MCH (25.0-35.0) pg MCHC (31.0-37.0) g/dL RDW (11.5-15.5) % Plt Count (150-450) k/uL MPV Neutrophils % % Lymphocytes % % Monocytes % % Eosinophils % % Basophils % % Neutrophils # (1.3-7.7) k/uL Lymphocytes # (1.0-4.8) k/uL Monocytes # (0-1.0) k/uL Eosinophils # (0-0.7) k/uL Basophils # (0-0.2) k/uL Hypochromasia PT (9.0-12.0) sec INR (<1.2) APTT (22.0-30.0) sec Sample Site ABG pH (7.35-7.45) ABG pCO2 (35-45) mmHg ABG pO2 (83-108) mmHg ABG HCO3 (21-25) mmol/L ABG Total CO2 (19-24) mmol/L ABG O2 Saturation (94-97) % ABG Base Excess mmol/L Wesley Test FiO2 % Sodium (137-145) mmol/L Potassium (3.5-5.1) mmol/L Chloride (98-107) mmol/L Carbon Dioxide (22-30) mmol/L Anion Gap mmol/L BUN (9-20) mg/dL Creatinine (0.66-1.25) mg/dL Est GFR (CKD-EPI)AfAm (>60 ml/min/1.73 sqM) Est GFR (CKD-EPI)NonAf (>60 ml/min/1.73 sqM) Glucose (74-99) mg/dL POC Glucose (mg/dL) 111 H (75-99) mg/dL POC Glu Perinatal Instructor ID Eddie Yoder Plasma Lactic Acid Gilles (0.7-2.0) mmol/L Calcium (8.4-10.2) mg/dL Magnesium (1.6-2.3) mg/dL Total Bilirubin (0.2-1.3) mg/dL AST (17-59) U/L ALT (4-49) U/L Alkaline Phosphatase (38-126) U/L Troponin I (0.000-0.034) ng/mL NT-Pro-B Natriuret Pep 40466 pg/mL Total Protein (6.3-8.2) g/dL Albumin (3.5-5.0) g/dL Coronavirus (PCR) (Not Detectd) - EKG Data EKG Comments: EKG at 806 after pulses are obtained demonstrates a ventricularly paced rhythm with a rate of 71. QRS 202. QTC of 547. No acute ST segment elevation (Camila Soria) Critical Care Time Critical Care Time: Yes <Camila Soria - Last Filed: 04/19/21 12:22> Critical Care Time: 50 minutes (Camila Soria) Disposition Is patient prescribed a controlled substance at d/c from ED?: No - Out of Hospital Transfer - Req. Specs Out of Hospital Transfer - Requested Specifics: Other Emergency Center ([facility] [place]) <Camila Soria - Last Filed: 04/19/21 12:22> Is patient prescribed a controlled substance at d/c from ED?: No <Bal Lipscomb - Last Filed: 04/19/21 16:26> Clinical Impression: Cardiac arrest, Hypotension, Ventilator dependence Disposition: OTHER INSTITUTION NOT DEFINED Condition: Stable Referrals: Al Harper MD [Primary Care Provider] - 1-2 days
--- NOTE | 2021-04-19 07:02 | XR ---
EXAMINATION TYPE: XR chest 2V DATE OF EXAM: 04/19/2021 6:57 AM COMPARISON:Multiple radiographs, with the most recent on 03/10/2021 TECHNIQUE: Frontal and lateral views of the chest. CLINICAL INDICATION:Male, 75 years old with history of altered mental status; FINDINGS: Lungs/Pleura: Low lung volumes are present. There is no evidence of pleural effusion, focal consolida tion, or pneumothorax. Pulmonary vascularity: Unremarkable. Heart/mediastinum: Cardiomediastinal silhouette is unremarkable. Musculoskeletal: No acute osseous pathology. Other findings: Single-lead cardiac conduction device overlying the left hemithorax with lead projecting over the rig ht ventricle. IMPRESSION: Similar cardiomegaly no acute process identified.
[2021-04-19 07:16] LABS: Basophils % (A) 1 %; Eosinophils # (A) 0.1 k/uL (0-0.7); Eosinophils % (A) 1 %; HCT 35.7 % (39.0-53.0); HGB 11.2 gm/dL (13.0-17.5); Hypochromasia Moderate; Lymphocytes # (A) 0.5 k/uL (1.0-4.8); Lymphocytes % (A) 8 %; MCH 30.8 pg (25.0-35.0); MCHC 31.5 g/dL (31.0-37.0); MCV 97.9 fL (80.0-100.0); Mean Platelet Volume 7.6; Monocytes # (A) 0.5 k/uL (0-1.0); Monocytes % (A) 8 %; Neutrophils # (A) 5.4 k/uL (1.3-7.7); Neutrophils % (A) 82 %; Platelet Count 204 k/uL (150-450); RBC 3.65 m/uL (4.30-5.90); RDW 15.3 % (11.5-15.5); WBC 6.6 k/uL (3.8-10.6)
[2021-04-19 07:25] LABS: INR 1.1 (<1.2)
[2021-04-19 07:26] LABS: Partial Thromboplastin Time 24.7 sec (22.0-30.0); Prothrombin Time 11.7 sec (9.0-12.0)
[2021-04-19 07:29] LABS: Albumin 2.6 g/dL (3.5-5.0); Calcium 8.2 mg/dL (8.4-10.2); Potassium 4.1 mmol/L (3.5-5.1); Total Bilirubin 1.1 mg/dL (0.2-1.3); Total Protein 5.2 g/dL (6.3-8.2)
[2021-04-19] MEDS ORDERED: EPINEPHrine 10 ML SYRINGE (0.1 MG/ML) ONE (07:47)
[2021-04-19] MEDS ORDERED: LIDOCAINE 2% SYG (PF) 100 MG/5 ML ONE (07:47)
[2021-04-19] MEDS ORDERED: ETOMIDATE 2 MG/ML 10 ML VIAL IVP STA (07:55)
[2021-04-19] MEDS ORDERED: MIDAZOLAM 1 MG/ML 5 ML VIAL IV STA (08:27)
--- NOTE | 2021-04-19 08:30 | XR ---
EXAMINATION TYPE: XR chest 1V confirm line plcmt DATE OF EXAM: 04/19/2021 8:17 AM COMPARISON:Chest radiograph from same day. TECHNIQUE: Frontal view of the chest. CLINICAL INDICATION:Male, 75 years old with history of intubation; FINDINGS: Lungs/Pleura: Low lung volumes are present. More conspicuous right lower lobe airspace opacities. The re is no evidence of pleural effusion, or pneumothorax. Pulmonary vascularity: Unremarkable. Heart/mediastinum: Cardiomediastinal silhouette is enlarged and stable. Musculoskeletal: No acute osseous pathology. Lines/Tubes: Endotracheal tube with distal tip 2.9 cm above the rosa Nasogastric tube with its distal tip and side-port projecting under the diaphragm. IMPRESSION: 1. Interval placement of endotracheal tube and nasogastric tube with tip in appropriate position. 2. Similar cardiomegaly with low lung volumes on this repeat exam. 3. More Conspicuous right lower lobe medial airspace disease correlate for pneumonia
[2021-04-19] MEDS ORDERED: SUCCINYLCHOLINE CHLORIDE VIAL 200 MG/10 ML VIAL IV STA (08:31)
[2021-04-19] MEDS ORDERED: NOREPINEPHRINE 4 MG in SODIUM CHLORIDE 0.9% 250 ML IV ONE (08:37)
[2021-04-19] MEDS ORDERED: DEXTROSE 5% IN WATER 100 ML with AMIODARONE 150 MG IV ONE ×2 (08:46→08:56)
[2021-04-19] MEDS ORDERED: AMIODARONE 360 MG in DEXTROSE 5% IN WATER 200 ML IV ONE ×2 (08:57)
[2021-04-19] MEDS ORDERED: NOREPINEPHRINE 32 MG in SODIUM CHLORIDE 0.9% 218 ML IV ONE (08:58)
[2021-04-19] MEDS ORDERED: DEXTROSE 50% SYRINGE 50 ML IVP STA (09:04)
[2021-04-19 09:15] LABS: ABG Base Excess 3.9 mmol/L; ABG HCO3 30 mmol/L (21-25); ABG Oxygen Saturation 49.5 % (94-97); ABG PCO2 61 mmHg (35-45); ABG PH 7.31 (7.35-7.45); ABG TCO2 32 mmol/L (19-24); Allen Test Performed? Yes
[2021-04-19 09:15] LABS: Glucose,Whole Blood 75 mg/dL (75-99)
[2021-04-19 09:16] LABS: ABG PO2 30 mmHg (83-108)
[2021-04-19] MEDS ORDERED: AMIODARONE IN DEXTROSE,ISO-OSM 360 MG/200 ML PLAST..BAG IV ONE (09:20)
--- NOTE | 2021-04-19 09:24 | XR ---
EXAMINATION TYPE: XR chest 1V confirm line plcia DATE OF EXAM: 04/19/2021 9:15 AM COMPARISON:Chest radiograph from same day. TECHNIQUE: Frontal view of the chest. CLINICAL INDICATION:Male, 75 years old with history of central line; FINDINGS: Lungs/Pleura: There are bibasilar airspace opacities on the right mid appreciated given lack of cardi ac apex. Pulmonary vascularity: Unremarkable. Heart/mediastinum: Cardiomediastinal silhouette is enlarged and stable. Musculoskeletal: No acute osseous pathology. Other findings: Three lead cardiac conduction device overlying the left hemithorax with lead tips projecting over the right ventricle, right atrium and coronary sinus. Midline sternotomy wires and surgical clips project over the mediastinum. Lines/Tubes: Endotracheal tube with distal tip 8.0 cm above the rosa Nasogastric tube with its distal tip and side-port projecting under the diaphragm. Interval placement of Right internal jugular central venous catheter with distal tip at the cavoatria l junction. IMPRESSION: 1. Interval placement of right IJ central venous catheter with tip in appropriate position. 2. Support lines and tubes. 3. Hazy airspace opacities most conspicuous on the right. Pneumonia. 4. Cardiomegaly.
--- NOTE | 2021-04-19 10:57 | CT ---
EXAMINATION TYPE: CT brain wo con CT DLP: 1433 mGycm, Automated exposure control for dose reduction was used. DATE OF EXAM: 04/19/2021 10:44 AM COMPARISON: Prior CT Brain from 16/12/2017. CLINICAL INDICATION:Male, 75 years old with history of ams, arrest, altered mental status TECHNIQUE: Brain: Multiple axial CT images of the brain were obtained without IV contrast. FINDINGS: Brain: Extra-axial spaces: No abnormal extra-axial fluid collections. Ventricular system: Dilatation in proportion to cerebral atrophy. Cerebral parenchyma: No acute intraparenchymal hemorrhage or mass effect. The dalton-white junction is well differentiated. Scattered hypoattenuating areas are seen within the white matter. Cerebellum: Cerebellar atrophy Mass effect: No evidence of midline shift. Intracranial vasculature: unremarkable Soft tissues: Normal. Calvarium/osseous structures: No depressed skull fracture. Paranasal sinuses and mastoid air cells: Side right maxillary sinus similar to prior. Additional secr etions in the posterior nasal cavity and ethmoid air cells. Visualized orbits: Senile calcific scleral plaques are present. Other: Endotracheal tube and nasogastric tube partially visualized. IMPRESSION: 1. No acute intracranial process. 2. Nonspecific white matter changes, likely secondary to chronic small vessel ischemic disease. 3. Chronic right maxillary sinusitis.
--- NOTE | 2021-04-19 11:07 | CT ---
EXAMINATION TYPE: CT chest angio for PE CT DLP: 777.7 mGycm, Automated exposure control for dose reduction was used. DATE OF EXAM: 04/19/2021 10:45 AM COMPARISON: Chest radiograph from same day. CLINICAL INDICATION:Male, 75 years old with history of cardiac arrest; TECHNIQUE/CONTRAST: CTA scan of the thorax is performed with IV Contrast, patient injected with 80 mL of Isovue 370, pulm onary embolism protocol. MIP images are created and reviewed. FINDINGS: Pulmonary Artery: There is no evidence for a filling defect within the pulmonary vasculature to sugge st acute pulmonary embolism. The pulmonary artery is of normal size. Lungs/Pleura: There are groundglass opacities with a total of the septal thickening and scattered nod ular changes within the right upper lobe. There is small bilateral pleural effusions. No focal airspa ce consolidation or pneumothorax. Consolidation within the lower lobes bilaterally is present. Airway: Endotracheal tube in place with tip above the rosa. Nasogastric tube is also present with t ip under the diaphragm and out of the [id number]. The opacified distal airways seen within the low er lobes bilaterally. Heart: There is enlarged for size there is delayed cardiac conduction device with leads in appropriat e position. Density within the coronary arteries likely representing coronary artery atherosclerosis. Mitral valve repair changes are present. Aortic valve leaflet calcifications are present. Vasculature: No evidence of aortic aneurysm. Atherosclerotic disease of the arterial vasculature. Mediastinum: No gross evidence of adenopathy. Musculoskeletal: Sternotomy wires are present. There is multilevel degenerative disc disease changes seen throughout the spine. Right ribs 4, 5, and 6 and left RIBS, 6, 7 and 8 fractures anteriorly with cortical buckling and minimal displacement of the left rib fractures. Soft Tissues: Unremarkable. Lower neck: No significant findings. Upper Abdomen: No significant findings. IMPRESSION: 1. No evidence of pulmonary embolism. 2. Cardiomegaly with pulmonary vascular congestion and bilateral pleural effusions likely representin g congestive heart failure changes. 3. Reflux of contrast into the IVC likely secondary to #2. 4. Bilateral rib fractures anteriorly likely secondary to CPR. 5. Bilateral lower lobe consolidation changes with opacified distal airways which may represent retai shelley secretions/aspiration.
[2021-04-19] MEDS ORDERED: cefTRIAXone IN SWFI 1,000 MG/10 ML SYRINGE IVP STA ×2 (12:20→12:29)
[2021-04-19 12:31] VITALS: BP 116/64
[2021-04-19 13:11] LABS: Glucose,Whole Blood 111 mg/dL (75-99)
[2021-04-19] MEDS ORDERED: AMIODARONE 450 MG in DEXTROSE 5% IN WATER 250 ML IV SCH ×2 (15:00)
== END 2021-04-19 13:40 | disposition other institution (70) ==
LOC: EC 05:44
DX: I46.9 Cardiac arrest, cause unspecified (principal); I95.9 Hypotension, unspecified; Z99.11 Dependence on respirator [ventilator] status; I48.91 Unspecified atrial fibrillation; I25.10 Atherosclerotic heart disease of native coronary artery without angina pectoris; I11.0 Hypertensive heart disease with heart failure; I50.9 Heart failure, unspecified; E11.9 Type 2 diabetes mellitus without complications; E78.5 Hyperlipidemia, unspecified; I25.2 Old myocardial infarction; M19.90 Unspecified osteoarthritis, unspecified site; F41.9 Anxiety disorder, unspecified; Z20.822 Contact with and (suspected) exposure to COVID-19; Z79.82 Long term (current) use of aspirin; Z79.4 Long term (current) use of insulin; Z85.828 Personal history of other malignant neoplasm of skin; Z95.1 Presence of aortocoronary bypass graft; Z96.653 Presence of artificial knee joint, bilateral; Z87.891 Personal history of nicotine dependence
CPT/HCPCS: 99291; 36556; 31500; 92950; 36415; 36600; 94002; 93005; 83880; 80053; 82805; 83605; 83735; 84484; 85025; 85610; 85730; 87070; 87205; 87635; 71046; 70450; 71275; J0330; J2001; J0171; J2250; J2704; Q9967